=== PATIENT | female | born 1990 | race African-American/Black ===

== ENCOUNTER 2018-01-28 03:48 | Emergency (ER) | payer SELFPAY ==
--- NOTE | 2018-01-28 04:04 | ER ---
Nurse's Notes [facility] Name: Colette Ball Age: 27 yrs Sex: Female : 1990 Arrival Date: 01/28/2018 Time: 03:53 Bed 14 Private MD: Diagnosis: Gingivitis and periodontal diseases Presentation: 01/28 04:02 Presenting complaint: Patient states: she has swollen gum since yesterday feels a lot bb of pressure, has appt with dentist next week. Transition of care: patient was not received from another setting of care. Onset of symptoms was January 27, 2018. Risk Assessment: Do you want to hurt yourself or someone else? Patient reports no desire to harm self or others. Initial Sepsis Screen: Does the patient meet any 2 criteria? No. Patient's initial sepsis screen is negative. Does the patient have a suspected source of infection? No. Patient's initial sepsis screen is negative. Care prior to arrival: None. 04:02 Method Of Arrival: Ambulatory bb 04:02 Acuity: MARANDA 5 bb Triage Assessment: 04:04 General: Appears in no apparent distress. uncomfortable, Behavior is calm, cooperative. bb Pain: Complains of pain in left lower jaw. EENT: Reports pain in left jaw. Neuro: Level of Consciousness is awake, alert, obeys commands, Oriented to person, place, time, situation. Cardiovascular: No deficits noted. Respiratory: Respiratory effort is even, unlabored. GI: No signs and/or symptoms were reported involving the gastrointestinal system. Derm: Skin is pink, warm \T\ dry. Musculoskeletal: Circulation, motion, and sensation intact. 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 - Social history:: Smoking status: Patient/guardian denies using tobacco, Patient/guardian denies using alcohol, street drugs. - Ebola Screening: : No symptoms or risks identified at this time. Screenin:06 Abuse screen: Denies threats or abuse. Nutritional screening: No deficits noted. bb Tuberculosis screening: No symptoms or risk factors identified. Fall Risk None identified. Assessment: 04:06 Reassessment: No changes from previously documented assessment. see triage assessment. bb Vital Signs: 04:04 BP 111 / 87; Pulse 87; Resp 18 S; Temp 99.2(O); Pulse Ox 99% on R/A; Weight 53.52 kg bb (R); Height 5 ft. 2 in. (157.48 cm) (R); Pain 8/10; 04:04 Body Mass Index 21.58 (53.52 kg, 157.48 cm) bb ED Course: 03:53 Patient arrived in ED. es 03:58 Luis aMrr MD is Attending Physician. tw4 04:03 Triage completed. bb 04:04 Arm band placed on Patient placed in an exam room, on a stretcher, on pulse oximetry. bb Family accompanied patient. 04:06 Patient has correct armband on for positive identification. Call light in reach. Side bb rails up X 1. Adult w/ patient. 04:06 No provider procedures requiring assistance completed. Patient did not have IV access bb during this emergency room visit. 04:15 Gordo Beckford, RN is Primary Nurse. ao Administered Medications: 04:16 Drug: Tylenol #3 (300 mg-30 mg) 1 tablet Route: PO; ao 04:16 Follow up: Response: No adverse reaction ao 04:16 Follow up: Response: Medication administered at discharge. ao 04:16 Drug: Cleocin 300 mg Route: PO; ao 04:16 Follow up: Response: Medication administered at discharge. ao Outcome: 04:03 Discharge ordered by . tw4 04:17 Discharged to home ambulatory. ao 04:17 Condition: stable 04:17 Discharge instructions given to patient, Instructed on discharge instructions, follow up and referral plans. Demonstrated understanding of instructions, follow-up care, medications, Prescriptions given X 3. 04:17 Patient left the ED. ao Signatures: Diane García Brenda, RN RN bb Gordo Beckford, Luis Mcadams RN, MD MD tw4 Corrections: (The following items were deleted from the chart) 04:08 04:06 Reassessment: No changes from previously documented assessment. see triage bb assessment. Pt verbalized understanding of and agrees to plan of care discharge instructions given pt ambulated with steady gait to exit bb
[2018-01-28] MEDS ORDERED: CLINDAMYCIN HCL 150 MG CAP ONE (04:08)
[2018-01-28] MEDS ORDERED: CODEINE 30MG/APAP 300MG TAB ONE (04:11)
--- NOTE | 2018-01-28 04:18 | EDPHYS ---
Physician Documentation [facility] Name: Colette Ball Age: 27 yrs Sex: Female : 1990 Arrival Date: 01/28/2018 Time: 03:53 Bed 14 Private MD: ED Physician Luis Marr HPI: 01/28 04:05 This 27 yrs old Black Female presents to ER via Ambulatory with complaints of Toothache.tw4 04:05 The patient presents with pain, redness, swelling. The problem is located in the lower tw4 left third molar. Onset: The symptoms/episode began/occurred yesterday. Duration: The symptoms are continuous. Modifying factors: The symptoms are alleviated by nothing, the symptoms are aggravated by nothing. Associated signs and symptoms: The patient has no apparent associated signs or symptoms. Severity of symptoms: At their worst the symptoms were moderate, in the emergency department the symptoms are unchanged. The patient has not experienced similar symptoms in the past. 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 - Social history:: Smoking status: Patient/guardian denies using tobacco, Patient/guardian denies using alcohol, street drugs. - Ebola Screening: : No symptoms or risks identified at this time. ROS: 04:05 Constitutional: Negative for fever, chills, and weight loss. tw4 04:05 Cardiovascular: Negative for chest pain, palpitations, and edema, Respiratory: Negative for shortness of breath, cough, wheezing, and pleuritic chest pain, Abdomen/GI: Negative for abdominal pain, nausea, vomiting, diarrhea, and constipation, Back: Negative for injury and pain. 04:05 ENT: Positive for Gum pain Negative for ear pain, foreign body sensation, hearing loss, pulling at ears, Teeth pain tinnitus, nasal discharge, rhinorrhea, sinus congestion. Exam: 04:05 Constitutional: This is a well developed, well nourished patient who is awake, alert, tw4 and in no acute distress. Chest/axilla: Normal chest wall appearance and motion. Nontender with no deformity. No lesions are appreciated. Cardiovascular: Regular rate and rhythm with a normal S1 and S2. No gallops, murmurs, or rubs. Normal PMI, no JVD. No pulse deficits. Respiratory: Lungs have equal breath sounds bilaterally, clear to auscultation and percussion. No rales, rhonchi or wheezes noted. No increased work of breathing, no retractions or nasal flaring. Abdomen/GI: Soft, non-tender, with normal bowel sounds. No distension or tympany. No guarding or rebound. No evidence of tenderness throughout. 04:05 ENT: Mouth: Gums: reddened, swollen, on the lower left third molar. Vital Signs: 04:04 BP 111 / 87; Pulse 87; Resp 18 S; Temp 99.2(O); Pulse Ox 99% on R/A; Weight 53.52 kg bb (R); Height 5 ft. 2 in. (157.48 cm) (R); Pain 8/10; 04:04 Body Mass Index 21.58 (53.52 kg, 157.48 cm) bb MDM: 03:58 Patient medically screened. tw4 04:05 Differential diagnosis: gingivitis, dental abscess, pericoronitis. Data reviewed: vital tw4 signs, nurses notes. Counseling: I had a detailed discussion with the patient and/or guardian regarding: the historical points, exam findings, and any diagnostic results supporting the discharge/admit diagnosis. Special discussion: I discussed with the patient/guardian in detail that at this point there is no indication for admission to the hospital. It is understood, however, that if the symptoms persist or worsen the patient needs to return immediately for re-evaluation. Administered Medications: 04:16 Drug: Tylenol #3 (300 mg-30 mg) 1 tablet Route: PO; ao 04:16 Follow up: Response: No adverse reaction ao 04:16 Follow up: Response: Medication administered at discharge. ao 04:16 Drug: Cleocin 300 mg Route: PO; ao 04:16 Follow up: Response: Medication administered at discharge. ao Disposition: 01/28/18 04:03 Discharged to Home. Impression: Gingivitis and periodontal diseases. - Condition is Stable. - Discharge Instructions: Gingivitis, Ljst-di-Wtmd. - Prescriptions for Peridex 0.12 % Mucous Membrane mouthwash - place 15 milliliter by MUCOUS MEMBRANE route 2 times per day after brushing teeth, swish in mouth for 30 seconds then spit out; 100 milliliter. Cleocin 300 mg Oral Capsule - take 1 capsule by ORAL route every 6 hours for 10 days; 40 capsule. Ibuprofen 800 mg Oral Tablet - take 1 tablet by ORAL route every 8 hours As needed take with food; 30 tablet. Tylenol- Codeine #3 300-30 mg Oral Tablet - take 2 tablets by ORAL route every 6 hours As needed; 15 tablet. - Medication Reconciliation Form, Thank You Letter, Antibiotic Education, Prescription Opioid Use form. - Follow up: Private Physician; When: As needed; Reason: Recheck today's complaints, Re-evaluation by your physician. - Problem is new. - Symptoms have improved. Signatures: Shawanda Goodman RN RN Gordo Scott RN RN Luis Oleary MD MD tw4 Corrections: (The following items were deleted from the chart) 04:17 04:03 01/28/2018 04:03 Discharged to Home. Impression: Gingivitis and periodontal ao diseases. Condition is Stable. Forms are Medication Reconciliation Form, Thank You Letter, Antibiotic Education, Prescription Opioid Use. Follow up: Private Physician; When: As needed; Reason: Recheck today's complaints, Re-evaluation by your physician. Problem is new. Symptoms have improved. tw4
== END 2018-01-28 04:17 | disposition home or self-care (01) ==
LOC: ER 03:48
DX: K05.10 Chronic gingivitis, plaque induced (principal); K05.6 Periodontal disease, unspecified
CPT/HCPCS: 99283

== ENCOUNTER 2018-09-29 20:49 | Emergency (ER) | payer SELFPAY ==
--- OUTSIDE RECORDS SUMMARY | 2018-09-29 20:51 | XMS REPORT ---
:1990 [facility] Address [address] [place] [address] [address] [place] [address] Care Team Providers Name Role Phone Unavailable Unavailable Unavailable Problems This patient has no known problems. Allergies, Adverse Reactions, Alerts This patient has no known allergies or adverse reactions. Medications This patient has no known medications.
--- NOTE | 2018-09-29 22:18 | EDPHYS ---
Physician Documentation [facility] Name: Colette aBll Age: 28 yrs Sex: Female : 1990 Arrival Date: 09/29/2018 Time: 20:52 Bed 18 Private MD: ED Physician Andrew Marin HPI: 09/29 22:05 This 28 yrs old Black Female presents to ER via Ambulatory with complaints of cp Congestion, Shortness Of Breath. 22:05 The patient or guardian reports cough, that is intermittent. cp 22:05 Onset: The symptoms/episode began/occurred 4 day(s) ago. Associated signs and symptoms: cp Pertinent positives: sinus congestion, Pertinent negatives: diarrhea, ear ache, fever, sore throat, vomiting. The patient has been recently seen by a physician: in [facility] clinic, with similar presenting complaints, but the patient's symptoms have persisted. 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 - Social history:: Smoking status: Patient/guardian denies using tobacco. - Ebola Screening: : No symptoms or risks identified at this time. ROS: 22:10 Constitutional: Negative for body aches, chills, fever, poor PO intake. cp 22:10 Eyes: Negative for injury, pain, redness, and discharge. cp 22:10 ENT: Positive for sinus congestion, Negative for drainage from ear(s), ear pain, sore throat, difficulty swallowing, difficulty handling secretions. 22:10 Neck: Negative for pain with movement, pain at rest, stiffness. 22:10 Respiratory: Positive for cough, shortness of breath, on exertion. Negative for wheezing. 22:10 Abdomen/GI: Negative for abdominal pain, nausea, vomiting, and diarrhea. 22:10 Skin: Negative for cellulitis, rash. 22:10 Neuro: Negative for altered mental status, headache, weakness. 22:10 All other systems are negative. Exam: 22:12 Constitutional: The patient appears in no acute distress, alert, awake, non-toxic, well cp developed, well nourished. 22:12 Head/Face: Normocephalic, atraumatic. cp 22:12 Eyes: Periorbital structures: appear normal, Conjunctiva: normal, no exudate, no injection, Lids and lashes: appear normal, bilaterally. 22:12 ENT: External ear(s): are unremarkable, Ear canal(s): are normal, clear, TM's: bulging, is not appreciated, bilaterally, dullness, bilaterally, erythema, is not appreciated, bilaterally, Nose: is normal, Mouth: Lips: moist, Oral mucosa: pink and intact, moist, Posterior pharynx: Airway: no evidence of obstruction, patent, Tonsils: are normal in appearance, Uvula: midline, swelling, is not appreciated, erythema, is not appreciated, exudate, is not appreciated. 22:12 Neck: ROM/movement: is normal, is supple, without pain, no range of motions limitations, no meningismus, no nuchal rigidity, Lymph nodes: no appreciated lymphadenopathy. 22:12 Chest/axilla: Inspection: normal. 22:12 Cardiovascular: Rate: normal, Rhythm: regular. 22:12 Respiratory: the patient does not display signs of respiratory distress, Respirations: normal, no use of accessory muscles, no retractions, no splinting, no tachypnea, labored breathing, is not present, Breath sounds: are clear throughout, no decreased breath sounds, no stridor, no wheezing. 22:12 Abdomen/GI: Exam negative for discomfort, distension, guarding. 22:12 Skin: cellulitis, is not appreciated, no rash present. Vital Signs: 21:06 BP 119 / 82; Pulse 99; Resp 16; Temp 98.9(O); Pulse Ox 100% on R/A; Weight 53.52 kg; lp1 Height 5 ft. 2 in. (157.48 cm); Pain 0/10; 22:26 BP 113 / 76; Pulse 73; Resp 17; Pulse Ox 100% on R/A; Pain 0/10; ed1 21:06 Body Mass Index 21.58 (53.52 kg, 157.48 cm) lp1 MDM: 21:56 Patient medically screened. cp 22:10 Differential Diagnosis: Bronchitis Influenza Sinusitis Pharyngitis Otitis Media. cp 22:16 Data reviewed: vital signs, nurses notes, and as a result, I will discharge patient. cp 22:16 Counseling: I had a detailed discussion with the patient and/or guardian regarding: the cp historical points, exam findings, and any diagnostic results supporting the discharge/admit diagnosis, to return to the emergency department if symptoms worsen or persist or if there are any questions or concerns that arise at home. Administered Medications: No medications were administered Disposition: 09/29/18 22:17 Discharged to Home. Impression: Acute upper respiratory infection, unspecified. - Condition is Stable. - Discharge Instructions: Upper Respiratory Infection, Adult. - Prescriptions for Tessalon Perles 100 mg Oral Capsule - take 1 capsule by ORAL route every 8 hours As needed; 15 capsule. Albuterol Sulfate 90 mcg/actuation - inhale 1-2 puff by INHALATION route every 4-6 hours; 1 Inhaler. - Medication Reconciliation Form, Thank You Letter, Antibiotic Education, Prescription Opioid Use form. - Follow up: Private Physician; When: 2 - 3 days; Reason: Worsening of condition. - Problem is new. - Symptoms are unchanged. Addendum: 10/02/2018 07:20 Co-signature as Attending Physician, Andrew Marin MD I agree with the assessment and c phillips plan of care. Signatures: Andrew Marin MD MD cha Riggs, Erika, RN RN ed1 Aviva Braden, RN RN lp1 Andrew Madsen PA PA cp Corrections: (The following items were deleted from the chart) 09/29 22:27 22:17 09/29/2018 22:17 Discharged to Home. Impression: Acute upper respiratory ed1 infection, unspecified. Condition is Stable. Forms are Medication Reconciliation Form, Thank You Letter, Antibiotic Education, Prescription Opioid Use. Follow up: Private Physician; When: 2 - 3 days; Reason: Worsening of condition. Problem is new. Symptoms are unchanged. cp
--- NOTE | 2018-09-29 22:18 | ER ---
Nurse's Notes [facility] Name: Colette Ball Age: 28 yrs Sex: Female : 1990 Arrival Date: 09/29/2018 Time: 20:52 Bed 18 Private MD: Diagnosis: Acute upper respiratory infection, unspecified Presentation: 09/29 21:04 Presenting complaint: Patient states: "I've been sick since Friday night, I went to the [facility] clinic but I'm not feeling any better"; States continued congestion, fatigue, shortness of breath; Denies any fever. Transition of care: patient was not received from another setting of care. Onset of symptoms was September 29, 2018. Risk Assessment: Do you want to hurt yourself or someone else? Patient reports no desire to harm self or others. Initial Sepsis Screen: Does the patient meet any 2 criteria? No. Patient's initial sepsis screen is negative. Does the patient have a suspected source of infection? No. Patient's initial sepsis screen is negative. Care prior to arrival: None. 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 - Social history:: Smoking status: Patient/guardian denies using tobacco. - Ebola Screening: : No symptoms or risks identified at this time. Screenin:07 Abuse screen: Denies threats or abuse. Denies injuries from another. Nutritional lp1 screening: No deficits noted. Tuberculosis screening: No symptoms or risk factors identified. Fall Risk None identified. Assessment: 21:18 General: Appears in no apparent distress. Behavior is calm, cooperative. Pain: Denies ed1 pain. Neuro: Level of Consciousness is awake, alert, obeys commands, Oriented to person, place, time, situation, Reports weakness Denies blurred vision dizziness. Cardiovascular: Denies chest pain, Heart tones S1 S2 present Capillary refill < 3 seconds in bilateral fingers Patient's skin is warm and dry. Respiratory: Reports shortness of breath cough that is Airway is patent Respiratory effort is even, unlabored, Respiratory pattern is regular, symmetrical, Breath sounds are clear bilaterally. GI: Reports decreased appetite Patient currently denies diarrhea, nausea, vomiting. : No signs and/or symptoms were reported regarding the genitourinary system. EENT: Reports nasal congestion "sinus pressure". Derm: Skin is intact, is healthy with good turgor, Skin is dry, Skin is normal, Skin temperature is warm. Musculoskeletal: Circulation, motion, and sensation intact. Capillary refill < 3 seconds, in bilateral fingers. 22:26 Reassessment: Patient appears in no apparent distress at this time. No changes from ed1 previously documented assessment. Patient and/or family updated on plan of care and expected duration. Pain level reassessed. Patient is alert, oriented x 3, equal unlabored respirations, skin warm/dry/pink. Patient states symptoms have not improved. Vital Signs: 21:06 BP 119 / 82; Pulse 99; Resp 16; Temp 98.9(O); Pulse Ox 100% on R/A; Weight 53.52 kg; lp1 Height 5 ft. 2 in. (157.48 cm); Pain 0/10; 22:26 BP 113 / 76; Pulse 73; Resp 17; Pulse Ox 100% on R/A; Pain 0/10; ed1 21:06 Body Mass Index 21.58 (53.52 kg, 157.48 cm) lp1 ED Course: 20:52 Patient arrived in ED. es 21:05 Triage completed. lp1 21:05 Arm band placed on left wrist. lp1 21:16 Shweta Galvez, RN is Primary Nurse. ed1 21:18 Patient has correct armband on for positive identification. Bed in low position. Call ed1 light in reach. 21:56 Andrew Madsen PA is PHCP. cp 21:56 Andrew Marin MD is Attending Physician. cp 22:26 No provider procedures requiring assistance completed. Patient did not have IV access ed1 during this emergency room visit. Administered Medications: No medications were administered Outcome: 22:17 Discharge ordered by MD. cp 22:26 Discharged to home ambulatory. ed1 22:26 Condition: good 22:26 Discharge instructions given to patient, Instructed on discharge instructions, follow up and referral plans. medication usage, Demonstrated understanding of instructions, follow-up care, medications, Prescriptions given X 2. 22:27 Patient left the ED. ed1 Signatures: Diane García Erika RN RN ed1 Aviva Braden RN RN lp1 Andrew Madsen PA PA cp Corrections: (The following items were deleted from the chart) 21:10 21:04 Acuity: MARANDA 4 lp1 lp1
== END 2018-09-29 22:27 | disposition home or self-care (01) ==
LOC: ER 20:49
DX: J06.9 Acute upper respiratory infection, unspecified (principal)
CPT/HCPCS: 99282

== ENCOUNTER 2019-02-09 21:39 | Emergency (ER) | payer OTHER ==
--- OUTSIDE RECORDS SUMMARY | 2019-02-09 21:41 | XMS REPORT ---
:1990 Author Organization [employer] Care Team Providers Name Role Phone Adam Noguera Provider Role Unavailable Allergies, Adverse Reactions, Alerts Substance Reaction Event Type N.K.D.A. Info Not Available Non Drug Allergy Problems Problem Type Condition Code Onset Dates Condition Status Assessment Well adult on routine health check Z00.00 Active Assessment Need for influenza vaccination Z23 Active Medications Medication Code System Code Instructions Start End Date Status Dosage Date Multivitamin [facility] [id number] - Orally Active as directed Results No Known Results Summary Purpose [employer] Submission
--- OUTSIDE RECORDS SUMMARY | 2019-02-09 21:41 | XMS REPORT ---
:1990 [facility] Address [address] [place] [address] [address]. [address] [place] [id number] Care Team Providers Name Role Phone Unavailable Unavailable Unavailable Problems This patient has no known problems. Allergies, Adverse Reactions, Alerts This patient has no known allergies or adverse reactions. Medications This patient has no known medications.
--- OUTSIDE RECORDS SUMMARY | 2019-02-09 21:41 | XMS REPORT ---
:1990 Author Organization [employer] Care Team Providers Name Role Phone Adam Noguera Provider Role Unavailable Allergies, Adverse Reactions, Alerts Substance Reaction Event Type N.K.D.A. Info Not Available Non Drug Allergy Problems Problem Type Condition Code Onset Dates Condition Status Assessment Prediabetes R73.03 Active Assessment Elevated serum protein level R77.9 Active Assessment Dehydration E86.0 Active Assessment Fatigue, unspecified type R53.83 Active Medications Medication Code System Code Instructions Start End Date Status Dosage Date Multivitamin NDC [id number] - Orally Active as directed Results No Known Results Summary Purpose [employer] Submission
[2019-02-09 23:11] LABS: Absolute Lymphocytes (CBC) 1.5 K/uL (0.7-4.9); Basophils % 0.5 % (0-1.3); Eosinophils % 2.8 % (0-4.4); Hematocrit 40.7 % (36.0-45.0); Lymphocytes % 26.3 % (15.3-44.8); MPV 8.4 fL (7.6-11.3); RBC Red Blood Cell Count 4.61 M/uL (3.86-4.86)
[2019-02-09] MEDS ORDERED: NA CHLORIDE 0.9% 1,000 ML ONE (23:16)
[2019-02-09 23:25] LABS: ALT/SGPT 31 U/L (12-78); AST/SGOT 18 U/L (15-37); Albumin 4.5 g/dL (3.4-5.0); Alkaline Phosphatase 60 U/L (45-117); BUN Blood Urea Nitrogen 10 mg/dL (7-18); Bicarbonate 24 mmol/L (21-32); Bilirubin Direct < 0.1 mg/dL (0-0.2); Bilirubin Total 0.4 mg/dL (0.2-1.0); Glucose Level 124 mg/dL (74-106); Magnesium 2.2 mg/dL (1.8-2.4); NT PRO-BNP 10 pg/mL (<125); Protein, Total 8.6 g/dL (6.4-8.2); Sodium Level 141 mmol/L (136-145); Troponin (Emerg Dept Use Only) < 0.02 ng/mL (0.0-0.045)
[2019-02-10 00:44] LABS: Barbiturates NEGATIVE (NEGATIVE); Benzodiazepines NEGATIVE (NEGATIVE); Cocaine NEGATIVE (NEGATIVE); METHAMPHETAM NEGATIVE (NEGATIVE); Methadone NEGATIVE (NEGATIVE); Opiates NEGATIVE (NEGATIVE); Phencyclidine NEGATIVE (NEGATIVE); THC Cannibis NEGATIVE (NEGATIVE)
[2019-02-10] MEDS ORDERED: POTASSIUM 25 MEQ EFFERV TAB ONE (00:47)
[2019-02-10 02:41] LABS: Protime INR 1.14
[2019-02-10 02:54] LABS: CKMB Creatine Kinase MB < 1.0 ng/mL (0.3-3.6); Creatine Phosphokinase 70 U/L (26-192); Troponin (Emerg Dept Use Only) < 0.02 ng/mL (0.0-0.045)
[2019-02-10] MEDS ORDERED: NA CHLORIDE 0.9% 1,000 ML ONE (03:24)
--- NOTE | 2019-02-10 03:57 | ER ---
Nurse's Notes [facility] Name: Colette Ball Age: 28 yrs Sex: Female : 1990 Arrival Date: 02/09/2019 Time: 21:51 Bed 15 Private MD: Diagnosis: Dehydration;Shortness of breath Presentation: 02/09 21:56 Presenting complaint: Patient states: Shakiness, dizzy, lightheaded and nausea for the tl2 past few months, has seen Dr. Noguera is receiving tests for diabetes and anemia, no treatment at this time. Transition of care: patient was not received from another setting of care. Onset of symptoms was November 2018. Risk Assessment: Do you want to hurt yourself or someone else? Patient reports no desire to harm self or others. Initial Sepsis Screen: Does the patient meet any 2 criteria? HR > 90 bpm. Does the patient have a suspected source of infection? No. Patient's initial sepsis screen is negative. Care prior to arrival: None. 21:56 Method Of Arrival: Ambulatory tl2 21:56 Acuity: MARANDA 3 tl2 Triage Assessment: 21:57 General: Reports feeling ill for fatigue for. 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 - Social history:: Smoking status: Patient/guardian denies using tobacco. - Ebola Screening: : No symptoms or risks identified at this time. Screenin:58 Abuse screen: Denies threats or abuse. Nutritional screening: No deficits noted. tl2 Tuberculosis screening: No symptoms or risk factors identified. Fall Risk None identified. Assessment: 22:00 General: Appears in no apparent distress. uncomfortable, Behavior is calm, cooperative, jb4 appropriate for age. Pain: Denies pain. Neuro: Level of Consciousness is awake, alert, obeys commands, Oriented to person, place, time, situation. Cardiovascular: Patient's skin is warm and dry. Rhythm is sinus tachycardia. Respiratory: Airway is patent Respiratory effort is even, Breath sounds are clear bilaterally. GI: No signs and/or symptoms were reported involving the gastrointestinal system. : No signs and/or symptoms were reported regarding the genitourinary system. EENT: No signs and/or symptoms were reported regarding the EENT system. Derm: Skin is intact, Skin is pink, warm \T\ dry. Musculoskeletal: Circulation, motion, and sensation intact. 23:00 Reassessment: Patient appears in no apparent distress at this time. Patient and/or jb4 family updated on plan of care and expected duration. Pain level reassessed. Patient is alert, oriented x 3, equal unlabored respirations, skin warm/dry/pink. 02/10 00:00 Reassessment: Patient appears in no apparent distress at this time. Patient and/or jb4 family updated on plan of care and expected duration. Pain level reassessed. Patient is alert, oriented x 3, equal unlabored respirations, skin warm/dry/pink. 00:57 Reassessment: Patient appears in no apparent distress at this time. Patient and/or jb4 family updated on plan of care and expected duration. Pain level reassessed. Patient is alert, oriented x 3, equal unlabored respirations, skin warm/dry/pink. 02:00 Reassessment: Patient appears in no apparent distress at this time. Patient and/or jb4 family updated on plan of care and expected duration. Pain level reassessed. Patient is alert, oriented x 3, equal unlabored respirations, skin warm/dry/pink. 03:00 Reassessment: Patient appears in no apparent distress at this time. Patient and/or jb4 family updated on plan of care and expected duration. Pain level reassessed. Patient is alert, oriented x 3, equal unlabored respirations, skin warm/dry/pink. 04:00 Reassessment: Patient appears in no apparent distress at this time. Patient and/or jb4 family updated on plan of care and expected duration. Pain level reassessed. Patient is alert, oriented x 3, equal unlabored respirations, skin warm/dry/pink. Patient denies pain at this time. Patient states feeling better. 04:38 Reassessment: Patient appears in no apparent distress at this time. Patient is alert, jb4 oriented x 3, equal unlabored respirations, skin warm/dry/pink. Pt ambulated out of ED with family, steady gait noted, verbalized understanding of d/c and follow up instructions. denies questions or concerns. Vital Signs: 02/09 21:57 BP 120 / 103; Pulse 106; Resp 20; Temp 99(O); Pulse Ox 100% on R/A; Weight 56.7 kg; tl2 Height 5 ft. 2 in. (157.48 cm); Pain 0/10; 23:10 BP 112 / 70 Supine; Pulse 109 LA; ag4 23:10 BP 120 / 81 Sitting; Pulse 104 LA; ag4 23:10 BP 110 / 92 Standing; Pulse 128 LA; ag4 02/10 00:52 BP 128 / 86; Pulse 112; Resp 16; Pulse Ox 100% on 2 lpm NC; jb4 02:00 BP 138 / 83; Pulse 108; Resp 16; Pulse Ox 100% on R/A; jb4 03:00 BP 113 / 75; Pulse 97; Resp 17; Pulse Ox 100% on R/A; jb4 04:15 BP 110 / 78; Pulse 85; Resp 16; Pulse Ox 99% on R/A; jb4 02/09 21:57 Body Mass Index 22.86 (56.70 kg, 157.48 cm) tl2 ED Course: 02/09 21:51 Patient arrived in ED. am2 21:57 Triage completed. tl2 21:57 Arm band placed on right wrist. tl2 21:58 Patient has correct armband on for positive identification. Bed in low position. Call tl2 light in reach. Side rails up X 1. 22:00 Sen Hanson NP is PHCP. pm1 22:00 Claudy Garcia MD is Attending Physician. pm1 22:25 Kunal Mora, GLADYS is Primary Nurse. jb4 22:47 XRAY Chest (1 view) In Process Unspecified. EDMS 22:58 Inserted saline lock: 22 gauge in right antecubital area, using aseptic technique. ag4 Blood collected. 22:58 EKG done, by ED staff, reviewed by Sen Hanson NP. ag4 23:45 Radiology exam delayed due to test not completed at this time. 02/10 00:42 CT completed. Patient tolerated procedure well. Patient moved to CT via wheelchair. Patient moved back from CT. 00:49 CT Chest For PE Angio In Process Unspecified. EDMS 04:38 No provider procedures requiring assistance completed. IV discontinued, intact, jb4 bleeding controlled, No redness/swelling at site. Pressure dressing applied. Administered Medications: 02/09 23:20 Drug: NS 0.9% 1000 ml Route: IV; Rate: 1000 ml; Site: right wrist; jb4 02/10 00:42 Drug: Potassium Effervescent Tablet 50 mEq Route: PO; cc3 04:14 Follow up: Response: No adverse reaction jb4 02:15 Drug: NS 0.9% 1000 ml Route: IV; Rate: 1000 ml; Site: right wrist; jb4 03:30 Follow up: Response: No adverse reaction; IV Status: Completed infusion; IV Intake: jb4 1000ml Intake: 03:30 IV: 1000ml; Total: 1000ml. jb4 Outcome: 03:56 Discharge ordered by MD. pm1 04:38 Discharged to home ambulatory, with family. jb4 04:38 Condition: stable 04:38 Discharge instructions given to patient, Instructed on discharge instructions, follow up and referral plans. Demonstrated understanding of instructions, follow-up care. 04:44 Patient left the ED. jb4 Signatures: Dispatcher [employer] EDMS Sai Patel Patrick, NP DOMESTIC CLEANER pm1 Kaci Dennis RN RN tl2 Kunal Mora RN RN jb4 Vy Boudreaux Charlene cc3 Silverio Paul ag4 Corrections: (The following items were deleted from the chart) 03:07 00:52 BP 128 / 86; Pulse 112bpm; Resp 16bpm; Pulse Ox 100% RA; jb4 jb4
--- NOTE | 2019-02-10 03:57 | EDPHYS ---
Physician Documentation [facility] Name: Colette Ball Age: 28 yrs Sex: Female : 1990 Arrival Date: 02/09/2019 Time: 21:51 Bed 15 Private MD: ED Physician Claudy Garcia HPI: 02/09 22:50 This 28 yrs old Black Female presents to ER via Ambulatory with complaints of Shortness pm1 Of Breath, Dizziness. 22:50 The patient has shortness of breath at rest. Onset: The symptoms/episode began/occurred pm1 3 month(s) ago. Duration: The symptoms are intermittent. The patient's shortness of breath is aggravated by nothing, is alleviated by nothing. Associated signs and symptoms: Pertinent positives: dizziness, Pertinent negatives: chest pain, fever. Severity of symptoms: in the emergency department the symptoms are worse past 1 week. The patient has been recently seen by a physician: the patient's primary care provider, with similar presenting complaints, lab tests were done. 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 - Social history:: Smoking status: Patient/guardian denies using tobacco. - Ebola Screening: : No symptoms or risks identified at this time. ROS: 22:50 Constitutional: Negative for fever, chills, and weight loss, Eyes: Negative for injury, pm1 pain, redness, and discharge, ENT: Negative for injury, pain, and discharge, Neck: Negative for injury, pain, and swelling, Cardiovascular: Negative for chest pain, palpitations, and edema. 22:50 Abdomen/GI: Negative for abdominal pain, nausea, vomiting, diarrhea, and constipation, Back: Negative for injury and pain, : Negative for injury, bleeding, discharge, and swelling, MS/Extremity: Negative for injury and deformity, Skin: Negative for injury, rash, and discoloration. 22:50 Respiratory: Positive for shortness of breath, Negative for cough, wheezing. 22:50 Neuro: Positive for dizziness, Negative for headache. Exam: 22:50 Constitutional: This is a well developed, well nourished patient who is awake, alert, pm1 and in no acute distress. Head/Face: Normocephalic, atraumatic. Eyes: Pupils equal round and reactive to light, extra-ocular motions intact. Lids and lashes normal. Conjunctiva and sclera are non-icteric and not injected. Cornea within normal limits. Periorbital areas with no swelling, redness, or edema. ENT: Nares patent. No nasal discharge, no septal abnormalities noted. Tympanic membranes are normal and external auditory canals are clear. Oropharynx with no redness, swelling, or masses, exudates, or evidence of obstruction, uvula midline. Mucous membranes moist. Neck: Trachea midline, no thyromegaly or masses palpated, and no cervical lymphadenopathy. Supple, full range of motion without nuchal rigidity, or vertebral point tenderness. No Meningismus. Chest/axilla: Normal chest wall appearance and motion. Nontender with no deformity. No lesions are appreciated. 22:50 Respiratory: Lungs have equal breath sounds bilaterally, clear to auscultation and percussion. No rales, rhonchi or wheezes noted. No increased work of breathing, no retractions or nasal flaring. Abdomen/GI: Soft, non-tender, with normal bowel sounds. No distension or tympany. No guarding or rebound. No evidence of tenderness throughout. Back: No spinal tenderness. No costovertebral tenderness. Full range of motion. Skin: Warm, dry with normal turgor. Normal color with no rashes, no lesions, and no evidence of cellulitis. MS/ Extremity: Pulses equal, no cyanosis. Neurovascular intact. Full, normal range of motion. 22:50 Cardiovascular: Rate: tachycardic, Edema: is not appreciated. 22:50 Neuro: Orientation: is normal, Motor: is normal, moves all fours. Vital Signs: 21:57 BP 120 / 103; Pulse 106; Resp 20; Temp 99(O); Pulse Ox 100% on R/A; Weight 56.7 kg; tl2 Height 5 ft. 2 in. (157.48 cm); Pain 0/10; 23:10 BP 112 / 70 Supine; Pulse 109 LA; ag4 23:10 BP 120 / 81 Sitting; Pulse 104 LA; ag4 23:10 BP 110 / 92 Standing; Pulse 128 LA; ag4 02/10 00:52 BP 128 / 86; Pulse 112; Resp 16; Pulse Ox 100% on 2 lpm NC; jb4 02:00 BP 138 / 83; Pulse 108; Resp 16; Pulse Ox 100% on R/A; jb4 03:00 BP 113 / 75; Pulse 97; Resp 17; Pulse Ox 100% on R/A; jb4 04:15 BP 110 / 78; Pulse 85; Resp 16; Pulse Ox 99% on R/A; jb4 02/09 21:57 Body Mass Index 22.86 (56.70 kg, 157.48 cm) tl2 MDM: 02/09 22:00 Patient medically screened. pm1 02/10 01:58 Data reviewed: vital signs. Data interpreted: Pulse oximetry: on room air is 100 %. pm1 Interpretation: normal. 03:55 Counseling: I had a detailed discussion with the patient and/or guardian regarding: the pm1 historical points, exam findings, and any diagnostic results supporting the discharge/admit diagnosis, lab results, radiology results, the need for outpatient follow up, to return to the emergency department if symptoms worsen or persist or if there are any questions or concerns that arise at home. 02/09 22:16 Order name: Basic Metabolic Panel; Complete Time: 23:31 pm02/09 22:16 Order name: CBC with Diff; Complete Time: 23:44 pm02/09 22:16 Order name: LFT's; Complete Time: 23:31 pm02/09 22:16 Order name: Magnesium; Complete Time: 23:31 pm02/09 22:16 Order name: NT PRO-BNP; Complete Time: 23:31 pm02/09 22:16 Order name: PT-INR; Complete Time: 03:55 pm02/09 22:16 Order name: Troponin (emerg Dept Use Only); Complete Time: 23:31 pm02/09 22:16 Order name: XRAY Chest (1 view); Complete Time: 06:38 pm1 02/09 22:16 Order name: UDS; Complete Time: 00:46 pm1 02/10 00:08 Order name: Urine Dipstick--Ancillary (enter results); Complete Time: 06:38 2 02/10 00:08 Order name: Urine --Ancillary (enter results); Complete Time: 06:38 mw2 02/10 01:33 Order name: Troponin (emerg Dept Use Only); Complete Time: 03:55 pm02/10 01:33 Order name: CPK; Complete Time: 03:55 pm02/10 01:33 Order name: Ckmb; Complete Time: 03:55 pm02/09 22:16 Order name: EKG; Complete Time: 22:29 pm02/09 22:16 Order name: Cardiac monitoring; Complete Time: 22:57 pm02/09 22:16 Order name: EKG - Nurse/Tech; Complete Time: 22:57 pm02/09 22:16 Order name: IV Saline Lock; Complete Time: 22:57 pm02/09 22:16 Order name: Labs collected and sent; Complete Time: 22:57 pm02/09 22:16 Order name: O2 Per Protocol; Complete Time: 22:57 pm02/09 22:16 Order name: O2 Sat Monitoring; Complete Time: 22:26 pm02/09 22:16 Order name: Orthostatics; Complete Time: 23:13 pm02/09 22:52 Order name: Urine Dipstick-Ancillary (obtain specimen); Complete Time: 00:04 pm02/09 22:52 Order name: Urine Test (obtain specimen); Complete Time: 00:04 pm02/09 23:32 Order name: CT Chest For PE Angio pm1 02/10 01:59 Order name: EKG; Complete Time: 01:59 pm02/10 01:59 Order name: EKG - Nurse/Tech; Complete Time: 02:23 pm1 Administered Medications: 02/09 23:20 Drug: NS 0.9% 1000 ml Route: IV; Rate: 1000 ml; Site: right wrist; jb4 02/10 00:42 Drug: Potassium Effervescent Tablet 50 mEq Route: PO; cc3 04:14 Follow up: Response: No adverse reaction jb4 02:15 Drug: NS 0.9% 1000 ml Route: IV; Rate: 1000 ml; Site: right wrist; jb4 03:30 Follow up: Response: No adverse reaction; IV Status: Completed infusion; IV Intake: jb4 1000ml Disposition: 04:47 Co-signature as Attending Physician, Claudy Garcia MD. pkl Disposition: 02/10/19 03:56 Discharged to Home. Impression: Dehydration, Shortness of breath. - Condition is Stable. - Discharge Instructions: Dehydration, Adult, Shortness of Breath, Rehydration, Adult. - Medication Reconciliation Form, Thank You Letter, Antibiotic Education, Prescription Opioid Use, School release form form. - Follow up: Emergency Department; When: As needed; Reason: Worsening of condition. Follow up: Private Physician; When: 2 - 3 days; Reason: Recheck today's complaints, Continuance of care, Re-evaluation by your physician. - Problem is new. - Symptoms have improved. Signatures: Dispatcher [employer] EDMS Claudy Garcia MD MD pkl Sen Hanson, BONNIE STEEL DETAILER pm1 Kaci Dennis RN RN tl2 Kunal Mora RN RN jb4 Chloe Casillas cc3 Corrections: (The following items were deleted from the chart) 04:44 03:56 02/10/2019 03:56 Discharged to Home. Impression: Dehydration; Shortness of jb4 breath. Condition is Stable. Forms are Medication Reconciliation Form, Thank You Letter, Antibiotic Education, Prescription Opioid Use. Follow up: Emergency Department; When: As needed; Reason: Worsening of condition. Follow up: Private Physician; When: 2 - 3 days; Reason: Recheck today's complaints, Continuance of care, Re-evaluation by your physician. Problem is new. Symptoms have improved. pm1
[2019-02-10 04:55] LABS: Urine Blood TRACE (NEG); Urine Glucose NEGATIVE (NEG); Urine Protein 1+ (NEG)
--- NOTE | 2019-02-10 08:11 | RAD REPORT ---
EXAM DESCRIPTION: [place] Single View02/09/2019 10:47 pm CLINICAL HISTORY: Shortness of breath COMPARISON: 2017 FINDINGS: The lungs appear clear of acute infiltrate. The heart is normal size IMPRESSION: No acute abnormalities displayed
--- NOTE | 2019-02-10 15:06 | EKG ---
Test Date: 2019-02-10 Test Time: 02:18:17 Cell Maker: AG3 MEASUREMENT RESULTS: Intervals: Rate: 103 WV: 120 QRSD: 70 QT: 338 QTc: 442 [place]: P: 28 WV: 120 QRS: 70 T: 30 INTERPRETIVE STATEMENTS: Sinus tachycardia Otherwise normal ECG Compared to ECG 08/05/2016 01:27:57 Sinus rhythm no longer present Short WV interval no longer present Electronically Signed On 02-10-19 15:05:20 CDT by Rashad Strauss
--- NOTE | 2019-02-10 15:07 | EKG ---
Test Date: 2019-02-09 Test Time: 22:34:34 Coordinator Of Health Services: AG3 MEASUREMENT RESULTS: Intervals: Rate: 103 HI: 184 QRSD: 78 QT: 318 QTc: 416 [place]: P: HI: 184 QRS: 97 T: 217 INTERPRETIVE STATEMENTS: Sinus tachycardia Lateral infarct, age undetermined ST & T wave abnormality, consider inferior ischemia Abnormal ECG Compared to ECG 08/05/2016 01:27:57 Myocardial infarct finding now present ST (T wave) deviation now present Possible ischemia now present Sinus rhythm no longer present Short HI interval no longer present Electronically Signed On 02-10-19 15:06:39 CDT by Rashad Strauss
--- NOTE | 2019-02-11 13:18 | RAD REPORT ---
EXAM DESCRIPTION: CT - Chest For Pe Angio - 02/10/2019 6:00 am CLINICAL HISTORY: 28 years Female SOB COMPARISON: None TECHNIQUE: CT angiogram of the chest was performed. Images were obtained in axial, sagittal, and cor onal planes. Intravenous contrast was administered. This exam was performed according to our departmental dose-optimization program which includes use of Automated Exposure Control, adjustment of the mA and/or kV according to patient size and/or use of i terative reconstruction technique. FINDINGS: No filling defects pulmonary arteries bilaterally. No aortic dissection or dilatation. No pericardial or pleural effusions bilaterally. No adenopathy. No pneumothorax. No lung parenchymal infiltrates or nodules seen. No abnormality upper abdomen. No acute osseous abnormality. IMPRESSION: No evidence for pulmonary embolus. No aortic dissection or dilatation. No infiltrates seen. Electronically signed by: Supriya Carballo MD 02/10/2019 1:02 AM CDT Due to temporary technical issues with the PACS/Fluency reporting system, reports are being signed by the in house radiologist as a courtesy to ensure prompt reporting. The interpreting radiologist is f ully responsible for the content of the report.
== END 2019-02-10 04:44 | disposition home or self-care (01) ==
LOC: ER 21:39
DX: E86.0 Dehydration (principal)
CPT/HCPCS: 36415; 71045; 71275; 80048; 80076; 80307; 81003; 81025; 82550; 82553; 82962; 83735; 83880; 84484; 85025; 85610; 93005; 96360; 99285; J7030; Q9967

== ENCOUNTER 2019-09-15 16:38 | Emergency (ER) | payer OTHER ==
--- OUTSIDE RECORDS SUMMARY | 2019-09-15 16:40 | XMS REPORT | Summary of Care ---
:1990 Author Organization [facility] Address [address] [place] [id number] Care Team Providers Name Role Phone Becky Patterson [facility] Primary Care Provider Reason for Visit Reason Comments DEPO PROVERA Encounter Details Date Type Department Care Team Description 04/16/[address] [facility]- Becky Patterson, [facility] [address] [place] [address] Screen for STD [place] Visit, [facility] Nurse (sexually transmitted [address] [facility] disease) (Primary Dx) [place] [address] Allergies No Known Allergiesdocumented as of this encounter (statuses as of 04/16/2019) Medications Hospital, Clinic, or Other Ordered Dose Route Frequency Start Date End Date Status Facility Administered Medication medroxyPROGESTERone 150 mg IM [id number] 01/22/2019 12/24/2019 Active (DEPO-PROVERA) injection 150 mgIndications: Depo-Provera contraceptive status documented as of this encounter (statuses as of 04/16/2019) Active Problems Problem Noted Date Leukorrhea, not specified as infective 01/03/2017 Papanicolaou smear of cervix with low grade squamous intraepithelial 2016 lesion (LGSIL) Well woman exam 12/16/2016 Encounter for other contraceptive management 12/16/2016 Depo-Provera contraceptive status 12/16/2016 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 12/16/2016 Need for HPV vaccination 12/16/2016 Vaginitis and vulvovaginitis, unspecified 12/16/2016 documented as of this encounter (statuses as of 04/16/2019) Resolved Problems Problem Noted Date Resolved Date Screening for STD (sexually transmitted disease) 12/16/2016 01/23/2018 Pap smear for cervical cancer screening 04/11/2016 12/16/2016 Overview: Negative- 2014 see scanned records ASCUS with positive high risk HPV 04/11/2016 12/16/2016 Overview: 6-1-16- see scanned records Contraceptive management 03/26/2016 12/16/2016 Depo contraception 03/26/2016 12/16/2016 documented as of this encounter (statuses as of 04/16/2019) Immunizations Name Administration Dates Next Due HPV9 06/23/2017, 02/17/2017, 12/16/2016 documented as of this encounter Social History Tobacco Use Types Packs/Day Years Used Date Never Smoker Smokeless Tobacco: Never Used Alcohol Use Drinks/Week oz/Week Comments Yes 0 Standard drinks or equivalent 0.0 social Sex Assigned at Date Recorded Not on file Job Start Date Occupation Industry Not on file Not on file Not on file Travel History Travel Start Travel End No recent travel history available. documented as of this encounter Last Filed Vital Signs Vital Sign Reading Time Taken Comments Blood Pressure 108/68 04/16/2019 10:58 AM CDT Pulse 84 04/16/2019 10:58 AM CDT Temperature 36.8 C (98.2 F) 04/16/2019 10:58 AM CDT Respiratory Rate 16 04/16/2019 10:58 AM CDT Oxygen Saturation - - Inhaled Oxygen Concentration - - Weight 57.3 kg (126 lb 6 oz) 04/16/2019 10:58 AM CDT Height 157.5 cm (5' 2") 04/16/2019 10:58 AM CDT Body Mass Index 23.11 04/16/2019 10:58 AM CDT documented in this encounter Patient Instructions Patient InstructionsBecky Brown LVN - 04/16/2019 10:30 AM CDT Medroxyprogesterone injection [Contraceptive] Brand Names: Depo-Provera, Depo-subQ Provera 104 What is this medicine? MEDROXYPROGESTERONE (me DROX ee proe BUZZ te sanaz) contraceptive injections prevent . They provide effective control for 3 months. Depo-subQ Provera 104 is also used for treating pain related to endometriosis. How should I use this medicine? Depo-Provera Contraceptive injection is given into a muscle. Depo-subQ Provera 104 injection is given under the skin. These injections are given by a health child care lead teacher. You must not be before getting an injection. The injection is usually given during the first 5 days after the start of a menstrual period or 6 weeks after delivery of a baby. Talk to your car unloader regarding the use of this medicine in children. Special care may be needed. These injections have been used in female children who have started having menstrual periods. What side effects may I notice from receiving this medicine? Side effects that you should report to your doctor or health child care lead teacher as soon as possible: allergic reactions like skin rash, itching or hives, swelling of the face, lips, or tongue breast tenderness or discharge breathing problems changes in vision depression feeling faint or lightheaded, falls fever pain in the abdomen, chest, groin, or leg problems with balance, talking, walking unusually weak or tired yellowing of the eyes or skin Side effects that usually do not require medical attention (report to your doctor or health child care lead teacher if they continue or are bothersome): acne fluid retention and swelling headache irregular periods, spotting, or absent periods temporary pain, itching, or skin reaction at site where injected weight gain What may interact with this medicine? Do not take this medicine with any of the following medications: bosentan This medicine may also interact with the following medications: aminoglutethimide antibiotics or medicines for infections, especially rifampin, rifabutin, rifapentine, and griseofulvin aprepitant barbiturate medicines such as phenobarbital or primidone bexarotene carbamazepine medicines for seizures like ethotoin, felbamate, oxcarbazepine, phenytoin, topiramate modafinil [place]'s wort What if I miss a dose? Try not to miss a dose. You must get an injection once every 3 months to maintain control. If you cannot keep an appointment, call and reschedule it. If you wait longer than 13 weeks between Depo-Provera contraceptive injections or longer than 14 weeks between Depo-subQ Provera 104 injections, you could get . Use another method for control if you miss your appointment. You may also need a test before receiving another injection. Where should I keep my medicine? This does not apply. The injection will be given to you by a health child care lead teacher. What should I tell my health care provider before I take this medicine? They need to know if you have any of these conditions: frequently drink alcohol asthma blood vessel disease or a history of a blood clot in the lungs or legs bone disease such as osteoporosis breast cancer diabetes eating disorder (anorexia nervosa or bulimia) high blood pressure HIV infection or AIDS kidney disease liver disease mental depression migraine seizures (convulsions) stroke tobacco smoker vaginal bleeding an unusual or allergic reaction to medroxyprogesterone, other hormones, medicines, foods, dyes, or preservatives or trying to get breast-feeding What should I watch for while using this medicine? This drug does not protect you against HIV infection (AIDS) or other sexually transmitted diseases. Use of this product may cause you to lose calcium from your bones. Loss of calcium may cause weak bones (osteoporosis). Only use this product for more than 2 years if other forms of control are not right for you. The longer you use this product for control the more likely you will be at risk for weak bones. Ask your health child care lead teacher how you can keep strong bones. You may have a change in bleeding pattern or irregular periods. Many females stop having periods while taking this drug. If you have received your injections on time, your chance of being is very low. If you think you may be , see your health child care lead teacher as soon as possible. Tell your health child care lead teacher if you want to get within the next year. The effect of this medicine may last a long time after you get your last injection. NOTE:This sheet is a summary. It may not cover all possible information. If you have questions aboutthis medicine, talk to your doctor, pharmacist, or health care provider. Copyright 2018 [employer] documented in this encounter Progress Notes Becky Brown LVN - 04/16/2019 10:30 AM CDT28 year old female has been identified by and name. Verbal consent has been obtained by patientto have an injection of Depo Provera, as ordered by the provider. Date of last Depo Provera injection: 01/22/2019 Last WWE:01/22/2019 Encounter Diagnosis: v25.49 The site was cleaned with an alcohol swab and given intramuscularly (IM) in the right deltoid. A band aid dressing was then applied to the injection site. The patient tolerated the procedure well . Patient stated she wanted to have STD testing, per providers standing orders, patient to have STD testing today. Advised patient on Calcium intake 500-1200 mg daily. ED warnings given. Patient to return to clinic in 12 weeks for next Depo. Patient verbalized understanding. Becky Brown LVN 04/16/2019 11:56 AM documented in this encounter Plan of Treatment Date Type Specialty Care Team Description 07/09/2019 Nurse Visit [facility] Visit, [facility] Nurse Name Type Priority Associated Diagnoses Date/Time GC & CHLAMYDIA AMPLIFIED LAB Routine Screen for STD (sexually 04/16/2019 11 :27 AM ASSAY transmitted disease) CDT HIV 1/2 AG-AB WITH REFLEX LAB Routine Screen for STD (sexually 04/16/2019 11:26 AM transmitted disease) CDT GALV ONLY - SYPHILIS LAB Routine Screen for STD (sexually 04/16/2019 11:27 AM IGG/IGM transmitted disease) CDT TRICHOMONAS AMPLIFIED LAB Routine Screen for STD (sexually 04/16/2019 11: 27 AM ASSAY transmitted disease) CDT Health Maintenance Due Date Last Done Comments VARICELLA VACCINES (1 of 2 - 2004 13+ 2-dose series) DTaP,Tdap,and Td Vaccines (1 2010 - Tdap) INFLUENZA VACCINE (#1) 2019 PAP SMEAR 01/23/2021 01/23/2018, 12/16/2016 PNEUMOCOCCAL 0-64 YEARS Aged Out No longer eligible based COMBINED SERIES on patient's age to complete this topic documented as of this encounter Results Not on filedocumented in this encounter Visit Diagnoses Diagnosis Screen for STD (sexually transmitted disease) - Primary Screening examination for venereal disease documented in this encounter Administered Medications Medication Order MAR Action Action Date Dose Rate Site medroxyPROGESTERone Given 04/16/2019 11:58 150 mg Right (DEPO-PROVERA) injection 150 AM CDT Deltoid-IM mg 150 mg, Intramuscular, [id number], 4 doses, First dose on Fri01/22/19 at 1130, Last dose on Fri10/01/19 at 1130, Routine Given 01/22/2019 11:35 AM CDT 150 mg Left Deltoid-IM documented in this encounter Insurance Payer Benefit Plan Subscriber ID Effective Phone Address Type / Group Dates [facility] xxxxxxxxx 2016-Prese [phone] Medicaid WOMEN nt [address] [place] [address] documented as of this encounter Advance Directives Name Relationship Healthcare Agent Communication Relationship Lyric Drummond Mother Primary healthcare agent Keily Castellanos Aunt First [facility] healthcare [phone] agent (Mobile)
--- OUTSIDE RECORDS SUMMARY | 2019-09-15 16:40 | XMS REPORT ---
:1990 Author Organization [facility] Address [address] [place] [address] Dr. Solis [address] [place] [id number] Care Team Providers Name Role Phone Unavailable Unavailable Unavailable Problems This patient has no known problems. Allergies, Adverse Reactions, Alerts This patient has no known allergies or adverse reactions. Medications This patient has no known medications.
--- OUTSIDE RECORDS SUMMARY | 2019-09-15 16:40 | XMS REPORT ---
:1990 Author Organization [employer] Care Team Providers Name Role Phone Adam Noguera Provider Role Unavailable Allergies, Adverse Reactions, Alerts Substance Reaction Event Type N.K.D.A. Info Not Available Non Drug Allergy Problems Problem Type Condition Code Onset Dates Condition Status Assessment Prediabetes R73.03 Active Assessment Elevated serum protein level R77.9 Active Assessment Need for influenza vaccination Z23 Active Assessment Dehydration E86.0 Active Assessment Fatigue, unspecified type R53.83 Active Medications Medication Code System Code Instructions Start End Date Status Dosage Date Multivitamin NDC [id number] - Orally Active as directed Results No Known Results Immunizations Vaccine Administration Date Flucelvax - multidose vial May 07, 2019 Summary Purpose [employer] Submission
[2019-09-15 17:28] LABS: Absolute Lymphocytes (CBC) 1.9 K/uL (0.7-4.9); Basophils % 0.5 % (0-1.3); Lymphocytes % 27.1 % (15.3-44.8); MPV 8.1 fL (7.6-11.3); RBC Red Blood Cell Count 4.66 M/uL (3.86-4.86)
[2019-09-15 17:40] LABS: BUN Blood Urea Nitrogen 12 mg/dL (7-18); Bicarbonate 28 mmol/L (21-32); Creatine Phosphokinase 81 U/L (26-192); Glucose Level 89 mg/dL (74-106); Magnesium 2.3 mg/dL (1.8-2.4); Potassium 3.2 mmol/L (3.5-5.1); Sodium Level 139 mmol/L (136-145)
[2019-09-15] MEDS ORDERED: POTASSIUM CL SA 10 MEQ TAB PO ONE (17:51)
--- NOTE | 2019-09-15 17:51 | ER ---
Nurse's Notes [facility] Name: Colette Ball Age: 29 yrs Sex: Female : 1990 Arrival Date: 09/15/2019 Time: 16:41 Bed 30 Private MD: Adam Noguera Diagnosis: Anxiety disorder, unspecified;Chest pain, unspecified Presentation: 09/15 16:50 Presenting complaint: Patient states: Anxiety yesterday. Today, started feeling the ca1 chest discomfort with tingling on the R arm. Denies coughing. Transition of care: patient was not received from another setting of care. Onset of symptoms was September 15, 2019. Risk Assessment: Do you want to hurt yourself or someone else? Patient reports no desire to harm self or others. Initial Sepsis Screen: Does the patient meet any 2 criteria? No. Patient's initial sepsis screen is negative. Does the patient have a suspected source of infection? No. Patient's initial sepsis screen is negative. Care prior to arrival: None. 16:50 Method Of Arrival: Ambulatory ca1 16:50 Acuity: MARANDA 3 ca1 Triage Assessment: 17:08 General: Appears in no apparent distress. comfortable, Behavior is calm, cooperative, ca1 appropriate for age. Pain: Complains of pain in anterior aspect of left upper chest Pain radiates to right arm Pain began today Is intermittent. EENT: No deficits noted. No signs and/or symptoms were reported regarding the EENT system. Neuro: Level of Consciousness is awake, alert, obeys commands, Oriented to person, place, time, situation, Appropriate for age. Cardiovascular: Heart tones S1 S2 present Capillary refill < 3 seconds Patient's skin is warm and dry. Respiratory: Airway is patent Respiratory effort is even, unlabored, Respiratory pattern is regular, symmetrical, Breath sounds are clear bilaterally. GI: Abdomen is flat, non-distended, Bowel sounds present X 4 quads. Abd is soft and non tender X 4 quads. : No deficits noted. No signs and/or symptoms were reported regarding the genitourinary system. Derm: Skin is intact, is healthy with good turgor, Skin is pink, warm \T\ dry. Musculoskeletal: Circulation, motion, and sensation intact. Capillary refill < 3 seconds. 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 - Coronavirus screen:: The patient has NOT traveled to [place] in the past 14 days. The patient has NOT had contact with known/suspected case of Coronavirus?. - Social history:: Smoking status: Patient denies any tobacco usage or history of. - Ebola Screening: : Patient negative for fever greater than or equal to 101.5 degrees Fahrenheit, and additional compatible Ebola Virus Disease symptoms Patient denies exposure to infectious person Patient denies travel to an Ebola-affected area in the 21 days before illness onset No symptoms or risks identified at this time. Screenin:10 Abuse screen: Denies threats or abuse. Denies injuries from another. Nutritional ca1 screening: No deficits noted. Tuberculosis screening: No symptoms or risk factors identified. Fall Risk IV access (20 points). Assessment: 17:10 Reassessment: SEE TRIAGE ASSESSMENT. ca1 17:43 Reassessment: Patient appears in no apparent distress at this time. Patient and/or ca1 family updated on plan of care and expected duration. Pain level reassessed. Patient is alert, oriented x 3, equal unlabored respirations, skin warm/dry/pink. Vital Signs: 17:08 BP 134 / 84; Pulse 91; Resp 19; Pulse Ox 100% on R/A; Weight 58.51 kg (R); Height 5 ft. ca1 2 in. (157.48 cm) (R); 17:16 Temp 99.5(O); ca1 17:43 BP 117 / 90; Pulse 87; Resp 16 S; Pulse Ox 100% on R/A; ca1 17:08 Body Mass Index 23.59 (58.51 kg, 157.48 cm) ca1 ED Course: 16:41 Patient arrived in ED. mr 16:41 Adam Noguera DO is Private Physician. mr 16:46 Yunior Huerta PA is PHCP. jr8 16:46 Lico Florez MD is Attending Physician. jr8 16:50 Giselle Ryan RN is Primary Nurse. ca1 17:06 Triage completed. ca1 17:08 Arm band placed on right wrist. EKG completed in triage. Results shown to MD. ca1 17:10 Patient has correct armband on for positive identification. Placed in gown. Bed in low ca1 position. Call light in reach. Side rails up X 1. Pulse ox on. NIBP on. Warm blanket given. 17:14 No provider procedures requiring assistance completed. Initial lab(s) drawn, by ED ca1 staff, sent to lab. Inserted saline lock: 22 gauge in right antecubital area, using aseptic technique. ,using aseptic technique. by Dashawn building performance specialist Blood collected. 17:35 XRAY Chest (1 view) In Process Unspecified. [facility] 17:50 Adam Noguera DO is Referral Physician. ronaldo 17:58 IV discontinued, intact, bleeding controlled, No redness/swelling at site. Pressure ca1 dressing applied. Administered Medications: 17:49 Drug: Potassium Chloride 40 mEq Route: PO; ca1 17:55 Follow up: Response: Medication administered at discharge. ca1 Outcome: 17:50 Discharge ordered by MD. ronaldo 17:58 Discharged to home ambulatory. ca1 17:58 Condition: stable 17:58 Discharge instructions given to patient, Instructed on discharge instructions, follow up and referral plans. Demonstrated understanding of instructions, follow-up care. 17:59 Patient left the ED. ca1 Signatures: Dispatcher [employer] JOSIENY Jessica Wilder WandaYunior bender PA PA jrGiselle Roach, RN RN ca1
--- NOTE | 2019-09-15 17:51 | RAD REPORT ---
EXAM DESCRIPTION: [place] Single View09/15/2019 5:35 pm CLINICAL HISTORY: Chest pain COMPARISON: 2018 FINDINGS: The lungs appear clear of acute infiltrate. The heart is normal size IMPRESSION: No acute abnormalities displayed
--- NOTE | 2019-09-15 17:52 | EDPHYS ---
Physician Documentation [facility] Name: Colette Ball Age: 29 yrs Sex: Female : 1990 Arrival Date: 09/15/2019 Time: 16:41 Bed 30 Private MD: Adam Noguera ED Physician Lico Florez HPI: 09/15 17:14 This 29 yrs old Black Female presents to ER via Ambulatory with complaints of Chest jr8 Discomfort. 17:14 The patient or guardian reports chest pain that is located primarily in the anterior jr8 chest wall, left. The pain radiates to the right arm. Associated signs and symptoms: Pertinent positives: paresthesias of arms, weakness of legs. The chest pain is described as a pressure. Duration: The patient or guardian reports a single episode, that is now resolved. Severity of pain: At its worst the pain was mild in the emergency department the pain has resolved. The patient has not experienced similar symptoms in the past. The patient has not recently seen a physician. Stated that she had some anxiety yesterday that was causing her to have tingling. Today had experienced continuation of symptoms but had chest tightness with radiation as well which she normally does not experience . 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 - Coronavirus screen:: The patient has NOT traveled to [place] in the past 14 days. The patient has NOT had contact with known/suspected case of Coronavirus?. - Social history:: Smoking status: Patient denies any tobacco usage or history of. - Ebola Screening: : Patient negative for fever greater than or equal to 101.5 degrees Fahrenheit, and additional compatible Ebola Virus Disease symptoms Patient denies exposure to infectious person Patient denies travel to an Ebola-affected area in the 21 days before illness onset No symptoms or risks identified at this time. ROS: 17:14 Eyes: Negative for injury, pain, redness, and discharge, ENT: Negative for injury, jr8 pain, and discharge, Neck: Negative for injury, pain, and swelling, Respiratory: Negative for shortness of breath, cough, wheezing, and pleuritic chest pain, Abdomen/GI: Negative for abdominal pain, nausea, vomiting, diarrhea, and constipation, Back: Negative for injury and pain, MS/Extremity: Negative for injury and deformity, Skin: Negative for injury, rash, and discoloration. 17:14 Cardiovascular: Positive for chest pain, Negative for edema, orthopnea, palpitations, paroxysmal nocturnal dyspnea. 17:14 Neuro: Positive for tingling, weakness. Exam: 17:14 Eyes: Pupils equal round and reactive to light, extra-ocular motions intact. Lids and jr8 lashes normal. Conjunctiva and sclera are non-icteric and not injected. Cornea within normal limits. Periorbital areas with no swelling, redness, or edema. ENT: Nares patent. No nasal discharge, no septal abnormalities noted. Tympanic membranes are normal and external auditory canals are clear. Oropharynx with no redness, swelling, or masses, exudates, or evidence of obstruction, uvula midline. Mucous membranes moist. Neck: Trachea midline, no thyromegaly or masses palpated, and no cervical lymphadenopathy. Supple, full range of motion without nuchal rigidity, or vertebral point tenderness. No Meningismus. Chest/axilla: Normal chest wall appearance and motion. Nontender with no deformity. No lesions are appreciated. Cardiovascular: Regular rate and rhythm with a normal S1 and S2. No gallops, murmurs, or rubs. Normal PMI, no JVD. No pulse deficits. Respiratory: Lungs have equal breath sounds bilaterally, clear to auscultation and percussion. No rales, rhonchi or wheezes noted. No increased work of breathing, no retractions or nasal flaring. Abdomen/GI: Soft, non-tender, with normal bowel sounds. No distension or tympany. No guarding or rebound. No evidence of tenderness throughout. Back: No spinal tenderness. No costovertebral tenderness. Full range of motion. Skin: Warm, dry with normal turgor. Normal color with no rashes, no lesions, and no evidence of cellulitis. MS/ Extremity: Pulses equal, no cyanosis. Neurovascular intact. Full, normal range of motion. Neuro: Awake and alert, GCS 15, oriented to person, place, time, and situation. Cranial nerves II-XII grossly intact. Motor strength 5/5 in all extremities. Sensory grossly intact. Cerebellar exam normal. Normal gait. 17:37 ECG was reviewed by the Attending Physician. 8 Vital Signs: 17:08 BP 134 / 84; Pulse 91; Resp 19; Pulse Ox 100% on R/A; Weight 58.51 kg (R); Height 5 ft. ca1 2 in. (157.48 cm) (R); 17:16 Temp 99.5(O); ca1 17:43 BP 117 / 90; Pulse 87; Resp 16 S; Pulse Ox 100% on R/A; ca1 17:08 Body Mass Index 23.59 (58.51 kg, 157.48 cm) ca1 MDM: 17:00 Patient medically screened. jr8 17:45 Differential diagnosis: abnormal EKG, acute myocardial infarction, acute pericarditis, jr8 anxiety, chest wall pain, cholecystitis, Cholelithiasis costochondritis, esophagitis, gastritis, gastroesophageal reflux disease (GERD), myocarditis, pancreatitis, pleurisy, pneumonia, pneumothorax, pulmonary embolus. Data reviewed: vital signs, nurses notes, lab test result(s), EKG, radiologic studies, plain films. Data interpreted: Pulse oximetry: on room air is 100 %. Interpretation: normal. Counseling: I had a detailed discussion with the patient and/or guardian regarding: the historical points, exam findings, and any diagnostic results supporting the discharge/admit diagnosis, lab results, radiology results, the need for outpatient follow up, a family practitioner, to return to the emergency department if symptoms worsen or persist or if there are any questions or concerns that arise at home. ED course: No acute findings on labs, imaging, or ECG. Young healthy female who does not smoke, drink, or do drugs. On depo but has been on it for some time. Negative for DVT, PE signs. Most likely anxiety based on presentation and studies completed. Will d/c home with close f/u to PCP. Knows to come back if worse or other signs present. 17:49 The patient's deep vein thrombosis risk score was calculated as follows: the patient is ronaldo receiving ongoing or pallative cancer treatment (1.0 Pts). The patient's pulmonary embolism risk score was calculated as follows: No Risks (0 Pts). 09/15 17:01 Order name: CBC with Diff; Complete Time: 17:37 jr8 02/19 17:01 Order name: Basic Metabolic Panel; Complete Time: 17:42 09/15 17:01 Order name: CK; Complete Time: 17:42 09/15 17: Order name: Magnesium; Complete Time: 17:42 09/15 17: Order name: XRAY Chest (1 view) 09/15 17: Order name: IV; Complete Time: 17:14 09/15 17: Order name: EKG - Nurse/Tech; Complete Time: 17:03 EC:37 Rate is 84 beats/min. Rhythm is regular, Normal Sinus Rhythm. QRS [place] is Normal. [place] jr8 interval is normal at 118 msec. QRS interval is normal at 74 msec. QT interval is normal at 434 msec. No Q waves. T waves are Normal. No ST changes noted. Clinical impression: Normal ECG and No evidence of ischemia. Interpreted by me. Reviewed by me. Administered Medications: 17:49 Drug: Potassium Chloride 40 mEq Route: PO; ca1 17:55 Follow up: Response: Medication administered at discharge. ca1 Disposition: 18:03 Co-signature as Attending Physician, Lico Florez MD. rn Disposition: 09/15/19 17:50 Discharged to Home. Impression: Anxiety disorder, unspecified, Chest pain, unspecified. - Condition is Stable. - Discharge Instructions: Panic Attacks, Nonspecific Chest Pain. - Work release form, Medication Reconciliation Form, Thank You Letter, Antibiotic Education, Prescription Opioid Use form. - Follow up: Adam Noguera DO; When: 48 Hours; Reason: Recheck today's complaints, Continuance of care, Re-evaluation by your physician. - Problem is new. - Symptoms have improved. Signatures: Dispatcher [employer] EDMS Lico Florez MD MD rn Roszak, Josh, PA PA jr8 Giselle Ryan RN RN ca1 Corrections: (The following items were deleted from the chart) 17:59 17:50 09/15/2019 17:50 Discharged to Home. Impression: Anxiety disorder, unspecified; ca1 Chest pain, unspecified. Condition is Stable. Forms are Medication Reconciliation Form, Thank You Letter, Antibiotic Education, Prescription Opioid Use. Follow up: Adam Noguera; When: 48 Hours; Reason: Recheck today's complaints, Continuance of care, Re-evaluation by your physician. Problem is new. Symptoms have improved. jr8
[2019-09-15 19:54] VITALS: BP 134/84; O2SAT 100
--- NOTE | 2019-09-16 11:11 | EKG ---
Test Date: 2019-09-15 Test Time: 17:02:54 Six Sigma Black Trainer: LUIS FELIPE MEASUREMENT RESULTS: Intervals: Rate: 84 [place]: 118 QRSD: 74 QT: 368 QTc: 434 [place]: P: 7 [place]: 118 QRS: 75 T: 44 INTERPRETIVE STATEMENTS: Normal sinus rhythm with sinus arrhythmia Normal ECG Compared to ECG 02/10/2019 02:18:17 Sinus tachycardia no longer present Electronically Signed On 09-16-19 11:11:09 DEV MANAGER by Benjamin Sanders
== END 2019-09-15 17:59 | disposition home or self-care (01) ==
LOC: ER 16:38
DX: F41.9 Anxiety disorder, unspecified (principal)
CPT/HCPCS: 36415; 71045; 80048; 82550; 83735; 85025; 93005; 99284

== ENCOUNTER 2019-12-23 19:25 | Emergency (ER) | payer OTHER ==
[2019-12-23 20:26] LABS: Absolute Lymphocytes (CBC) 1.7 K/uL (0.7-4.9); Basophils % 0.7 % (0-1.3); Hematocrit 38.9 % (36.0-45.0); Lymphocytes % 30.9 % (15.3-44.8); MPV 7.9 fL (7.6-11.3); RBC Red Blood Cell Count 4.39 M/uL (3.86-4.86)
[2019-12-23] MEDS ORDERED: MECLIZINE HCL 12.5 MG TAB ONE (20:36)
[2019-12-23] MEDS ORDERED: ONDANSETRON 4 MG/2 ML VIAL ONE (20:36)
[2019-12-23] MEDS ORDERED: NA CHLORIDE 0.9% 1,000 ML ONE (20:36)
--- NOTE | 2019-12-23 20:45 | RAD REPORT ---
EXAM DESCRIPTION: CT - Head Brain Wo Cont - 12/23/2019 8:32 pm CLINICAL HISTORY: DIZZINESS, headache COMPARISON: No comparisons TECHNIQUE: Axial 5 mm thick images of the head were obtained without IV contrast. All CT scans are performed using dose optimization technique as appropriate and may include automated exposure control or mA/KV adjustment according to patient size. FINDINGS: No intracranial hemorrhage, mass, edema or shift of mid-line structures. No acute infarcti on changes seen. No abnormal extra-axial fluid collections. Ventricles are normal. Mastoid air cells and visualized portions of the paranasal sinuses are clear. No acute bony findings. IMPRESSION: Negative non-contrast CT head examination.
[2019-12-23 20:48] LABS: ALT/SGPT 70 U/L (12-78); AST/SGOT 29 U/L (15-37); Albumin 4.1 g/dL (3.4-5.0); Alkaline Phosphatase 63 U/L (45-117); BUN Blood Urea Nitrogen 14 mg/dL (7-18); Bicarbonate 29 mmol/L (21-32); Bilirubin Total 0.2 mg/dL (0.2-1.0); Glucose Level 96 mg/dL (74-106); Potassium 3.9 mmol/L (3.5-5.1); Protein, Total 7.8 g/dL (6.4-8.2); Sodium Level 139 mmol/L (136-145)
[2019-12-23 21:06] LABS: Urine Blood NEGATIVE (NEG); Urine Glucose NEGATIVE (NEG); Urine Protein NEGATIVE (NEG); Urine pH 7.5 (5.0-7.0)
--- OUTSIDE RECORDS SUMMARY | 2019-12-23 21:21 | XMS REPORT | Summary of Care ---
:1990 Author Organization [facility] Address [address] [place] [address] Care Team Providers Name Role Phone Becky Patterson [facility] Primary Care Provider [phone] Reason for Visit Reason Comments CONTROL Encounter Details Date Type Department Care Team Description [facility]/03[facility] Enc ounter for other [facility] ELIANE contraceptive [address] management (Primary Dx) [place], [place] [address] [place], [place] [id number] Allergies No Known Allergiesdocumented as of this encounter (statuses as of 12/03/2019) Medications No known medicationsdocumented as of this encounter (statuses as of 12/03/2019) Active Problems Problem Noted Date Leukorrhea, not specified as infective 01/03/2017 Papanicolaou smear of cervix with low grade squamous i ntraepithelial 12/19/2016 lesion (LGSIL) Well woman exam 12/16/2016 Encounter for other contraceptive management 7 Depo-Provera contraceptive status 12/16/2016 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 12/16/2016 Need for HPV vaccination 12/16/2016 Vaginitis and vulvovaginitis, unspecified 12/16/2016 documented as of this encounter (statuses as of 12/03/2019) Resolved Problems Problem Noted Date Resolved Date Screening for STD (sexually transmitted disease) 12/16/2016 01/23/2018 Pap smear for cervical cancer screening 04/11/2016 12/16/2016 Overview: Negative- 2014 see scanned records ASCUS with positive high risk HPV 04/11/20162016 Overview: 6-1-16- see scanned records Contraceptive management 03/26/2016 12/16/2016 Depo contraception 03/26/2016 12/16/2016 documented as of this encounter (statuses as of 12/03/2019) Immunizations Name Administration Dates Next Due HPV9 06/23/2017, 02/17/2017, 12/16/2016 Influenza Virus Vaccine 06/09/2019 documented as of this encounter Social History [...] Travel End No recent travel history available. COVID-19 Exposure Response Date Recorded In the last month, have you been in contact with No / Unsure 12/03/2019 10:50 AM CDT someone who was confirmed or suspected to have Coronavirus / COVID-19? documented as of this encounter Last Filed Vital Signs Vital Sign Reading Time Taken Comments Blood Pressure 109/71 12/03/2019 10:51 AM CDT Pulse 70 12/03/2019 10:51 AM CDT Temperature 36.8 C (98.2 F) 12/03/2019 10:51 AM CDT Respiratory Rate 16 12/03/2019 10:51 AM CDT Oxygen Saturation - - Inhaled Oxygen Concentration - - Weight 58.1 kg (128 lb 3 oz) 12/03/2019 10:51 AM CDT Height 157.5 cm (5' 2") 12/03/2019 10:51 AM CDT Body Mass Index 23.45 12/03/2019 10:51 AM CDT documented in this encounter Progress Notes Becky Patterson [facility]NP - 12/03/2019 10:30 AM CDT Chief complaint: Chief Complaint Patient presents with CONTROL HPI: the patient is here today for control consult. She reports today that she is currently ondepo of control and due for her next dose until 12/2019. She reports she is pleased with her depo and denies having any issues or concerns with her depo. She report that she has been on the depo for the past 5 years and heard that she shouldn't be on it for so long. She also reports she was toldthat depo can cause bone loss so she desires to switch to something different. She reports she unsure as to what she wants but she know that she does not want to do ocps. 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 12/16/2016 Chlamydia 2014 Vaginitis and vulvovaginitis, unspecified 12/16/2016 Family History Problem Relation Age of Onset Hypertension Mother Other - see comments Mother Thyroid Hypertension Maternal Grandmother Diabetes Maternal Grandmother Arthritis NoFHx Asthma NoFHx defects NoFHx Breast Cancer NoFHx Colon Cancer NoFHx Ovarian Cancer NoFHx Cancer NoFHx Uterine Cancer NoFHx Depression NoFHx Genetic NoFHx Heart NoFHx High cholesterol NoFHx Mental retardation NoFHx Osteoporosis NoFHx Neurological NoFHx Psychiatry NoFHx Family Status Relation Name Status Mo (Not Specified) MGMo (Not Specified) NoFHx (Not Specified) Past Surgical History: Procedure Laterality Date COLPOSCOPY 2016 Social History Socioeconomic History Marital status: Single Spouse name: Not on file Number of children: Not on file Years of education: Not on file Highest education level: Not on file Occupational History Not on file Social Needs Financial resource strain: Not on file Food insecurity: Worry: Not on file Inability: Not on file Transportation needs: Medical: Not on file Non-medical: Not on file Tobacco Use Smoking status: Never Smoker Smokeless tobacco: Never Used Substance and Sexual Activity Alcohol use: Yes Alcohol/week: 0.0 standard drinks Comment: social Drug use: No Sexual activity: Yes Partners: Male control/protection: Injection Comment: last sexual intercourse 01/19/2019 Lifestyle Physical activity: Days per week: Not on file Minutes per session: Not on file Stress: Not on file Relationships Social connections: Talks on phone: Not on file Gets together: Not on file Attends christianity service: Not on file Active member of club or organization: Not on file Attends meetings of clubs or organizations: Not on file Relationship status: Not on file Intimate partner violence: Fear of current or ex partner: Not on file Emotionally abused: Not on file Physically abused: Not on file Forced sexual activity: Not on file Other Topics Concern Not on file Social History Narrative Pt denies current or past physical, sexual or emotional abuse. Pt states she feels safe at home. Patient lives alone with children. Social History Substance and Sexual Activity Sexual Activity Yes Partners: Male control/protection: Injection Comment: last sexual intercourse 01/19/2019 Labs No new labs and No visits with results within 3 Month(s) from this visit. Latest known visit with results is: Nurse Visit on 04/16/2019 Component Date Value C. trachomatis Nucleic A* 04/16/2019 Negative N. gonorrhoeae Nucleic A* 04/16/2019 Negative HIV 1/2 Ag-Ab with Reflex 04/16/2019 Negative HIV Semi-quantitative 04/16/2019 0.06 Syphilis IgG/IgM 04/16/2019 Non-reactive Trichomonas Nucleic Acid 04/16/2019 Negative Radiology No new radiology. Allergies Colette has No Known Allergies. Medications Colette currently has no medications in their medication list. Review of Systems Constitutional: Negative. HENT: Negative. Eyes: Negative. Respiratory: Negative. Breasts: Negative. Cardiovascular: Negative. Gastrointestinal: Negative. Genitourinary: Negative. Musculoskeletal: Negative. Skin: Negative. Neurological: Negative. Psychiatric/Behavioral: Negative. Endocrine: Endocrine negative BP 109/71 (BP Location: Right arm, Patient Position: Sitting, BP CUFF SIZE: Adult Medium) | Pulse 70 | Temp 36.8 C (98.2 F) (Oral) | Resp 16 | Ht 5' 2" (1.575 m) | Wt 128 lb 3 oz (58.1 kg) | BMI 23.45 kg/m Pregravid BMI: Could not be calculated Physical Exam Vitals reviewed. Constitutional: She is oriented to person, place, and time. She appears well- developed and well-nourished. Her body habitus is normal. Cardiovascular: Regular rate and rhythm. No peripheral edema present. Pulmonary/Chest: Normal inspiratory effort. Neuro/Psychiatric: She has a normal mood and affect. She is oriented to person, place, and time. Skin: Skin normal. No lesion, no rash and no ulceration present. Assessment/Plan Return to clinic in 6 weeks. for WWE and control follow up Encounter for other contraceptive management (primary encounter diagnosis) Comment: reports currently on depo, unsure as to what she wants to do next Plan: reports she will do her research and reports she will decide by her next visit. Patient advised on different LARC methods, she verbalized understanding This visit did not involve counseling and coordination that comprised more than 50% of the visit time. DEBBIE Last 12/03/2019 1:40 PM documented in this encounter Plan of Treatment Date Type Specialty Care Team Description 01/25/2020 Office Visit [facility] Neno Patterson [facility] [address] [place], [place] [address] [phone] Health Maintenance Due Date Last Done Comments DTaP,Tdap,and Td Vaccines (1 07/09/2020 Pos tponed from 2002 - Tdap) (Alternative Aman delines) VARICELLA VACCINES (1 of 2 - 07/09/2020 Pos tponed from 1992 2-dose childhood series) (Insura nce / Financial) PAP SMEAR 01/23/2021 01/23/2018, 12/16/2016 INFLUENZA VACCINE Completed 06/09/2019 PNEUMOCOCCAL 0-64 YEARS Aged Out No longe r eligible based COMBINED SERIES on patient's age to complete this to pic documented as of this encounter Procedures Procedure Name Priority Date/Time Associated Comments Diagnosis POCT URINALYSIS W/O Routine 12/03/2019 11:00 AM R esults for this SPECIFIC GRAVITY CDT procedure a re in the results section. documented in this encounter Results POCT URINALYSIS W/O SPECIFIC GRAVITY (12/03/2019 11:00 AM CDT) Pathologist Sig nature POCT PH U 7 5 - 8 mg/dl POCT U LEUK EST 1+ Negative - Negative POCT U NIT negative Negative - Negative POCT U PROT trace Negative - Negative POCT U GLU negative Negative - Negative POCT U KETONE negative Negative - Negative POCT U BLD negative Negative - Negative Specimen Urine - URINE, CLEAN CATCH documented in this encounter Visit Diagnoses Diagnosis Encounter for other contraceptive manage ment - Primary documented in this encounter Insurance Payer Benefit Plan Subscriber ID Effective Phone Address Typ e / Group Dates [facility] xxxxxxxxx 2016-Prese [phone] Medicaid WOMEN [address] [place] [address] documented as of this encounter Advance Directives Name Relationship Healthcare Agent Communication Relationship Lyric Drummond Mother Primary healthcare agent Keily Castellanos Aunt First [phone] agent (Mobile)
--- OUTSIDE RECORDS SUMMARY | 2019-12-23 21:21 | XMS REPORT ---
:1990 Author Organization [employer] Care Team Providers Name Role Phone Adam Noguera Provider Role Unavailable Allergies No Known Allergies Problems Problem Type Condition Code Onset Dates Condition Statu s Problem Panic attacks F41.0 Active Problem Noncompliance with dietary Z91.11 A ctive restriction Problem Generalized anxiety disorder F41.1 Active Medications No Known Medications Results No Known Results Summary Purpose [employer] Submission
--- OUTSIDE RECORDS SUMMARY | 2019-12-23 21:21 | XMS REPORT | Summary of Care ---
:1990 Author Organization [facility] Address [address] [place] [address] Care Team Providers Name Role Phone Becky Patterson [facility] Primary Care Provider Encounter Details Date Type Department Care Team Description 10/01/2019 Orders Only [facility] Doctor Unassigned, No [address] [facility] [place] [address] [address] [place] [address] Allergies No Known Allergiesdocumented as of this encounter (statuses as of 10/01/2019) Medications Hospital, Clinic, or Other Ordered Dose Route Frequency Start Date End Date Status Facility Administered Medication medroxyPROGESTERone 150 mg IM [id number] 01/22/2019 0 Active (DEPO-PROVERA) injection 150 mgIndications: Depo-Provera contraceptive status documented as of this encounter (statuses as of 10/01/2019) Active Problems Problem Noted Date Leukorrhea, not [...] as of this encounter (statuses as of 10/01/2019) Resolved Problems Problem Noted Date Resolved Date Screening for STD (sexually transmitted disease) 12/16/2016 01/23/2018 Pap smear for cervical cancer screening 04/11/2016 12/16/2016 Overview: Negative- 2014 see scanned records ASCUS with positive high risk HPV 04/11/20162016 Overview: 6-1-16- see scanned records Contraceptive management 03/26/2016 12/16/2016 Depo contraception 03/26/2016 12/16/2016 documented as of this encounter (statuses as of 10/01/2019) Immunizations Name Administration Dates Next Due HPV9 [...] of this encounter Last Filed Vital Signs Not on filedocumented in this encounter Plan of Treatment Health Maintenance Due Date Last Done Comments [...] on patient's age to complete this to [facility] documented as of this encounter Procedures Procedure Name Priority Date/Time Associated Diagnosis Comme nts ASSIGNMENT OF BENEFITS Routine 10/01/2019 10:01 AM 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
--- OUTSIDE RECORDS SUMMARY | 2019-12-23 21:21 | XMS REPORT | Summary of Care ---
:1990 Author Organization [facility] Address [address] [place] [address] Care Team Providers Name Role Phone Becky Patterson [facility] Primary Care Provider [phone] Reason for Visit Reason Comments CONTROL Encounter Details Date Type Department Care Team Description [facility]/03[facility] Enc ounter for other Joseph Welch ELIANE contraceptive [address] management (Primary Dx) [place], [place] A [address] [place], [place] [id number] Allergies No Known Allergiesdocumented as of this [...] lb (2.722 kg) M VAGINAL SEUN Comments: [place] 1 AB Past Medical History: Diagnosis [...] file Gets together: Not on file Attends nondenominational service: Not on file Active member of [...] [facility] Neno Patterson WHCNP [address] [place], [place] [address] [phone] Health Maintenance Due Date Last Done Comments [...] Address Typ e / Group Dates [facility] xxxxxxxxx 2016-Prese [phone] [address] Medicaid WOMEN nt 2003 [place] [address] documented as of this encounter Advance Directives Name Relationship Healthcare Agent Communication Relationship Lyric Drummond Mother Primary healthcare agent Keily Castellanos Aunt First [address]2 [phone] agent (Mobile)
--- OUTSIDE RECORDS SUMMARY | 2019-12-23 21:21 | XMS REPORT ---
:1990 Author Organization eClinicalWorks Care Team Providers Name Role Phone Adam Noguera Provider Role Unavailable Allergies, Adverse Reactions, Alerts Substance Reaction Event Type N.K.D.A. Info Not Available Non Drug Allergy Problems Problem Type Condition Code Onset Dates Condition Statu s Assessment Prediabetes R73.03 Active Problem Noncompliance with dietary Z91.11 A ctive restriction Assessment Fatigue, unspecified type R53.83 Ac tive Assessment Noncompliance with dietary Z91.11 A ctive restriction Assessment Elevated serum protein level R77.9 Active Assessment Dehydration E86.0 Active Medications Medication Code System Code Instructions Start End Date Status Dos age Date Multivitamin [facility] [id number] - Orally Active as dir ected Results No Known Results Summary Purpose eClinicalWorks Submission
--- OUTSIDE RECORDS SUMMARY | 2019-12-23 21:21 | XMS REPORT ---
:1990 Author Organization eClinicalWorks Care Team Providers Name Role Phone Chuckie Adam Provider Role Unavailable Allergies No Known Allergies Problems Problem Type Condition Code Onset Dates Condition Statu s Problem Panic attacks F41.0 Active Problem Noncompliance with dietary Z91.11 A ctive restriction Problem Generalized anxiety disorder F41.1 Active Assessment Generalized anxiety disorder F41.1 Active Medications Medication Code Code Instructions Start End Date Status Dosage System Date Zoloft [facility] [id number] 50 MG Orally December 12, Inactive Take 1 /2 Once a day 2019 tab QD x 1 week then take 1 tab QD Pristiq ND [id number] 25 MG Orally December 20, Active 1 table t Once a day 2019 Results No Known Results Summary Purpose eClinicalWorks Submission
--- OUTSIDE RECORDS SUMMARY | 2019-12-23 21:21 | XMS REPORT ---
:1990 Author Organization eClinicalWorks Care Team Providers Name Role Phone Adam Noguera Provider Role Unavailable Allergies, Adverse Reactions, Alerts Substance Reaction Event Type N.K.D.A. Info Not Available Non Drug Allergy Problems Problem Type Condition Code Onset Dates Condition Statu s Assessment Elevated serum protein level R77.9 Active Assessment Fatigue, unspecified type R53.83 Ac tive Assessment Noncompliance with dietary Z91.11 A ctive restriction Assessment Dehydration E86.0 Active Problem Panic attacks F41.0 Active Problem Noncompliance with dietary Z91.11 A ctive restriction Problem Generalized anxiety disorder F41.1 Active Assessment Panic attacks F41.0 Active Assessment Prediabetes R73.03 Active Assessment Generalized anxiety disorder F41.1 Active Medications Medication Code Code Instructions Start End Status Dosage System Date Date Zoloft [facility] [id number] 50 MG Orally December 12, Active Take 1/ 2 Once a day 2019 tab QD x 1 week then take 1 tab QD Multivitamin [facility] [id number] - Orally Active as dir ected Results No Known Results Summary Purpose eClinicalWorks Submission
--- OUTSIDE RECORDS SUMMARY | 2019-12-23 21:21 | XMS REPORT ---
:1990 Author Organization [facility] t Address [address] [place] [address] Care Team Providers Name Role Phone Yuri Vidal Attending Clinician Problems Condition Condition Condition Status Onset Resolution Last Treating Co mments Source Name Details Category Date Date Treatment Clinician Date Noncomplia Noncomplia Problem Active [facility] with [facility]ce with [facility] - dietary dietary Memoria restrictio restrictio l n n [facility] Panic Panic Problem Active [facility] - Mem[facility] l [facility]ics Generalize Generalize Diagnosis Active [facility] anxiety d anxiety [facility] - disorder disorder Memori a l [facility] Allergies, Adverse Reactions, Alerts This patient has no known allergies or adverse reactions. Medications Ordered Filled Start Stop Current Ordering Indication Dosage Frequency Signature Comments Components Source Medication Medication Date Date Medication? Clinician (SIG) Name Name Pristiq Pristiq 2019-0 Yes Adam [address] 5-26 Noguera [facility] - 00:00: Memoria 00 l [facility] Zoloft Zoloft 2019-0 Yes Adam Take 1/[address] 5-18 Noguera tab QD x 1 [facility] - 00:00: week then Memoria 00 take 1 tab l QD [facility] Immunizations Ordered Filled Immunization Date Status Comments Sourc e Immunization Name Name Flucelvax - Flucelvax - 2019-05-[address] [facility] - multidose vial multidose vial 00:00:00 [facility] Outpatient Clinics Procedures This patient has no known procedures. Encounters Start End Encounter Admission Attending Care Care Encounter Source Date/Time Date/Time Type Type Clinicians Facility Department ID 2019-12-21 2019-12-21 [facility] [place] [id number] 09:02:00 09:02:00 t [employer] [facility] Medicine Outpati ent Clinics 2019-12-13 2019-12-13 [facility] [place] [id number] 15:45:00 15:45:00 t [employer] [facility] Medicine Outpati ent Clinics 2019-12-13 2019-12-13 [facility] [place] [id number] 08:51:00 08:51:00 t [employer] [facility] Medicine Outpati ent Clinics 2019-12-03 2019-12-03 [facility] [phone] [id number] 10:49:45 11:57:16 Visit Becky Welch SURGICAL ASSIST [id number] [facility] [id number] MATERNAL [id number] & CHILD [address] [place] [address] 2019-11-04 2019-11-04 [facility] [place] [id number] 08:00:00 08:00:00 [employer] [facility] Medicine Outpati ent Clinics 2019-05-07 2019-05-07 [facility] [place] [id number] 08:00:00 08:00:00 [employer] [facility] Medicine Outpati ent Clinics 2019-02-09 2019-02-09 [facility] [place] [id number] 09:04:00 09:04:00 t [employer] [facility] Medicine Outpati ent Clinics 2019-02-04 2019-02-04 [facility] [place] [id number] 08:00:00 08:00:00 [employer] [facility] Medicine Outpati ent Clinics 2018-10-05 2018-10-05 Outpatient [facility]ma [facility] [id number] 13:30:00 13:30:00 t Asc[facility] [place] [facility] [employer] [facility] Medicine Outpati ent Clinics Results This patient has no known results.
--- OUTSIDE RECORDS SUMMARY | 2019-12-23 21:21 | XMS REPORT | Summary of Care ---
:1990 Author Organization [facility] Address [address] [place] [address] Care Team Providers Name Role Phone Becky Patterson [facility] Primary Care Provider Reason for Visit Reason Comments CONTROL NURSE VISIT Encounter Details Date Type Department Care Team Description 10/01/[address] [facility]- Kit Patterson, [facility] [address] [place] [address] Encounter for Mikana Visit, [facility] Nurse Depo-Provera [address] [facility] contraception (Primary [place], [place] Dx) [address] Allergies No Known Allergiesdocumented as of this encounter (statuses as of 10/01/2019) Medications Hospital, Clinic, or Other Ordered Dose Route Frequency Start Date End Date Status Facility Administered Medication medroxyPROGESTERone 150 mg IM [id number] 01/22/2019 0 Ended (DEPO-PROVERA) injection 150 mgIndications: Depo-Provera contraceptive status [...] Sign Reading Time Taken Comments Blood Pressure 114/71 10/01/2019 10:23 AM GRILL ATTENDANT Pulse 90 10/01/2019 10:23 AM GRILL ATTENDANT Temperature 37.1 C (98.7 F) 10/01/2019 10:23 AM GRILL ATTENDANT Respiratory Rate 16 10/01/2019 10:23 AM GRILL ATTENDANT Oxygen Saturation - - Inhaled Oxygen Concentration - - Weight 59.2 kg (130 lb 8 oz) 10/01/2019 10:23 AM GRILL ATTENDANT Height 157.5 cm (5' 2") 10/01/2019 10:23 AM GRILL ATTENDANT Body Mass Index 23.87 10/01/2019 10:23 AM GRILL ATTENDANT documented in this encounter Patient Instructions Patient InstructionsBecky Brown LVN - 10/01/2019 10:00 AM GRILL ATTENDANT Medroxyprogesterone injection [Contraceptive] Brand Names: Depo-Provera, Depo-subQ [...] These injections are given by a health ocular care aide. You must not be before getting an injection. The injection is usually given during the first 5 days after the start of a menstrual period or 6 weeks after delivery of a baby. Talk to your utility engineer regarding the use of this medicine in children. Special care may be needed. These injections have been used in female children who have started having menstrual periods. What side effects may I notice from receiving this medicine? Side effects that you should report to your doctor or health ocular care aide as soon as possible: allergic reactions like [...] attention (report to your doctor or health ocular care aide if they continue or are bothersome): acne [...] like ethotoin, felbamate, oxcarbazepine, phenytoin, topiramate modafinil Bowbells's wort What if I miss a dose? [...] be given to you by a health ocular care aide. What should I tell my health care [...] risk for weak bones. Ask your health ocular care aide how you can keep strong bones. You may have a change in bleeding pattern or irregular periods. Many females stop having periods while taking this drug. If you have received your injections on time, your chance of being is very low. If you think you may be , see your health ocular care aide as soon as possible. Tell your health ocular care aide if you want to get within the next year. The effect of this medicine may last a long time after you get your last injection. NOTE:This sheet is a summary. It may not cover all possible information. If you have questions aboutthis medicine, talk to your doctor, pharmacist, or health care provider. Copyright 2018 Elsevier L ATTENDANT documented in this encounter Progress Notes Milla Cabrera RN - 10/01/2019 10:00 AM CST28 year old female has been identified by and name. Verbal consent has been obtained by patientto have an injection of Depo Provera, as ordered by the provider. Date of last Depo Provera injection: 07/09/2019 Last WWE:01/22/2019 Encounter Diagnosis: v25.49 The site was cleaned with an alcohol swab and given intramuscularly (IM) in the right deltoid. A band aid dressing was then applied to the injection site. The patient tolerated the procedure well . Advised patient on Calcium intake 500-1200 mg daily. ED warnings given. Patient to return to clinic in 12 weeks for next Depo and on or after 01/23/2020 for wwe. Patient requesting bc consult to discussswitching bc methods. Advised to schedule provider visit for contraception management. Patient verbalized understanding. MILLA CABRERA RN 10/01/2019 10:46 AM L ATTENDANT documented in this encounter Plan of Treatment Date Type Specialty Care Team Description 12/03/2019 Office Visit [facility] Neno Patterson, [facility]CNP [address] [place], [place] [address] [phone] 01/25/[address] [facility] Neno Patterson, WHCNP [address] [place], [place] [address] [phone] Health Maintenance Due Date Last Done Comments [...] on patient's age to complete this to [facility] documented as of this encounter Results Not on filedocumented in this encounter Visit Diagnoses Diagnosis Encounter for Depo-Provera contraception - Primary Surveillance of other previously prescri bed contraceptive method documented in this encounter Administered Medications Medication Order MAR Action Action Date Dose Rate Site medroxyPROGESTERone Given 10/01/2019 10:47 150 mg Right (DEPO-PROVERA) injection 150 AM GRILL ATTENDANT Deltoid-IM mg 150 mg, Intramuscular, [id number], 4 doses, First dose on Fri01/22/19 at 1130, Last dose on Fri10/01/19 at 1130, Routine Given 07/09/2019 10:49 AM GRILL ATTENDANT 150 mg Left Deltoid-IM Given 04/16/2019 11:58 AM CDT 150 mg Righ t Deltoid-IM documented in this encounter Insurance Payer Benefit Plan Subscriber ID Effective Phone Address Typ e / Group Dates [facility] xxxxxxxxx 2016-Prese [phone] [address] Medicaid WOMEN nt [id number] [place] [address] documented as of this encounter Advance Directives Name Relationship Healthcare Agent Communication Relationship Lyric Drummond Mother Primary healthcare agent Keily Castellanos Aunt First [place] [phone] agent (Mobile)
--- OUTSIDE RECORDS SUMMARY | 2019-12-23 21:21 | XMS REPORT | Summary of Care ---
:1990 Author Organization [facility] Address [address] [place] [address] Care Team Providers Name Role Phone Becky Patterson [facility] Primary Care Provider [phone] Reason for Visit Reason Comments CONTROL Encounter Details Date Type Department Care Team Description [facility]/03[facility] Enc ounter for other Joseph Welch ELIANE contraceptive [address] management (Primary Dx) [place], [place] A [address] [place], [place] [id number] Allergies No Known Allergiesdocumented as of this [...] lb (2.722 kg) M VAGINAL SEUN Comments: [place] 1 AB Past Medical History: Diagnosis [...] file Gets together: Not on file Attends yazidism service: Not on file Active member of [...] [facility] Neno Patterson WHCNP [address] [place], [place] [address] [phone] Health Maintenance Due Date Last Done Comments [...] Address Typ e / Group Dates [facility] xxxxxxxxx 2016-Prese [phone] [address] Medicaid WOMEN nt [address] [place] [address] documented as of this encounter Advance Directives Name Relationship Healthcare Agent Communication Relationship Lyric Drummond Mother Primary healthcare agent Keily Castellanos Aunt First [phone] agent (Mobile)
[2019-12-23 23:24] VITALS: TEMP 98.5; O2SAT 100
[2019-12-23 23:39] VITALS: BP 105/58
--- NOTE | 2019-12-25 13:01 | EKG ---
Test Date: 2019-12-23 Test Time: 21:44:57 Animal Groomer: ZAC MEASUREMENT RESULTS: Intervals: Rate: 63 WY: 132 QRSD: 74 QT: 414 QTc: 423 [place]: P: -3 WY: 132 QRS: 55 T: 26 INTERPRETIVE STATEMENTS: Normal sinus rhythm Normal ECG Compared to ECG 09/15/2019 17:02:54 Sinus arrhythmia no longer present Electronically Signed On 12-25-19 13:00:25 CDT by Benjamin Sanders
--- NOTE | 2019-12-27 16:33 | ER ---
Nurse's Notes [facility] Name: Colette Ball Age: 29 yrs Sex: Female : 1990 Arrival Date: 12/23/2019 Time: 19:27 Bed 18 Private MD: Diagnosis: Dizziness and giddiness;Other peripheral vertigo, unspecified ear Presentation: 12/22 19:34 Chief complaint: Patient states: Dizziness for 1 week. Slight YOU intermittently today. ll1 States Dr. Noguera started her on generic zoloft for anxiety/dizziness. She took 1/2 a dose and never took anymore, because it made her feel sleepy and more dizzy. Gait steady. Denies N/V/D, but then states "I might be dehydrated". States she is eating and drinking normally for her. Coronavirus screen: Proceed with normal triage. Patient denies a cough. Patient denies shortness of breath or difficulty breathing. Patient denies measured and/or subjective temperature greater than 100.4F prior to today's visit. Patient denies travel on a cruise ship or to a country the [facility] currently lists as an affected area. Patient denies contact with known and/or suspected case of COVID-19. Ebola Screen: Patient denies travel to an Ebola-affected area in the 21 days before illness onset. Initial Sepsis Screen: Does the patient meet any 2 criteria? No. Patient's initial sepsis screen is negative. Does the patient have a suspected source of infection? No. Patient's initial sepsis screen is negative. Risk Assessment: Do you want to hurt yourself or someone else? Patient reports no desire to harm self or others. Onset of symptoms was December 16, 2019. 19:34 Method Of Arrival: Ambulatory ll1 19:34 Acuity: MARANDA 3 ll1 CARAMEL CUTTER HAND: 20:47 LMP N/A - Depo-provera ca1 Historical: - Allergies: 19:38 No Known Allergies; ll1 - PMHx: 19:38 borderline diabetes; ll1 - PSHx: 19:38 None; ll1 - Immunization history:: Adult Immunizations up to date. - Social history:: Smoking status: Patient denies any tobacco usage or history of. Patient/guardian denies using alcohol, street drugs, tobacco products. Screenin:48 Abuse screen: Denies threats or abuse. Denies injuries from another. Nutritional ca1 screening: No deficits noted. Tuberculosis screening: No symptoms or risk factors identified. Fall Risk None identified. Assessment: 19:48 General: Appears in no apparent distress. comfortable, Behavior is calm, cooperative, ca1 appropriate for age. Pain: Complains of pain in face Pain does not radiate. Pain currently is 2 out of 10 on a pain scale. Pain began 2-3 days ago. Neuro: Level of Consciousness is awake, alert, obeys commands, Oriented to person, place, time, situation, Reports dizziness, since 2 weeks. Cardiovascular: Heart tones S1 S2 present Capillary refill < 3 seconds Patient's skin is warm and dry. Respiratory: Airway is patent Respiratory effort is even, unlabored, Respiratory pattern is regular, symmetrical, Breath sounds are clear bilaterally. GI: Abdomen is flat, non-distended, Bowel sounds present X 4 quads. Abd is soft and non tender X 4 quads. Patient currently denies nausea. : No signs and/or symptoms were reported regarding the genitourinary system. EENT: No signs and/or symptoms were reported regarding the EENT system. Derm: Skin is intact, is healthy with good turgor, Skin is pink, warm \\T\\ dry. Musculoskeletal: Circulation, motion, and sensation intact. Capillary refill < 3 seconds. 20:47 Reassessment: Patient appears in no apparent distress at this time. Patient and/or ca1 family updated on plan of care and expected duration. Pain level reassessed. Patient is alert, oriented x 3, equal unlabored respirations, skin warm/dry/pink. 21:36 Reassessment: Patient appears in no apparent distress at this time. Patient and/or ca1 family updated on plan of care and expected duration. Pain level reassessed. Patient is alert, oriented x 3, equal unlabored respirations, skin warm/dry/pink. 22:00 Reassessment: Patient appears in no apparent distress at this time. Patient and/or vc family updated on plan of care and expected duration. Pain level reassessed. Patient is alert, oriented x 3, equal unlabored respirations, skin warm/dry/pink. Patient states feeling better. Patient states symptoms have improved. 23:00 Reassessment: Patient appears in no apparent distress at this time. Patient and/or vc family updated on plan of care and expected duration. Pain level reassessed. Patient is alert, oriented x 3, equal unlabored respirations, skin warm/dry/pink. Vital Signs: 19:34 BP 120 / 86; Pulse 84; Resp 16; Temp 98.5; Pulse Ox 100% ; Pain 0/10; ll1 20:47 BP 110 / 71; Pulse 70; Resp 16 S; Pulse Ox 100% on R/A; ca1 21:36 BP 93 / 58; Pulse 82; Resp 16 S; Pulse Ox 100% on R/A; ca1 22:00 BP 106 / 63; Pulse 78; Resp 16; Pulse Ox 100% on R/A; vc 23:00 BP 105 / 58; Pulse 82; Resp 16; Pulse Ox 100% on R/A; vc ED Course: 19:27 Patient arrived in ED. cl3 19:34 Albino Tee PA is PHCP. m 19:34 Austin Danielson MD is Attending Physician. m 19:37 Giselle Ryan RN is Primary Nurse. ca1 19:37 Triage completed. ll1 19:39 Arm band placed on Patient placed in an exam room, on a stretcher. ll1 19:48 Patient has correct armband on for positive identification. Bed in low position. Call ca1 light in reach. Side rails up X 1. Pulse ox on. NIBP on. Door closed. Noise minimized. Lights dimmed. Warm blanket given. 19:48 No provider procedures requiring assistance completed. ca1 20:20 Initial lab(s) drawn, by me, sent to lab. Urine collected: clean catch specimen, clear. ca1 Inserted saline lock: 20 gauge in right antecubital area, using aseptic technique. Blood collected. 20:33 CT Head Brain wo Cont In Process Unspecified. EDMS 21:36 Report given to GLADYS Sanches. ca1 22:46 Stacie Calhoun MD is Referral Physician. jmm 23:06 IV discontinued, intact, bleeding controlled, No redness/swelling at site. Pressure vc dressing applied. Administered Medications: 20:22 Drug: NS 0.9% 1000 ml Route: IV; Rate: 1 bolus; Site: right antecubital; ca1 23:00 Follow up: IV Status: Completed infusion; IV Intake: 1000ml vc 20:23 Drug: Zofran (Ondansetron) 4 mg Route: IVP; Site: right antecubital; ca1 22:33 Follow up: Response: No adverse reaction vc 20:25 Drug: Meclizine 50 mg Route: PO; ca1 22:33 Follow up: Response: No adverse reaction vc Intake: 23:00 IV: 1000ml; Total: 1000ml. vc Outcome: 22:47 Discharge ordered by MD. knowles 23:06 Discharged to home ambulatory. vc 23:06 Condition: improved 23:06 Discharge instructions given to patient, Instructed on discharge instructions, follow up and referral plans. medication usage, Demonstrated understanding of instructions, follow-up care, medications, Prescriptions given X 1. 23:07 Patient left the ED. vc Signatures: Dispatcher [employer] EDMS Albino Tee PA PA jmm Acob, Cheryl, RN RN ca1 Nilo Lorenzo cl3 Verónica Mcmillan RN RN vc Zoe Lorenzo RN RN ll1 Corrections: (The following items were deleted from the chart) 20:20 19:48 Assist provider with bone marrow aspiration ca1 ca1 20:46 20:01 NS 0.9% 1000 ml IV at 1 bolus in right antecubital ca1 ca1
--- NOTE | 2019-12-27 16:33 | EDPHYS ---
Physician Documentation [facility] Name: Colette Ball Age: 29 yrs Sex: Female : 1990 Arrival Date: 12/23/2019 Time: 19:27 Bed 18 Private MD: ED Physician Austin Danielson HPI: 12/22 19:52 This 29 yrs old Black Female presents to ER via Ambulatory with complaints of jmm Dizziness, Headache. 19:52 The patient presents with dizziness, feeling off balance. Onset: The symptoms/episode jmm began/occurred acutely, 1 week(s) ago. Associated signs and symptoms: Pertinent positives: headache, nausea, vomiting, Pertinent negatives: chest pain, near-syncope, numbness, , shortness of breath, syncope, tingling. The patient has not experienced similar symptoms in the past. This is a 29 year old female with no chronic medical conditions that presents to the ED with complaints of dizziness beginning 1 week ago worsening with movement. Denies fever. Denies shortness of breath. Patient began taking zoloft this past Friday. . 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 - Social history:: Smoking status: Patient denies any tobacco usage or history of. Patient/guardian denies using alcohol, street drugs, tobacco products. ROS: 19:52 Constitutional: Negative for fever, chills, and weight loss, Cardiovascular: Negative jmm for chest pain, palpitations, and edema, Respiratory: Negative for shortness of breath, cough, wheezing, and pleuritic chest pain. 19:52 Abdomen/GI: Positive for nausea. 19:52 Neuro: Positive for dizziness. 19:52 All other systems are negative. Exam: 19:52 Constitutional: This is a well developed, well nourished patient who is awake, alert, jmm and in no acute distress. Head/Face: atraumatic. 19:52 ENT: Moist Mucus Membranes Neck: Trachea midline, Supple Chest/axilla: Normal chest wall appearance and motion. Cardiovascular: Regular rate and rhythm. No edema appreciated Respiratory: Normal respirations, no respiratory distress appreciated Abdomen/GI: Non distended, soft Back: Normal ROM Skin: General appearance color normal MS/ Extremity: Moves all extremities, no obvious deformities appreciated, no edema noted to the lower extremities 19:52 Eyes: Nystagmus: fatigable horizontal nystagmus. 19:52 Neuro: Orientation: is normal, Mentation: is normal, Memory: is normal, Cerebellar function: normal finger to nose testing, heel to noland testing is normal, Motor: is normal. 19:52 Psych: Behavior/mood is pleasant, cooperative. Vital Signs: 19:34 BP 120 / 86; Pulse 84; Resp 16; Temp 98.5; Pulse Ox 100% ; Pain 0/10; ll1 20:47 BP 110 / 71; Pulse 70; Resp 16 S; Pulse Ox 100% on R/A; ca1 21:36 BP 93 / 58; Pulse 82; Resp 16 S; Pulse Ox 100% on R/A; ca1 22:00 BP 106 / 63; Pulse 78; Resp 16; Pulse Ox 100% on R/A; vc 23:00 BP 105 / 58; Pulse 82; Resp 16; Pulse Ox 100% on R/A; vc MDM: 19:52 Patient medically screened. [facility] 22:44 Data reviewed: vital signs, nurses notes. Counseling: I had a detailed discussion with eleni the patient and/or guardian regarding: the historical points, exam findings, and any diagnostic results supporting the discharge/admit diagnosis, lab results, radiology results, the need for outpatient follow up, to return to the emergency department if symptoms worsen or persist or if there are any questions or concerns that arise at home. ED course: Dizziness has improved. Normal cerebellar exam. CT negative. Patient advised to follow up with ENT for reevaluation. patient understood and agrees with the plan of care. . 12/22 19:59 Order name: CBC with Diff; Complete Time: 20:35 [facility] 12/22 19:59 Order name: CMP; Complete Time: 20:53 [facility] 12/22 19:59 Order name: CT Head Brain wo Cont; Complete Time: 20:53 [facility] 12/22 20:30 Order name: Urine Dipstick--Ancillary (enter results); Complete Time: 21:08 mt 12/22 20:30 Order name: Urine --Ancillary (enter results); Complete Time: 21:08 mt 12/22 19:59 Order name: Urine Dipstick-Ancillary (obtain specimen); Complete Time: 20:20 [facility] 12/22 19:59 Order name: Urine Test (obtain specimen); Complete Time: 20:20 [facility] 12/22 21:34 Order name: EKG - Nurse/Tech; Complete Time: 22:32 jm Administered Medications: 20:22 Drug: NS 0.9% 1000 ml Route: IV; Rate: 1 bolus; Site: right antecubital; ca1 23:00 Follow up: IV Status: Completed infusion; IV Intake: 1000ml vc 20:23 Drug: Zofran (Ondansetron) 4 mg Route: IVP; Site: right antecubital; ca1 22:33 Follow up: Response: No adverse reaction vc 20:25 Drug: Meclizine 50 mg Route: PO; ca1 22:33 Follow up: Response: No adverse reaction vc Disposition: 12/23 00:33 Co-signature as Attending Physician, Austin Danielson MD. [email or web address] Disposition: 12/23/19 22:47 Discharged to Home. Impression: Dizziness and giddiness, Other peripheral vertigo, unspecified ear. - Condition is Stable. - Discharge Instructions: Benign Positional Vertigo, Dizziness, Bre Maneuver Self-Care. - Prescriptions for Meclizine 25 mg Oral Tablet - take 1 tablet by ORAL route every 8 hours As needed; 30 tablet. - Medication Reconciliation Form, Thank You Letter, Antibiotic Education, Prescription Opioid Use form. - Follow up: Stacie Calhoun MD; When: 2 - 3 days; Reason: Recheck today's complaints, Continuance of care, Re-evaluation by your physician. Signatures: Dispatcher [employer] EDMS Albino Tee PA PA Giselle Shah RN RN ca1 Verónica Mcmillan RN RN vc Zoe Lorenzo RN RN ll1 Austin Danielson MD MD [email or web address] Corrections: (The following items were deleted from the chart) 12/22 23:07 22:47 12/23/2019 22:47 Discharged to Home. Impression: Dizziness and giddiness; Other vc peripheral vertigo, unspecified ear. Condition is Stable. Forms are Medication Reconciliation Form, Thank You Letter, Antibiotic Education, Prescription Opioid Use. Follow up: Stacie Calhoun; When: 2 - 3 days; Reason: Recheck today's complaints, Continuance of care, Re-evaluation by your physician. eleni
== END 2019-12-23 23:07 | disposition home or self-care (01) ==
LOC: ER 19:25
DX: H81.399 Other peripheral vertigo, unspecified ear (principal); R73.03 Prediabetes
CPT/HCPCS: 96361; 93005; 85025; 36415; 81025; 81003; 80053; 70450; 96374; 99284; J8597; J7030; J2405

== ENCOUNTER 2020-05-21 19:37 | Emergency (ER) | payer OTHER ==
--- OUTSIDE RECORDS SUMMARY | 2020-05-21 19:39 | XMS REPORT | Summary of Care ---
:1990 Author Organization [facility] - Health Address [address] [place] [address] Care Team Providers Name Role Phone Becky Patterson [facility] Primary Care Provider [phone] Encounter Details Date Type Department Care Team Description 04/13/2020 Orders Only [facility] Doctor Unassigned, No [address] [facility] [place] [address] [address] [place] [address] Allergies No Known Allergiesdocumented as of this encounter (statuses as of 04/13/2020) Medications Medication Sig Dispensed Refills Start Date End Date Status MULTIVITAMIN ORAL Take by mouth. 0 Active Hospital, Clinic, or Other Ordered Dose Route Frequency Start Date End Date Status Facility Administered Medication medroxyPROGESTERone 150 mg IM [id number] 02/17/2020 1 Active (DEPO-PROVERA) injection 150 mgIndications: Depo-Provera contraceptive status documented as of this encounter (statuses as of 04/13/2020) Active Problems Problem Noted Date Leukorrhea, not [...] as of this encounter (statuses as of 04/13/2020) Resolved Problems Problem Noted Date Resolved Date Screening for STD (sexually transmitted disease) 12/16/2016 01/23/2018 Pap smear for cervical cancer screening 04/11/2016 12/16/2016 Overview: Negative- 2014 see scanned records ASCUS with positive high risk HPV 04/11/20162016 Overview: 6-1-16- see scanned records Contraceptive management 03/26/2016 12/16/2016 Depo contraception 03/26/2016 12/16/2016 documented as of this encounter (statuses as of 04/13/2020) Immunizations Name Administration Dates Next Due HPV9 06/23/2017, 02/17/2017, 12/16/2016 Influenza Virus Vaccine 06/09/2019 documented as of this encounter Social History Tobacco Use Types Packs/Day Years Used Date Never Smoker Smokeless Tobacco: Never Used Alcohol Use Drinks/Week oz/Week Comments Yes 0 Standard drinks or equivalent 0.0 social Sex Assigned at Date Recorded Not on file documented as of this encounter Last Filed Vital Signs Not on filedocumented in this encounter Plan of Treatment Date Type Specialty Care Team Description 05/11/2020 Nurse Visit OB Satellites Visit, [facility] Nurse Health Maintenance Due Date Last Done Comments INFLUENZA VACCINE (#1) 2020 06/09/2019 DTaP,Tdap,and Td Vaccines (1 07/09/2020 Pos tponed from 2010 - Tdap) (Alternative Aman delines) VARICELLA VACCINES (1 of 2 - 07/09/2020 Pos tponed from 1992 2-dose childhood series) (Insura nce / Financial) Depression Screening 12/02/2020 12/03/2019 PAP SMEAR 01/23/2021 01/23/2018, 12/16/2016 PNEUMOCOCCAL 0-64 YEARS Aged Out No longe r eligible based COMBINED SERIES on patient's age to complete this to pic documented as of this encounter Procedures Procedure Name Priority Date/Time Associated Diagnosis Comme nts CONSENT/REFUSAL FOR Routine 04/13/2020 6:13 PM CDT DIAGNOSIS AND TREATMENT NOTICE OF PRIVACY Routine 04/13/2020 6:13 PM CDT PRACTICES documented in this encounter Results Not on filedocumented in this encounter Insurance Payer Benefit Plan Subscriber ID Effective Phone Address Typ e / Group Dates [employer] [place] [id number] 2016-Prese [phone] Medicaid WOMEN nt [address] [place] [address] documented as of this encounter Advance Directives Name Relationship Healthcare Agent Communication Relationship Lyric Drummond Mother Health Care Agent Keily Castellanos Aunt [facility] [phone] Agent (Mobile)
--- OUTSIDE RECORDS SUMMARY | 2020-05-21 19:39 | XMS REPORT ---
:1990 Author Organization [employer] Care Team Providers Name Role Phone Vanessa Cervantes Provider Role Unavailable Allergies, Adverse Reactions, Alerts Substance Reaction Event Type N.K.D.A. Info Not Available Non Drug Allergy Problems Problem Type Condition Code Onset Dates Condition Statu s Problem Panic attacks F41.0 Active Problem Noncompliance with dietary Z91.11 A ctive restriction Problem Generalized anxiety disorder F41.1 Active Assessment Exposure to 2018 novel coronavirus Z20.828 Active Medications Medication Code Code Instructions Start End Status Dosage System Date Date Multivitamin [facility] 27703373080 - Orally Active as dir ected Pristiq [facility] [id number] 25 MG Orally December 20, Active 1 table t Once a day 2019 Sertraline HCl [facility] [id number] 50 MG Active TAKE 1/2 TAB DAILY X 1 WEEK THEN TAKE 1 TABLET ONCE A DAY ORALLY 30 DAY(S) Results Name Result Date Reference Range Unit Abnormali ty Flag Novel Coronavirus (COVID-19), [place] ----SARS-CoV-2, [place] Not Detected [id number] Not Detected Inpatient Summary Purpose [employer]Clinical[employer] Submission
--- OUTSIDE RECORDS SUMMARY | 2020-05-21 19:39 | XMS REPORT | Continuity of Care Document ---
:1990 Author Organization [facility] t Address [address] [place] [address] Care Team Providers Name Role Phone Visit, Nurse Attending Clinician Unavailable Yuri Vidal Attending Clinician Linh Smith Attending Clinician Doctor Unassigned, Name Attending Clinician Unavailable Problems This patient has no known problems. Allergies, Adverse Reactions, Alerts This patient has no known allergies or adverse reactions. Medications Ordered Filled Start Stop Current Ordering Indication Dosage Frequency Signature Comments Components Source Medication Medication Date Date Medication? Clinician (SIG) Name Name Pristiq Pristiq 0 Yes Vanessa [address] [facility] Multivitami Multivitami Yes Vanessa [facility] Sertraline Sertraline Yes Vanessa TAKE 1/[address] HCl HCl [facility] TAB DAILY [facility] - X 1 WEEK [facility] THEN TAKE l 1 TABLET Outpati ONCE A DAY ent ORALLY 30 Clinics DAY(S) Immunizations Ordered Filled Immunization Date Status Comments Sour e Immunization Name Name Flucelvax - Flucelvax - 2019-05-[address] [facility] - multidose vial multidose vial 00:00:00 Silv[facility] Outpatient Clinics Procedures This patient has no known procedures. Encounters Start End Encounter Admission Attending Care Care Encounter Source Date/Time Date/Time Type Type Clinicians Facility Department ID 2020-05-11 2020-05-11 Nurse Visit, [facility] [id number] 10:06:37 10:21:37 Visit [facility] CLINICAL REHAB [facility] [id number] [facility] [id number] MATERNAL [id number] & CHILD 107 [facility] 2020-05-11 2020-05-11 [facility], [facility] [id number] 00:00:00 00:00:00 (Out) Becky Welch [facility] [id number] [facility] [id number] MATERNAL [id number] & CHILD 107 [facility] 2020-05-04 2020-05-[address] [facility] [id number] [facility] 00:00:00 00:00:00 Yoni - [facility] 2020-04-13 2020-04-13 Emergency Lorenzo, K [facility] [id number] 18:25:00 20:30:00 Lin[place] [id number] [place] [id number] [place] [id number] 2020-04-13 2020-04-13 Orders Doctor VIELKA [id number] 00:00:00 00:00:00 Only Unassigned, EDD [id number] [place] [facility] [id number] [id number] 2020-02-17 2020-02-17 Office [facility], [facility] [id number] 11:15:55 12:10:04 Visit Becky Welch CL[facility]ICAL REHAB [facility]IA[facility] [id number] [facility] [id number] MATERNAL [id number] & CHILD 107 [facility] 2020-02-09 2020-02-09 [id number] [facility]20[facility] 2020-02-08 2020-02-08 [facility] [id number] 09[facility]10:00 09:10:00 [facility] [place] [facility] l Medicine Outpati ent Clinics 2020-01-03 2020-01-03 [facility] [id number] 13:30:00 13:30:00 [facility] [place] [facility] l Medicine Outpati ent Clinics 2019-12-21 2019-12-21 [facility] [id number] 09:02:00 09:02:00 [facility] [place] [facility] Medicine Outpati ent Clinics 2019-12-13 2019-12-13 [facility] [id number] 15:45:00 15:45:00 [facility] [place] [facility] Medicine Outpati ent Clinics 2019-12-13 2019-12-13 [facility] [id number] 08:51:00 08:51:00 [facility] [place] [facility] l Medicine Outpati ent Clinics 2019-11-04 2019-11-04 [facility] [id number] 08:00:00 08:00:00 [facility] [place] [facility] l Medicine Outpati ent Clinics 2019-05-07 2019-05-07 [facility] [id number] 08:00:00 08:00:00 [facility] [place] [facility] Medicine l Medicine Outpati ent Clinics 2019-02-09 2019-02-09 [facility] [id number] 09:04:00 09:04:00 [facility] [place] [facility] l Medicine Outpati ent Clinics 2019-02-04 2019-02-04 [facility] [id number] 08[facility]00:00 08:00:00 [facility] [place] [facility] l Medicine Outpati ent Clinics 2018-10-05 2018-10-05 [facility] [id number] 13:30:00 13:30:00 t [employer] [facility] Medicine Outpati ent Clinics Results This patient has no known results.
--- OUTSIDE RECORDS SUMMARY | 2020-05-21 19:40 | XMS REPORT | Summary of Care ---
:1990 Author Organization [facility] Address [address] [place] [address] Care Team Providers Name Role Phone Becky Patterson [facility] Primary Care Provider [phone] Reason for Visit Reason Comments Neck Pain Auth/Cert Status Reason Specialty Diagnoses / Referred By Referred To Procedures Contact Contact Emergency Medicine Adc Em ergency Dept [address] [place] [address] Fax: Encounter Details Date Type Department Care Team Description 04/13/2020 Emergency ADC-Emergency Joellen Ventura, Strain of neck muscle, Department PAC initial encounter [address] [facility] [place] [address] [facility] (Primary Dx) [place] [id number] [facility] [address] [place] [id number] Allergies No Known Allergiesdocumented as of this encounter (statuses as of 04/13/2020) Medications Medication Sig Dispensed Refills Start Date End Date Status MULTIVITAMIN ORAL Take by mouth. 0 Active ibuprofen 600 mg Take 1 tablet 30 tablet 0 04/13/2020 Active tabletIndications: Strain by mouth every of neck muscle, initial 6 (six) hours encounter as needed for Pain (scale 4-6). cyclobenzaprine 10 mg Take 1 tablet 20 tablet 0 04/13/2020 Active tabletIndications: Strain by mouth 3 of neck muscle, initial (three) times encounter daily. Hospital, Clinic, or Other Ordered Dose Route Frequency Start Date End Date Status Facility Administered Medication medroxyPROGESTERone 150 mg IM [id number] 02/17/2020 1 Active (DEPO-PROVERA) injection 150 mgIndications: [...] Assigned at Date Recorded Not on file COVID-19 Exposure Response Date Recorded In the last month, have you been in contact with No / Unsure 04/13/2020 6:21 PM CDT someone who was confirmed or suspected to have Coronavirus / COVID-19? documented as of this encounter Last Filed Vital Signs Vital Sign Reading Time Taken Comments Blood Pressure 139/82 04/13/2020 8:27 PM CDT Pulse 93 04/13/2020 8:27 PM CDT Temperature 37.9 C (100.2 F) 04/13/2020 6:23 PM CDT Respiratory Rate 18 04/13/2020 8:27 PM CDT Oxygen Saturation 100% 04/13/2020 8:27 PM CDT Inhaled Oxygen Concentration - - Weight 57.2 kg (126 lb) 04/13/2020 6:23 PM CDT Height - - Body Mass Index 23.05 02/17/2020 11:28 AM CDT documented in this encounter Discharge Instructions AttachmentsThe following attachments cannot be sent through Care Everywhere. Cervical Strain, Understanding (Khmer)Head Tilt / Upper Trapezius Stretch (Flexibility) (Khmer)documented in this encounter ED Notes Skye Mathew RN - 04/13/2020 6:21 PM CDTPatient c/o right neck pain that started last week and is now tingling into her shoulder. Denies any injury. Patient reports that she had an appointment with her PCP today but cancelled it. PMHx: none Meds: none documented in this encounter Miscellaneous Notes ED Nurse Note - Wilmer Keenan RN - 04/13/2020 8:30 PM CDTPt given printed and verbal discharge instructions regarding neck strain, encouraged rest, heating pad prescriptions provided and discussed with patient/family Discussed ibuprofen and to take with food to avoid GI distress. Discussed cyclobenzaprine side effects and to avoid driving/operating machinery/or engaging in activities requiring alertness while taking. Pt encouraged to follow up with pcp Advised to seek medical attention for new/prolonged/worsening of symptoms. No adverse reaction to meds given in ER noted upon discharge. Pt verbalized understanding of instructions, awake alert oriented, resp reg unlabored, skin w/d, color appropriate for race, moves all ext well, pt leaving amb with steady gait, in no apparent distress, documented in this encounter Plan of Treatment Date Type Specialty Care Team Description 05/11/2020 [facility] Due Date Last Done [...] to pic documented as of this encounter Results Not on filedocumented in this encounter Visit Diagnoses Diagnosis Strain of neck muscle, initial encounter - Primary documented in this encounter documented as of this encounter Advance Directives Name Relationship Healthcare Agent Communication Relationship Lyric Drummond Mother Health Care Agent Keily Castellanos Aunt [facility] Health Care Agent (Mobile)
--- OUTSIDE RECORDS SUMMARY | 2020-05-21 19:40 | XMS REPORT | Summary of Care ---
:1990 Author Organization [facility] Address [address] [place] [address] Care Team Providers Name Role Phone Becky Patterson [facility] Primary Care Provider [phone] Encounter Details Date Type Department Care Team Description 05/11/2020 Letter (Out) [facility]- Becky Patterson [place] [facility] [address] [facility] [address] [place] [address] [facility] A [phone] [place], [place] [address] Allergies No Known Allergiesdocumented as of this encounter (statuses as of 05/11/2020) Medications Medication Sig Dispensed Refills Start Date [...] Facility Administered Medication medroxyPROGESTERone 150 mg IM [id number] 02/17/2020 1 Active (DEPO-PROVERA) injection 150 mgIndications: Depo-Provera contraceptive status documented as of this encounter (statuses as of 05/11/2020) Active Problems Problem Noted Date Leukorrhea, not [...] as of this encounter (statuses as of 05/11/2020) Resolved Problems Problem Noted Date Resolved Date Screening for STD (sexually transmitted disease) 12/16/2016 01/23/2018 Pap smear for cervical cancer screening 04/11/2016 12/16/2016 Overview: Negative- 2014 see scanned records ASCUS with positive high risk HPV 04/11/20162016 Overview: 6-1-16- see scanned records Contraceptive management 03/26/2016 12/16/2016 Depo contraception 03/26/2016 12/16/2016 documented as of this encounter (statuses as of 05/11/2020) Immunizations Name Administration Dates Next Due HPV9 06/23/2017, 02/17/2017, 12/16/2016 Influenza Virus Vaccine 05/04/2020, 06/09/2019 documented as of this encounter Social History Tobacco Use Types Packs/Day Years Used Date Never Smoker Smokeless Tobacco: Never Used Alcohol Use Drinks/Week oz/Week Comments Yes 0 Standard drinks or equivalent 0.0 social Sex Assigned at Date Recorded Not on file COVID-19 Exposure Response Date Recorded In the last month, have you been in contact with No / Unsure 05/11/2020 10:16 AM CDT someone who was confirmed or suspected to have Coronavirus / COVID-19? documented as of this encounter Last Filed Vital Signs Not on filedocumented in this encounter Plan of Treatment Date Type Specialty Care Team Description 08/03/2020 [facility] Health [facility] Due Date Last Done Comments DTaP,Tdap,and Td Vaccines (1 07/09/2020 Pos tponed from 2010 - Tdap) (Alternative Aman delines) VARICELLA VACCINES (1 of 2 - 07/09/2020 Pos tponed from 1992 2-dose childhood series) (Insura nce / Financial) Depression Screening 12/02/2020 12/03/2019 PAP SMEAR 01/23/2021 01/23/2018, 12/16/2016 INFLUENZA VACCINE Completed 05/04/2020, 06/09/2019 PNEUMOCOCCAL 0-64 YEARS Aged Out No longe r eligible based COMBINED SERIES on patient's age to complete this to pic documented as of this encounter Results Not on filedocumented in this encounter Insurance Payer Benefit Plan Subscriber ID Effective Phone Address Typ e / Group Dates [facility] [id number] 2016-Tony [phone] Medicaid WOMEN nt [address] [place] [address] [employer] [id number] 2019-Tony PPO nt documented as of this encounter Advance Directives Name Relationship Healthcare Agent Communication Relationship Lyric Drummond Mother Health Care Agent Keily Castellanos Aunt [facility] Health Care Agent (Mobile)
--- OUTSIDE RECORDS SUMMARY | 2020-05-21 19:40 | XMS REPORT ---
:1990 Author Organization [facility] Address [address] [place], [address] [place] [address] Care Team Providers Name Role Phone Adam Noguera Unavailable [phone] PROBLEMS Type Condition ICD9-CM [id number]-TL Onset Condition SNOMED Code Notes Code Code Dates Status Problem Panic attacks F41.0 Active 833379888 Problem Generalized F41.1 Active 22115949 anxiety disorder Problem Noncompliance Z91.11 Active 211624591 with dietary restriction ALLERGIES No Known Allergies ENCOUNTERS from 1990 to 2020-05-04 Encounter Location Date Provider Diagnosis [facility] [address] [facility] [address] [place] Apr, Adam Noguera Gen eralized anxiety [facility] ; [place] [id number] attacks F41.0 ; Benign paroxysmal posi tional vertigo of righ t ear H81.11 ; Predia betes R73.03 ; Fatigu e, unspecified typ e R53.83 ; Noncom pliance with dietary restriction Z91 .11 ; Elevated serum protein level R77.9 ; Dehydration E86 .0 and Need for influe nza vaccination Z23 IMMUNIZATIONS Vaccine Route Administration Date Status Afluria single dose IM Intramuscular May 04, 2020 Administere d Flucelvax - multidose vial IM Intramuscular May 07, 2019 Admi nistered SOCIAL HISTORY Tobacco Use: Social History Observation Description Date Details (start date - stop date) Never Smoker Sex Assigned At : Social History Observation Description Sex Assigned At Unknown PHQ9 Question Answer Notes Little interest or pleasure in doing things Not at all Feeling down, depressed, or hopeless Not at all Trouble falling or staying asleep or sleeping too much Not a t all Feeling tired or having little energy Not at all Poor appetite or overeating Not at all Feeling bad about yourself, or that you are a failure, or phillips ve let Not at all yourself or your family down Trouble concentrating on things, such as reading the newspap er or Not at all watching television Moving or speaking so slowly that other people could have no ticed; Not at all or the opposite, being so fidgety or restless that you have been moving around a lot more than usual Total Score 0 Thoughts that you would be better off or of hurting you rself in Not at all some way Alcohol Screen Question Answer Notes Did you have a drink containing alcohol in the past Yes year? Points 1 Interpretation Negative How many drinks did you have on a typical day when 1 or 2 (0 points) you were drinking in the past year? How often did you have a drink containing alcohol in Monthly or less (1 point) the past year? Tobacco Use/Smoking Question Answer Notes Are you a never smoker REASON FOR REFERRAL No Information VITAL SIGNS Height 62 in Apr, Weight 121.3 lbs Apr, Temperature 98.1 degrees Fahrenheit Apr, BMI 22.18 kg/m2 Apr, Oximetry 99 % Apr, Respiratory Rate 17 /min Apr, Blood pressure systolic 121 mm Hg Apr, Blood pressure diastolic 75 mm Hg Apr, MEDICATIONS Medication SIG (Take, Route, Frequency, Start Date End Date Status Duration) Multivitamin - as directed Orally Unknown Pristiq 25 MG 1 tablet Orally Once a day for 30 Active days Sertraline HCl 50 MG TAKE 1/2 TAB DAILY X 1 WEEK THEN Unknown TAKE 1 TABLET ONCE A DAY ORALLY 30 DAY(S) for 30 PROCEDURES No Information RESULTS No Results REASON FOR VISIT 6 mth lab f/u *IN [facility] Type Description Date Surgical History No Surgical history information Goals Section No Information Health Concerns No Information MEDICAL EQUIPMENT No Information MENTAL STATUS No Information FUNCTIONAL STATUS No Information ASSESSMENTS Encounter Date Diagnosis Notes Apr, Noncompliance with dietary restriction ( ICD-10 - Z91.11) Apr, Fatigue, unspecified type (ICD-10 - R53. 83) Apr, Elevated serum protein level (ICD-10 - R 77.9) Apr, Panic attacks (ICD-10 - F41.0) Apr, Generalized anxiety disorder (ICD-10 - F 41.1) Apr, Prediabetes (ICD-10 - R73.03) Apr, Need for influenza vaccination (ICD-10 - Z23) Apr, Benign paroxysmal positional vertigo of right ear (ICD-10 - H81.11) Apr, Dehydration (ICD-10 - E86.0) PLAN OF TREATMENT Medication Medication Name Sig Start Date Stop Date Pristiq 25 MG 1 tablet Orally Once a day for 30 days Treatment Notes Assessment Notes Clinical Notes Generalized anxiety disorder Actively listented. Support giv en. Discussed treatment options. Medication + Counseling/Therapy. Infomation provided for psychologist for therapy options, encouraged to call to make an appt. START Pristiq and titrate as tolerated. Instructions and side effects discussed. Close f/u in 2-3 weeks. , If no change will consider another SSRI.-- Anxiety Education: Anxiety is a feeling of anxiousness or nervousness. Being extremely anxious or worried on most days for 6 months or longer is not normal. This is a type of anxiety disorder. This disorder can make it hard to do everyday tasks. Other types of anxiety include: post traumatic stress disorder, panic disorder, and phobias. Symptoms of anxiety may include: feeling worried or on the edge, trouble sleeping, or forgetting things. Feelings of stomach aches or chest tightness is another common symptom. Medicine, exercise, and other treatments like counseling, talk therapy, yoga, and massages maybe necessary to treat this disorder. Panic attacks . Actively listened. Education given. Discussed supportive measures for symptomatic relief. Consider BuSpar adding at follow-up. Benign paroxysmal positional vertigo Discussed differential diagnosis. of right ear Continue Bre's maneuver. If unchanged or worsen will refer to ENT physical therapy. Prediabetes Diet-Controlled. Education given. Fatigue, unspecified type Increased sunlight + Exercise + Hydration. Labs ordered. Education given. Noncompliance with dietary Strongly encourage patient to elijah e restriction dietary changes. Patient agreeable plan. Elevated serum protein level Discussed DDX. Education given. Recheck. Dehydration Increase hydration. Education given. Next Appt Details 4 Weeks Reason: Provider Name:Adam Noguera, 2020-06-01 0 1:20:00 PM, [address], [place], [address], Insurance Providers Payer Name Payer Address Payer Insured Patient Coverage Cover age Phone Name Relationship to Start Date End Date Insured Insurance [phone] Nena Ball self 2020 Benefit [place] [address] [employer] [id number] c/o [employer] ([place])
--- OUTSIDE RECORDS SUMMARY | 2020-05-21 19:40 | XMS REPORT | Summary of Care ---
:1990 Author Organization [facility] Address [address] [place] [address] Care Team Providers Name Role Phone Becky Patterson [facility] Primary Care Provider [phone] Reason for Visit Reason Comments DEPO PROVERA Encounter Details Date Type Department Care Team Description 05/11/2020 [facility], [facility] [address] [place] [address] Depo-Provera [place] Visit, [facility] Nurse contraceptive status [address] [facility] (Primary Dx) [place] [address] Allergies No Known Allergiesdocumented as [...] Facility Administered Medication medroxyPROGESTERone 150 mg IM [id number] 02/17/2020 1 Active (DEPO-PROVERA) injection 150 mgIndications: [...] Reading Time Taken Comments Blood Pressure 109/71 05/11/2020 10:17 AM CDT Pulse 84 05/11/2020 10:17 AM CDT Temperature 37.2 C (98.9 F) 05/11/2020 10:17 AM CDT Respiratory Rate 16 05/11/2020 10:17 AM CDT Oxygen Saturation - - Inhaled Oxygen Concentration - - Weight 55.1 kg (121 lb 7 oz) 05/11/2020 10:17 AM CDT Height 157.5 cm (5' 2") 05/11/2020 10:17 AM CDT Body Mass Index 22.21 05/11/2020 10:17 AM CDT documented in this encounter Patient Instructions Patient InstructionsMai Duran - 05/11/2020 10:00 AM CDT Patient Education Medroxyprogesterone injection [Contraceptive] Brand Names: Depo-Provera, Depo-subQ [...] These injections are given by a health home health care case manager. You must not be before getting an injection. The injection is usually given during the first 5 days after the start of a menstrual period or 6 weeks after delivery of a baby. Talk to your rehabilitation tech regarding the use of this medicine in children. Special care may be needed. These injections have been used in female children who have started having menstrual periods. What side effects may I notice from receiving this medicine? Side effects that you should report to your doctor or health home health care case manager as soon as possible: allergic reactions like [...] attention (report to your doctor or health home health care case manager if they continue or are bothersome): acne [...] like ethotoin, felbamate, oxcarbazepine, phenytoin, topiramate modafinil Alex's wort What if I miss a dose? [...] be given to you by a health home health care case manager. What should I tell my health care [...] risk for weak bones. Ask your health home health care case manager how you can keep strong bones. You may have a change in bleeding pattern or irregular periods. Many females stop having periods while taking this drug. If you have received your injections on time, your chance of being is very low. If you think you may be , see your health home health care case manager as soon as possible. Tell your health home health care case manager if you want to get within the [...] encounter Progress Notes Becky Brown LVN - 05/11/2020 10:00 AM CDT29 year old female has been identified by and name. Verbal consent has been obtained by patientto have an injection of Depo Provera, as ordered by the provider. Date of last Depo Provera injection: 02/17/2020 Last WWE: 02/17/2020 Encounter Diagnosis: v25.49 The site was cleaned with an alcohol swab and given intramuscularly (IM) in the left deltoid. A band aid dressing was then applied to the injection site. The patient tolerated the procedure well . Advised patient on Calcium intake 500-1200 mg daily. ED warnings given. Patient to return to clinic in 12 weeks for next Depo. Patient verbalized understanding. Becky Patel LVN 05/11/2020 10:25 AM documented in this encounter Plan of Treatment Health [...] on patient's age to complete this to [facility] documented as of this encounter Results Not on filedocumented in this encounter Visit Diagnoses Diagnosis Depo-Provera contraceptive status - Prim wanda Surveillance of other previously prescri bed contraceptive method documented in this encounter Administered Medications Medication Order MAR Action Action Date Dose Rate Site medroxyPROGESTERone Given 05/11/2020 10:26 150 mg Left Deltoid-IM (DEPO-PROVERA) injection 150 AM CDT mg 150 mg, Intramuscular, [id number], 4 doses, First dose on Giovanna 02/17/20 at 1200, Last dose on Giovanna 10/26/20 at 1200, Routine Given 02/17/2020 2:26 PM CDT 150 mg Righ t Deltoid-IM documented in this encounter Insurance Payer Benefit Plan Subscriber ID Effective Phone Address Typ e / Group Dates [facility] [id number] 2016-Tony [phone] [address] Medicaid WOMEN [place] [address] [place] [address] documented as of this encounter Advance Directives Name Relationship Healthcare Agent Communication Relationship Lyric Drummond Mother Health Care Agent Keily Castellanos Aunt First [facility] Care Agent (Mobile)
--- NOTE | 2020-05-21 20:39 | RAD REPORT ---
EXAM DESCRIPTION: CT - Head Brain Wo Cont - 05/21/2020 8:33 pm CLINICAL HISTORY: HEADACHE COMPARISON: Head Brain Wo Cont dated 12/23/2019 TECHNIQUE: Axial 5 mm thick images of the head were obtained without IV contrast. All CT scans are performed using dose optimization technique as appropriate and may include automated exposure control or mA/KV adjustment according to patient size. FINDINGS: No intracranial hemorrhage, mass, edema or shift of mid-line structures. No acute infarcti on changes seen. No abnormal extra-axial fluid collections. Ventricles are normal. Mastoid air cells and visualized portions of the paranasal sinuses are clear. No acute bony findings. No change from comparison study. IMPRESSION: Negative non-contrast CT head examination.
[2020-05-21] MEDS ORDERED: NA CHLORIDE 0.9% 1,000 ML ONE (20:51)
[2020-05-21 21:20] LABS: Absolute Lymphocytes (CBC) 1.6 K/uL (0.7-4.9); Basophils % 0.3 % (0-1.3); Hematocrit 38.9 % (36.0-45.0); Lymphocytes % 19.9 % (15.3-44.8); MPV 8.3 fL (7.6-11.3)
[2020-05-21 21:22] LABS: Protime INR 1.08
[2020-05-21 21:32] LABS: ALT/SGPT 33 U/L (12-78); AST/SGOT 17 U/L (15-37); Albumin 4.4 g/dL (3.4-5.0); Alkaline Phosphatase 54 U/L (45-117); BUN Blood Urea Nitrogen 7 mg/dL (7-18); Bicarbonate 24 mmol/L (21-32); Bilirubin Direct < 0.1 mg/dL (0-0.2); Bilirubin Total 0.4 mg/dL (0.2-1.0); Glucose Level 87 mg/dL (74-106); Magnesium 2.1 mg/dL (1.8-2.4); NT PRO-BNP 21 pg/mL (<125); Potassium 3.3 mmol/L (3.5-5.1); Protein, Total 8.3 g/dL (6.4-8.2); Sodium Level 140 mmol/L (136-145); Troponin (Emerg Dept Use Only) < 0.02 ng/mL (0.0-0.045)
[2020-05-21 21:43] LABS: Urine Blood TRACE (NEG); Urine Glucose NEGATIVE (NEG); Urine Protein NEGATIVE (NEG); Urine Specific Gravity 1.015 (1.005-1.030)
[2020-05-21 21:58] LABS: Barbiturates NEGATIVE (NEGATIVE); Benzodiazepines NEGATIVE (NEGATIVE); Cocaine NEGATIVE (NEGATIVE); METHAMPHETAM NEGATIVE (NEGATIVE); Methadone NEGATIVE (NEGATIVE); Opiates NEGATIVE (NEGATIVE); Phencyclidine NEGATIVE (NEGATIVE); THC Cannibis NEGATIVE (NEGATIVE)
[2020-05-21] MEDS ORDERED: POTASSIUM CL SA 10 MEQ TAB PO ONE (22:30)
--- NOTE | 2020-05-21 22:52 | RAD REPORT ---
EXAM DESCRIPTION: RAD - Chest Single View - 05/21/2020 8:43 pm CLINICAL HISTORY: CHEST PAIN COMPARISON: September 15, 2019 TECHNIQUE: AP portable chest image was obtained 05/21/2020 8:43 pm . FINDINGS: Lungs are clear. Heart and vasculature are normal. No measurable pleural effusion and no p neumothorax. No acute bony abnormality seen. No acute aortic findings suspected. IMPRESSION: No acute cardiopulmonary process. No significant change from comparison.
[2020-05-21] MEDS ORDERED: KETOROLAC 30 MG/ML INJ ONE (23:23)
--- NOTE | 2020-05-21 23:36 | EDPHYS ---
Physician Documentation [facility] Name: Colette Ball Age: 29 yrs Sex: Female : 1990 Arrival Date: 05/21/2020 Time: 19:42 Bed 16 Private MD: ED Physician Austin Danielson HPI: 05/21 20:33 This 29 yrs old Black Female presents to ER via Ambulatory with complaints of Chest mh7 Tightness. 20:33 The patient or guardian reports chest pain that is located primarily in the substernal mh7 area. The pain does not radiate. 20:33 Associated signs and symptoms: Pertinent positives: headache, Fast speech, Pertinent mh7 negatives: abdominal pain, cough, diaphoresis, dizziness, lower extremity pain, lower extremity swelling, lightheadedness, nausea, near syncope, palpitations, recent travel, shortness of breath, syncope, vomiting. The chest pain is described as tightness. Duration: The patient or guardian reports multiple episodes, that are intermittent, that wax and wane, with no pattern. Modifying factors: The symptoms are alleviated by BC powder. the symptoms are aggravated by emotionally stressful situations. Severity of pain: At its worst the pain was moderate this morning, in the emergency department the pain has improved moderately. The patient has experienced similar episodes in the past, multiple times. Historical: - Allergies: 19:57 Zoloft; made me feel yucky; sg - Home Meds: 19:57 desvenlafaxine oral oral for Generalized Anxiety Disorder [Active]; sg - PMHx: 19:57 Borderline Diabetes; Anxiety; sg - PSHx: 19:57 None; sg - Immunization history:: Adult Immunizations up to date. - Social history:: Smoking status: Patient denies any tobacco usage or history of. ROS: 20:33 Constitutional: Negative for fever, chills, and weight loss, Eyes: Negative for injury, mh7 pain, redness, and discharge, ENT: Negative for injury, pain, and discharge, Neck: Negative for injury, pain, and swelling, Respiratory: Negative for shortness of breath, cough, wheezing, and pleuritic chest pain, Abdomen/GI: Negative for abdominal pain, nausea, vomiting, diarrhea, and constipation, Back: Negative for injury and pain, : Negative for injury, bleeding, discharge, and swelling, MS/Extremity: Negative for injury and deformity, Skin: Negative for injury, rash, and discoloration, Allergy/Immunology: Negative for hives, rash, and allergies, Endocrine: Negative for neck swelling, polydipsia, polyuria, polyphagia, and marked weight changes, Hematologic/Lymphatic: Negative for swollen nodes, abnormal bleeding, and unusual bruising. Exam: 20:33 Head/Face: Normocephalic, atraumatic. Eyes: Pupils equal round and reactive to light, mh7 extra-ocular motions intact. Lids and lashes normal. Conjunctiva and sclera are non-icteric and not injected. Cornea within normal limits. Periorbital areas with no swelling, redness, or edema. ENT: Nares patent. No nasal discharge, no septal abnormalities noted. Tympanic membranes are normal and external auditory canals are clear. Oropharynx with no redness, swelling, or masses, exudates, or evidence of obstruction, uvula midline. Mucous membranes moist. Neck: Trachea midline, no thyromegaly or masses palpated, and no cervical lymphadenopathy. Supple, full range of motion without nuchal rigidity, or vertebral point tenderness. No Meningismus. Chest/axilla: Normal chest wall appearance and motion. Nontender with no deformity. No lesions are appreciated. Cardiovascular: Regular rate and rhythm with a normal S1 and S2. No gallops, murmurs, or rubs. Normal PMI, no JVD. No pulse deficits. Respiratory: Lungs have equal breath sounds bilaterally, clear to auscultation and percussion. No rales, rhonchi or wheezes noted. No increased work of breathing, no retractions or nasal flaring. Abdomen/GI: Soft, non-tender, with normal bowel sounds. No distension or tympany. No guarding or rebound. No evidence of tenderness throughout. Back: No spinal tenderness. No costovertebral tenderness. Full range of motion. Skin: Warm, dry with normal turgor. Normal color with no rashes, no lesions, and no evidence of cellulitis. MS/ Extremity: Pulses equal, no cyanosis. Neurovascular intact. Full, normal range of motion. Neuro: Awake and alert, GCS 15, oriented to person, place, time, and situation. Cranial nerves II-XII grossly intact. Motor strength 5/5 in all extremities. Sensory grossly intact. Cerebellar exam normal. Normal gait. 20:33 Constitutional: The patient appears in no acute distress, alert, awake, anxious. 20:33 Psych: Behavior/mood is pleasant, cooperative, anxious, Affect is calm, Oriented to person, place, time, Patient has no thoughts/intents to harm self or others. Judgement / Insight is normal. Memory is normal. Delusions/hallucinations are not present. 05/22 06:23 ECG was reviewed by the Attending Physician. [facility] Vital Signs: 05/21 19:53 BP 121 / 81; Pulse 102; Resp 18 S; Pulse Ox 100% on R/A; Weight 54.88 kg; Height 5 ft. sg 2 in. (157.48 cm); Pain 4/10; 21:30 BP 104 / 83; Pulse 80; Resp 16; Pulse Ox 100% on R/A; jb4 22:15 BP 108 / 74; Pulse 76; Resp 16; Pulse Ox 100% on R/A; jb4 23:15 BP 108 / 79; Pulse 94; Resp 16; Pulse Ox 100% on R/A; jb4 19:53 Body Mass Index 22.13 (54.88 kg, 157.48 cm) sg MDM: 20:14 Patient medically screened. [facility] 23:33 Differential diagnosis: acute myocardial infarction, acute pericarditis, anxiety, chest 7 wall pain, costochondritis, myocarditis, pericarditis, pneumonia, pulmonary embolus. HEART Score: History: Slightly Suspicious (0), ECG: Normal (0), Age: < or = 45 years (0), Risk Factors: No Risk Factors Known (0), Troponin: < or = 1 x Normal Limit (0), Total Score = 0. Data reviewed: vital signs, nurses notes, old medical records, lab test result(s), cardiac enzymes, CBC, electrolytes, urinalysis, UPT: EKG, radiologic studies, CT scan, plain films. Data interpreted: Pulse oximetry: on room air is 100 %. Interpretation: normal. Counseling: I had a detailed discussion with the patient and/or guardian regarding: the historical points, exam findings, and any diagnostic results supporting the discharge/admit diagnosis, lab results, radiology results, the need for outpatient follow up, to return to the emergency department if symptoms worsen or persist or if there are any questions or concerns that arise at home. Response to treatment: the patient's symptoms have resolved after treatment, the patient's blood pressure is in an acceptable range, mental status has returned to baseline, the patient no longer shows bradycardia, the patient is not short of breath, the patient is not tachycardic, the patient's pain is gone, the patient's temperature has normalized. 05/21 20:15 Order name: Basic Metabolic Panel; Complete Time: 21:50 mh7 05/21 20:15 Order name: CBC with Diff; Complete Time: :50 mh7 05/21 20:15 Order name: LFT's; Complete Time: 21:50 mh7 05/21 20:15 Order name: Magnesium; Complete Time: 21:50 mh7 05/21 20:15 Order name: NT PRO-BNP; Complete Time: 21:50 mh7 05/21 20:15 Order name: PT-INR; Complete Time: 22:53 mh7 05/21 20:15 Order name: Troponin (emerg Dept Use Only); Complete Time: 21:50 mh7 05/21 20:15 Order name: XRAY Chest (1 view); Complete Time: 04:21 mh7 05/21 20:15 Order name: CT Head Brain wo Cont; Complete Time: 20:58 mh7 05/21 20:16 Order name: UDS; Complete Time: 22:53 mh7 05/21 21:26 Order name: Urine Dipstick--Ancillary (enter results); Complete Time: 21:50 mw2 05/21 21:26 Order name: Urine --Ancillary (enter results); Complete Time: 21:50 mw2 05/21 21:58 Order name: D-Dimer; Complete Time: 22:53 EDMS 05/21 20:15 Order name: Cardiac monitoring; Complete Time: 20:26 mh7 05/21 20:15 Order name: EKG - Nurse/Tech; Complete Time: 21:22 mh7 05/21 20:15 Order name: IV Saline Lock; Complete Time: 20: mh7 05/21 20:15 Order name: Labs collected and sent; Complete Time: 20:26 mh7 05/21 20:15 Order name: O2 Per Protocol; Complete Time: 20:26 mh7 05/21 20:15 Order name: O2 Sat Monitoring; Complete Time: 20: mh7 05/21 20:16 Order name: Urine Dipstick-Ancillary (obtain specimen); Complete Time: 21: mh7 05/21 20:16 Order name: Urine Test (obtain specimen); Complete Time: : mh7 EC/26 06:23 Rate is 81 beats/min. Rhythm is regular, Normal Sinus Rhythm. QRS Trenary is Normal. [place] mh7 interval is normal. QRS interval is normal. QT interval is normal. No Q waves. T waves are Normal. No ST changes noted. Clinical impression: Normal ECG. Administered Medications: 05/21 20:52 Drug: NS 0.9% 1000 ml Route: IV; Rate: 1000 ml; Site: left antecubital; 22:25 Drug: Potassium Chloride 40 mEq Route: PO; [facility] 23:00 Follow up: Response: No adverse reaction [facility] 23:16 Drug: TORadol 30 mg Route: IVP; Site: left antecubital; 4 23:30 Follow up: Response: No adverse reaction; Pain is decreased [facility] Disposition: 05/21/20 23:35 Discharged to Home. Impression: Chest pain, unspecified, Headache. - Condition is Stable. - Discharge Instructions: General Headache Without Cause, Nonspecific Chest Pain, Mtin-[id number]. - Medication Reconciliation Form, Thank You Letter, Antibiotic Education, Prescription Opioid Use form. - Follow up: Private Physician; When: 1 - 2 days; Reason: If symptoms return, Worsening of condition, Recheck today's complaints, Continuance of care, Re-evaluation by your physician. - Problem is an acute exacerbation. - Symptoms have improved. Signatures: Dispatcher [employer] [facility] Nikko Hoffmann RN RN Kunal Mora RN RN jb4 Parker Garcia jp3 Austin Danielson MD MD 7 Corrections: (The following items were deleted from the chart) 21:58 21:52 D-DIMER+[id number].LAB.BRZ ordered. [facility] 23:59 23:35 05/21/2020 23:35 Discharged to Home. Impression: Chest pain, unspecified; jp3 Headache. Condition is Stable. Forms are Medication Reconciliation Form, Thank You Letter, Antibiotic Education, Prescription Opioid Use. Follow up: Private Physician; When: 1 - 2 days; Reason: If symptoms return, Worsening of condition, Recheck today's complaints, Continuance of care, Re-evaluation by your physician. Problem is an acute exacerbation. Symptoms have improved. mh7
--- NOTE | 2020-05-21 23:36 | ER ---
Nurse's Notes [facility] Name: Colette Ball Age: 29 yrs Sex: Female : 1990 Arrival Date: 05/21/2020 Time: 19:42 Bed 16 Private MD: Diagnosis: Chest pain, unspecified;Headache Presentation: 05/21 19:53 Chief complaint: Patient states: I have a history of having anxiety and the shakes and sg that's similar to what is going on, my chest has felt tight like this before but what made me concerned was I feel like my words are not flowing out of my mouth like normal. My rate of speech is different, that began about an hour ago. pt denies N/V/D/Fever at this time. Coronavirus screen: Client denies travel out of the [place] in the last 14 days. At this time, the client does not indicate any symptoms associated with coronavirus-19. Ebola Screen: Patient negative for fever greater than or equal to 101.5 degrees Fahrenheit, and additional compatible Ebola Virus Disease symptoms Patient denies exposure to infectious person. Patient denies travel to an Ebola-affected area in the 21 days before illness onset. No symptoms or risks identified at this time. Initial Sepsis Screen: Does the patient meet any 2 criteria? HR > 90 bpm. No. Patient's initial sepsis screen is negative. Does the patient have a suspected source of infection? No. Patient's initial sepsis screen is negative. Risk Assessment: Do you want to hurt yourself or someone else? Patient reports no desire to harm self or others. Onset of symptoms was May 21, 2020 at 19:00. Care prior to arrival: None. Transition of care: patient was not received from another setting of care. 19:53 Acuity: MARANDA 3 sg 19:53 Method Of Arrival: Ambulatory sg Triage Assessment: 19:53 General: Appears in no apparent distress. slender, well groomed, well developed, well sg nourished, Behavior is cooperative, appropriate for age, anxious. Pain: Denies pain. EENT: No signs and/or symptoms were reported regarding the EENT system. Neuro: Level of Consciousness is awake, alert, obeys commands, Oriented to person, place, time, situation, Moves all extremities. Full function Gait is steady, Speech is normal, Facial symmetry appears normal. Neuro: Reports "difficulty with getting words to come out of her mouth smoothly". Cardiovascular: Patient's skin is warm and dry. Chest pain is denied reports chest tightness. Respiratory: Airway is patent Respiratory effort is even, unlabored, Respiratory pattern is regular, symmetrical. GI: No signs and/or symptoms were reported involving the gastrointestinal system. : No signs and/or symptoms were reported regarding the genitourinary system. Derm: Skin is pink, warm \\T\\ dry. Musculoskeletal: Circulation, motion, and sensation intact. Range of motion: intact in all extremities. Historical: - Allergies: 19:57 Zoloft; made me feel yucky; sg - Home Meds: 19:57 desvenlafaxine oral oral for Generalized Anxiety Disorder [Active]; sg - PMHx: 19:57 Borderline Diabetes; Anxiety; sg - PSHx: 19:57 None; sg - Immunization history:: Adult Immunizations up to date. - Social history:: Smoking status: Patient denies any tobacco usage or history of. Screenin:57 Abuse screen: Denies threats or abuse. Denies injuries from another. Nutritional sg screening: No deficits noted. Tuberculosis screening: No symptoms or risk factors identified. Never had TB. Fall Risk None identified. Assessment: 19:57 Reassessment: see triage assessment. sg 20:15 Reassessment: Patient appears in no apparent distress at this time. Patient and/or jb4 family updated on plan of care and expected duration. Pain level reassessed. Patient is alert, oriented x 3, equal unlabored respirations, skin warm/dry/pink. 20:38 Reassessment: pt returned from CT at this time. sg 20:42 Reassessment: xray at bedside at this time. sg 21:48 Reassessment: Patient appears in no apparent distress at this time. Patient and/or jb4 family updated on plan of care and expected duration. Pain level reassessed. Patient is alert, oriented x 3, equal unlabored respirations, skin warm/dry/pink. 22:45 Reassessment: Patient appears in no apparent distress at this time. Patient and/or jb4 family updated on plan of care and expected duration. Pain level reassessed. Patient is alert, oriented x 3, equal unlabored respirations, skin warm/dry/pink. 23:29 Reassessment: Patient appears in no apparent distress at this time. Patient and/or jb4 family updated on plan of care and expected duration. Pain level reassessed. Patient is alert, oriented x 3, equal unlabored respirations, skin warm/dry/pink. Vital Signs: 19:53 BP 121 / 81; Pulse 102; Resp 18 S; Pulse Ox 100% on R/A; Weight 54.88 kg; Height 5 ft. sg 2 in. (157.48 cm); Pain 4/10; 21:30 BP 104 / 83; Pulse 80; Resp 16; Pulse Ox 100% on R/A; jb4 22:15 BP 108 / 74; Pulse 76; Resp 16; Pulse Ox 100% on R/A; jb4 23:15 BP 108 / 79; Pulse 94; Resp 16; Pulse Ox 100% on R/A; jb4 19:53 Body Mass Index 22.13 (54.88 kg, 157.48 cm) sg ED Course: 19:42 Patient arrived in ED. cl3 19:53 Nikko Hoffmann, RN is Primary Nurse. sg 19:53 Arm band placed on. sg 19:54 Austin Danielson MD is Attending Physician. 7 19:56 Triage completed. sg 20:00 Patient has correct armband on for positive identification. Bed in low position. Call jb4 light in reach. Side rails up X 1. Pulse ox on. NIBP on. 20:34 CT Head Brain wo Cont In Process Unspecified. EDMS 20:43 XRAY Chest (1 view) In Process Unspecified. EDMS 20:52 Kunal Mora, RN is Primary Nurse. jb4 20:52 Initial lab(s) drawn, by ny, sent to lab. Inserted saline lock: 22 gauge in left sg antecubital area, using aseptic technique. Blood collected. Patient maintains SpO2 saturation greater than 95% on room air. 21:22 UDS Sent. jb4 23:55 No provider procedures requiring assistance completed. IV discontinued, intact, jb4 bleeding controlled, No redness/swelling at site. Pressure dressing applied. Administered Medications: 20:52 Drug: NS 0.9% 1000 ml Route: IV; Rate: 1000 ml; Site: left antecubital; sg 22:25 Drug: Potassium Chloride 40 mEq Route: PO; jb4 23:00 Follow up: Response: No adverse reaction jb4 23:16 Drug: TORadol 30 mg Route: IVP; Site: left antecubital; jb4 23:30 Follow up: Response: No adverse reaction; Pain is decreased jb4 Outcome: 23:35 Discharge ordered by . samm 23:55 Discharged to home ambulatory, with family. jb4 23:55 Condition: stable 23:55 Discharge instructions given to patient, family, Instructed on discharge instructions, follow up and referral plans. Demonstrated understanding of instructions, follow-up care. 23:59 Patient left the ED. jp3 Signatures: Dispatcher [employer] EDMS Nikko Hoffmann, RN RN Kunal Andrews RN RN jb4 Parker Garcia jp3 Nilo Lorenzo3 Austin Danielson MD MD mh7
[2020-05-22 00:37] VITALS: O2SAT 100
[2020-05-22 00:42] VITALS: BP 108/79
--- NOTE | 2020-05-23 10:10 | EKG ---
Test Date: 2020-05-21 Test Time: 21:20:27 Police Specialist: JESSE MEASUREMENT RESULTS: Intervals: Rate: 81 WY: 122 QRSD: 68 QT: 360 QTc: 418 [place]: P: 16 WY: 122 QRS: 66 T: 41 INTERPRETIVE STATEMENTS: Normal sinus rhythm with sinus arrhythmia Normal ECG Compared to ECG 12/23/2019 21:44:57 No significant changes Electronically Signed On 05-23-20 10:06:56 CDT by Benjamin Sanders
== END 2020-05-21 23:59 | disposition home or self-care (01) ==
LOC: ER 19:37
DX: R51.9 Headache, unspecified (principal); F41.1 Generalized anxiety disorder; R73.03 Prediabetes; Z88.8 Allergy status to other drugs, medicaments and biological substances
CPT/HCPCS: 93005; 85025; 80048; 36415; 83735; 81025; 85610; 85379; 80076; 80307 ×8; 81003; 84484; 83880; 70450; 71045; 96374; 99284; J7030

== ENCOUNTER 2020-11-08 09:37 | Emergency (ER) | payer OTHER ==
--- OUTSIDE RECORDS SUMMARY | 2020-11-08 09:40 | XMS REPORT | Continuity of Care Document ---
:1990 Author Organization [facility] t Address [address] [place] [address] Care Team Providers Name Role Phone Visit, Nurse Attending Clinician Unavailable Problems This patient has no known problems. Allergies, Adverse Reactions, Alerts This patient has no known allergies or adverse reactions. Medications Ordered Filled Start Stop Current Ordering Indication Dosage Frequency Signature Comments Components Source Medication Medication Date Date Medication? Clinician (SIG) Name Name Pristiq Pristiq 2020-0 Yes Vanessa [address] [facility] [address] [facility] [place] [facility] Multivitami Multivitami Yes Vanessa [facility] [place] [facility] Sertraline Sertraline Yes Vanessa TAKE 1/[address] [facility] HCl HCl [place] TAB DAILY [facility] - X 1 WEEK [facility] THEN TAKE l 1 TABLET Outpati ONCE A DAY ent ORALLY 30 Clinics DAY(S) Immunizations Ordered Filled Immunization Date Status Comments Sourc e Immunization Name Name Flucelvax - Flucelvax - 2019-05-[address] [facility] - multidose vial multidose vial [facility] Procedures This patient has no known procedures. 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 [id number] Nurse REGIONAL [id number] MATERNAL [id number] & CHILD [address] [place] [address] 2020-10-04 2020-10-04 [id number] 2020-09-08 2020-09-08 [facility] [id number] [facility] 2020-08-29 2020-08-29 [facility] [id number] [facility] 2020-08-03 2020-08-03 Out[facility] [id number] [facility] 2020-08-01 2020-08-01 Out[facility] [id number] [facility] 2020-06-16 2020-06-16 Out[facility] [id number] [facility] 2020-06-05 2020-06-05 Out[facility] [id number] [facility] 2020-05-04 2020-05-04 Outpatient [facility] [id number] [facility] 2020-02-09 2020-02-09 [facility] [id number] 08[facility]20[facility]00 08:20:00 [facility] Outpat[facility] Clinics 2020-02-08 2020-02-08 [facility] [id number] 09:10[facility]00 09:10:00 [place] [email or web address] [facility] [facility] - [facility] Medicine l Medicine Outpati ent Clinics 2020-01-03 2020-01-03 [facility] [id number] 13:30:00 13:30:00 [place] [employer] [place] - [facility] Medicine l Medicine Outpati ent Clinics 2019-12-21 2019-12-21 [facility] [id number] 09:02:00 09:02:00 [place] [email or web address] - Drive [facility] Medicine l Medicine Outpati ent Clinics 2019-12-13 2019-12-13 [facility] [id number] 15:45:00 15:45:00 [place] [employer] [facility] Medicine l Medicine Outpati ent Clinics 2019-12-13 2019-12-13 [facility] [id number] 08[facility]51:00 08:51:00 [place] [employer] - [email or web address] [facility] Medicine l Medicine Outpati ent Clinics 2019-11-04 2019-11-04 [facility] [id number] 08:00:00 08:00:00 [place] [employer] - [email or web address] [facility] Medicine l Medicine Outpati ent Clinics 2019-05-07 2019-05-07 [facility] [id number] 08:00:00 08:00:00 [place] [employer] - [facility] Medicine l Medicine Outpati ent Clinics 2019-02-09 2019-02-09 [facility] [id number] 09:04:00 09:04:00 [place] [employer] - [address] [facility] Medicine l Medicine Outpati ent Clinics 2019-02-04 2019-02-04 [facility] [id number] 08:00:00 08:00:00 [place] [employer] - [address] [facility] Medicine l Medicine Outpati ent Clinics 2018-10-05 2018-10-05 [facility] [id number] 13:30:00 13:30:00 [place] [employer] [facility] Medicine Outpati ent Clinics Results This patient has no known results.
[2020-11-08 10:17] LABS: Urine Blood Trace-intact (Negative); Urine Glucose Negative (Negative); Urine Protein Negative (Negative); Urine Specific Gravity >=1.030 (1.005-1.030)
[2020-11-08 10:19] LABS: Absolute Lymphocytes (CBC) 1.1 K/uL (0.7-4.9); Basophils % 0.5 % (0-1.3); Hematocrit 40.6 % (36.0-45.0); Lymphocytes % 30.9 % (15.3-44.8); MPV 8.3 fL (7.6-11.3); RBC Red Blood Cell Count 4.58 M/uL (3.86-4.86)
[2020-11-08 10:22] LABS: Urine Specific Gravity/Preg >1.030 (1.005-1.030)
[2020-11-08 10:38] LABS: ALT/SGPT 49 U/L (12-78); AST/SGOT 19 U/L (15-37); Albumin 4.3 g/dL (3.4-5.0); Alkaline Phosphatase 57 U/L (45-117); BUN Blood Urea Nitrogen 8 mg/dL (7-18); Bicarbonate 26 mmol/L (21-32); Bilirubin Direct 0.1 mg/dL (0-0.2); Bilirubin Total 0.3 mg/dL (0.2-1.0); Glucose Level 89 mg/dL (74-106); Magnesium 2.3 mg/dL (1.8-2.4); Potassium 3.5 mmol/L (3.5-5.1); Protein, Total 8.2 g/dL (6.4-8.2); Sodium Level 141 mmol/L (136-145); Troponin (Emerg Dept Use Only) < 0.02 ng/mL (0.0-0.045)
--- NOTE | 2020-11-08 11:09 | ER ---
Nurse's Notes [facility] Name: Colette Ball Age: 30 yrs Sex: Female : 1990 Arrival Date: 11/08/2020 Time: 09:39 Bed 19 Private MD: Diagnosis: Chest pain, unspecified Presentation: 11/08 09:51 Chief complaint: Patient states: "I've been having chest pains for a month and my doctor wants me to come get checked out. I've kind of got used to it, but it got bad at work.". Coronavirus screen: Client denies travel out of the [place] in the last 14 days. Ebola Screen: Patient denies exposure to infectious person. Patient denies travel to an Ebola-affected area in the 21 days before illness onset. Initial Sepsis Screen: Does the patient meet any 2 criteria? No. Patient's initial sepsis screen is negative. Does the patient have a suspected source of infection? No. Patient's initial sepsis screen is negative. Risk Assessment: Do you want to hurt yourself or someone else? Patient reports no desire to harm self or others. Onset of symptoms is unknown. 09:51 Method Of Arrival: Ambulatory ss 09:51 Acuity: MARANDA 3 ss Historical: - Allergies: 09:53 NKA; ss - PMHx: 09:53 Anxiety; Borderline Diabetes; ss - PSHx: 09:53 None; ss - Immunization history:: Adult Immunizations up to date. - Social history:: Smoking status: Patient denies any tobacco usage or history of. Screenin:16 Abuse screen: Denies threats or abuse. Denies injuries from another. Nutritional ss screening: No deficits noted. Tuberculosis screening: Never had TB. Fall Risk None identified. Assessment: 10:20 General: Appears in no apparent distress. comfortable, Behavior is calm, cooperative. ss General: Denies fever, feeling ill, fatigue, chills. Pain: Complains of pain in chest Pain does not radiate. Pain currently is 0 out of 10 on a pain scale. Pain began months ago Is intermittent. Neuro: Level of Consciousness is awake, alert, obeys commands, Oriented to person, place, time, situation, Filler Picker are weak bilaterally Facial symmetry appears normal. Cardiovascular: Capillary refill < 3 seconds is brisk in bilateral fingers Patient's skin is warm and dry. Cardiovascular: Reports palpitations. Respiratory: Airway is patent Respiratory effort is even, unlabored, Respiratory pattern is regular, symmetrical. Respiratory: Reports shortness of breath during chest pain episodes. GI: Patient currently denies diarrhea, nausea, vomiting. EENT: Nares are clear Oral mucosa is moist. Derm: Skin is intact, is healthy with good turgor, Skin is dry, Skin is pink, warm \\T\\ dry. normal. 11:16 Reassessment: Patient appears in no apparent distress at this time. Patient and/or ss family updated on plan of care and expected duration. Pain level reassessed. Patient is alert, oriented x 3, equal unlabored respirations, skin warm/dry/pink. Patient denies pain at this time. Patient states symptoms have improved. Vital Signs: 09:51 Resp 16; Temp 98.1; Weight 59.42 kg; Height 5 ft. 2 in. (157.48 cm); Pain 0/10; ss 09:53 BP 116 / 62; Pulse 92; Pulse Ox 100% on R/A; ss 09:51 Body Mass Index 23.96 (59.42 kg, 157.48 cm) ED Course: 09:39 Patient arrived in ED. ds1 09:47 Kar[facility] Conner [facility]C [facility] kb 09:47 Greg Rice MD is Attending Physician. kb 09:52 Triage completed. ss 09:53 Arm band placed on right wrist. ss 10:00 Inserted saline lock: 22 gauge in left antecubital area, using aseptic technique. Blood ll1 collected. 10:16 Troponin (Emerg Dept Use Only) Sent. 5 10:16 Magnesium Sent. 5 10:16 CBC with Automated Diff Sent. 5 10:16 Liver (Hepatic) Function Sent. 5 10:17 Basic Metabolic Panel Sent. mh5 10:17 Basic Metabolic Panel Sent. 5 10:17 CBC with Diff Sent. 5 10:17 LFT's Sent. 5 10:17 Magnesium Sent. 5 10:17 Troponin (emerg Dept Use Only) Sent. 5 10:17 Initial lab(s) drawn, by ED staff, sent to lab. Urine collected: clean catch specimen, [facility] clear, EKG done, by ED staff, reviewed by Greg Rice MD. 10:18 Patient has correct armband on for positive identification. Placed in gown. Bed in low mh5 position. Call light in reach. Side rails up X 1. Warm blanket given. monitor tech on. Pulse ox on. NIBP on. 10:20 Helen Payton, RN is Primary Nurse. ss 11:11 XRAY Chest (1 view) In Process Unspecified. EDMS 11:16 No provider procedures requiring assistance completed. IV discontinued, intact, ss bleeding controlled, No redness/swelling at site. Pressure dressing applied. Patient maintains SpO2 saturation greater than 95% on room air. Administered Medications: No medications were administered Outcome: 11:08 Discharge ordered by . kb 11:16 Discharged to home ambulatory. ss 11:16 Condition: good 11:16 Discharge instructions given to patient, Instructed on discharge instructions, follow up and referral plans. Demonstrated understanding of instructions, follow-up care. 11:17 Patient left the ED. ss Signatures: Dispatcher [employer] EDIA Karoline Conner, LOW VOLTAGE ELECTRICIAN-C LOW VOLTAGE ELECTRICIAN-CkDiane Dorantes ds1 Helen Payton, RN RN Eli Alcantar 5 Zoe Lorenzo RN RN ll1
--- NOTE | 2020-11-08 11:09 | EDPHYS ---
Physician Documentation [facility] Name: Colette Ball Age: 30 yrs Sex: Female : 1990 Arrival Date: 11/08/2020 Time: 09:39 Bed 19 Private MD: ED Physician Greg Rice HPI: 11/08 09:59 This 30 yrs old Black Female presents to ER via Ambulatory with complaints of Chest kb Pain, Shortness Of Breath. 09:59 The patient or guardian reports chest pain that is located primarily in the chest kb diffusely. The pain does not radiate. Associated signs and symptoms: Pertinent positives: palpitations. The chest pain is described as a heaviness. Duration: The patient or guardian reports multiple episodes, that are intermittent, with no pattern. Modifying factors: The symptoms are alleviated by nothing. the symptoms are aggravated by nothing. Severity of pain: At its worst the pain was moderate in the emergency department the pain has resolved. The patient has not experienced similar symptoms in the past. The patient has not recently seen a physician. Pt reports chest pain and palpitations intermittently for a month. States "it got bad at work today" so her dr wanted her to come get checked out. Symptoms now resolved.. Historical: - Allergies: 09:53 NKA; ss - PMHx: 09:53 Anxiety; Borderline Diabetes; ss - PSHx: 09:53 None; ss - Immunization history:: Adult Immunizations up to date. - Social history:: Smoking status: Patient denies any tobacco usage or history of. ROS: 10:00 Constitutional: Negative for fever, chills, and weight loss, Respiratory: Negative for kb shortness of breath, cough, wheezing, and pleuritic chest pain, Abdomen/GI: Negative for abdominal pain, nausea, vomiting, diarrhea, and constipation, MS/Extremity: Negative for injury and deformity, Skin: Negative for injury, rash, and discoloration, Neuro: Negative for headache, weakness, numbness, tingling, and seizure. 10:00 Cardiovascular: Positive for chest pain, palpitations. Exam: 10:00 Constitutional: This is a well developed, well nourished patient who is awake, alert, kb and in no acute distress. Head/Face: Normocephalic, atraumatic. Cardiovascular: Regular rate and rhythm with a normal S1 and S2. No gallops, murmurs, or rubs. No pulse deficits. Respiratory: Respirations even and unlabored. No increased work of breathing, no retractions or nasal flaring. Skin: Warm, dry with normal turgor. Normal color. MS/ Extremity: Pulses equal, no cyanosis. Neurovascular intact. Full, normal range of motion. Neuro: Awake and alert, GCS 15, oriented to person, place, time, and situation. Moves all extremities. Normal gait. 10:37 ECG was reviewed by the Attending Physician. Vital Signs: 09:51 Resp 16; Temp 98.1; Weight 59.42 kg; Height 5 ft. 2 in. (157.48 cm); Pain 0/10; ss 09:53 BP 116 / 62; Pulse 92; Pulse Ox 100% on R/A; ss 09:51 Body Mass Index 23.96 (59.42 kg, 157.48 cm) ss MDM: 09:49 Patient medically screened. kb 09:58 Data reviewed: vital signs, nurses notes. Data interpreted: Pulse oximetry: on room air kb is 100 %. Interpretation: normal. 11:08 Counseling: I had a detailed discussion with the patient and/or guardian regarding: the kb historical points, exam findings, and any diagnostic results supporting the discharge/admit diagnosis, lab results, radiology results, the need for outpatient follow up, a port crane operator, a family practitioner, to return to the emergency department if symptoms worsen or persist or if there are any questions or concerns that arise at home. 11/08 09:55 Order name: Basic Metabolic Panel 11/08 09:55 Order name: CBC with Diff 11/08 09:55 Order name: LFT's 11/08 09:55 Order name: Magnesium 11/08 09:55 Order name: Troponin (emerg Dept Use Only) 11/08 09:55 Order name: Basic Metabolic Panel; Complete Time: 10:47 EDMS 11/08 09:55 Order name: XRAY Chest (1 view) 11/08 09:55 Order name: EKG; Complete Time: 09:55 11/08 09:55 Order name: CBC with Automated Diff; Complete Time: 10:27 EDMS 11/08 09:55 Order name: Liver (Hepatic) Function; Complete Time: 10:47 EDMS 11/08 09:55 Order name: Magnesium; Complete Time: 10:47 EDMS 11/08 09:55 Order name: Troponin (Emerg Dept Use Only); Complete Time: 10:47 EDMS 11/08 10:17 Order name: Urine Dipstick-Ancillary; Complete Time: 10:27 EDMS 11/08 10:20 Order name: Urine --Ancillary (enter results); Complete Time: 10:27 bd 11/08 09:55 Order name: Cardiac monitoring; Complete Time: 09:55 kb 11/08 09:55 Order name: EKG - Nurse/Tech; Complete Time: 09:55 kb 11/08 09:55 Order name: IV Saline Lock; Complete Time: 10:01 kb 11/08 09:55 Order name: Labs collected and sent; Complete Time: 10:01 kb 11/08 09:55 Order name: O2 Per Protocol; Complete Time: 10:59 kb 11/08 09:55 Order name: O2 Sat Monitoring; Complete Time: 10:17 kb EC:37 Rate is 72 beats/min. Rhythm is regular. QRS [place] is Normal. MT interval is normal at kb 126 msec. QRS interval is normal at 72 msec. QT interval is normal at 372 msec. Administered Medications: No medications were administered Disposition: 11/09 07:29 Co-signature as Attending Physician, Greg Rice MD I agree with the assessment and kdr plan of care. Disposition: 11/08/20 11:08 Discharged to Home. Impression: Chest pain, unspecified. - Condition is Stable. - Discharge Instructions: Nonspecific Chest Pain, [id number]. - Medication Reconciliation Form, Thank You Letter, Antibiotic Education, Prescription Opioid Use form. - Follow up: Emergency Department; When: As needed; Reason: Worsening of condition. Follow up: Private Physician; When: 2 - 3 days; Reason: Recheck today's complaints, Continuance of care, Re-evaluation by your physician. Signatures: Dispatcher [employer] EDKaroline Pearson, Greg Andrade MD MD [facility] Helen Payton RN RN ss Corrections: (The following items were deleted from the chart) 11/08 11:17 11:08 11/08/2020 11:08 Discharged to Home. Impression: Chest pain, unspecified. ss Condition is Stable. Forms are Medication Reconciliation Form, Thank You Letter, Antibiotic Education, Prescription Opioid Use. Follow up: Emergency Department; When: As needed; Reason: Worsening of condition. Follow up: Private Physician; When: 2 - 3 days; Reason: Recheck today's complaints, Continuance of care, Re-evaluation by your physician. kb
--- NOTE | 2020-11-08 11:26 | RAD REPORT ---
EXAM DESCRIPTION: RAD - Chest Single View - 11/08/2020 11:10 am CLINICAL HISTORY: CHEST PAIN COMPARISON: Single-view chest April 2020 TECHNIQUE: AP portable chest image was obtained 11/08/2020 11:10 am . FINDINGS: Lungs are clear. Heart and vasculature are normal. No measurable pleural effusion and no p neumothorax. No acute bony abnormality seen. No acute aortic findings suspected. IMPRESSION: No acute cardiopulmonary process. No significant change from comparison study.
[2020-11-08 11:30] VITALS: TEMP 98.1
[2020-11-08 11:31] VITALS: BP 116/62; O2SAT 100
--- NOTE | 2020-11-09 07:38 | EKG ---
Test Date: 2020-11-08 Test Time: 10:04:55 [employer] Operator: ZAFAR MEASUREMENT RESULTS: Intervals: Rate: 72 CO: 126 QRSD: 72 QT: 372 QTc: 407 [place]: P: -1 CO: 126 QRS: 69 T: 37 INTERPRETIVE STATEMENTS: Normal sinus rhythm with sinus arrhythmia Normal ECG Compared to ECG 05/21/2020 21:20:27 No significant changes Electronically Signed On 11-09-20 07:34:50 CDT by Benjamin Sanders
== END 2020-11-08 11:17 | disposition home or self-care (01) ==
LOC: ER 09:37
DX: R07.9 Chest pain, unspecified (principal); R00.2 Palpitations
CPT/HCPCS: 36415; 71045; 80048; 80076; 81003; 81025; 83735; 84484; 85025; 93005; 99285

== ENCOUNTER → 2023-08-28 | Emergency (ER) | payer SELFPAY ==
[~2023-08-28] MED LIST: DIPHENHYDRAMINE 50 MG/ML VIAL ONE; KETOROLAC 30 MG/ML INJ ONE; METOCLOPRAMIDE 10 MG/2mL INJ ONE; NA CHLORIDE 0.9% 1,000 ML ONE; dexAMETHasone 10 MG/ML VIAL ONE
--- OUTSIDE RECORDS SUMMARY | 2023-08-28 16:30 | XMS REPORT | Continuity of Care Document ---
Author Name Unknown Address [address] [place] [address] [facility] thconnect Address [address] [place] [address] Care Team Providers Care Tubular Riveter Name Role Phone Adam Noguera Primary Care Physician [phone] Adam Noguera Attending Clinician Unavailable RITA JIMENEZ Attending Clinician Unavailable GABRIEL SEAMAN Attending Clinician Unavaila GABRIEL Kerr Attending Clinician Unavaila JESUS Aguirre Attending Clinician Unavaila Jesus Campos Attending Clinician Nurse, [facility] Attending Clinician Un available Rita Jimenez MD Attending Clinician [phone] Doctor Unassigned, [place] Attending Clinician U oscar LUZ BOGGS Attending Clinician Unavailab Luz Alberto DO Attending Clinician [phone] Pob, [facility] Main Attending Clinician Unavailabl e Lab, [facility] - Db Attending Clinician Unavailable Unknown, Attending Attending Clinician Unavailab GUY Driscoll Attending Clinician Unavailable Rene TICKET MANAGERGuy Garrett Attending Clinician [phone] KIYA JONES Attending Clinician Unavailable JONN HOBSON Attending Clinician Unavailab Joellen Morfin Attending Clinician Unavailable Lorenzo PACJoellen Attending Clinician [phone] Trimester, [facility] Res-1st Attending Clinician Unavailable Lab, [facility] Attending Clinician Unavailable Robert Vidal Attending Clinician + ROBERT PATTERSON Attending Clinician Unavail able SAMSON MCCONNELL Attending Clinician Unavailable Samson Mcconnell DO Attending Clinician [phone] SAMUEL NIEVES Attending Clinician Unavail able Samuel Nieves MD Attending Clinician [phone] STEVE BOATENG Attending Clinician Unavailable Kilo HIDALGO, Steve Attending Clinician [phone] Juanjo GRAHAM, Tammy Attending Clinician Unavailab sujata Mckeon RN, Kelsie Evans Attending Clinician Unavaila ANTWAN Vyas Attending Clinician Unavailable Antwan Blanca MD Attending Clinician [phone] [facility] Attending Clinician Unavailable Jewel Vitale MD Attending Clinician + [phone] JEWEL VITALE Attending Clinician Unavaillinda ble 3, [facility] Room Attending Clinician Unavaila mely Siddiqui RN, Katie Evans Attending Clinician Unavailab le Only, Ang Db Test Attending Clinician Unavailabl e Lianne Varela Attending Clinician [phone] LIANNE PARRA Attending Clinician Unavailable VY KERN Attending Clinician Unavailable Glenn HIDALGO, Vy Attending Clinician [phone] [place] GRAHAM, Maylin Luo Attending Clinician BRANDEN Allison Attending Clinician Unavailable Visit, [facility] Nurse Attending Clinician RITA Quinn Admitting Clinician Unavailable Rita Jimenez MD Admitting Clinician SAMSON MCCONNELL Admitting Clinician Unavailable Payers Payer Name Policy Type Policy Number Effective Date Expirati on Date Source [place] [employer] [id number] 2022 00:00:00 [facility] [id number] 2021 00:00:00 2022 00:00:00 MEDICAID PENDING PENDING 2021 00:00:00 [facility] GENERIC [id number] 2019 00:00:00 [facility]W-RMCHP [id number] 2016 00:00:00 Problems Condition Name Condition Details Condition Category Status Onset Date Resolution Date Last Treatment Date Treating Clinician Comments Source Nonintract able episodic headache, unspecifie d headache type Nonintract able episodic headache, unspecifie d headache type Disease Active 03-21 00:00: 00 [facility] Dizziness and giddiness Dizziness and giddiness Disease Active 03-21 00:00: 00 [facility] Status post dilation and curettage Status post dilation and curettage Disease Active 02-23 00:00: 00 [facility] Missed Missed Disease Active 01-19 00:00: 00 [facility] Retained products of conception after miscarriag e Retained products of conception after miscarriag e Disease Active 01-19 00:00: 00 [facility] COVID-19 virus infection COVID-19 virus infection Disease Active 01-19 00:00: 00 [facility] Supervisio n of high-risk Supervisio n of high-risk Disease Active 11-07 00:00: 00 [facility] Multiparit y Multiparit y Disease Active 11-07 00:00: 00 [facility] with inconclusi ve viability, single or unspecifie d fetus with inconclusi ve viability, single or unspecifie d fetus Disease Active 11-07 00:00: 00 [facility] Missed Missed Disease Active 11-07 00:00: 00 [facility] Papanicola ou smear of cervix with low grade squamous intraepith elial lesion (LGSIL) Papanicola ou smear of cervix with low grade squamous intraepith elial lesion (LGSIL) Disease Active 12-19 00:00: 00 [facility] 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 Disease Active 12-16 00:00: 00 [facility] [id number] Panic attacks Problem [facility] [id number] Generalize d anxiety disorder Problem [facility] [id number] Noncomplia nce with dietary restrictio n Problem [facility] Allergies, Adverse Reactions, Alerts Allergy Name Allergy Type Status Severity Reaction(s) Onset Date Inactive Date Treating Clinician Comments Source NO KNOWN ALLERGIE S Drug Class Active [facility] Social History Social Habit Start Date Stop Date Quantity Comments Source Gender identity [facility] Sexual orientation U [facility] ASSERTION [facility] History SDOH Alcohol Frequency [facility] History SDOH Alcohol Std Drinks [facility] History SDOH Alcohol Binge [facility] History of Tobacco Use [facility] Sex Assigned At [facility] Alcohol intake 2023-08-24 00:00:00 2023-08-24 00:00:00 0 /d [facility] History of Social function 2023-04-01 00:00:00 2023-04-01 00:00:[address] [facility] Exposure to SARS-CoV-2 (event) 2022-09-21 00:00:00 2022-10-01 09:25:[address] [facility] Tobacco use and exposure 2022-03-26 00:00:00 2022-03-26 00:00:00 Smokeless tobacco non-user [facility] Alcohol Comment 2018-01-23 00:00:00 2018-01-23 00:00:00 [facility] Smoking Status Start Date Stop Date Source Never smoked tobacco [facility] Medications Ordered Medication Name Filled Medication Name Start Date Stop Date Current Medication? Ordering Clinician Indication Dosage Frequency Signature (SIG) Comments Components Source NaCl 0.9% (NS) bolus infusion 1,000 mL 08-25 00:30: 00 08-25 00:55 :00 No 1000mL at 999 mL/hr, 1,000 mL, IV Infusion, ONCE, 1 dose, On 08/24/23 at 1830, VARGHESE [facility] ketorolac (TORADOL) injection 30 mg 08-25 00:30: 00 08-24 23:54 :00 No 30mg 30 mg, Slow IV Push, ONCE, 1 dose, On 08/24/23 at 1830, Routine [facility] metoclopram alize HCl (REGLAN) injection 10 mg 08-24 23:45: 00 08-24 23:55 :00 No 10mg 10 mg, Slow IV Push, ONCE, 1 dose, On Fri08/24/23 at 1745, [facility] medroxyPROG ESTERone (DEPO-PROVE RA) syringe 150 mg 08-15 16:15: 00 08-15 15:20 :00 No [id number] 150mg [facility] medroxyPROG ESTERone (DEPO-PROVE RA) syringe 150 mg 08-15 16:15: 00 08-15 15:20 :00 No [id number] 150mg 150 mg, Intramuscu lar, ONCE, 1 dose, On Fri08/15/23 at 1015, Routine [facility] Xanax 0.25 MG Xanax 0.25 MG 08-15 00:00: 00 No 1{table t} Xanax 0.25 MG medroxyPROG ESTERone (DEPO-PROVE RA) syringe 150 mg 2022-07 21:30: 00 05-14 20:39 :00 No [id number] 150mg [facility] medroxyPROG ESTERone (DEPO-PROVE RA) syringe 150 mg 2022-07 018 21:30: 00 05-14 20:39 :00 No [id number] 150mg 150 mg, Intramuscu lar, ONCE, 1 dose, On Fri05/14/23 at 1630, Routine [facility] medroxyPROG ESTERone (DEPO-PROVE RA) syringe 150 mg 2022-07 21:30: 00 05-14 20:39 :00 No [id number] 150mg [facility] medroxyPROG ESTERone (DEPO-PROVE RA) syringe 150 mg 2022-07 21:30: 00 05-14 20:39 :00 No [id number] 150mg 150 mg, Intramuscu lar, ONCE, 1 dose, On Fri05/14/23 at 1630, Routine [facility] acetaminoph en 500 mg tablet 04-15 13:53: 41 04-15 00:00 :00 No 500mg Take 1 tablet by mouth every 6 (six) hours as needed for Pain. [facility] acetaminoph en 500 mg tablet 04-15 13:53: 41 04-15 00:00 :00 No 500mg Take 1 tablet by mouth every 6 (six) hours as needed for Pain. [facility] FENTanyl PF (SUBLIMAZE (PF)) injection 25 mcg 04-01 15:01: 14 Yes 25ug 25 mcg, Slow IV Push, Q5MIN PRN, 4 doses, Starting on Fri04/01/23 at 1001, Until Discontinu ed, Routine, Pain (scale 4-6), PACU [facility] FENTanyl PF (SUBLIMAZE (PF)) injection 25 mcg 04-01 15:01: 14 04-01 18:41 :41 No 25ug 25 mcg, Slow IV Push, Q5MIN PRN, 4 doses, Starting on Fri04/01/23 at 1001, Until Fri04/01/23 at 1341, Routine, Pain (scale 4-6), PACU [facility] ondansetron (ZOFRAN (PF)) injection 4 mg 04-01 15:01: 13 Yes 4mg 4 mg, Slow IV Push, PRN, 1 dose, Starting on Fri04/01/23 at 1001, Until Discontinu ed, Routine, Nausea and Vomiting (N/V), PACU [facility] ondansetron (ZOFRAN (PF)) injection 4 mg 04-01 15:01: 13 04-01 18:41 :41 No 4mg 4 mg, Slow IV Push, PRN, 1 dose, Starting on Fri04/01/23 at 1001, Until Fri04/01/23 at 1341, Routine, Nausea and Vomiting (N/V), PACU [facility] water for irrigation irrigation solution 04-01 14:35: 00 Yes PRN, Starting on Fri04/01/23 at 0935, Until Discontinu ed, Routine, Intra-op [facility] ferric subsulfate (MONSEL'S SOLUTION) solution 04-01 14:35: 00 Yes PRN, Starting on Fri04/01/23 at 0935, Until Discontinu ed, Routine, Intra-op [facility] water for irrigation irrigation solution 04-01 14:35: 00 04-01 18:41 :41 No PRN, Starting on Fri04/01/23 at 0935, Until Fri04/01/23 at 1341, Routine, Intra-op [facility] ferric subsulfate (MONSEL'S SOLUTION) solution 04-01 14:35: 00 04-01 18:41 :41 No PRN, Starting on Fri04/01/23 at 0935, Until Fri04/01/23 at 1341, Routine, Intra-op [facility] lactated ringers IV infusion 1,000 mL 04-01 12:15: 00 04-01 12:21 :00 No 1000mL at 42 mL/hr, 1,000 mL, IV Infusion, ONCE, 1 dose, On Fri04/01/23 at 0715, Routine, DSU Pre-op [facility] lactated ringers IV infusion 1,000 mL 04-01 12:15: 00 04-01 12:21 :00 No 1000mL at 42 mL/hr, 1,000 mL, IV Infusion, ONCE, 1 dose, On Fri04/01/23 at 0715, Routine, DSU Pre-op [facility] acetaminoph en 500 mg tablet 04-01 11:41: 39 Yes 500mg Take 1 tablet by mouth every 6 (six) hours as needed for Pain. [facility] mg tablet 04-01 11:41: 39 Yes 500mg Take 1 tablet by mouth every 6 (six) hours as needed for Pain. [facility] acetaminoph en 500 mg tablet 04-01 11:41: 39 Yes 500mg Take 1 tablet by mouth every 6 (six) hours as needed for Pain. [facility] acetaminoph en 500 mg tablet 04-01 11:41: 39 Yes 500mg Take 1 tablet by mouth every 6 (six) hours as needed for Pain. [facility] doxycycline hyclate (Vibramycin ) capsule 100 mg 04-01 05:00: 00 Yes 100mg [facility] doxycycline hyclate (Vibramycin ) capsule 100 mg 04-01 05:00: 00 Yes 100mg [facility] doxycycline hyclate (Vibramycin ) capsule 100 mg 04-01 05:00: 00 Yes 100mg [facility] doxycycline hyclate (Vibramycin ) capsule 100 mg 04-01 05:00: 00 Yes 100mg [facility] doxycycline hyclate (Vibramycin ) capsule 100 mg 04-01 05:00: 00 Yes 100mg [facility] ibuprofen 600 mg tablet 04-01 00:00: 00 Yes [id number] 600mg Take 1 tablet by mouth every 6 (six) hours as needed for Pain (scale 1-3) or Pain (scale 4-6). [facility] ibuprofen 600 mg tablet 04-01 00:00: 00 Yes [id number] 600mg Take 1 tablet by mouth every 6 (six) hours as needed for Pain (scale 1-3) or Pain (scale 4-6). [facility] ibuprofen 600 mg tablet 04-01 00:00: 00 Yes [id number] 600mg Take 1 tablet by mouth every 6 (six) hours as needed for Pain (scale 1-3) or Pain (scale 4-6). [facility] ibuprofen 600 mg tablet 04-01 00:00: 00 Yes [id number] 600mg Take 1 tablet by mouth every 6 (six) hours as needed for Pain (scale 1-3) or Pain (scale 4-6). [facility] ibuprofen 600 mg tablet 04-01 00:00: 00 04-15 00:00 :00 No [id number] 600mg Take 1 tablet by mouth every 6 (six) hours as needed for Pain (scale 1-3) or Pain (scale 4-6). [facility] ibuprofen 600 mg tablet 04-01 00:00: 00 04-15 00:00 :00 No [id number] 600mg Take 1 tablet by mouth every 6 (six) hours as needed for Pain (scale 1-3) or Pain (scale 4-6). [facility] doxycycline hyclate 100 mg capsule 04-01 00:00: 00 04-02 04:59 :00 No [id number] 200mg Take 2 capsules by mouth once now for 1 dose. [facility] doxycycline hyclate 100 mg capsule 04-01 00:00: 00 04-02 04:59 :00 No [id number] 200mg Take 2 capsules by mouth once now for 1 dose. [facility] doxycycline hyclate 100 mg capsule 04-01 00:00: 00 04-02 04:59 :00 No [id number] 200mg Take 2 capsules by mouth once now for 1 dose. [facility] ketorolac (TORADOL) injection 30 mg 03-30 18:45: 00 03-30 18:08 :00 No 30mg 30 mg, Slow IV Push, ONCE, 1 dose, On Fri03/30/23 at 1345, Routine [facility] ondansetron (ZOFRAN (PF)) injection 4 mg 03-30 18:30: 00 03-30 18:29 :00 No 4mg 4 mg, Slow IV Push, ONCE, 1 dose, On Fri03/30/23 at 1330, VARGHESE [facility] morpHINE (4 mg/mL) injection 4 mg 03-30 18:30: 00 03-30 18:29 :00 No 4mg 4 mg, Slow IV Push, ONCE, 1 dose, On Fri03/30/23 at 1330, STAT [facility] HYDROcodone -acetaminop hen 5-325 mg tablet 03-30 00:00: 00 04-07 04:59 :00 No [id number] 1{tbl} Take 1 tablet by mouth every 4 (four) hours as needed for Pain (scale 1-3) for up to 7 days. Indication s: acute pain [facility] acetaminoph en 500 mg tablet 03-28 11:35: 54 Yes 500mg Take 1 tablet by mouth every 6 (six) hours as needed for Pain. [facility] acetaminoph en 500 mg tablet 03-28 11:35: 54 Yes 500mg Take 1 tablet by mouth every 6 (six) hours as needed for Pain. [facility] acetaminoph en 500 mg tablet 03-28 11:35: 54 Yes 500mg Take 1 tablet by mouth every 6 (six) hours as needed for Pain. [facility] acetaminoph en 500 mg tablet 03-28 11:35: 54 Yes 500mg Take 1 tablet by mouth every 6 (six) hours as needed for Pain. [facility] acetaminoph en (TYLENOL) tablet 1,000 mg 03-18 16:15: 00 03-18 16:14 :00 No 1000mg 1,000 mg, Oral, ONCE, 1 dose, On Fri03/18/23 at 1115, Routine [facility] desvenlafax ine succinate 50 mg 24 hr tablet 2022-0 08-19 00:00: 00 Yes 50mg Take 1 tablet by mouth in the morning. [facility] desvenlafax ine succinate 50 mg 24 hr tablet 2022-0 08-19 00:00: 00 Yes 50mg Take 1 tablet by mouth in the morning. [facility] desvenlafax ine succinate 50 mg 24 hr tablet 2022-0 08-19 00:00: 00 Yes 50mg Take 1 tablet by mouth in the morning. [facility] desvenlafax ine succinate 50 mg 24 hr tablet 0 08-19 00:00: 00 Yes 50mg Take 1 tablet by mouth in the morning. [facility] desvenlafax ine succinate 50 mg 24 hr tablet 2022-0 08-19 00:00: 00 Yes 50mg Take 1 tablet by mouth in the morning. [facility] desvenlafax ine succinate 50 mg 24 hr tablet 0 08-19 00:00: 00 Yes 50mg Take 1 tablet by mouth in the morning. [facility] desvenlafax ine succinate 50 mg 24 hr tablet 0 08-19 00:00: 00 Yes 50mg Take 1 tablet by mouth in the morning. [facility] desvenlafax ine succinate 50 mg 24 hr tablet 0 08-19 00:00: 00 Yes 50mg Take 1 tablet by mouth in the morning. [facility] desvenlafax ine succinate 50 mg 24 hr tablet 0 08-19 00:00: 00 Yes 50mg Take 1 tablet by mouth in the morning. [facility] desvenlafax ine succinate 50 mg 24 hr tablet 0 08-19 00:00: 00 Yes 50mg Take 1 tablet by mouth in the morning. [facility] desvenlafax ine succinate 50 mg 24 hr tablet 2022-0 08-19 00:00: 00 Yes 50mg Take 1 tablet by mouth in the morning. [facility] desvenlafax ine succinate 50 mg 24 hr tablet 0 08-19 00:00: 00 Yes 50mg Take 1 tablet by mouth in the morning. [facility] desvenlafax ine succinate 50 mg 24 hr tablet 0 08-19 00:00: 00 Yes 50mg Take 1 tablet by mouth in the morning. [facility] desvenlafax ine succinate 50 mg 24 hr tablet 0 08-19 00:00: 00 Yes 50mg Take 1 tablet by mouth in the morning. [facility] desvenlafax ine succinate 50 mg 24 hr tablet 0 08-19 00:00: 00 Yes 50mg Take 1 tablet by mouth in the morning. [facility] desvenlafax ine succinate 50 mg 24 hr tablet 0 08-19 00:00: 00 Yes 50mg Take 1 tablet by mouth in the morning. [facility] desvenlafax ine succinate 50 mg 24 hr tablet 0 08-19 00:00: 00 Yes 50mg Take 1 tablet by mouth in the morning. [facility] desvenlafax ine succinate 50 mg 24 hr tablet 0 08-19 00:00: 00 Yes 50mg Take 1 tablet by mouth in the morning. [facility] desvenlafax ine succinate 50 mg 24 hr tablet 0 08-19 00:00: 00 Yes 50mg Take 1 tablet by mouth in the morning. [facility] desvenlafax ine succinate 50 mg 24 hr tablet 0 08-19 00:00: 00 Yes 50mg Take 1 tablet by mouth in the morning. [facility] desvenlafax ine succinate 50 mg 24 hr tablet 0 08-19 00:00: 00 Yes 50mg Take 1 tablet by mouth in the morning. [facility] desvenlafax ine succinate 50 mg 24 hr tablet 0 08-19 00:00: 00 Yes 50mg Take 1 tablet by mouth in the morning. [facility] desvenlafax ine succinate 50 mg 24 hr tablet 0 08-19 00:00: 00 Yes 50mg Take 1 tablet by mouth in the morning. [facility] desvenlafax ine succinate 50 mg 24 hr tablet 0 08-19 00:00: 00 Yes 50mg Take 1 tablet by mouth in the morning. [facility] desvenlafax ine succinate 50 mg 24 hr tablet 0 08-19 00:00: 00 Yes 50mg Take 1 tablet by mouth in the morning. [facility] desvenlafax ine succinate 50 mg 24 hr tablet 0 08-19 00:00: 00 Yes 50mg Take 1 tablet by mouth in the morning. [facility] desvenlafax ine succinate 50 mg 24 hr tablet 0 08-19 00:00: 00 Yes 50mg Take 1 tablet by mouth in the morning. [facility] desvenlafax ine succinate 50 mg 24 hr tablet 0 08-19 00:00: 00 Yes 50mg Take 1 tablet by mouth in the morning. [facility] desvenlafax ine succinate 50 mg 24 hr tablet 0 08-19 00:00: 00 Yes 50mg Take 1 tablet by mouth in the morning. [facility] desvenlafax ine succinate 50 mg 24 hr tablet 0 08-19 00:00: 00 Yes 50mg Take 1 tablet by mouth in the morning. [facility] desvenlafax ine succinate 50 mg 24 hr tablet 0 08-19 00:00: 00 Yes 50mg Take 1 tablet by mouth in the morning. [facility] desvenlafax ine succinate 50 mg 24 hr tablet 2022-0 08-19 00:00: 00 Yes 50mg Take 1 tablet by mouth in the morning. [facility] desvenlafax ine succinate 50 mg 24 hr tablet 0 08-19 00:00: 00 Yes 50mg Take 1 tablet by mouth in the morning. [facility] desvenlafax ine succinate 50 mg 24 hr tablet 0 08-19 00:00: 00 Yes 50mg Take 1 tablet by mouth in the morning. [facility] desvenlafax ine succinate 50 mg 24 hr tablet 0 08-19 00:00: 00 Yes 50mg Take 1 tablet by mouth in the morning. [facility] desvenlafax ine succinate 50 mg 24 hr tablet 08-19 00:00: 00 Yes 50mg Take 1 tablet by mouth in the morning. [facility] desvenlafax ine succinate 50 mg 24 hr tablet 08-19 00:00: 00 Yes 50mg Take 1 tablet by mouth in the morning. [facility] desvenlafax ine succinate 50 mg 24 hr tablet 08-19 00:00: 00 Yes 50mg Take 1 tablet by mouth in the morning. [facility] desvenlafax ine succinate 50 mg 24 hr tablet 08-19 00:00: 00 Yes 50mg Take 1 tablet by mouth in the morning. [facility] desvenlafax ine succinate 50 mg 24 hr tablet 08-19 00:00: 00 Yes 50mg Take 1 tablet by mouth in the morning. [facility] medroxyPROG ESTERone (DEPO-PROVE RA) syringe 150 mg 03-26 22:30: 00 03-26 21:43 :00 No [id number] [facility] (DEPO-PROVE RA) syringe 150 mg 03-26 22:30: 00 03-26 21:43 :00 No [id number] 150mg 150 mg, Intramuscu lar, ONCE, 1 dose, On Fri03/26/22 at 1730, Routine [facility] ondansetron (ZOFRAN (PF)) injection 4 mg 02-24 01:50: 58 Yes 4mg 4 mg, Slow IV Push, PRN, 1 dose, Starting on Fri02/23/22 at 2050, Until Discontinu ed, Routine, Nausea and Vomiting (N/V), PACU [facility] ondansetron (ZOFRAN (PF)) injection 4 mg 02-24 01:50: 58 02-24 05:14 :22 No 4mg 4 mg, Slow IV Push, PRN, 1 dose, Starting on 02/23/22 at 2050, Until 02/24/22 at 0014, Routine, Nausea and Vomiting (N/V), PACU [facility] ferric subsulfate (MONSEL'S SOLUTION) solution 02-24 00:50: 00 02-24 01:27 :43 No PRN, Starting on 02/23/22 at 1950, Until 02/23/22 at 2027, Routine, Intra-op [facility] NaCl 0.9% (NS) bolus infusion 1,000 mL 02-23 20:45: 00 02-23 21:58 :00 No 1000mL at 999 mL/hr, 1,000 mL, IV Infusion, ONCE, 1 dose, On 02/23/22 at 1545, STAT [facility] NaCl 0.9% (NS) bolus infusion 1,000 mL 02-23 20:45: 00 02-23 21:58 :00 No 1000mL at 999 mL/hr, 1,000 mL, IV Infusion, ONCE, 1 dose, On 02/23/22 at 1545, STAT [facility] acetaminoph en (TYLENOL) 325 mg tablet 02-23 00:00: 00 Yes [id number] 650mg Take 2 tablets by mouth every 6 (six) hours as needed for Pain (scale 1-3) or Pain (scale 4-6). [facility] ibuprofen 600 mg tablet 02-23 00:00: 00 Yes [id number] 600mg Take 1 tablet by mouth every 6 (six) hours as needed for Pain (scale 1-3) or Pain (scale 4-6). [facility] acetaminoph en (TYLENOL) 325 mg tablet 02-23 00:00: 00 Yes [id number] 650mg Take 2 tablets by mouth every 6 (six) hours as needed for Pain (scale 1-3) or Pain (scale 4-6). [facility] ibuprofen 600 mg tablet 02-23 00:00: 00 Yes [id number] 600mg Take 1 tablet by mouth every 6 (six) hours as needed for Pain (scale 1-3) or Pain (scale 4-6). [facility] acetaminoph en (TYLENOL) 325 mg tablet 02-23 00:00: 00 Yes [id number] 650mg Take 2 tablets by mouth every 6 (six) hours as needed for Pain (scale 1-3) or Pain (scale 4-6). [facility] ibuprofen 600 mg tablet 02-23 00:00: 00 Yes [id number] 600mg Take 1 tablet by mouth every 6 (six) hours as needed for Pain (scale 1-3) or Pain (scale 4-6). [facility] acetaminoph en (TYLENOL) 325 mg tablet 02-23 00:00: 00 03-26 00:00 :00 No [id number] 650mg Take 2 tablets by mouth every 6 (six) hours as needed for Pain (scale 1-3) or Pain (scale 4-6). [facility] ibuprofen 600 mg tablet 02-23 00:00: 00 03-26 00:00 :00 No [id number] 600mg Take 1 tablet by mouth every 6 (six) hours as needed for Pain (scale 1-3) or Pain (scale 4-6). [facility] doxycycline hyclate 100 mg tablet 02-23 00:00: 00 02-24 04:59 :00 No [id number] 200mg Take 2 tablets by mouth once now for 1 dose. [facility] doxycycline hyclate 100 mg tablet 02-23 00:00: 00 02-24 04:59 :00 No [id number] 200mg Take 2 tablets by mouth once now for 1 dose. [facility] Xanax 0.25 MG Xanax 0.25 MG 02-06 00:00: 00 No 1{table t} Xanax 0.25 MG Xanax 0.25 MG Xanax 0.25 MG 02-06 00:00: 00 No 1{table t} Xanax 0.25 MG Xanax 0.25 MG Xanax 0.25 MG 02-06 00:00: 00 No 1{table t} Xanax 0.25 MG Xanax 0.25 MG Xanax 0.25 MG 02-06 00:00: 00 No 1{table t} Xanax 0.25 MG nirmatrelvi r-ritonavir (PAXLOVID, EUA,) 150 mg x 2- 100 mg tablet 01-19 00:00: 00 Yes [id number] 3{tbl} Take 3 tablets by mouth 2 (two) times daily. [facility] ondansetron 4 mg disintegrat ing tablet 01-19 00:00: 00 Yes [id number] 4mg Take 1 tablet by mouth every 8 (eight) hours as needed for Nausea and Vomiting (N/V). [facility] nirmatrelvi r-ritonavir (PAXLOVID, EUA,) 150 mg x 2- 100 mg tablet 01-19 00:00: 00 Yes [id number] 3{tbl} Take 3 tablets by mouth 2 (two) times daily. [facility] ondansetron 4 mg disintegrat ing tablet 01-19 00:00: 00 Yes [id number] 4mg Take 1 tablet by mouth every 8 (eight) hours as needed for Nausea and Vomiting (N/V). [facility] nirmatrelvi r-ritonavir (PAXLOVID, EUA,) 150 mg x 2- 100 mg tablet 01-19 00:00: 00 Yes [id number] 3{tbl} Take 3 tablets by mouth 2 (two) times daily. [facility] ondansetron 4 mg disintegrat ing tablet 01-19 00:00: 00 Yes [id number] 4mg Take 1 tablet by mouth every 8 (eight) hours as needed for Nausea and Vomiting (N/V). [facility] nirmatrelvi r-ritonavir (PAXLOVID, EUA,) 150 mg x 2- 100 mg tablet 01-19 00:00: 00 Yes [id number] 3{tbl} Take 3 tablets by mouth 2 (two) times daily. [facility] ondansetron 4 mg disintegrat ing tablet 01-19 00:00: 00 Yes [id number] 4mg Take 1 tablet by mouth every 8 (eight) hours as needed for Nausea and Vomiting (N/V). [facility] nirmatrelvi r-ritonavir (PAXLOVID, EUA,) 150 mg x 2- 100 mg tablet 01-19 00:00: 00 Yes [id number] 3{tbl} Take 3 tablets by mouth 2 (two) times daily. [facility] ondansetron 4 mg disintegrat ing tablet 01-19 00:00: 00 Yes [id number] 4mg Take 1 tablet by mouth every 8 (eight) hours as needed for Nausea and Vomiting (N/V). [facility] nirmatrelvi r-ritonavir (PAXLOVID, EUA,) 150 mg x 2- 100 mg tablet 01-19 00:00: 00 Yes [id number] 3{tbl} Take 3 tablets by mouth 2 (two) times daily. [facility] ondansetron 4 mg disintegrat ing tablet 01-19 00:00: 00 Yes [id number] 4mg Take 1 tablet by mouth every 8 (eight) hours as needed for Nausea and Vomiting (N/V). [facility] nirmatrelvi r-ritonavir (PAXLOVID, EUA,) 150 mg x 2- 100 mg tablet 01-19 00:00: 00 Yes [id number] 3{tbl} Take 3 tablets by mouth 2 (two) times daily. [facility] ondansetron 4 mg disintegrat ing tablet 01-19 00:00: 00 Yes [id number] 4mg Take 1 tablet by mouth every 8 (eight) hours as needed for Nausea and Vomiting (N/V). [facility] nirmatrelvi r-ritonavir (PAXLOVID, EUA,) 150 mg x 2- 100 mg tablet 01-19 00:00: 00 Yes [id number] 3{tbl} Take 3 tablets by mouth 2 (two) times daily. [facility] ondansetron 4 mg disintegrat ing tablet 01-19 00:00: 00 Yes [id number] 4mg Take 1 tablet by mouth every 8 (eight) hours as needed for Nausea and Vomiting (N/V). [facility] nirmatrelvi r-ritonavir (PAXLOVID, EUA,) 150 mg x 2- 100 mg tablet 01-19 00:00: 00 Yes [id number] 3{tbl} Take 3 tablets by mouth 2 (two) times daily. [facility] ondansetron 4 mg disintegrat ing tablet 01-19 00:00: 00 Yes [id number] 4mg Take 1 tablet by mouth every 8 (eight) hours as needed for Nausea and Vomiting (N/V). [facility] nirmatrelvi r-ritonavir (PAXLOVID, EUA,) 150 mg x 2- 100 mg tablet 01-19 00:00: 00 Yes [id number] 3{tbl} Take 3 tablets by mouth 2 (two) times daily. [facility] ondansetron 4 mg disintegrat ing tablet 01-19 00:00: 00 Yes [id number] 4mg Take 1 tablet by mouth every 8 (eight) hours as needed for Nausea and Vomiting (N/V). [facility] nirmatrelvi r-ritonavir (PAXLOVID, EUA,) 150 mg x 2- 100 mg tablet 01-19 00:00: 00 Yes [id number] 3{tbl} Take 3 tablets by mouth 2 (two) times daily. [facility] ondansetron 4 mg disintegrat ing tablet 01-19 00:00: 00 Yes [id number] 4mg Take 1 tablet by mouth every 8 (eight) hours as needed for Nausea and Vomiting (N/V). [facility] nirmatrelvi r-ritonavir (PAXLOVID, EUA,) 150 mg x 2- 100 mg tablet 01-19 00:00: 00 Yes [id number] 3{tbl} Take 3 tablets by mouth 2 (two) times daily. [facility] ondansetron 4 mg disintegrat ing tablet 01-19 00:00: 00 Yes [id number] 4mg Take 1 tablet by mouth every 8 (eight) hours as needed for Nausea and Vomiting (N/V). [facility] nirmatrelvi r-ritonavir (PAXLOVID, EUA,) 150 mg x 2- 100 mg tablet 01-19 00:00: 00 Yes [id number] 3{tbl} Take 3 tablets by mouth 2 (two) times daily. [facility] ondansetron 4 mg disintegrat ing tablet 01-19 00:00: 00 Yes [id number] 4mg Take 1 tablet by mouth every 8 (eight) hours as needed for Nausea and Vomiting (N/V). [facility] nirmatrelvi r-ritonavir (PAXLOVID, EUA,) 150 mg x 2- 100 mg tablet 01-19 00:00: 00 Yes [id number] 3{tbl} Take 3 tablets by mouth 2 (two) times daily. [facility] ondansetron 4 mg disintegrat ing tablet 01-19 00:00: 00 Yes [id number] 4mg Take 1 tablet by mouth every 8 (eight) hours as needed for Nausea and Vomiting (N/V). [facility] nirmatrelvi r-ritonavir (PAXLOVID, EUA,) 150 mg x 2- 100 mg tablet 01-19 00:00: 00 Yes [id number] 3{tbl} Take 3 tablets by mouth 2 (two) times daily. [facility] ondansetron 4 mg disintegrat ing tablet 01-19 00:00: 00 Yes [id number] 4mg Take 1 tablet by mouth every 8 (eight) hours as needed for Nausea and Vomiting (N/V). [facility] nirmatrelvi r-ritonavir (PAXLOVID, EUA,) 150 mg x 2- 100 mg tablet 01-19 00:00: 00 Yes [id number] 3{tbl} Take 3 tablets by mouth 2 (two) times daily. [facility] ondansetron 4 mg disintegrat ing tablet 01-19 00:00: 00 Yes [id number] 4mg Take 1 tablet by mouth every 8 (eight) hours as needed for Nausea and Vomiting (N/V). [facility] nirmatrelvi r-ritonavir (PAXLOVID, EUA,) 150 mg x 2- 100 mg tablet 01-19 00:00: 00 Yes [id number] 3{tbl} Take 3 tablets by mouth 2 (two) times daily. [facility] ondansetron 4 mg disintegrat ing tablet 01-19 00:00: 00 Yes [id number] 4mg Take 1 tablet by mouth every 8 (eight) hours as needed for Nausea and Vomiting (N/V). [facility] nirmatrelvi r-ritonavir (PAXLOVID, EUA,) 150 mg x 2- 100 mg tablet 01-19 00:00: 00 Yes [id number] 3{tbl} Take 3 tablets by mouth 2 (two) times daily. [facility] ondansetron 4 mg disintegrat ing tablet 01-19 00:00: 00 Yes [id number] 4mg Take 1 tablet by mouth every 8 (eight) hours as needed for Nausea and Vomiting (N/V). [facility] nirmatrelvi r-ritonavir (PAXLOVID, EUA,) 150 mg x 2- 100 mg tablet 01-19 00:00: 00 Yes [id number] 3{tbl} Take 3 tablets by mouth 2 (two) times daily. [facility] ondansetron 4 mg disintegrat ing tablet 01-19 00:00: 00 Yes [id number] 4mg Take 1 tablet by mouth every 8 (eight) hours as needed for Nausea and Vomiting (N/V). [facility] nirmatrelvi r-ritonavir (PAXLOVID, EUA,) 150 mg x 2- 100 mg tablet 01-19 00:00: 00 Yes [id number] 3{tbl} Take 3 tablets by mouth 2 (two) times daily. [facility] ondansetron 4 mg disintegrat ing tablet 01-19 00:00: 00 Yes [id number] 4mg Take 1 tablet by mouth every 8 (eight) hours as needed for Nausea and Vomiting (N/V). [facility] nirmatrelvi r-ritonavir (PAXLOVID, EUA,) 150 mg x 2- 100 mg tablet 01-19 00:00: 00 Yes [id number] 3{tbl} Take 3 tablets by mouth 2 (two) times daily. [facility] ondansetron 4 mg disintegrat ing tablet 01-19 00:00: 00 Yes [id number] 4mg Take 1 tablet by mouth every 8 (eight) hours as needed for Nausea and Vomiting (N/V). [facility] nirmatrelvi r-ritonavir (PAXLOVID, EUA,) 150 mg x 2- 100 mg tablet 01-19 00:00: 00 Yes [id number] 3{tbl} Take 3 tablets by mouth 2 (two) times daily. [facility] ondansetron 4 mg disintegrat ing tablet 01-19 00:00: 00 Yes [id number] 4mg Take 1 tablet by mouth every 8 (eight) hours as needed for Nausea and Vomiting (N/V). [facility] nirmatrelvi r-ritonavir (PAXLOVID, EUA,) 150 mg x 2- 100 mg tablet 01-19 00:00: 00 Yes [id number] 3{tbl} Take 3 tablets by mouth 2 (two) times daily. [facility] ondansetron 4 mg disintegrat ing tablet 01-19 00:00: 00 Yes [id number] 4mg Take 1 tablet by mouth every 8 (eight) hours as needed for Nausea and Vomiting (N/V). [facility] nirmatrelvi r-ritonavir (PAXLOVID, EUA,) 150 mg x 2- 100 mg tablet 01-19 00:00: 00 Yes [id number] 3{tbl} Take 3 tablets by mouth 2 (two) times daily. [facility] ondansetron 4 mg disintegrat ing tablet 01-19 00:00: 00 Yes [id number] 4mg Take 1 tablet by mouth every 8 (eight) hours as needed for Nausea and Vomiting (N/V). [facility] nirmatrelvi r-ritonavir (PAXLOVID, EUA,) 150 mg x 2- 100 mg tablet 01-19 00:00: 00 Yes [id number] 3{tbl} Take 3 tablets by mouth 2 (two) times daily. [facility] ondansetron 4 mg disintegrat ing tablet 01-19 00:00: 00 Yes [id number] 4mg Take 1 tablet by mouth every 8 (eight) hours as needed for Nausea and Vomiting (N/V). [facility] nirmatrelvi r-ritonavir (PAXLOVID, EUA,) 150 mg x 2- 100 mg tablet 01-19 00:00: 00 Yes [id number] 3{tbl} Take 3 tablets by mouth 2 (two) times daily. [facility] ondansetron 4 mg disintegrat ing tablet 01-19 00:00: 00 Yes [id number] 4mg Take 1 tablet by mouth every 8 (eight) hours as needed for Nausea and Vomiting (N/V). [facility] nirmatrelvi r-ritonavir (PAXLOVID, EUA,) 150 mg x 2- 100 mg tablet 01-19 00:00: 00 Yes [id number] 3{tbl} Take 3 tablets by mouth 2 (two) times daily. [facility] ondansetron 4 mg disintegrat ing tablet 01-19 00:00: 00 Yes [id number] 4mg Take 1 tablet by mouth every 8 (eight) hours as needed for Nausea and Vomiting (N/V). [facility] nirmatrelvi r-ritonavir (PAXLOVID, EUA,) 150 mg x 2- 100 mg tablet 01-19 00:00: 00 Yes [id number] 3{tbl} Take 3 tablets by mouth 2 (two) times daily. [facility] ondansetron 4 mg disintegrat ing tablet 01-19 00:00: 00 Yes [id number] 4mg Take 1 tablet by mouth every 8 (eight) hours as needed for Nausea and Vomiting (N/V). [facility] nirmatrelvi r-ritonavir (PAXLOVID, EUA,) 150 mg x 2- 100 mg tablet 01-19 00:00: 00 Yes [id number] 3{tbl} Take 3 tablets by mouth 2 (two) times daily. [facility] ondansetron 4 mg disintegrat ing tablet 01-19 00:00: 00 Yes [id number] 4mg Take 1 tablet by mouth every 8 (eight) hours as needed for Nausea and Vomiting (N/V). [facility] nirmatrelvi r-ritonavir (PAXLOVID, EUA,) 150 mg x 2- 100 mg tablet 01-19 00:00: 00 Yes [id number] 3{tbl} Take 3 tablets by mouth 2 (two) times daily. [facility] ondansetron 4 mg disintegrat ing tablet 01-19 00:00: 00 Yes [id number] 4mg Take 1 tablet by mouth every 8 (eight) hours as needed for Nausea and Vomiting (N/V). [facility] nirmatrelvi r-ritonavir (PAXLOVID, EUA,) 150 mg x 2- 100 mg tablet 01-19 00:00: 00 Yes [id number] 3{tbl} Take 3 tablets by mouth 2 (two) times daily. [facility] ondansetron 4 mg disintegrat ing tablet 01-19 00:00: 00 Yes [id number] 4mg Take 1 tablet by mouth every 8 (eight) hours as needed for Nausea and Vomiting (N/V). [facility] nirmatrelvi r-ritonavir (PAXLOVID, EUA,) 150 mg x 2- 100 mg tablet - 00:00: 00 Yes [id number] 3{tbl} Take 3 tablets by mouth 2 (two) times daily. [facility] ondansetron 4 mg disintegrat ing tablet 01-19 00:00: 00 Yes [id number] 4mg Take 1 tablet by mouth every 8 (eight) hours as needed for Nausea and Vomiting (N/V). [facility] nirmatrelvi r-ritonavir (PAXLOVID, EUA,) 150 mg x 2- 100 mg tablet 01-19 00:00: 00 Yes [id number] 3{tbl} Take 3 tablets by mouth 2 (two) times daily. [facility] ondansetron 4 mg disintegrat ing tablet 01-19 00:00: 00 Yes [id number] 4mg Take 1 tablet by mouth every 8 (eight) hours as needed for Nausea and Vomiting (N/V). [facility] nirmatrelvi r-ritonavir (PAXLOVID, EUA,) 150 mg x 2- 100 mg tablet 01-19 00:00: 00 Yes [id number] 3{tbl} Take 3 tablets by mouth 2 (two) times daily. [facility] ondansetron 4 mg disintegrat ing tablet 01-19 00:00: 00 Yes [id number] 4mg Take 1 tablet by mouth every 8 (eight) hours as needed for Nausea and Vomiting (N/V). [facility] nirmatrelvi r-ritonavir (PAXLOVID, EUA,) 150 mg x 2- 100 mg tablet - 00:00: 00 Yes [id number] 3{tbl} Take 3 tablets by mouth 2 (two) times daily. [facility] ondansetron 4 mg disintegrat ing tablet 01-19 00:00: 00 Yes [id number] 4mg Take 1 tablet by mouth every 8 (eight) hours as needed for Nausea and Vomiting (N/V). [facility] nirmatrelvi r-ritonavir (PAXLOVID, EUA,) 150 mg x 2- 100 mg tablet 01-19 00:00: 00 Yes [id number] 3{tbl} Take 3 tablets by mouth 2 (two) times daily. [facility] ondansetron 4 mg disintegrat ing tablet 01-19 00:00: 00 Yes [id number] 4mg Take 1 tablet by mouth every 8 (eight) hours as needed for Nausea and Vomiting (N/V). [facility] nirmatrelvi r-ritonavir (PAXLOVID, EUA,) 150 mg x 2- 100 mg tablet 01-19 00:00: 00 Yes [id number] 3{tbl} Take 3 tablets by mouth 2 (two) times daily. [facility] ondansetron 4 mg disintegrat ing tablet 01-19 00:00: 00 Yes [id number] 4mg Take 1 tablet by mouth every 8 (eight) hours as needed for Nausea and Vomiting (N/V). [facility] nirmatrelvi r-ritonavir (PAXLOVID, EUA,) 150 mg x 2- 100 mg tablet 01-19 00:00: 00 Yes [id number] 3{tbl} Take 3 tablets by mouth 2 (two) times daily. [facility] ondansetron 4 mg disintegrat ing tablet 01-19 00:00: 00 Yes [id number] 4mg Take 1 tablet by mouth every 8 (eight) hours as needed for Nausea and Vomiting (N/V). [facility] nirmatrelvi r-ritonavir (PAXLOVID, EUA,) 150 mg x 2- 100 mg tablet 01-19 00:00: 00 Yes [id number] 3{tbl} Take 3 tablets by mouth 2 (two) times daily. [facility] ondansetron 4 mg disintegrat ing tablet 01-19 00:00: 00 Yes [id number] 4mg Take 1 tablet by mouth every 8 (eight) hours as needed for Nausea and Vomiting (N/V). [facility] nirmatrelvi r-ritonavir (PAXLOVID, EUA,) 150 mg x 2- 100 mg tablet 01-19 00:00: 00 Yes [id number] 3{tbl} Take 3 tablets by mouth 2 (two) times daily. [facility] ondansetron 4 mg disintegrat ing tablet 01-19 00:00: 00 Yes [id number] 4mg Take 1 tablet by mouth every 8 (eight) hours as needed for Nausea and Vomiting (N/V). [facility] nirmatrelvi r-ritonavir (PAXLOVID, EUA,) 150 mg x 2- 100 mg tablet 01-19 00:00: 00 Yes [id number] 3{tbl} Take 3 tablets by mouth 2 (two) times daily. [facility] ondansetron 4 mg disintegrat ing tablet 01-19 00:00: 00 Yes [id number] 4mg Take 1 tablet by mouth every 8 (eight) hours as needed for Nausea and Vomiting (N/V). [facility] nirmatrelvi r-ritonavir (PAXLOVID, EUA,) 150 mg x 2- 100 mg tablet 01-19 00:00: 00 Yes [id number] 3{tbl} Take 3 tablets by mouth 2 (two) times daily. [facility] ondansetron 4 mg disintegrat ing tablet 01-19 00:00: 00 Yes [id number] 4mg Take 1 tablet by mouth every 8 (eight) hours as needed for Nausea and Vomiting (N/V). [facility] nirmatrelvi r-ritonavir (PAXLOVID, EUA,) 150 mg x 2- 100 mg tablet 01-19 00:00: 00 Yes [id number] 3{tbl} Take 3 tablets by mouth 2 (two) times daily. [facility] ondansetron 4 mg disintegrat ing tablet 01-19 00:00: 00 Yes [id number] 4mg Take 1 tablet by mouth every 8 (eight) hours as needed for Nausea and Vomiting (N/V). [facility] nirmatrelvi r-ritonavir (PAXLOVID, EUA,) 150 mg x 2- 100 mg tablet 01-19 00:00: 00 Yes [id number] 3{tbl} Take 3 tablets by mouth 2 (two) times daily. [facility] ondansetron 4 mg disintegrat ing tablet 01-19 00:00: 00 Yes [id number] 4mg Take 1 tablet by mouth every 8 (eight) hours as needed for Nausea and Vomiting (N/V). [facility] nirmatrelvi r-ritonavir (PAXLOVID, EUA,) 150 mg x 2- 100 mg tablet 01-19 00:00: 00 Yes [id number] 3{tbl} Take 3 tablets by mouth 2 (two) times daily. [facility] ondansetron 4 mg disintegrat ing tablet 01-19 00:00: 00 Yes [id number] 4mg Take 1 tablet by mouth every 8 (eight) hours as needed for Nausea and Vomiting (N/V). [facility] nirmatrelvi r-ritonavir (PAXLOVID, EUA,) 150 mg x 2- 100 mg tablet 01-19 00:00: 00 Yes [id number] 3{tbl} Take 3 tablets by mouth 2 (two) times daily. [facility] ondansetron 4 mg disintegrat ing tablet 01-19 00:00: 00 Yes [id number] 4mg Take 1 tablet by mouth every 8 (eight) hours as needed for Nausea and Vomiting (N/V). [facility] nirmatrelvi r-ritonavir (PAXLOVID, EUA,) 150 mg x 2- 100 mg tablet 01-19 00:00: 00 Yes [id number] 3{tbl} Take 3 tablets by mouth 2 (two) times daily. [facility] ondansetron 4 mg disintegrat ing tablet 01-19 00:00: 00 Yes [id number] 4mg Take 1 tablet by mouth every 8 (eight) hours as needed for Nausea and Vomiting (N/V). [facility] nirmatrelvi r-ritonavir (PAXLOVID, EUA,) 150 mg x 2- 100 mg tablet 01-19 00:00: 00 Yes [id number] 3{tbl} Take 3 tablets by mouth 2 (two) times daily. [facility] ondansetron 4 mg disintegrat ing tablet 01-19 00:00: 00 Yes [id number] 4mg Take 1 tablet by mouth every 8 (eight) hours as needed for Nausea and Vomiting (N/V). [facility] nirmatrelvi r-ritonavir (PAXLOVID, EUA,) 150 mg x 2- 100 mg tablet 01-19 00:00: 00 Yes [id number] 3{tbl} Take 3 tablets by mouth 2 (two) times daily. [facility] ondansetron 4 mg disintegrat ing tablet 01-19 00:00: 00 Yes [id number] 4mg Take 1 tablet by mouth every 8 (eight) hours as needed for Nausea and Vomiting (N/V). [facility] nirmatrelvi r-ritonavir (PAXLOVID, EUA,) 150 mg x 2- 100 mg tablet 01-19 00:00: 00 Yes [id number] 3{tbl} Take 3 tablets by mouth 2 (two) times daily. [facility] ondansetron 4 mg disintegrat ing tablet 01-19 00:00: 00 Yes [id number] 4mg Take 1 tablet by mouth every 8 (eight) hours as needed for Nausea and Vomiting (N/V). [facility] proMETHazin e 25 mg tablet 11-23 00:00: 00 Yes [id number] 25mg Take 1 tablet by mouth every 6 (six) hours as needed for Nausea and Vomiting (N/V). [facility] proMETHazin e 25 mg tablet 2-0 11-23 00:00: 00 Yes [id number] 25mg Take 1 tablet by mouth every 6 (six) hours as needed for Nausea and Vomiting (N/V). [facility]METH[facility] 25 mg tablet 2-0 11-23 00:00: 00 Yes [id number] 25mg Take 1 tablet by mouth every 6 (six) hours as needed for Nausea and Vomiting (N/V). [facility] proMETHazin e 25 mg tablet 2021-0 11-23 00:00: 00 Yes [id number] 25mg Take 1 tablet by mouth every 6 (six) hours as needed for Nausea and Vomiting (N/V). [facility]METHaz[facility] e 25 mg tablet 2021-0 11-23 00:00: 00 Yes [id number] 25mg Take 1 tablet by mouth every 6 (six) hours as needed for Nausea and Vomiting (N/V). [facility]METH[facility] 25 mg tablet 2021-0 11-23 00:00: 00 Yes [id number] 25mg Take 1 tablet by mouth every 6 (six) hours as needed for Nausea and Vomiting (N/V). [facility] 25 mg tablet 2-0 11-23 00:00: 00 Yes [id number] 25mg Take 1 tablet by mouth every 6 (six) hours as needed for Nausea and Vomiting (N/V). [facility] 25 mg tablet 2-0 29 00:00: 00 Yes [id number] 25mg Take 1 tablet by mouth every 6 (six) hours as needed for Nausea and Vomiting (N/V). [facility] 25 mg tablet 2-0 29 00:00: 00 Yes [id number] 25mg Take 1 tablet by mouth every 6 (six) hours as needed for Nausea and Vomiting (N/V). [facility] 25 mg tablet 2-0 29 00:00: 00 Yes [id number] 25mg Take 1 tablet by mouth every 6 (six) hours as needed for Nausea and Vomiting (N/V). [facility] 25 mg tablet 2-0 11-23 00:00: 00 Yes [id number] 25mg Take 1 tablet by mouth every 6 (six) hours as needed for Nausea and Vomiting (N/V). [facility] 25 mg tablet 2-0 29 00:00: 00 Yes [id number] 25mg Take 1 tablet by mouth every 6 (six) hours as needed for Nausea and Vomiting (N/V). [facility] 25 mg tablet 2-0 11-23 00:00: 00 Yes [id number] 25mg Take 1 tablet by mouth every 6 (six) hours as needed for Nausea and Vomiting (N/V). [facility] 25 mg tablet 2021-0 11-23 00:00: 00 Yes [id number] 25mg Take 1 tablet by mouth every 6 (six) hours as needed for Nausea and Vomiting (N/V). [facility] 25 mg tablet 2021-0 11-23 00:00: 00 Yes [id number] 25mg Take 1 tablet by mouth every 6 (six) hours as needed for Nausea and Vomiting (N/V). [facility] 25 mg tablet 2021-0 11-23 00:00: 00 Yes [id number] 25mg Take 1 tablet by mouth every 6 (six) hours as needed for Nausea and Vomiting (N/V). [facility] 25 mg tablet 2-0 29 00:00: 00 Yes [id number] 25mg Take 1 tablet by mouth every 6 (six) hours as needed for Nausea and Vomiting (N/V). [facility] 25 mg tablet 2-0 29 00:00: 00 Yes [id number] 25mg Take 1 tablet by mouth every 6 (six) hours as needed for Nausea and Vomiting (N/V). [facility] 25 mg tablet 2-0 29 00:00: 00 Yes [id number] 25mg Take 1 tablet by mouth every 6 (six) hours as needed for Nausea and Vomiting (N/V). [facility] 25 mg tablet 2021-0 11-23 00:00: 00 Yes [id number] 25mg Take 1 tablet by mouth every 6 (six) hours as needed for Nausea and Vomiting (N/V). [facility] 25 mg tablet 2021-0 11-23 00:00: 00 Yes [id number] 25mg Take 1 tablet by mouth every 6 (six) hours as needed for Nausea and Vomiting (N/V). [facility] 25 mg tablet 2021-0 11-23 00:00: 00 Yes [id number] 25mg Take 1 tablet by mouth every 6 (six) hours as needed for Nausea and Vomiting (N/V). [facility] 25 mg tablet 2021-0 11-23 00:00: 00 Yes [id number] 25mg Take 1 tablet by mouth every 6 (six) hours as needed for Nausea and Vomiting (N/V). [facility] 25 mg tablet 2021-0 11-23 00:00: 00 Yes [id number] 25mg Take 1 tablet by mouth every 6 (six) hours as needed for Nausea and Vomiting (N/V). [facility] 25 mg tablet 2021-0 11-23 00:00: 00 Yes [id number] 25mg Take 1 tablet by mouth every 6 (six) hours as needed for Nausea and Vomiting (N/V). [facility] 25 mg tablet 2021-0 11-23 00:00: 00 Yes [id number] 25mg Take 1 tablet by mouth every 6 (six) hours as needed for Nausea and Vomiting (N/V). [facility] 25 mg tablet 2-0 29 00:00: 00 Yes [id number] 25mg Take 1 tablet by mouth every 6 (six) hours as needed for Nausea and Vomiting (N/V). [facility] 25 mg tablet 2-0 29 00:00: 00 Yes [id number] 25mg Take 1 tablet by mouth every 6 (six) hours as needed for Nausea and Vomiting (N/V). [facility] 25 mg tablet 2021-0 29 00:00: 00 Yes [id number] 25mg Take 1 tablet by mouth every 6 (six) hours as needed for Nausea and Vomiting (N/V). [facility] 25 mg tablet 2-0 29 00:00: 00 Yes [id number] 25mg Take 1 tablet by mouth every 6 (six) hours as needed for Nausea and Vomiting (N/V). [facility] 25 mg tablet 2021-0 29 00:00: 00 Yes [id number] 25mg Take 1 tablet by mouth every 6 (six) hours as needed for Nausea and Vomiting (N/V). [facility] e 25 mg tablet 2021-0 11-23 00:00: 00 Yes [id number] 25mg Take 1 tablet by mouth every 6 (six) hours as needed for Nausea and Vomiting (N/V). [facility] 25 mg tablet 2021-0 29 00:00: 00 Yes [id number] 25mg Take 1 tablet by mouth every 6 (six) hours as needed for Nausea and Vomiting (N/V). [facility] 25 mg tablet 2021-0 29 00:00: 00 Yes [id number] 25mg Take 1 tablet by mouth every 6 (six) hours as needed for Nausea and Vomiting (N/V). [facility] 25 mg tablet 2-0 29 00:00: 00 Yes [id number] 25mg Take 1 tablet by mouth every 6 (six) hours as needed for Nausea and Vomiting (N/V). [facility] 25 mg tablet 2-0 -29 00:00: 00 Yes [id number] 25mg Take 1 tablet by mouth every 6 (six) hours as needed for Nausea and Vomiting (N/V). [facility] 25 mg tablet 2-0 -29 00:00: 00 Yes [id number] 25mg Take 1 tablet by mouth every 6 (six) hours as needed for Nausea and Vomiting (N/V). [facility] 25 mg tablet 2-0 29 00:00: 00 Yes [id number] 25mg Take 1 tablet by mouth every 6 (six) hours as needed for Nausea and Vomiting (N/V). [facility] 25 mg tablet 2-0 29 00:00: 00 Yes [id number] 25mg Take 1 tablet by mouth every 6 (six) hours as needed for Nausea and Vomiting (N/V). [facility] 25 mg tablet 2-0 29 00:00: 00 Yes [id number] 25mg Take 1 tablet by mouth every 6 (six) hours as needed for Nausea and Vomiting (N/V). [facility] 25 mg tablet 2-0 11-23 00:00: 00 Yes [id number] 25mg Take 1 tablet by mouth every 6 (six) hours as needed for Nausea and Vomiting (N/V). [facility] 25 mg tablet 2-0 29 00:00: 00 Yes [id number] 25mg Take 1 tablet by mouth every 6 (six) hours as needed for Nausea and Vomiting (N/V). [facility] 25 mg tablet 2-0 29 00:00: 00 Yes [id number] 25mg Take 1 tablet by mouth every 6 (six) hours as needed for Nausea and Vomiting (N/V). [facility] 25 mg tablet 2-0 29 00:00: 00 Yes [id number] 25mg Take 1 tablet by mouth every 6 (six) hours as needed for Nausea and Vomiting (N/V). [facility] 25 mg tablet 2-0 -29 00:00: 00 Yes [id number] 25mg Take 1 tablet by mouth every 6 (six) hours as needed for Nausea and Vomiting (N/V). [facility] 25 mg tablet 2-0 29 00:00: 00 Yes [id number] 25mg Take 1 tablet by mouth every 6 (six) hours as needed for Nausea and Vomiting (N/V). [facility] 25 mg tablet 2021-0 11-23 00:00: 00 Yes [id number] 25mg Take 1 tablet by mouth every 6 (six) hours as needed for Nausea and Vomiting (N/V). [facility] 25 mg tablet 2021-0 11-23 00:00: 00 Yes [id number] 25mg Take 1 tablet by mouth every 6 (six) hours as needed for Nausea and Vomiting (N/V). [facility] 25 mg tablet 2021-0 11-23 00:00: 00 Yes [id number] 25mg Take 1 tablet by mouth every 6 (six) hours as needed for Nausea and Vomiting (N/V). [facility] 25 mg tablet 2021-0 11-23 00:00: 00 Yes [id number] 25mg Take 1 tablet by mouth every 6 (six) hours as needed for Nausea and Vomiting (N/V). [facility] 25 mg tablet 2021-0 11-23 00:00: 00 Yes [id number] 25mg Take 1 tablet by mouth every 6 (six) hours as needed for Nausea and Vomiting (N/V). [facility] 25 mg tablet 2021-0 11-23 00:00: 00 Yes [id number] 25mg Take 1 tablet by mouth every 6 (six) hours as needed for Nausea and Vomiting (N/V). [facility] 25 mg tablet 2-0 11-23 00:00: 00 Yes [id number] 25mg Take 1 tablet by mouth every 6 (six) hours as needed for Nausea and Vomiting (N/V). [facility] 25 mg tablet 2-0 29 00:00: 00 Yes [id number] 25mg Take 1 tablet by mouth every 6 (six) hours as needed for Nausea and Vomiting (N/V). [facility] 25 mg tablet 2-0 29 00:00: 00 Yes [id number] 25mg Take 1 tablet by mouth every 6 (six) hours as needed for Nausea and Vomiting (N/V). [facility] 25 mg tablet 2021-0 29 00:00: 00 Yes [id number] 25mg Take 1 tablet by mouth every 6 (six) hours as needed for Nausea and Vomiting (N/V). [facility] 25 mg tablet 2021-0 29 00:00: 00 Yes [id number] 25mg Take 1 tablet by mouth every 6 (six) hours as needed for Nausea and Vomiting (N/V). [facility] 25 mg tablet 2021-0 29 00:00: 00 Yes [id number] 25mg Take 1 tablet by mouth every 6 (six) hours as needed for Nausea and Vomiting (N/V). [facility] 500 mg tablet 2021-0 25 00:00: 00 Yes [id number] 500mg Take 1 tablet by mouth 2 (two) times daily. [facility] 500 mg tablet 2021-0 25 00:00: 00 Yes [id number] 500mg Take 1 tablet by mouth 2 (two) times daily. [facility] 500 mg tablet 2021-0 25 00:00: 00 Yes [id number] 500mg Take 1 tablet by mouth 2 (two) times daily. [facility] 500 mg tablet 2021-0 25 00:00: 00 Yes [id number] 500mg Take 1 tablet by mouth 2 (two) times daily. [facility] 500 mg tablet 2021-0 25 00:00: 00 Yes [id number] 500mg Take 1 tablet by mouth 2 (two) times daily. [facility] 500 mg tablet 2-0 425 00:00: 00 Yes [id number] 500mg Take 1 tablet by mouth 2 (two) times daily. [facility] 500 mg tablet 2-0 425 00:00: 00 Yes [id number] 500mg Take 1 tablet by mouth 2 (two) times daily. [facility] 500 mg tablet 2022-0 4-25 00:00: 00 Yes [id number] 500mg Take 1 tablet by mouth 2 (two) times daily. [facility] 500 mg tablet 2021-0 25 00:00: 00 Yes [id number] 500mg Take 1 tablet by mouth 2 (two) times daily. [facility] 500 mg tablet 2021-0 25 00:00: 00 Yes [id number] 500mg Take 1 tablet by mouth 2 (two) times daily. [facility] 500 mg tablet 2021-0 25 00:00: 00 Yes [id number] 500mg Take 1 tablet by mouth 2 (two) times daily. [facility] 500 mg tablet 2021-0 25 00:00: 00 Yes [id number] 500mg Take 1 tablet by mouth 2 (two) times daily. [facility] 500 mg tablet 2021-0 25 00:00: 00 Yes [id number] 500mg Take 1 tablet by mouth 2 (two) times daily. [facility] 500 mg tablet 2021-0 25 00:00: 00 Yes [id number] 500mg Take 1 tablet by mouth 2 (two) times daily. [facility] 500 mg tablet 2021-0 25 00:00: 00 Yes [id number] 500mg Take 1 tablet by mouth 2 (two) times daily. [facility] 500 mg tablet 2021-0 25 00:00: 00 Yes [id number] 500mg Take 1 tablet by mouth 2 (two) times daily. [facility] 500 mg tablet 2021-0 25 00:00: 00 Yes [id number] 500mg Take 1 tablet by mouth 2 (two) times daily. [facility] 500 mg tablet 2021-0 25 00:00: 00 Yes [id number] 500mg Take 1 tablet by mouth 2 (two) times daily. [facility] 500 mg tablet 2021-0 25 00:00: 00 Yes [id number] 500mg Take 1 tablet by mouth 2 (two) times daily. [facility] 500 mg tablet 2021-0 25 00:00: 00 Yes [id number] 500mg Take 1 tablet by mouth 2 (two) times daily. [facility] 500 mg tablet 2021-0 25 00:00: 00 Yes [id number] 500mg Take 1 tablet by mouth 2 (two) times daily. [facility] 500 mg tablet 2021-0 25 00:00: 00 Yes [id number] 500mg Take 1 tablet by mouth 2 (two) times daily. [facility] 500 mg tablet 2021-0 25 00:00: 00 Yes [id number] 500mg Take 1 tablet by mouth 2 (two) times daily. [facility] 500 mg tablet 2021-0 25 00:00: 00 Yes [id number] 500mg Take 1 tablet by mouth 2 (two) times daily. [facility] 500 mg tablet 2021-0 25 00:00: 00 Yes [id number] 500mg Take 1 tablet by mouth 2 (two) times daily. [facility] 500 mg tablet 2021-0 25 00:00: 00 Yes [id number] 500mg Take 1 tablet by mouth 2 (two) times daily. [facility] 500 mg tablet 2021-0 25 00:00: 00 Yes [id number] 500mg Take 1 tablet by mouth 2 (two) times daily. [facility] 500 mg tablet 2021-0 25 00:00: 00 Yes [id number] 500mg Take 1 tablet by mouth 2 (two) times daily. [facility] 500 mg tablet 2021-0 25 00:00: 00 Yes [id number] 500mg Take 1 tablet by mouth 2 (two) times daily. [facility] 500 mg tablet 2021-0 25 00:00: 00 Yes [id number] 500mg Take 1 tablet by mouth 2 (two) times daily. [facility] 500 mg tablet 2021-0 4-25 00:00: 00 Yes [id number] 500mg Take 1 tablet by mouth 2 (two) times daily. [facility] 500 mg tablet 2021-0 4-25 00:00: 00 Yes [id number] 500mg Take 1 tablet by mouth 2 (two) times daily. [facility] 500 mg tablet 2021-0 -25 00:00: 00 Yes [id number] 500mg Take 1 tablet by mouth 2 (two) times daily. [facility] 500 mg tablet 2021-0 25 00:00: 00 Yes [id number] 500mg Take 1 tablet by mouth 2 (two) times daily. [facility] 500 mg tablet 2021-0 25 00:00: 00 Yes [id number] 500mg Take 1 tablet by mouth 2 (two) times daily. [facility] 500 mg tablet 2021-0 25 00:00: 00 Yes [id number] 500mg Take 1 tablet by mouth 2 (two) times daily. [facility] 500 mg tablet 2021-0 25 00:00: 00 Yes [id number] 500mg Take 1 tablet by mouth 2 (two) times daily. [facility] 500 mg tablet 2021-0 -25 00:00: 00 Yes [id number] 500mg Take 1 tablet by mouth 2 (two) times daily. [facility] 500 mg tablet 2021-0 4-25 00:00: 00 Yes [id number] 500mg Take 1 tablet by mouth 2 (two) times daily. [facility] 500 mg tablet 2021-0 4-25 00:00: 00 Yes [id number] 500mg Take 1 tablet by mouth 2 (two) times daily. [facility] 500 mg tablet 2-0 4-25 00:00: 00 Yes [id number] 500mg Take 1 tablet by mouth 2 (two) times daily. [facility] 500 mg tablet 2-0 4-25 00:00: 00 Yes [id number] 500mg Take 1 tablet by mouth 2 (two) times daily. [facility] 500 mg tablet 2-0 4-25 00:00: 00 Yes [id number] 500mg Take 1 tablet by mouth 2 (two) times daily. [facility] 500 mg tablet 2-0 4-25 00:00: 00 Yes [id number] 500mg Take 1 tablet by mouth 2 (two) times daily. [facility] 500 mg tablet 2-0 4-25 00:00: 00 Yes [id number] 500mg Take 1 tablet by mouth 2 (two) times daily. [facility] 500 mg tablet 2-0 4-25 00:00: 00 Yes [id number] 500mg Take 1 tablet by mouth 2 (two) times daily. [facility] 500 mg tablet 2-0 4-25 00:00: 00 Yes [id number] 500mg Take 1 tablet by mouth 2 (two) times daily. [facility] 500 mg tablet 2-0 4-25 00:00: 00 Yes [id number] 500mg Take 1 tablet by mouth 2 (two) times daily. [facility] 500 mg tablet 2-0 4-25 00:00: 00 Yes [id number] 500mg Take 1 tablet by mouth 2 (two) times daily. [facility] 500 mg tablet 2-0 4-25 00:00: 00 Yes [id number] 500mg Take 1 tablet by mouth 2 (two) times daily. [facility] 500 mg tablet 2-0 4-25 00:00: 00 Yes [id number] 500mg Take 1 tablet by mouth 2 (two) times daily. [facility] 500 mg tablet 2022-0 4-25 00:00: 00 Yes [id number] 500mg Take 1 tablet by mouth 2 (two) times daily. [facility] 500 mg tablet 2021-0 4-25 00:00: 00 Yes [id number] 500mg Take 1 tablet by mouth 2 (two) times daily. [facility] 500 mg tablet 2021-0 4-25 00:00: 00 Yes [id number] 500mg Take 1 tablet by mouth 2 (two) times daily. [facility] 500 mg tablet 2021-0 4-25 00:00: 00 Yes [id number] 500mg Take 1 tablet by mouth 2 (two) times daily. [facility] 500 mg tablet 2021-0 4-25 00:00: 00 Yes [id number] 500mg Take 1 tablet by mouth 2 (two) times daily. [facility] 500 mg tablet 2021-0 4-25 00:00: 00 Yes [id number] 500mg Take 1 tablet by mouth 2 (two) times daily. [facility] 500 mg tablet 2021-0 4-25 00:00: 00 Yes [id number] 500mg Take 1 tablet by mouth 2 (two) times daily. [facility] 500 mg tablet 2021-0 4-25 00:00: 00 Yes [id number] 500mg Take 1 tablet by mouth 2 (two) times daily. [facility] 500 mg tablet 2021-0 4-25 00:00: 00 Yes [id number] 500mg Take 1 tablet by mouth 2 (two) times daily. [facility] Xanax 0.25 MG Xanax 0.25 MG 2-0 3-24 00:00: 00 No 1{table t} Xanax 0.25 MG Xanax 0.25 MG Xanax 0.25 MG 2021-0 1-18 00:00: 00 No 1{table t} Xanax 0.25 MG Xanax 0.25 MG Xanax 0.25 MG 2020- 0-18 00:00: 00 No 1{table t} Xanax 0.25 MG cyclobenzap rine 10 mg tablet 2020-0 9-17 00:00: 00 Yes [id number] 10mg Take 1 tablet by mouth 3 (three) times daily. [facility] cyclobenzap rine 10 mg tablet 2020-0 9-17 00:00: 00 Yes [id number] 10mg Take 1 tablet by mouth 3 (three) times daily. [facility] cyclobenzap rine 10 mg tablet 2020-0 9-17 00:00: 00 Yes [id number] 10mg Take 1 tablet by mouth 3 (three) times daily. [facility] cyclobenzap rine 10 mg tablet 2020-0 9-17 00:00: 00 Yes [id number] 10mg Take 1 tablet by mouth 3 (three) times daily. [facility] cyclobenzap rine 10 mg tablet 2020-0 9-17 00:00: 00 Yes [id number] 10mg Take 1 tablet by mouth 3 (three) times daily. [facility] cyclobenzap rine 10 mg tablet 2020-0 9-17 00:00: 00 Yes [id number] 10mg Take 1 tablet by mouth 3 (three) times daily. [facility] cyclobenzap rine 10 mg tablet 2020-0 9-17 00:00: 00 Yes [id number] 10mg Take 1 tablet by mouth 3 (three) times daily. [facility] cyclobenzap rine 10 mg tablet 2019-0 9-17 00:00: 00 Yes [id number] 10mg Take 1 tablet by mouth 3 (three) times daily. [facility] cyclobenzap rine 10 mg tablet 2020-0 9-17 00:00: 00 Yes [id number] 10mg Take 1 tablet by mouth 3 (three) times daily. [facility] cyclobenzap rine 10 mg tablet 2020-0 9-17 00:00: 00 Yes [id number] 10mg Take 1 tablet by mouth 3 (three) times daily. [facility] cyclobenzap rine 10 mg tablet 2020-0 9-17 00:00: 00 Yes [id number] 10mg Take 1 tablet by mouth 3 (three) times daily. [facility] cyclobenzap rine 10 mg tablet 2020-0 9-17 00:00: 00 Yes [id number] 10mg Take 1 tablet by mouth 3 (three) times daily. [facility] cyclobenzap rine 10 mg tablet 2020-0 9-17 00:00: 00 Yes [id number] 10mg Take 1 tablet by mouth 3 (three) times daily. [facility] cyclobenzap rine 10 mg tablet 2020-0 9-17 00:00: 00 Yes [id number] 10mg Take 1 tablet by mouth 3 (three) times daily. [facility] cyclobenzap rine 10 mg tablet 2020-0 9-17 00:00: 00 Yes [id number] 10mg Take 1 tablet by mouth 3 (three) times daily. [facility] cyclobenzap rine 10 mg tablet 2020-0 9-17 00:00: 00 Yes [id number] 10mg Take 1 tablet by mouth 3 (three) times daily. [facility] cyclobenzap rine 10 mg tablet 2020-0 9-17 00:00: 00 Yes [id number] 10mg Take 1 tablet by mouth 3 (three) times daily. [facility] cyclobenzap rine 10 mg tablet 2020-0 9-17 00:00: 00 Yes [id number] 10mg Take 1 tablet by mouth 3 (three) times daily. [facility] cyclobenzap rine 10 mg tablet 2020-0 9-17 00:00: 00 Yes [id number] 10mg Take 1 tablet by mouth 3 (three) times daily. [facility] cyclobenzap rine 10 mg tablet 2020-0 9-17 00:00: 00 Yes [id number] 10mg Take 1 tablet by mouth 3 (three) times daily. [facility] cyclobenzap rine 10 mg tablet 2020-0 9-17 00:00: 00 Yes [id number] 10mg Take 1 tablet by mouth 3 (three) times daily. [facility] cyclobenzap rine 10 mg tablet 2020-0 9-17 00:00: 00 Yes [id number] 10mg Take 1 tablet by mouth 3 (three) times daily. [facility] cyclobenzap rine 10 mg tablet 2020-0 9-17 00:00: 00 Yes [id number] 10mg Take 1 tablet by mouth 3 (three) times daily. [facility] cyclobenzap rine 10 mg tablet 2020-0 9-17 00:00: 00 Yes [id number] 10mg Take 1 tablet by mouth 3 (three) times daily. [facility] cyclobenzap rine 10 mg tablet 2020-0 9-17 00:00: 00 Yes [id number] 10mg Take 1 tablet by mouth 3 (three) times daily. [facility] cyclobenzap rine 10 mg tablet 2020-0 9-17 00:00: 00 Yes [id number] 10mg Take 1 tablet by mouth 3 (three) times daily. [facility] cyclobenzap rine 10 mg tablet 2020-0 9-17 00:00: 00 Yes [id number] 10mg Take 1 tablet by mouth 3 (three) times daily. [facility] cyclobenzap rine 10 mg tablet 2020-0 9-17 00:00: 00 Yes [id number] 10mg Take 1 tablet by mouth 3 (three) times daily. [facility] cyclobenzap rine 10 mg tablet 2020-0 9-17 00:00: 00 Yes [id number] 10mg Take 1 tablet by mouth 3 (three) times daily. [facility] cyclobenzap rine 10 mg tablet 2020-0 9-17 00:00: 00 Yes [id number] 10mg Take 1 tablet by mouth 3 (three) times daily. [facility] cyclobenzap rine 10 mg tablet 2020-0 9-17 00:00: 00 Yes [id number] 10mg Take 1 tablet by mouth 3 (three) times daily. [facility] cyclobenzap rine 10 mg tablet 2020-0 9-17 00:00: 00 Yes [id number] 10mg Take 1 tablet by mouth 3 (three) times daily. [facility] cyclobenzap rine 10 mg tablet 2020-0 9-17 00:00: 00 Yes [id number] 10mg Take 1 tablet by mouth 3 (three) times daily. [facility] cyclobenzap rine 10 mg tablet 2020-0 9-17 00:00: 00 Yes [id number] 10mg Take 1 tablet by mouth 3 (three) times daily. [facility] cyclobenzap rine 10 mg tablet 2020-0 9-17 00:00: 00 Yes [id number] 10mg Take 1 tablet by mouth 3 (three) times daily. [facility] cyclobenzap rine 10 mg tablet 2020-0 9-17 00:00: 00 Yes [id number] 10mg Take 1 tablet by mouth 3 (three) times daily. [facility] cyclobenzap rine 10 mg tablet 2020-0 9-17 00:00: 00 Yes [id number] 10mg Take 1 tablet by mouth 3 (three) times daily. [facility] cyclobenzap rine 10 mg tablet 2020-0 9-17 00:00: 00 Yes [id number] 10mg Take 1 tablet by mouth 3 (three) times daily. [facility] cyclobenzap rine 10 mg tablet 2020-0 9-17 00:00: 00 Yes [id number] 10mg Take 1 tablet by mouth 3 (three) times daily. [facility] cyclobenzap rine 10 mg tablet 2020-0 9-17 00:00: 00 Yes [id number] 10mg Take 1 tablet by mouth 3 (three) times daily. [facility] cyclobenzap rine 10 mg tablet 2020-0 9-17 00:00: 00 Yes [id number] 10mg Take 1 tablet by mouth 3 (three) times daily. [facility] cyclobenzap rine 10 mg tablet 2020-0 9-17 00:00: 00 Yes [id number] 10mg Take 1 tablet by mouth 3 (three) times daily. [facility] cyclobenzap rine 10 mg tablet 2020-0 9-17 00:00: 00 Yes [id number] 10mg Take 1 tablet by mouth 3 (three) times daily. [facility] cyclobenzap rine 10 mg tablet 2020-0 9-17 00:00: 00 Yes [id number] 10mg Take 1 tablet by mouth 3 (three) times daily. [facility] cyclobenzap rine 10 mg tablet 2020-0 9-17 00:00: 00 Yes [id number] 10mg Take 1 tablet by mouth 3 (three) times daily. [facility] cyclobenzap rine 10 mg tablet 2020-0 9-17 00:00: 00 Yes [id number] 10mg Take 1 tablet by mouth 3 (three) times daily. [facility] cyclobenzap rine 10 mg tablet 2020-0 9-17 00:00: 00 Yes [id number] 10mg Take 1 tablet by mouth 3 (three) times daily. [facility] cyclobenzap rine 10 mg tablet 2020-0 9-17 00:00: 00 Yes [id number] 10mg Take 1 tablet by mouth 3 (three) times daily. [facility] cyclobenzap rine 10 mg tablet 2020-0 9-17 00:00: 00 Yes [id number] 10mg Take 1 tablet by mouth 3 (three) times daily. [facility] cyclobenzap rine 10 mg tablet 2020-0 9-17 00:00: 00 Yes [id number] 10mg Take 1 tablet by mouth 3 (three) times daily. [facility] cyclobenzap rine 10 mg tablet 2020-0 9-17 00:00: 00 Yes [id number] 10mg Take 1 tablet by mouth 3 (three) times daily. [facility] cyclobenzap rine 10 mg tablet 2020-0 9-17 00:00: 00 Yes [id number] 10mg Take 1 tablet by mouth 3 (three) times daily. [facility] cyclobenzap rine 10 mg tablet 2020-0 9-17 00:00: 00 Yes [id number] 10mg Take 1 tablet by mouth 3 (three) times daily. [facility] cyclobenzap rine 10 mg tablet 2020-0 9-17 00:00: 00 Yes [id number] 10mg Take 1 tablet by mouth 3 (three) times daily. [facility] cyclobenzap rine 10 mg tablet 2020-0 9-17 00:00: 00 Yes [id number] 10mg Take 1 tablet by mouth 3 (three) times daily. [facility] cyclobenzap rine 10 mg tablet 2020-0 9-17 00:00: 00 Yes [id number] 10mg Take 1 tablet by mouth 3 (three) times daily. [facility] cyclobenzap rine 10 mg tablet 2020-0 9-17 00:00: 00 Yes [id number] 10mg Take 1 tablet by mouth 3 (three) times daily. [facility] cyclobenzap rine 10 mg tablet 04-13 00:00: 00 Yes [id number] 10mg Take 1 tablet by mouth 3 (three) times daily. [facility] cyclobenzap rine 10 mg tablet 04-13 00:00: 00 Yes [id number] 10mg Take 1 tablet by mouth 3 (three) times daily. [facility] cyclobenzap rine 10 mg tablet 04-13 00:00: 00 Yes [id number] 10mg Take 1 tablet by mouth 3 (three) times daily. [facility] cyclobenzap rine 10 mg tablet 04-13 00:00: 00 Yes [id number] 10mg Take 1 tablet by mouth 3 (three) times daily. [facility] cyclobenzap rine 10 mg tablet 04-13 00:00: 00 Yes [id number] 10mg Take 1 tablet by mouth 3 (three) times daily. [facility] Pristiq Pristiq - 00:00: 00 Yes Vanessa Cervantes 1 tablet [facility] Multivitami n Multivitami n Yes Vanessa Cervantes as directed [facility] Sertraline HCl Sertraline HCl Yes Vanessa Cervantes TAKE 1/2 TAB DAILY X 1 WEEK THEN TAKE 1 TABLET ONCE A DAY ORALLY 30 DAY(S) [facility] Multivitami n - Multivitami n - No 1{table t} QD Multivitam in - Desvenlafax ine Succinate ER 50 MG Desvenlafax ine Succinate ER 50 MG No Desvenlafa xine Succinate ER 50 MG Pristiq 50 MG Pristiq 50 MG No QD Pristiq 50 MG Pristiq 50 MG Pristiq 50 MG No 1{table t} QD Pristiq 50 MG Multivitami n - Multivitami n - No 1{table t} QD Multivitam in - Desvenlafax ine Succinate ER 50 MG Desvenlafax ine Succinate ER 50 MG No Desvenlafa xine Succinate ER 50 MG Pristiq 50 MG Pristiq 50 MG No 1{table t} QD Pristiq 50 MG Pristiq 50 MG Pristiq 50 MG No QD Pristiq 50 MG Xanax 0.25 MG Xanax 0.25 MG No 1{table t} Xanax 0.25 MG Pristiq 50 MG Pristiq 50 MG No QD Pristiq 50 MG Pristiq 50 MG Pristiq 50 MG No 1{table t} QD Pristiq 50 MG Desvenlafax ine Succinate ER 50 MG Desvenlafax ine Succinate ER 50 MG No Desvenlafa xine Succinate ER 50 MG Multivitami n - Multivitami n - No 1{table t} QD Multivitam in - Desvenlafax ine Succinate ER 50 MG Desvenlafax ine Succinate ER 50 MG No Desvenlafa xine Succinate ER 50 MG Multivitami n - Multivitami n - No 1{table t} QD Multivitam in - Pristiq 50 MG Pristiq 50 MG No 1{table t} QD Pristiq 50 MG Pristiq 50 MG Pristiq 50 MG No QD Pristiq 50 MG Desvenlafax ine Succinate ER 50 MG Desvenlafax ine Succinate ER 50 MG No Desvenlafa xine Succinate ER 50 MG Multivitami n - Multivitami n - No 1{table t} QD Multivitam in - Pristiq 50 MG Pristiq 50 MG No 1{table t} QD Pristiq 50 MG Pristiq 50 MG Pristiq 50 MG No QD Pristiq 50 MG Xanax 0.25 MG Xanax 0.25 MG No 1{table t} Xanax 0.25 MG Multivitami n - Multivitami n - No 1{table t} QD Multivitam in - Pristiq 25 MG Pristiq 25 MG No 1{table t} QD Pristiq 25 MG Desvenlafax ine Succinate ER 50 MG Desvenlafax ine Succinate ER 50 MG No Desvenlafa xine Succinate ER 50 MG Xanax 0.25 MG Xanax 0.25 MG No 1{table t} Xanax 0.25 MG Multivitami n - Multivitami n - No 1{table t} QD Multivitam in - Pristiq 25 MG Pristiq 25 MG No 1{table t} QD Pristiq 25 MG Desvenlafax ine Succinate ER 50 MG Desvenlafax ine Succinate ER 50 MG No Desvenlafa xine Succinate ER 50 MG Xanax 0.25 MG Xanax 0.25 MG No 1{table t} Xanax 0.25 MG Multivitami n - Multivitami n - No 1{table t} QD Multivitam in - Pristiq 25 MG Pristiq 25 MG No 1{table t} QD Pristiq 25 MG Desvenlafax ine Succinate ER 50 MG Desvenlafax ine Succinate ER 50 MG No Desvenlafa xine Succinate ER 50 MG Desvenlafax ine Succinate ER 50 MG Desvenlafax ine Succinate ER 50 MG No Desvenlafa xine Succinate ER 50 MG Pristiq 50 MG Pristiq 50 MG No 1{table t} QD Pristiq 50 MG Multivitami n - Multivitami n - No 1{table t} QD Multivitam in - Desvenlafax ine Succinate ER 50 MG Desvenlafax ine Succinate ER 50 MG No Desvenlafa xine Succinate ER 50 MG Multivitami n - Multivitami n - No 1{table t} QD Multivitam in - Pristiq 50 MG Pristiq 50 MG No 1{table t} QD Pristiq 50 MG Pristiq 50 MG Pristiq 50 MG No QD Pristiq 50 MG Pristiq 25 MG Pristiq 25 MG No 1{table t} QD Pristiq 25 MG Pristiq 50 MG Pristiq 50 MG No QD Pristiq 50 MG Multivitami n - Multivitami n - No 1{table t} QD Multivitam in - Pristiq 25 MG Pristiq 25 MG No 1{table t} QD Pristiq 25 MG Desvenlafax ine Succinate ER 50 MG Desvenlafax ine Succinate ER 50 MG No Desvenlafa xine Succinate ER 50 MG Multivitami n - Multivitami n - No 1{table t} QD Multivitam in - Pristiq 50 MG Pristiq 50 MG No QD Pristiq 50 MG Immunizations Ordered Immunization Name Filled Immunization Name Date Status Comments Source Flucelvax - single dose syringe Flucelvax - single dose syringe 2022-04-19 11:33:00 Completed [facility] Flucelvax - single dose syringe Flucelvax - single dose syringe 2022-04-19 11:33:00 Completed [facility] Flucelvax - single dose syringe Flucelvax - single dose syringe 2022-04-19 11:33:00 Completed [facility] SARS-COV-2 COVID-19 PFIZER VACCINE 2020-11-06 00:00:[address] [facility] SARS-COV-2 COVID-19 PFIZER VACCINE 2020-11-06 00:00:[address] [facility] SARS-COV-2 COVID-19 PFIZER VACCINE 2020-11-06 00:00:[address] [facility] SARS-COV-2 COVID-19 PFIZER VACCINE 2020-11-06 00:00:[address] [facility] SARS-COV-2 COVID-19 PFIZER VACCINE 2020-11-06 00:00:[address] [facility] SARS-COV-2 COVID-19 PFIZER VACCINE 2020-11-06 00:00:[address] [facility] SARS-COV-2 COVID-19 PFIZER VACCINE 2020-11-06 00:00:[address] [facility] SARS-COV-2 COVID-19 PFIZER VACCINE 2020-11-06 00:00:[address] [facility] SARS-COV-2 COVID-19 PFIZER VACCINE 2020-11-06 00:00:[address] [facility] SARS-COV-2 COVID-19 PFIZER VACCINE 2020-11-06 00:00:[address] [facility] SARS-COV-2 COVID-19 PFIZER VACCINE 2020-11-06 00:00:[address] [facility] SARS-COV-2 COVID-19 PFIZER VACCINE 2020-11-06 00:00:[address] [facility] SARS-COV-2 COVID-19 PFIZER VACCINE 2020-11-06 00:00:[address] [facility] SARS-COV-2 COVID-19 PFIZER VACCINE 2020-11-06 00:00:[address] [facility] SARS-COV-2 COVID-19 PFIZER VACCINE 2020-11-06 00:00:[address] [facility] SARS-COV-2 COVID-19 PFIZER VACCINE 2020-11-06 00:00:[address] [facility] SARS-COV-2 COVID-19 PFIZER VACCINE 2020-11-06 00:00:[address] [facility] SARS-COV-2 COVID-19 PFIZER VACCINE 2020-11-06 00:00:[address] [facility] SARS-COV-2 COVID-19 PFIZER VACCINE 2020-11-06 00:00:[address] [facility] SARS-COV-2 COVID-19 PFIZER VACCINE 2020-11-06 00:00:[address] [facility] SARS-COV-2 COVID-19 PFIZER VACCINE 2020-11-06 00:00:[address] [facility] SARS-COV-2 COVID-19 PFIZER VACCINE 2020-11-06 00:00:[address] [facility] SARS-COV-2 COVID-19 PFIZER VACCINE 2020-11-06 00:00:[address] [facility] SARS-COV-2 COVID-19 PFIZER VACCINE 2020-11-06 00:00:[address] [facility] SARS-COV-2 COVID-19 PFIZER VACCINE 2020-11-06 00:00:[address] [facility] SARS-COV-2 COVID-19 PFIZER VACCINE 2020-11-06 00:00:[address] [facility] SARS-COV-2 COVID-19 PFIZER VACCINE 2020-11-06 00:00:[address] [facility] SARS-COV-2 COVID-19 PFIZER VACCINE 2020-11-06 00:00:[address] [facility] SARS-COV-2 COVID-19 PFIZER VACCINE 2020-11-06 00:00:[address] [facility] SARS-COV-2 COVID-19 PFIZER VACCINE 2020-11-06 00:00:[address] [facility] SARS-COV-2 COVID-19 PFIZER VACCINE 2020-11-06 00:00:[address] [facility] SARS-COV-2 COVID-19 PFIZER VACCINE 2020-11-06 00:00:[address] [facility] SARS-COV-2 COVID-19 PFIZER VACCINE 2020-11-06 00:00:[address] [facility] SARS-COV-2 COVID-19 PFIZER VACCINE 2020-11-06 00:00:[address] [facility] SARS-COV-2 COVID-19 PFIZER VACCINE 2020-11-06 00:00:[address] [facility] SARS-COV-2 COVID-19 PFIZER VACCINE 2020-11-06 00:00:[address] [facility] SARS-COV-2 COVID-19 PFIZER VACCINE 2020-11-06 00:00:[address] [facility] SARS-COV-2 COVID-19 PFIZER VACCINE 2020-11-06 00:00:[address] [facility] SARS-COV-2 COVID-19 PFIZER VACCINE 2020-11-06 00:00:[address] [facility] SARS-COV-2 COVID-19 PFIZER VACCINE 2020-11-06 00:00:[address] [facility] SARS-COV-2 COVID-19 PFIZER VACCINE 2020-10-16 00:00:[address] [facility] SARS-COV-2 COVID-19 PFIZER VACCINE 2020-10-16 00:00:[address] [facility] SARS-COV-2 COVID-19 PFIZER VACCINE 2020-10-16 00:00:[address] [facility] SARS-COV-2 COVID-19 PFIZER VACCINE 2020-10-16 00:00:[address] [facility] SARS-COV-2 COVID-19 PFIZER VACCINE 2020-10-16 00:00:[address] [facility] SARS-COV-2 COVID-19 PFIZER VACCINE 2020-10-16 00:00:[address] [facility] SARS-COV-2 COVID-19 PFIZER VACCINE 2020-10-16 00:00:[address] [facility] SARS-COV-2 COVID-19 PFIZER VACCINE 2020-10-16 00:00:[address] [facility] SARS-COV-2 COVID-19 PFIZER VACCINE 2020-10-16 00:00:[address] [facility] SARS-COV-2 COVID-19 PFIZER VACCINE 2020-10-16 00:00:[address] [facility] SARS-COV-2 COVID-19 PFIZER VACCINE 2020-10-16 00:00:[address] [facility] SARS-COV-2 COVID-19 PFIZER VACCINE 2020-10-16 00:00:[address] [facility] SARS-COV-2 COVID-19 PFIZER VACCINE 2020-10-16 00:00:[address] [facility] SARS-COV-2 COVID-19 PFIZER VACCINE 2020-10-16 00:00:[address] [facility] SARS-COV-2 COVID-19 PFIZER VACCINE 2020-10-16 00:00:[address] [facility] SARS-COV-2 COVID-19 PFIZER VACCINE 2020-10-16 00:00:[address] [facility] SARS-COV-2 COVID-19 PFIZER VACCINE 2020-10-16 00:00:[address] [facility] SARS-COV-2 COVID-19 PFIZER VACCINE 2020-10-16 00:00:[address] [facility] SARS-COV-2 COVID-19 PFIZER VACCINE 2020-10-16 00:00:[address] [facility] SARS-COV-2 COVID-19 PFIZER VACCINE 2020-10-16 00:00:[address] [facility] SARS-COV-2 COVID-19 PFIZER VACCINE 2020-10-16 00:00:[address] [facility] SARS-COV-2 COVID-19 PFIZER VACCINE 2020-10-16 00:00:[address] [facility] SARS-COV-2 COVID-19 PFIZER VACCINE 2020-10-16 00:00:[address] [facility] SARS-COV-2 COVID-19 PFIZER VACCINE 2020-10-16 00:00:[address] [facility] SARS-COV-2 COVID-19 PFIZER VACCINE 2020-10-16 00:00:[address] [facility] SARS-COV-2 COVID-19 PFIZER VACCINE 2020-10-16 00:00:[address] [facility] SARS-COV-2 COVID-19 PFIZER VACCINE 2020-10-16 00:00:[address] [facility] SARS-COV-2 COVID-19 PFIZER VACCINE 2020-10-16 00:00:[address] [facility] SARS-COV-2 COVID-19 PFIZER VACCINE 2020-10-16 00:00:[address] [facility] SARS-COV-2 COVID-19 PFIZER VACCINE 2020-10-16 00:00:[address] [facility] SARS-COV-2 COVID-19 PFIZER VACCINE 2020-10-16 00:00:[address] [facility] SARS-COV-2 COVID-19 PFIZER VACCINE 2020-10-16 00:00:[address] [facility] SARS-COV-2 COVID-19 PFIZER VACCINE 2020-10-16 00:00:[address] [facility] SARS-COV-2 COVID-19 PFIZER VACCINE 2020-10-16 00:00:[address] [facility] SARS-COV-2 COVID-19 PFIZER VACCINE 2020-10-16 00:00:[address] [facility] SARS-COV-2 COVID-19 PFIZER VACCINE 2020-10-16 00:00:[address] [facility] SARS-COV-2 COVID-19 PFIZER VACCINE 2020-10-16 00:00:[address] [facility] SARS-COV-2 COVID-19 PFIZER VACCINE 2020-10-16 00:00:[address] [facility] SARS-COV-2 COVID-19 PFIZER VACCINE 2020-10-16 00:00:[address] [facility] SARS-COV-2 COVID-19 PFIZER VACCINE 2020-10-16 00:00:[address] [facility] Afluria single dose Afluria single dose 2020-05-04 10:08:00 Completed [facility] Afluria single dose Afluria single dose 2020-05-04 10:08:00 Completed [facility] Afluria single dose Afluria single dose 2020-05-04 10:08:00 Completed [facility] Afluria single dose Afluria single dose 2020-05-04 10:08:00 Completed [facility] Afluria single dose Afluria single dose 2020-05-04 10:08:00 Completed [facility] Afluria single dose Afluria single dose 2020-05-04 10:08:00 Completed [facility] Afluria single dose Afluria single dose 2020-05-04 10:08:00 Completed [facility] Afluria single dose Afluria single dose 2020-05-04 10:08:00 Completed [facility] Influenza Virus Vaccine 2020-05-04 00:00:00 Completed [facility] Influenza Virus Vaccine 2020-05-04 00:00:00 Completed [facility] Influenza Virus Vaccine 2020-05-04 00:00:00 Completed [facility] Influenza Virus Vaccine 2020-05-04 00:00:00 Completed [facility] Influenza Virus Vaccine 2020-05-04 00:00:00 Completed [facility] Influenza Virus Vaccine 2020-05-04 00:00:00 Completed [facility] Influenza Virus Vaccine 2020-05-04 00:00:[address] [facility] Influenza Virus Vaccine 2020-05-04 00:00:[address] [facility] Influenza Virus Vaccine 2020-05-04 00:00:[address] [facility] Influenza Virus Vaccine 2020-05-04 00:00:[address] [facility] Influenza Virus Vaccine 2020-05-04 00:00:[address] [facility] Influenza Virus Vaccine 2020-05-04 00:00:00 Completed [facility] Influenza Virus Vaccine 2020-05-04 00:00:00 Completed [facility] Influenza Virus Vaccine 2020-05-04 00:00:00 Completed [facility] Influenza Virus Vaccine 2020-05-04 00:00:00 Completed [facility] Influenza Virus Vaccine 2020-05-04 00:00:00 Completed [facility] Influenza Virus Vaccine 2020-05-04 00:00:00 Completed [facility] Influenza Virus Vaccine 2020-05-04 00:00:00 Completed [facility] Influenza Virus Vaccine 2020-05-04 00:00:00 Completed [facility] Influenza Virus Vaccine 2020-05-04 00:00:00 Completed [facility] Influenza Virus Vaccine 2020-05-04 00:00:00 Completed [facility] Influenza Virus Vaccine 2020-05-04 00:00:00 Completed [facility] Influenza Virus Vaccine 2020-05-04 00:00:00 Completed [facility] Influenza Virus Vaccine 2020-05-04 00:00:[address] [facility] Influenza Virus Vaccine 2020-05-04 00:00:00 Completed [facility] Influenza Virus Vaccine 2020-05-04 00:00:[address] [facility] Influenza Virus Vaccine 2020-05-04 00:00:[address] [facility] Influenza Virus Vaccine 2020-05-04 00:00:[address] [facility] Influenza Virus Vaccine 2020-05-04 00:00:[address] [facility] Influenza Virus Vaccine 2020-05-04 00:00:[address] [facility] Influenza Virus Vaccine 2020-05-04 00:00:[address] [facility] Influenza Virus Vaccine 2020-05-04 00:00:[address] [facility] Influenza Virus Vaccine 2020-05-04 00:00:[address] [facility] Influenza Virus Vaccine 2020-05-04 00:00:[address] [facility] Influenza Virus Vaccine 2020-05-04 00:00:[address] [facility] Influenza Virus Vaccine 2020-05-04 00:00:[address] [facility] Influenza Virus Vaccine 2020-05-04 00:00:[address] [facility] Influenza Virus Vaccine 2020-05-04 00:00:[address] [facility] Influenza Virus Vaccine 2020-05-04 00:00:[address] [facility] Influenza Virus Vaccine 2020-05-04 00:00:[address] [facility] Influenza Virus Vaccine 2019-06-09 00:00:[address] [facility] Influenza Virus Vaccine 2019-06-09 00:00:[address] [facility] Influenza Virus Vaccine 2019-06-09 00:00:[address] [facility] Influenza Virus Vaccine 2019-06-09 00:00:[address] [facility] Influenza Virus Vaccine 2019-06-09 00:00:00 Completed [facility] Influenza Virus Vaccine 2019-06-09 00:00:[address] [facility] Influenza Virus Vaccine 2019-06-09 00:00:[address] [facility] Influenza Virus Vaccine 2019-06-09 00:00:[address] [facility] Influenza Virus Vaccine 2019-06-09 00:00:[address] [facility] Influenza Virus Vaccine 2019-06-09 00:00:[address] [facility] Influenza Virus Vaccine 2019-06-09 00:00:[address] [facility] Influenza Virus Vaccine 2019-06-09 00:00:00 Completed [facility] Influenza Virus Vaccine 2019-06-09 00:00:00 Completed [facility] Influenza Virus Vaccine 2019-06-09 00:00:00 Completed [facility] [place] Influenza Virus Vaccine 2019-06-09 00:00:00 Completed [facility] [place] Influenza Virus Vaccine 2019-06-09 00:00:00 Completed [facility] [place] Influenza Virus Vaccine 2019-06-09 00:00:00 Completed [facility] Influenza Virus Vaccine 2019-06-09 00:00:00 Completed [facility] Influenza Virus Vaccine 2019-06-09 00:00:00 Completed [facility] Influenza Virus Vaccine 2019-06-09 00:00:00 Completed [facility] Influenza Virus Vaccine 2019-06-09 00:00:00 Completed [facility] Influenza Virus Vaccine 2019-06-09 00:00:00 Completed [facility] Influenza Virus Vaccine 2019-06-09 00:00:00 Completed [facility] Influenza Virus Vaccine 2019-06-09 00:00:00 Completed [facility] Influenza Virus Vaccine 2019-06-09 00:00:00 Completed [facility] Influenza Virus Vaccine 2019-06-09 00:00:00 Completed [facility] Influenza Virus Vaccine 2019-06-09 00:00:00 Completed [facility] Influenza Virus Vaccine 2019-06-09 00:00:00 Completed [facility] Influenza Virus Vaccine 2019-06-09 00:00:00 Completed [facility] Influenza Virus Vaccine 2019-06-09 00:00:00 Completed [facility] Influenza Virus Vaccine 2019-06-09 00:00:00 Completed [facility] Influenza Virus Vaccine 2019-06-09 00:00:00 Completed [facility] Influenza Virus Vaccine 2019-06-09 00:00:00 Completed [facility] Influenza Virus Vaccine 2019-06-09 00:00:00 Completed [facility] [place] Influenza Virus Vaccine 2019-06-09 00:00:00 Completed [facility] Influenza Virus Vaccine 2019-06-09 00:00:00 Completed [facility] Influenza Virus Vaccine 2019-06-09 00:00:00 Completed [facility] Influenza Virus Vaccine 2019-06-09 00:00:[address] [facility] Influenza Virus Vaccine 2019-06-09 00:00:[address] [facility] Influenza Virus Vaccine 2019-06-09 00:00:[address] [facility] Flucelvax - multidose vial Flucelvax - multidose vial 2019-05-07 08:25:00 Completed [facility] Flucelvax - multidose vial Flucelvax - multidose vial 2019-05-07 08:25:00 Completed [facility] Flucelvax - multidose vial Flucelvax - multidose vial 2019-05-07 08:25:00 Completed [facility] Flucelvax - multidose vial Flucelvax - multidose vial 2019-05-07 08:25:00 Completed [facility] Flucelvax - multidose vial Flucelvax - multidose vial 2019-05-07 08:25:00 Completed [facility] Flucelvax - multidose vial Flucelvax - multidose vial 2019-05-07 08:25:00 Completed [facility] Flucelvax - multidose vial Flucelvax - multidose vial 2019-05-07 08:25:00 Completed [facility] Flucelvax - multidose vial Flucelvax - multidose vial 2019-05-07 08:25:00 Completed [facility] Flucelvax - multidose vial Flucelvax - multidose vial 2019-05-07 00:00:00 Completed [facility] HPV9 2017-06-23 00:00:[address] [facility] HPV9 2017-06-23 00:00:[address] [facility] HPV9 2017-06-23 00:00:[address] [facility] HPV9 2017-06-23 00:00:[address] [facility] HPV9 2017-06-23 00:00:[address] [facility] HPV9 2017-06-23 00:00:[address] [facility] HPV9 2017-06-23 00:00:[address] [facility] HPV9 2017-06-23 00:00:00 Completed [facility] HPV9 2017-06-23 00:00:00 Completed [facility] HPV9 2017-06-23 00:00:00 Completed [facility] HPV9 2017-06-23 00:00:00 Completed [facility] HPV9 2017-06-23 00:00:00 Completed [facility] HPV9 2017-06-23 00:00:[address] [facility] HPV9 2017-06-23 00:00:[address] [facility] HPV9 2017-06-23 00:00:00 Completed [facility] HPV9 2017-06-23 00:00:00 Completed [facility] HPV9 2017-06-23 00:00:00 Completed [facility] HPV9 2017-06-23 00:00:00 Completed [facility] HPV9 2017-06-23 00:00:00 Completed [facility] HPV9 2017-06-23 00:00:[address] [facility] HPV9 2017-06-23 00:00:00 Completed [facility] HPV9 2017-06-23 00:00:00 Completed [facility] HPV9 2017-06-23 00:00:00 Completed [facility] HPV9 2017-06-23 00:00:00 Completed [facility] HPV9 2017-06-23 00:00:00 Completed [facility] HPV9 2017-06-23 00:00:00 Completed [facility] HPV9 2017-06-23 00:00:00 Completed [facility] HPV9 2017-06-23 00:00:00 Completed [facility] HPV9 2017-06-23 00:00:00 Completed [facility] HPV9 2017-06-23 00:00:00 Completed [facility] HPV9 2017-06-23 00:00:00 Completed [facility] HPV9 2017-06-23 00:00:00 Completed [facility] HPV9 2017-06-23 00:00:00 Completed [facility] HPV9 2017-06-23 00:00:00 Completed [facility] HPV9 2017-06-23 00:00:00 Completed [facility] HPV9 2017-06-23 00:00:00 Completed [facility] HPV9 2017-06-23 00:00:00 Completed [facility] HPV9 2017-06-23 00:00:00 Completed [facility] HPV9 2017-06-23 00:00:00 Completed [facility] HPV9 2017-06-23 00:00:00 Completed [facility] HPV9 2017-02-17 00:00:00 Completed [facility] HPV9 2017-02-17 00:00:00 [facility] [facility] HPV9 2017-02-17 00:00:00 Completed [facility] HPV9 2017-02-17 00:00:[address] [facility] HPV9 2017-02-17 00:00:[address] [facility] HPV9 2017-02-17 00:00:[address] [facility] HPV9 2017-02-17 00:00:[address] [facility] HPV9 2017-02-17 00:00:00 Completed [facility] HPV9 2017-02-17 00:00:00 Completed [facility] HPV9 2017-02-17 00:00:00 Completed [facility] HPV9 2017-02-17 00:00:00 Completed [facility] HPV9 2017-02-17 00:00:00 Completed [facility] HPV9 2017-02-17 00:00:00 Completed [facility] HPV9 2017-02-17 00:00:00 Completed [facility] HPV9 2017-02-17 00:00:00 Completed [facility] HPV9 2017-02-17 00:00:00 Completed [facility] HPV9 2017-02-17 00:00:00 Completed [facility] HPV9 2017-02-17 00:00:00 Completed [facility] HPV9 2017-02-17 00:00:00 Completed [facility] HPV9 2017-02-17 00:00:00 Completed [facility] HPV9 2017-02-17 00:00:00 Completed [facility] HPV9 2017-02-17 00:00:00 Completed [facility] HPV9 2017-02-17 00:00:00 Completed [facility] HPV9 2017-02-17 00:00:00 Completed [facility] HPV9 2017-02-17 00:00:00 Completed [facility] HPV9 2017-02-17 00:00:00 Completed [facility] HPV9 2017-02-17 00:00:00 Completed [facility] HPV9 2017-02-17 00:00:00 Completed [facility] HPV9 2017-02-17 00:00:[address] [facility] HPV9 2017-02-17 00:00:[address] [facility] HPV9 2017-02-17 00:00:00 Completed [facility] HPV9 2017-02-17 00:00:[address] [facility] HPV9 2017-02-17 00:00:[address] [facility] HPV9 2017-02-17 00:00:[address] [facility] HPV9 2017-02-17 00:00:[address] [facility] HPV9 2017-02-17 00:00:[address] [facility] HPV9 2017-02-17 00:00:00 Completed [facility] HPV9 2017-02-17 00:00:00 Completed [facility] HPV9 2017-02-17 00:00:00 Completed [facility] HPV9 2017-02-17 00:00:00 Completed [facility] HPV9 2016-12-16 00:00:00 Completed [facility] HPV9 2016-12-16 00:00:00 Completed [facility] HPV9 2016-12-16 00:00:00 Completed [facility] HPV9 2016-12-16 00:00:00 Completed [facility] HPV9 2016-12-16 00:00:00 Completed [facility] HPV9 2016-12-16 00:00:00 Completed [facility] HPV9 2016-12-16 00:00:00 Completed [facility] HPV9 2016-12-16 00:00:00 Completed [facility] HPV9 2016-12-16 00:00:00 Completed [facility] HPV9 2016-12-16 00:00:00 Completed [facility] HPV9 2016-12-16 00:00:[address] [facility] HPV9 2016-12-16 00:00:[address] [facility] HPV9 2016-12-16 00:00:[address] [facility] HPV9 2016-12-16 00:00:00 Completed [facility] HPV9 2016-12-16 00:00:[address] [facility] HPV9 2016-12-16 00:00:[address] [facility] HPV9 2016-12-16 00:00:00 Completed [facility] HPV9 2016-12-16 00:00:00 Completed [facility] HPV9 2016-12-16 00:00:[address] [facility] HPV9 2016-12-16 00:00:[address] [facility] HPV9 2016-12-16 00:00:[address] [facility] HPV9 2016-12-16 00:00:[address] [facility] HPV9 2016-12-16 00:00:[address] [facility] HPV9 2016-12-16 00:00:[address] [facility] HPV9 2016-12-16 00:00:00 Completed [facility] HPV9 2016-12-16 00:00:[address] [facility] HPV9 2016-12-16 00:00:00 Completed [facility] HPV9 2016-12-16 00:00:00 Completed [facility] HPV9 2016-12-16 00:00:00 Completed [facility] HPV9 2016-12-16 00:00:00 Completed [facility] HPV9 2016-12-16 00:00:00 Completed [facility] HPV9 2016-12-16 00:00:00 Completed [facility] HPV9 2016-12-16 00:00:00 Completed [facility] HPV9 2016-12-16 00:00:00 Completed [facility] HPV9 2016-12-16 00:00:00 Completed [facility] HPV9 2016-12-16 00:00:00 Completed [facility] HPV9 2016-12-16 00:00:00 Completed [facility] HPV9 2016-12-16 00:00:00 Completed [facility] HPV9 2016-12-16 00:00:[address] [facility] HPV9 2016-12-16 00:00:[address] [facility] HPV9 Unknown Completed [facility] HPV9 Unknown Completed [facility] HPV9 Unknown Completed [facility] Influenza Virus Vaccine Unknown Completed [facility] Influenza Virus Vaccine Unknown Completed [facility] SARS-COV-2 COVID-19 PFIZER VACCINE Unknown Completed [facility] SARS-COV-2 COVID-19 PFIZER VACCINE Unknown Completed [facility] HPV9 Unknown Completed [facility] HPV9 Unknown Completed [facility] HPV9 Unknown Completed [facility] Influenza Virus Vaccine Unknown Completed [facility] Influenza Virus Vaccine Unknown Completed [facility] SARS-COV-2 COVID-19 PFIZER VACCINE Unknown Completed [facility] SARS-COV-2 COVID-19 PFIZER VACCINE Unknown Completed [facility] HPV9 Unknown Completed [facility] HPV9 Unknown Completed [facility] HPV9 Unknown Completed [facility] Influenza Virus Vaccine Unknown Completed [facility] Influenza Virus Vaccine Unknown Completed [facility] SARS-COV-2 COVID-19 PFIZER VACCINE Unknown Completed [facility] SARS-COV-2 COVID-19 PFIZER VACCINE Unknown Completed [facility] HPV9 Unknown Completed [facility] HPV9 Unknown Completed [facility] HPV9 Unknown Completed [facility] Influenza Virus Vaccine Unknown Completed [facility] Influenza Virus Vaccine Unknown Completed [facility] SARS-COV-2 COVID-19 PFIZER VACCINE Unknown Completed [facility] SARS-COV-2 COVID-19 PFIZER VACCINE Unknown Completed [facility] HPV9 Unknown Completed [facility] HPV9 Unknown Completed [facility] HPV9 Unknown Completed [facility] Influenza Virus Vaccine Unknown Completed [facility] Influenza Virus Vaccine Unknown Completed [facility] SARS-COV-2 COVID-19 PFIZER VACCINE Unknown Completed [facility] SARS-COV-2 COVID-19 PFIZER VACCINE Unknown Completed [facility] HPV9 Unknown Completed [facility] HPV9 Unknown Completed [facility] HPV9 Unknown Completed [facility] Influenza Virus Vaccine Unknown Completed [facility] Influenza Virus Vaccine Unknown Completed [facility] SARS-COV-2 COVID-19 PFIZER VACCINE Unknown Completed [facility] SARS-COV-2 COVID-19 PFIZER VACCINE Unknown Completed [facility] HPV9 Unknown Completed [facility] HPV9 Unknown Completed [facility] HPV9 Unknown Completed [facility] Influenza Virus Vaccine Unknown Completed [facility] Influenza Virus Vaccine Unknown Completed [facility] SARS-COV-2 COVID-19 PFIZER VACCINE Unknown Completed [facility] SARS-COV-2 COVID-19 PFIZER VACCINE Unknown Completed [facility] HPV9 Unknown Completed [facility] HPV9 Unknown Completed [facility] HPV9 Unknown Completed [facility] Influenza Virus Vaccine Unknown Completed [facility] Influenza Virus Vaccine Unknown Completed [facility] SARS-COV-2 COVID-19 PFIZER VACCINE Unknown Completed [facility] SARS-COV-2 COVID-19 PFIZER VACCINE Unknown Completed [facility] HPV9 Unknown Completed [facility] HPV9 Unknown Completed [facility] HPV9 Unknown Completed [facility] Influenza Virus Vaccine Unknown Completed [facility] Influenza Virus Vaccine Unknown Completed [facility] SARS-COV-2 COVID-19 PFIZER VACCINE Unknown Completed [facility] SARS-COV-2 COVID-19 PFIZER VACCINE Unknown Completed [facility] HPV9 Unknown Completed [facility] HPV9 Unknown Completed [facility] HPV9 Unknown Completed [facility] Influenza Virus Vaccine Unknown Completed [facility] Influenza Virus Vaccine Unknown Completed [facility] SARS-COV-2 COVID-19 PFIZER VACCINE Unknown Completed [facility] SARS-COV-2 COVID-19 PFIZER VACCINE Unknown Completed [facility] HPV9 Unknown Completed [facility] HPV9 Unknown Completed [facility] HPV9 Unknown Completed [facility] Influenza Virus Vaccine Unknown Completed [facility] Influenza Virus Vaccine Unknown Completed [facility] SARS-COV-2 COVID-19 PFIZER VACCINE Unknown Completed [facility] SARS-COV-2 COVID-19 PFIZER VACCINE Unknown Completed [facility] HPV9 Unknown Completed [facility] HPV9 Unknown Completed [facility] HPV9 Unknown Completed [facility] Influenza Virus Vaccine Unknown Completed [facility] Influenza Virus Vaccine Unknown Completed [facility] SARS-COV-2 COVID-19 PFIZER VACCINE Unknown Completed [facility] SARS-COV-2 COVID-19 PFIZER VACCINE Unknown Completed [facility] HPV9 Unknown Completed [facility] HPV9 Unknown Completed [facility] HPV9 Unknown Completed [facility] Influenza Virus Vaccine Unknown Completed [facility] Influenza Virus Vaccine Unknown Completed [facility] SARS-COV-2 COVID-19 PFIZER VACCINE Unknown Completed [facility] SARS-COV-2 COVID-19 PFIZER VACCINE Unknown Completed [facility] HPV9 Unknown Completed [facility] HPV9 Unknown Completed [facility] HPV9 Unknown Completed [facility] Influenza Virus Vaccine Unknown Completed [facility] Influenza Virus Vaccine Unknown Completed [facility] SARS-COV-2 COVID-19 PFIZER VACCINE Unknown Completed [facility] SARS-COV-2 COVID-19 PFIZER VACCINE Unknown Completed [facility] HPV9 Unknown Completed [facility] HPV9 Unknown Completed [facility] HPV9 Unknown Completed [facility] Influenza Virus Vaccine Unknown Completed [facility] Influenza Virus Vaccine Unknown Completed [facility] SARS-COV-2 COVID-19 PFIZER VACCINE Unknown Completed [facility] SARS-COV-2 COVID-19 PFIZER VACCINE Unknown Completed [facility] HPV9 Unknown Completed [facility] HPV9 Unknown Completed [facility] HPV9 Unknown Completed [facility] Influenza Virus Vaccine Unknown Completed [facility] Influenza Virus Vaccine Unknown Completed [facility] SARS-COV-2 COVID-19 PFIZER VACCINE Unknown Completed [facility] SARS-COV-2 COVID-19 PFIZER VACCINE Unknown Completed [facility] HPV9 Unknown Completed [facility] HPV9 Unknown Completed [facility] HPV9 Unknown Completed [facility] Influenza Virus Vaccine Unknown Completed [facility] Influenza Virus Vaccine Unknown Completed [facility] SARS-COV-2 COVID-19 PFIZER VACCINE Unknown Completed [facility] SARS-COV-2 COVID-19 PFIZER VACCINE Unknown Completed [facility] HPV9 Unknown Completed [facility] HPV9 Unknown Completed [facility] HPV9 Unknown Completed [facility] Influenza Virus Vaccine Unknown Completed [facility] Influenza Virus Vaccine Unknown Completed [facility] SARS-COV-2 COVID-19 PFIZER VACCINE Unknown Completed [facility] SARS-COV-2 COVID-19 PFIZER VACCINE Unknown Completed [facility] HPV9 Unknown Completed [facility] HPV9 Unknown Completed [facility] HPV9 Unknown Completed [facility] Influenza Virus Vaccine Unknown Completed [facility] Influenza Virus Vaccine Unknown Completed [facility] SARS-COV-2 COVID-19 PFIZER VACCINE Unknown Completed [facility] SARS-COV-2 COVID-19 PFIZER VACCINE Unknown Completed [facility] HPV9 Unknown Completed [facility] HPV9 Unknown Completed [facility] HPV9 Unknown Completed [facility] Influenza Virus Vaccine Unknown Completed [facility] Influenza Virus Vaccine Unknown Completed [facility] SARS-COV-2 COVID-19 PFIZER VACCINE Unknown Completed [facility] SARS-COV-2 COVID-19 PFIZER VACCINE Unknown Completed [facility] HPV9 Unknown Completed [facility] HPV9 Unknown Completed [facility] HPV9 Unknown Completed [facility] Influenza Virus Vaccine Unknown Completed [facility] Influenza Virus Vaccine Unknown Completed [facility] SARS-COV-2 COVID-19 PFIZER VACCINE Unknown Completed [facility] SARS-COV-2 COVID-19 PFIZER VACCINE Unknown Completed [facility] HPV9 Unknown Completed [facility] HPV9 Unknown Completed [facility] HPV9 Unknown Completed [facility] Influenza Virus Vacc[facility] Unknown Completed [facility] Influenza Virus Vaccine Unknown Completed [facility] SARS-COV-2 COVID-19 PFIZER VACCINE Unknown Completed [facility] SARS-COV-2 COVID-19 PFIZER VACCINE Unknown Completed [facility] Afluria (IIV4) - 3 years and older - SDS - 0.5mL Afluria (IIV4) - 3 years and older - SDS - 0.5mL Unknown Completed [facility] Flucelvax (ccIIV4) - MDV - 0.5mL Flucelvax (ccIIV4) - MDV - 0.5mL Unknown Completed [facility] Flucelvax (ccIIV4) - SDS - 0.5mL Flucelvax (ccIIV4) - SDS - 0.5mL Unknown Completed [facility] Afluria (IIV4) - 3 years and older - SDS - 0.5mL Afluria (IIV4) - 3 years and older - SDS - 0.5mL Unknown Completed [facility] Flucelvax (ccIIV4) - MDV - 0.5mL Flucelvax (ccIIV4) - MDV - 0.5mL Unknown Completed [facility] Flucelvax (ccIIV4) - SDS - 0.5mL Flucelvax (ccIIV4) - SDS - 0.5mL Unknown Completed [facility] Afluria (IIV4) - 3 years and older - SDS - 0.5mL Afluria (IIV4) - 3 years and older - SDS - 0.5mL Unknown Completed [facility] Flucelvax (ccIIV4) - MDV - 0.5mL Flucelvax (ccIIV4) - MDV - 0.5mL Unknown Completed [facility] Flucelvax (ccIIV4) - SDS - 0.5mL Flucelvax (ccIIV4) - SDS - 0.5mL Unknown Completed [facility] Afluria (IIV4) - 3 years and older - SDS - 0.5mL Afluria (IIV4) - 3 years and older - SDS - 0.5mL Unknown Completed [facility] Flucelvax (ccIIV4) - MDV - 0.5mL Flucelvax (ccIIV4) - MDV - 0.5mL Unknown Completed [facility] Flucelvax (ccIIV4) - SDS - 0.5mL Flucelvax (ccIIV4) - SDS - 0.5mL Unknown Completed [facility] Vital Signs Vital Name Observation Time Observation Value Comments S ource Systolic blood pressure 2023-08-25 01:00:00 110 mm[Hg] [facility] Diastolic blood pressure 2023-08-25 01:00:00 68 mm[Hg] [facility] Heart rate 2023-08-25 01:00:00 69 /min [facility] Body temperature 2023-08-25 01:00:[address] [facility] Respiratory rate 2023-08-25 01:00:00 16 /min [facility] Oxygen saturation in Arterial blood by Pulse oximetry 2023-08-25 01:00:00 99 /min [facility] Body height 2023-08-24 23:23:00 157.5 cm [facility] Body weight 2023-08-24 23:23:00 63.504 kg [facility] BMI 2023-08-24 23:23:00 25.61 kg/m2 [facility] Systolic blood pressure 2023-08-15 15:19:00 111 mm[Hg] [facility] Diastolic blood pressure 2023-08-15 15:19:00 70 mm[Hg] [facility] Heart rate 2023-08-15 15:19:00 76 /min [facility] Respiratory rate 2023-08-15 15:19:00 18 /min [facility] Body height 2023-08-15 15:19:00 157.5 cm [facility] Body weight 2023-08-15 15:19:00 63.504 kg [facility] BMI 2023-08-15 15:19:00 25.61 kg/m2 [facility] Systolic blood pressure 2023-05-14 20:15:00 105 mm[Hg] [facility] Diastolic blood pressure 2023-05-14 20:15:00 67 mm[Hg] [facility] Heart rate 2023-05-14 20:15:00 67 /min [facility] Body temperature 2023-05-14 20:15:[address] [facility] Body weight 2023-05-14 20:15:00 61.598 kg [facility] BMI 2023-05-14 20:15:00 24.84 kg/m2 [facility] Systolic blood pressure 2023-04-15 18:45:00 104 mm[Hg] [facility] Diastolic blood pressure 2023-04-15 18:45:00 71 mm[Hg] [facility] Heart rate 2023-04-15 18:45:00 83 /min [facility] Body temperature 2023-04-15 18:45:[address] [facility] Body weight 2023-04-15 18:45:00 64.501 kg [facility] BMI 2023-04-15 18:45:00 26.01 kg/m2 [facility] height 2023-04-11 14:40:00 62 [in_i] Commo n [facility] weight 2023-04-11 14:40:00 130 [lb_av] Comm on [facility] bmi 2023-04-11 14:40:00 23.77 kg/m2 [facility] on [facility] Systolic blood pressure 2023-04-01 16:00:00 108 mm[Hg] [facility] Diastolic blood pressure 2023-04-01 16:00:00 75 mm[Hg] [facility] Heart rate 2023-04-01 16:00:00 78 /min [facility] Respiratory rate 2023-04-01 16:00:00 16 /min [facility] Oxygen saturation in Arterial blood by Pulse oximetry 2023-04-01 16:00:00 99 /min [facility] Body temperature 2023-04-01 14:57:[address] [facility] Systolic blood pressure 2023-04-01 16:00:00 108 mm[Hg] [facility] Diastolic blood pressure 2023-04-01 16:00:00 75 mm[Hg] [facility] Heart rate 2023-04-01 16:00:00 78 /min [facility] Respiratory rate 2023-04-01 16:00:00 16 /min [facility] Oxygen saturation in Arterial blood by Pulse oximetry 2023-04-01 16:00:00 99 /min [facility] Body temperature 2023-04-01 14:57:[address] [facility] Systolic blood pressure 2023-03-30 19:00:00 99 mm[Hg] [facility] Diastolic blood pressure 2023-03-30 19:00:00 70 mm[Hg] [facility] Heart rate 2023-03-30 19:00:00 65 /min [facility] Respiratory rate 2023-03-30 19:00:00 18 /min [facility] Oxygen saturation in Arterial blood by Pulse oximetry 2023-03-30 19:00:00 98 /min [facility] Body temperature 2023-03-30 17:50:[address] [facility] Body height 2023-03-30 17:50:00 157.5 cm [facility] Body weight 2023-03-30 17:50:00 64.411 kg [facility] BMI 2023-03-30 17:50:00 25.97 kg/m2 [facility] Systolic blood pressure 2023-03-27 20:08:00 105 mm[Hg] [facility] Diastolic blood pressure 2023-03-27 20:08:00 70 mm[Hg] [facility] Heart rate 2023-03-27 20:08:00 89 /min [facility] Body temperature 2023-03-27 20:08:[address] [facility] Body height 2023-03-27 20:08:00 157.5 cm [facility] Body weight 2023-03-27 20:08:00 64.411 kg [facility] BMI 2023-03-27 20:08:00 25.97 kg/m2 [facility] Systolic blood pressure 2023-03-21 19:05:00 118 mm[Hg] [facility] Diastolic blood pressure 2023-03-21 19:05:00 81 mm[Hg] [facility] Heart rate 2023-03-21 19:05:00 68 /min [facility] Body temperature 2023-03-21 19:05:[address] [facility] Respiratory rate 2023-03-21 19:05:00 16 /min [facility] Body height 2023-03-21 19:05:00 157.5 cm [facility] Body weight 2023-03-21 19:05:00 63.504 kg [facility] BMI 2023-03-21 19:05:00 25.61 kg/m2 [facility] Systolic blood pressure 2023-03-18 15:44:00 121 mm[Hg] [facility] Diastolic blood pressure 2023-03-18 15:44:00 78 mm[Hg] [facility] Heart rate 2023-03-18 15:44:00 82 /min [facility] Body temperature 2023-03-18 15:44:[address] [facility] Respiratory rate 2023-03-18 15:44:00 16 /min [facility] Body height 2023-03-18 15:44:00 157.5 cm [facility] Body weight 2023-03-18 15:44:00 63.05 kg [facility] BMI 2023-03-18 15:44:00 25.42 kg/m2 [facility] Oxygen saturation in Arterial blood by Pulse oximetry 2023-03-18 15:44:00 100 /min [facility] Systolic blood pressure 2022-10-01 16:00:00 115 mm[Hg] [facility] Diastolic blood pressure 2022-10-01 16:00:00 73 mm[Hg] [facility] Heart rate 2022-10-01 16:00:00 72 /min [facility] Body temperature 2022-10-01 16:00:[address] [facility] Respiratory rate 2022-10-01 16:00:00 18 /min [facility] Body height 2022-10-01 16:00:00 157.5 cm [facility] Body weight 2022-10-01 16:00:00 71.215 kg [facility] BMI 2022-10-01 16:00:00 28.72 kg/m2 [facility] Systolic blood pressure 2022-03-26 21:25:00 100 mm[Hg] [facility] Diastolic blood pressure 2022-03-26 21:25:00 64 mm[Hg] [facility] Heart rate 2022-03-26 21:25:00 85 /min [facility] Body temperature 2022-03-26 21:25:[address] [facility] Body height 2022-03-26 21:25:00 157.5 cm [facility] Body weight 2022-03-26 21:25:00 62.052 kg [facility] BMI 2022-03-26 21:25:00 25.02 kg/m2 [facility] Systolic blood pressure 2022-02-24 02:00:00 102 mm[Hg] [facility] Diastolic blood pressure 2022-02-24 02:00:00 58 mm[Hg] [facility] Heart rate 2022-02-24 02:00:00 78 /min [facility] Respiratory rate 2022-02-24 02:00:00 20 /min [facility] Oxygen saturation in Arterial blood by Pulse oximetry 2022-02-24 02:00:00 100 /min [facility] Body temperature 2022-02-24 01:22:[address] [facility] Body height 2022-02-23 17:06:00 157.5 cm [facility] Body weight 2022-02-23 17:06:00 60.328 kg [facility] BMI 2022-02-23 17:06:00 24.33 kg/m2 [facility] Systolic blood pressure 2022-02-24 00:04:00 121 mm[Hg] [facility] Diastolic blood pressure 2022-02-24 00:04:00 69 mm[Hg] [facility] Heart rate 2022-02-24 00:04:00 99 /min [facility] Body temperature 2022-02-24 00:04:[address] [facility] Respiratory rate 2022-02-24 00:04:00 18 /min [facility] Oxygen saturation in Arterial blood by Pulse oximetry 2022-02-24 00:04:00 100 /min [facility] Body height 2022-02-23 17:06:00 157.5 cm [facility] Body weight 2022-02-23 17:06:00 60.328 kg [facility] BMI 2022-02-23 17:06:00 24.33 kg/m2 [facility] height 2022-02-06 11:40:00 62 [in_i] [facility]mo n [facility] weight 2022-02-06 11:40:00 130 [lb_av] [facility] temperature 2022-02-06 11:40:00 98 [degF] [facility] bmi 2022-02-06 11:40:00 23.77 kg/m2 [facility] Systolic blood pressure 2022-01-31 11:29:00 119 mm[Hg] [facility] Diastolic blood pressure 2022-01-31 11:29:00 72 mm[Hg] [facility] Heart rate 2022-01-31 11:29:00 88 /min [facility] Body temperature 2022-01-31 11:29:[address] [facility] Respiratory rate 2022-01-31 11:29:00 18 /min [facility] Body height 2022-01-31 11:29:00 157.5 cm [facility] Body weight 2022-01-31 11:29:00 60.328 kg [facility] BMI 2022-01-31 11:29:00 24.33 kg/m2 [facility] Oxygen saturation in Arterial blood by Pulse oximetry 2022-01-31 11:29:00 99 /min [facility] Systolic blood pressure 2022-01-24 15:02:00 110 mm[Hg] [facility] Diastolic blood pressure 2022-01-24 15:02:00 75 mm[Hg] [facility] Heart rate 2022-01-24 15:02:00 71 /min [facility] Body temperature 2022-01-24 15:02:[address] [facility] Respiratory rate 2022-01-24 15:02:00 16 /min [facility] Body height 2022-01-24 15:02:00 160 cm [facility] Body weight 2022-01-24 15:02:00 60.737 kg [facility] BMI 2022-01-24 15:02:00 23.72 kg/m2 [facility] height 2021-10-18 08:10:00 62 [in_i] Commo n [facility] weight 2021-10-18 08:10:00 134 [lb_av] [facility] on [facility] temperature 2021-10-18 08:10:00 97.4 [degF] Com mon [facility] bmi 2021-10-18 08:10:00 24.51 kg/m2 [facility] height 2021-08-14 11:40:00 62 [in_i] Commo n [facility] weight 2021-08-14 11:40:00 135 [lb_av] [facility] on [facility] temperature 2021-08-14 11:40:00 98 [degF] [facility] on [facility] bmi 2021-08-14 11:40:00 24.69 kg/m2 [facility] height 2021-05-14 08:10:00 62 [in_i] Commo n [facility] weight 2021-05-14 08:10:00 139 [lb_av] [facility] on [facility] temperature 2021-05-14 08:10:00 97.4 [degF] Com mon [facility] bmi 2021-05-14 08:10:00 25.42 kg/m2 [facility] Procedures Procedure Date / Time Performed Performing Clinician Source POCT TEST 2023-08-25 00:04:00 Luz Maria Montanez [facility] COMP. METABOLIC PANEL (44533) 2023-08-24 23:52:[address] [facility] CBC WITH DIFF 2023-08-24 23:52:[address] [facility] URINALYSIS 2023-08-24 23:52:00 Jesus Montanez [facility] CONSENT/REFUSAL FOR DIAGNOSIS AND TREATMENT 2023-08-24 23:21:56 Doctor Unassigned, [place] [facility] CONSENT FOR CONTRACEPTION 2023-05-14 05:01:00 Do ctor Unassigned, [place] [facility] POCT TEST 2023-05-14 00:00:[address] [facility] POCT TEST 2023-04-15 00:00:[address] [facility] DILATION AND CURETTAGE 2023-04-01 14:02:00 Rita Jimenez am [facility] DAY SURGERY - ADC 2023-04-01 05:01:00 Doctor Fallon ssigned, [place] [facility] BASIC METABOLIC PANEL (NA, K, CL, CO2, GLUCOSE, BUN, CREATININE, CA) 2023-03-30 18:07:[address] [facility] TOTAL BETA HCG ASSAY 2023-03-30 18:07:[address] [facility] CBC WITH DIFF 2023-03-30 18:07:00 Luz Boggs [facility] NOTICE OF PRIVACY PRACTICES 2023-03-30 17:47:27 Doctor Unassigned, [place] [facility] ASSIGNMENT OF BENEFITS 2023-03-30 17:46:58 Docto r Unassigned, [place] [facility] BASIC METABOLIC PANEL (NA, K, CL, CO2, GLUCOSE, BUN, CREATININE, CA) 2023-03-28 17:47:[address] [facility] TOTAL BETA HCG ASSAY 2023-03-28 17:47:[address] [facility] CBC WITH DIFF 2023-03-28 17:47:00 Rita Jimenez [facility] GLYCOSYLATED HEMOGLOBIN (A1C) 2023-03-28 17:47:[address] [facility] CONSENT/REFUSAL FOR DIAGNOSIS AND TREATMENT 2023-03-28 17:33:53 Doctor Unassigned, [place] [facility] CONSENT/REFUSAL FOR DIAGNOSIS AND TREATMENT 2023-03-28 17:33:53 Doctor Unassigned, [place] [facility] ASSIGNMENT OF BENEFITS 2023-03-28 17:33:29 Docto r Unassigned, [place] [facility] ASSIGNMENT OF BENEFITS 2023-03-28 17:33:29 Docto r Unassigned, [place] [facility] OB TRANSVAGINAL 2023-03-28 01:33:16 Rita Jimenez [facility] DSU PRE-OP 2023-03-27 05:01:00 Doctor Unass igned, [place] [facility] DSU PRE-OP 2023-03-27 05:01:00 Doctor Unass igned, [place] [facility] RELATIONS MANAGER CLINIC ULTRASOUND 2023-03-27 05:01:00 Doc tor Unassigned, [place] [facility] CBC WITH DIFF 2023-03-21 20:30:00 Rita Jimenez [facility] OB TRANSVAGINAL 2023-03-21 19:35:47 Rita Jimenez [facility] POCT TEST 2023-03-21 00:00:[address] [facility] POCT URINALYSIS W/O SPECIFIC GRAVITY 2023-03-21 00:00:[address] [facility] POCT TEST 2023-03-18 16:16:00 Radha López [facility] URINALYSIS 2023-03-18 16:15:00 Guy López [facility] CONSENT/REFUSAL FOR DIAGNOSIS AND TREATMENT 2023-03-18 15:29:54 Doctor Unassigned, [place] [facility] PATIENT FINANCIAL POLICY 2022-10-01 15:27:01 Doctor Unassigned, [place] [facility] POCT URINALYSIS W/O SPECIFIC GRAVITY 2022-10-01 00:00:[address] [facility] CONSENT FOR CONTRACEPTION 2022-03-26 05:01:00 Do ctor Unassigned, [place] [facility] POCT TEST 2022-03-26 00:00:[address] [facility] DILATION AND CURETTAGE 2022-02-24 00:12:00 Rita Jimenez am [facility] EKG-12 LEAD 2022-02-24 00:06:28 Joellen Ventura [facility] HB ECG ROUTINE & RHYTHM STRIP 2022-02-23 23:20:[address] [facility] COVID-19 (ID NOW RAPID TESTING) 2022-02-23 21:56:[address] [facility] COVID-19 (ID NOW RAPID TESTING) 2022-02-23 21:56:[address] [facility] LAB ONLY COVID INTERPRETATION 2022-02-23 21:56:[address] [facility] US PELVIS COMPLETE WITH TRANSVAGINAL 2022-02-23 20:54:[address] [facility] US PELVIS COMPLETE WITH TRANSVAGINAL 2022-02-23 20:54:[address] [facility] D-DIMER 2022-02-23 20:54:00 Joellen Ventura [facility] D-DIMER 2022-02-23 20:54:00 Joellen Ventura [facility] COMP. METABOLIC PANEL ([id number]) 2022-02-23 18:59:[address] [facility] TOTAL BETA HCG ASSAY 2022-02-23 18:59:[address] [facility] CBC WITH DIFF 2022-02-23 18:59:00 Joellen Ventura [facility] HB ABO GROUPING 2022-02-23 18:59:00 Joellen Ventura [facility] COMP. METABOLIC PANEL ([id number]) 2022-02-23 18:59:[address] [facility] TOTAL BETA HCG ASSAY 2022-02-23 18:59:[address] [facility] CBC WITH DIFF 2022-02-23 18:59:00 Joellen Ventura [facility] HB ABO GROUPING 2022-02-23 18:59:00 [facility] 2022-02-23 17:33:[address] [facility] POCT TEST 2022-02-23 17:33:[address] [facility] URINALYSIS 2022-02-23 17:31:00 Joellen Venturae [facility] URINALYSIS 2022-02-23 17:31:00 Joellen Venturae [facility] URINE CULTURE 2022-02-23 17:31:00 Joellen Ventura [facility] CONSENT/REFUSAL FOR DIAGNOSIS AND TREATMENT 2022-02-23 17:02:49 Doctor Unassigned, [place] [facility] CONSENT/REFUSAL FOR DIAGNOSIS AND TREATMENT 2022-02-23 17:02:49 Doctor Unassigned, [place] [facility] CBC WITH DIFF 2022-01-31 12:19:00 Samson Mcconnell [facility] COMP. METABOLIC PANEL ([id number]) 2022-01-31 12:18:[address] [facility] URINALYSIS 2022-01-31 12:18:00 Samson Mcconnell [facility] CONSENT/REFUSAL FOR DIAGNOSIS AND TREATMENT 2022-01-31 11:33:42 Doctor Unassigned, [place] [facility] POCT TEST 2022-01-24 15:05:[address] [facility] Encounters Start Date/Time End Date/Time Encounter Type Admission Type Attending Clinicians Care Facility Care Department Encounter ID Source 2023-06-06 15:30:00 [facility] [id number] [facility] 2023-04-11 14:09:00 [facility] [id number] [facility] 2022-08-21 09:39:00 Outpatient Noguera, Adam [facility]LMLC [facility] [id number] [facility] 2022-05-22 11:20:01 Outpatient Noguera, Adam STLMLC ST[facility] [id number] [facility] 2022-01-21 14:21:00 Outpatient Noguera, Adam STLMLC ST[facility] [id number] [facility] 2021-12-11 13:29:01 Outpatient Noguera, Adam STLMLC STL[facility] [id number] [facility] 2021-08-22 14:01:03 Outpatient Noguera, Adam STLMLC ST[facility] [id number] [facility] 2021-08-22 13:09:26 Outpatient Noguera, Adam STLMLC STL[facility]C [id number] [facility] 2021-08-22 12:54:44 Outpatient Noguera, Adam STLMLC ST[facility] [id number] [facility] 2021-08-22 12:42:35 Outpatient Noguera, Adam STLMLC STL[facility] [id number] [facility] 2021-08-22 12:29:59 Outpatient Noguera, Adam STLMLC STL[facility] [id number] [facility] 2021-08-22 12:16:11 Outpatient Noguera, Adam STLMLC STL[facility]C [id number] [facility] 2021-08-22 12:02:11 Outpatient Noguera, Adam STLMLC STLMLC [id number] [facility] 2021-08-22 11:53:14 Outpatient Noguera, Adam STLMLC STLMLC [id number] [facility] 2021-08-22 11:35:51 Outpatient Noguera, Adam STLMLC STL[facility]C [id number] [facility] 2021-08-22 11:17:08 Outpatient Noguera, Adam STLMLC STLC [id number] [facility] 2021-08-22 11:16:51 Outpatient Adam Noguera [facility] [id number] [facility] 2021-05-25 18:11:22 Emergency [facility] [id number] [facility] 2023-10-06 09:30:00 2023-10-06 09:30:00 Outpatient R SNOWPAULETTEREVAJERSONVICTOR HUGOTAMRA GABRIEL SEAMAN [facility] [id number] [facility] 2023-08-24 17:25:00 2023-08-24 19:23:00 Emergency X JESUS MONTANEZ [facility] [[email or web address]] ERT [id number] [facility] 2023-08-24 17:25:00 2023-08-24 19:23:00 Emergency Jesus Montanez F [facility] 1.2.840.114 350.1.13.10 4.2.7.2.686 [id number] [facility] 2023-08-15 09:00:00 2023-08-15 09:22:56 Outpatient R RITA JIMENEZ [facility] [id number] [facility] 2023-08-15 09:00:00 2023-08-15 09:22:56 Nurse Visit Nurse, [facility] Rita Jimenez [facility] 1.2.840.114 350.1.13.10 4.2.7.2.686 [id number] [facility] 2023-07-17 00:00:00 2023-07-17 00:00:00 [facility] [id number] 2023-06-17 00:00:00 2023-06-17 00:00:00 Patient Secure Msg Rita Jimenez [facility] 1.2.840.114 350.1.13.10 4.2.7.2.686 [id number] [facility] 2023-06-09 00:00:00 2023-06-09 00:00:00 (TEL) STLMLC STLMLC [id number] [facility] 2023-05-14 14:30:00 2023-05-14 15:40:27 Outpatient R RITA JIMENEZ [facility] [id number] [facility] 2023-05-14 14:30:00 2023-05-14 15:40:27 Office Visit Rita Jimenez [facility] 1.2.840.114 350.1.13.10 4.2.7.2.686 [id number] [facility] 2023-05-14 00:00:00 2023-05-14 00:00:00 Orders Only Doctor Unassigned, [place] [facility] 1.2.840.114 350.1.13.10 4.2.7.2.686 [id number] [facility] 2023-04-15 13:45:00 2023-04-15 13:55:51 Outpatient R RITA JIMENEZ [facility] [id number] [facility] 2023-04-15 13:45:00 2023-04-15 13:55:51 Office Visit Rita Jimenez [facility] 1.2.840.114 350.1.13.10 4.2.7.2.686 [id number] [facility] 2023-04-11 00:00:00 2023-04-11 00:00:00 OFFICE VISIT ESTAB PT LEVEL 3 STLMLC STLMLC [id number] [facility] 2023-04-11 00:00:00 2023-04-11 00:00:00 (TEL) STLMLC STLMLC [id number] [facility] 2023-04-04 12:45:00 2023-04-04 12:45:00 Outpatient R BARBARA RITA [facility] [id number] [facility] 2023-04-02 00:00:00 2023-04-02 00:00:00 Patient Secure Msg Rita Jimenez [facility] 1.2.840.114 350.1.13.10 4.2.7.2.686 [id number] [facility] 2023-04-01 07:00:00 2023-04-01 11:15:00 Outpatient R RITA JIMENEZ [facility] [[email or web address]] CVT RN [id number] [facility] 2023-04-01 07:00:00 2023-04-01 11:15:00 Hospital Encounter Rita Jimenez [facility] [place] 1.2.840.114 350.1.13.10 4.2.7.2.686 [id number] [facility] 2023-04-01 08:50:00 2023-04-01 11:13:00 Surgery Rita Jimenez [facility] [place] 1.2.840.114 350.1.13.10 4.2.7.2.686 [id number] [facility] 2023-04-01 00:00:00 2023-04-01 00:00:00 Orders Only Doctor Unassigned, [place] [facility] 1.2.840.114 350.1.13.10 4.2.7.2.686 [id number] [facility] 2023-03-30 12:51:00 2023-03-30 15:13:00 Emergency X LUZ BOGGS [facility] [[email or web address]] ERT [id number] [facility] 2023-03-30 12:51:00 2023-03-30 15:13:00 Emergency Luz Boggs [facility] 1.2.840.114 350.1.13.10 4.2.7.2.686 [id number] [facility] 2023-03-30 00:00:00 2023-03-30 00:00:00 Patient Secure Msg Rita Jimenez [facility] 1..114 350.1.13.10 4.2.7.2.686 [id number] [facility] 2023-03-28 12:30:00 2023-03-28 12:45:00 Residential Sales Consultant Visit Pob, [facility] 1..114 350.1.13.10 4.2.7.2.686 [id number] [facility] 2023-03-28 12:30:00 2023-03-28 12:30:00 Outpatient R BARBARA RITA [facility] [id number] [facility] 2023-03-28 00:00:00 2023-03-28 00:00:00 Prep For [facility]..114 350.1.13.10 4.2.7.2.686 [id number] [facility] 2023-03-27 15:15:00 2023-03-27 15:51:03 Outpatient R RITA JIMENEZ [facility] [id number] [facility] 2023-03-27 15:15:00 2023-03-27 15:51:03 [facility]..114 350.1.13.10 4.2.7.2.686 [id number] [facility] 2023-03-27 00:00:00 2023-03-27 00:00:00 Patient Secure Msg Rita Jimenez [facility] 1..114 350.1.13.10 4.2.7.2.686 [id number] [facility] 2023-03-27 00:00:00 2023-03-27 00:00:00 Orders Only Doctor Unassigned, [place] [facility] 1.2.840.114 350.1.13.10 4.2.7.2.686 [id number] [facility] 2023-03-26 13:30:00 2023-03-26 13:55:57 Outpatient R GABRIEL SEAMAN [facility] [id number] [facility] 2023-03-26 13:30:00 2023-03-26 13:45:00 Residential Sales Consultant Visit Lab, Ruben Allen Unknown, Attending [facility] 1.2.840.114 350.1.13.10 4.2.7.2.686 [id number] [facility] 2023-03-26 11:30:00 2023-03-26 11:30:00 Outpatient R [facility] [id number] [facility] 2023-03-24 11:45:00 2023-03-24 12:00:00 Residential Sales Consultant Visit Lab, Ruben Seaman [facility] 1.2.840.114 350.1.13.10 4.2.7.2.686 [id number] [facility] 2023-03-24 11:45:00 2023-03-24 11:45:00 Outpatient R GABRIEL SEAMAN [facility] [id number] [facility] 2023-03-21 15:30:00 2023-03-21 16:01:35 Outpatient R RITA JIMENEZ [facility] [id number] [facility] 2023-03-21 15:30:00 2023-03-21 16:01:35 Residential Sales Consultant Visit Lab, Ang - Db Jimenez, Rita [facility] 1.2840.114 350.1.13.10 4.2.7.2.686 [id number] [facility] 2023-03-21 14:00:00 2023-03-21 14:32:19 Initial Visit Rita Jimenez [facility] 1.2840.114 350.1.13.10 4.2.7.2.686 [id number] [facility] 2023-03-18 10:47:00 2023-03-18 12:41:00 Emergency X LÓPEZ GUY [facility] [[email or web address] ERT [id number] [facility] 2023-03-18 10:47:00 2023-03-18 12:41:00 Emergency Leeann Lópezanne [facility] 1.840.114 350.1.13.10 4.2.7.2.686 [id number] [facility] 2023-03-18 00:00:00 2023-03-18 00:00:00 Patient Secure Msg Rita Jimenez [facility] 1.2840.114 350.1.13.10 4.2.7.2.686 [id number] 134 [id number] [facility] 2022-10-03 00:00:00 2022-10-03 00:00:00 Telephone Trirussell [facility] 1.2840.114 350.1.13.10 4.2.7.2.686 [id number] 134 [id number] [facility] 2022-10-03 00:00:00 2022-10-03 00:00:00 Patient Secure Msg On license of [facility] 1.2840.114 350.1.13.10 4.2.7.2.686 [id number] [facility] 2022-10-02 11:15:00 2022-10-02 11:30:00 Residential Sales Consultant Visit Lab, Victor Hugo Stokestamra [facility] 1.2.840.114 350.1.13.10 4.2.7.2.686 [id number] [facility] 2022-10-02 11:15:00 2022-10-02 11:15:00 Outpatient R GABRIEL SEAMANREVAJERSON [facility] [id number] [facility] 2022-10-01 09:30:00 2022-10-01 10:18:06 Outpatient R SNOWGABRIEL GUTIERREZ SNOWPAULETTEREVAJERSON [facility] [id number] [facility] 2022-10-01 09:30:00 2022-10-01 10:18:06 Office Visit Victor Hugo Seamantamra [facility] 1..840.114 350.1.13.10 4.2.7.2.686 [id number] [facility] 2022-10-01 00:00:00 2022-10-01 00:00:00 Orders Only Doctor Unassigned, [place] [facility] 1..840.114 350.1.13.10 4.2.7.2.686 [id number] [facility] 2022-09-20 11:00:00 2022-09-20 11:00:00 Outpatient R GABRIEL SEAMAN SNOWPAULETTEREVAVICTOR [facility] [id number] [facility] 2022-08-23 15:30:00 2022-08-23 15:30:00 Outpatient R [facility] [id number] [facility] 2022-06-26 15:30:00 2022-06-26 15:30:00 Outpatient R [facility] [id number] [facility] 2022-05-01 00:00:00 2022-05-01 00:00:00 (TEL) STLMLC STLMLC [id number] [facility] 2022-04-19 00:00:00 2022-04-19 00:00:00 (INJ) Injection STLMLC STLMLC [id number] [facility] 2022-03-26 16:15:00 2022-03-26 16:44:04 Outpatient R RITA JIMENEZ [facility] [id number] [facility] 2022-03-26 16:15:00 2022-03-26 16:44:04 Routine Visit Rita Jimenez [facility] 1.2.840.114 350.1.13.10 4.2.7.2.686 [id number] [facility] 2022-03-26 00:00:00 2022-03-26 00:00:00 Orders Only Doctor Unassigned, [place] [facility] 1.2.840.114 350.1.13.10 4.2.7.2.686 [id number] [facility] 2022-03-22 00:00:00 2022-03-22 00:00:00 Telephone Rita Jimenez [facility] 1.2.840.114 350.1.13.10 4.2.7.2.686 [id number] 134 [id number] [facility] 2022-03-19 16:00:00 2022-03-19 16:00:00 Outpatient R RITA JIMENEZ [facility] [id number] [facility] 2022-02-25 15:15:00 2022-02-25 15:15:00 Outpatient JONN ALBRIGHT [facility] [id number] [facility] 2022-02-23 12:07:00 2022-02-23 21:35:00 Out[facility] [id number] [facility] 2022-02-23 12:07:00 2022-02-23 21:35:00 Emergency Joellen Ventura Rita Jimenez [facility] 1.2.840.114 350.1.13.10 4.2.7.2.686 [id number] [facility] 2022-02-23 19:15:00 2022-02-23 20:14:00 Surgery Rita Jimenez [facility] 1.2.840.114 350.1.13.10 4.2.7.2.686 [id number] [facility] 2022-02-21 00:00:00 2022-02-21 00:00:00 Telephone Trimester, [facility] [place] [address] 1.2840.114 350.1.13.10 4.2.7.2.686 [id number] 113 [id number] [facility] 2022-02-07 15:00:00 2022-02-07 15:15:00 Residential Sales Consultant Visit [facility], [facility] [[email or web address] RELATIONS MANAGER [facility] & [facility] 1.2840.114 350.1.13.10 4.2.7.2.686 [id number] [facility] 2022-02-07 15:00:00 2022-02-07 15:00:00 Outpatient R ROBERT PATTERSON [facility] [id number] [facility] 2022-02-06 00:00:00 2022-02-06 00:00:00 OFFICE VISIT EST PT LEVEL 3 [facility]C [facility] [id number] [facility] 2022-01-31 06:45:00 2022-01-31 08:02:00 Emergency X SAMSON MCCONNELL [facility] [[email or web address] ERT [id number] [facility] 2022-01-31 06:45:00 2022-01-31 08:02:00 Emergency Samson Mcconnell [facility] 1..114 350.1.13.10 4.2.7.2.686 [id number] [facility] 2022-01-29 00:00:00 2022-01-29 00:00:00 Patient Secure Msg Doctor Unassigned, [place] [facility] 1..114 350.1.13.10 4.2.7.2.686 [id number] [facility] 2022-01-24 09:30:00 2022-01-24 11:12:35 Outpatient R EZEQUIEL [facility] [id number] [facility] 2022-01-24 09:30:00 2022-01-24 11:12:35 Routine Visit Trimester, [address] 1..114 350.1.13.10 4.2.7.2.686 [id number] [facility] 2022-01-24 09:30:00 2022-01-24 11:12:35 Outpatient R EZEQUIEL [facility] [id number] [facility] 2022-01-21 08:15:00 2022-01-21 08:15:00 Outpatient R [facility] [id number] [facility] 2022-01-21 00:00:00 2022-01-21 00:00:00 (TEL) STLMLC STLMLC [id number] [facility] 2022-01-21 00:00:00 2022-01-21 00:00:00 Telephone Trimester, [address] 1..114 350.1.13.10 4.2.7.2.686 [id number] 113 [id number] [facility] 2022-01-18 18:50:00 2022-01-19 00:48:00 Emergency X SAMSON MCCONNELL [facility] [[email or web address] ERT [id number] [facility] 2022-01-18 18:50:00 2022-01-19 00:48:00 Emergency Samson Mcconnell [facility] 1.840.114 350.1.13.10 4.2.7.2.686 [id number] [facility] 2022-01-18 18:50:00 2022-01-19 00:48:00 Emergency X SAMSON MCCONNELL [facility] [[email or web address] ERT [id number] [facility] 2022-01-18 18:50:00 2022-01-19 00:48:00 Emergency X SAMSON MCCONNELL [facility] [[email or web address]] ERT [id number] [facility] 2022-01-18 10:30:00 2022-01-18 11:33:17 Outpatient STEVE ORELLANA [facility] [id number] [facility] 2022-01-18 10:30:00 2022-01-18 11:33:17 Routine Visit Trimester, [facility] Res-1st Steve Boateng [facility] 1.840.114 350.1.13.10 4.2.7.2.686 [id number] [facility] 2022-01-18 10:30:00 2022-01-18 11:33:17 Outpatient STEVE ORELLANA [facility] [id number] [facility] 2022-01-18 00:00:00 2022-01-18 00:00:00 Nurse Triage Tammy Geiger [facility] 1.840.114 350.1.13.10 4.2.7.2.686 [id number] [facility] 2022-01-17 10:30:00 2022-01-17 10:30:00 Outpatient ROBERT IRWIN [facility] [id number] [facility] 2022-01-13 00:00:00 2022-01-13 00:00:00 Nurse Triage Mike Emiisaiah Evans [facility] 1..840.114 350.1.13.10 4.2.7.2.686 [id number] [facility] 2022-01-10 08:00:00 2022-01-10 08:00:00 Outpatient P [facility] [id number] [facility] 2022-01-10 08:00:00 2022-01-10 08:00:00 Outpatient P [facility] [id number] [facility] 2022-01-10 08:00:00 2022-01-10 08:00:00 Outpatient P [facility] [id number] [facility] 2022-01-08 10:00:00 2022-01-08 10:56:42 Outpatient ANTWAN DENG [facility] [id number] [facility] 2022-01-08 10:00:00 2022-01-08 10:56:42 Routine Visit Trimester, [facility] Res-1st Antwan Blanca [facility] 1.840.114 350.1.13.10 4.2.7.2.686 [id number] [facility] 2022-01-07 00:00:00 2022-01-07 00:00:00 Patient Secure Msg Doctor Unassigned, [place] [facility] 1..840.114 350.1.13.10 4.2.7.2.686 [id number] 113 [id number] [facility] 2022-01-03 10:15:00 2022-01-03 11:35:37 Outpatient STEVE ORELLANA [facility] [id number] [facility] 2022-01-03 10:15:00 2022-01-03 11:35:37 Routine Visit Trimester, [facility] Res-1st Steve Boateng [facility] 1.114 350.1.13.10 4.2.7.2.686 [id number] [facility] 2022-01-02 09:30:00 2022-01-02 10:24:30 Outpatient R ROBERT PATTERSON [facility] [id number] [facility] 2022-01-02 09:30:00 2022-01-02 10:24:30 Routine Visit Robert Patterson Yuri [facility] [[email or web address] RELATIONS MANAGER [facility] & CHILD [facility] ..114 350.1.13.10 4.2.7.2.686 [id number] [facility] 2022-01-02 09:30:00 2022-01-02 10:24:30 Outpatient R ROBERT PATTERSON [facility] [id number] [facility] 2022-01-02 09:30:00 2022-01-02 09:30:00 Outpatient R ROBERT PATTERSON [facility] [id number] [facility] 2022-01-01 00:00:00 2022-01-01 00:00:00 Patient Secure Msg Robert Patterson Yuri [facility] [[email or web address] RELATIONS MANAGER [facility] & CHILD [facility] ..114 350.1.13.10 4.2.7.2.686 [id number] [facility] 2021-12-31 00:00:00 2021-12-31 00:00:00 Patient Secure Msg Doctor Unassigned, [place] [facility] [[email or web address] ..114 350.1.13.10 4.2.7.2.686 [id number] 107 [id number] [facility] 2021-12-28 00:00:00 2021-12-28 00:00:00 Patient Secure Msg Robert Patterson [facility] [[email or web address]] RELATIONS MANAGER [facility] & CHILD [facility] .2.840.114 350.1.13.10 4.2.7.2.686 [id number] 107 [id number] [facility] 2021-12-28 00:00:00 2021-12-28 00:00:00 Telephone Robert Patterson Yuri [facility] [[email or web address]] RELATIONS MANAGER [facility] & CHILD [facility] 1.0.114 350.1.13.10 4.2.7.2.686 [id number] 107 [id number] [facility] 2021-12-27 13:30:00 2021-12-27 13:47:01 Residential Sales Consultant Visit Lab, Ang-Rmchp Kit Pattersonjudy Welch [facility] [[email or web address] RELATIONS MANAGER [facility] & CHILD [facility] 1..114 350.1.13.10 4.2.7.2.686 [id number] 107 [id number] [facility] 2021-12-27 13:30:00 2021-12-27 13:47:01 Outpatient R BRANDIROBERT LEE [facility] [id number] [facility] 2021-12-27 13:30:00 2021-12-27 13:30:00 Outpatient R ROBERT PATTERSON [facility] [id number] [facility] 2021-12-25 15:15:00 2021-12-25 15:30:00 Residential Sales Consultant Visit [facility] [place] [facility] 1..114 350.1.13.10 4.2.7.2.686 [id number] [facility] 2021-12-25 15:15:00 2021-12-25 15:15:00 Outpatient R JEWEL VITALE [facility] [id number] [facility] 2021-12-25 13:45:00 2021-12-25 14:30:00 Residential Sales Consultant Visit 3, [facility] 1..114 350.1.13.10 4.2.7.2.686 [id number] [facility] 2021-12-25 13:45:00 2021-12-25 13:45:00 Outpatient P VITALE, JEWEL [facility] [id number] [facility] 2021-12-21 14:00:00 2021-12-21 14:00:00 Outpatient P [facility] [id number] [facility] 2021-12-21 00:00:00 2021-12-21 00:00:00 Letter (Out) Katie Siddiqui [facility] 1.840.114 350.1.13.10 4.2.7.2.686 [id number] [facility] 2021-12-20 12:00:00 2021-12-20 12:15:00 Laboratory Only Only, Ang Db Test [facility] 1..840.114 350.1.13.10 4.2.7.2.686 [id number] [facility] 2021-12-20 12:00:00 2021-12-20 12:00:00 Outpatient R WEST LIANNE [facility] [id number] [facility] 2021-12-17 00:00:00 2021-12-17 00:00:00 Patient Secure Msg Robert Patterson [facility] [[email or web address] RELATIONS MANAGER [facility] & [facility] 1..840.114 350.1.13.10 4.2.7.2.686 [id number] 107 [id number] [facility] 2021-12-16 12:30:00 2021-12-16 12:30:00 Outpatient VY BLANC [facility] [id number] [facility] 2021-12-16 12:30:00 2021-12-16 12:30:00 Laboratory Only Only, Ang Db Test [facility] 1.2.840.114 350.1.13.10 4.2.7.2.686 [id number] [facility] 2021-12-16 00:00:00 2021-12-16 00:00:00 Nurse Triage Kelsie Mckeon [facility] 1.2.840.114 350.1.13.10 4.2.7.2.686 [id number] [facility] 2021-12-16 00:00:00 2021-12-16 00:00:00 Telephone JerichoMaylin toney Puja [facility] 1.2.840.114 350.1.13.10 4.2.7.2.686 [id number] [facility] 2021-12-14 00:00:00 2021-12-14 00:00:00 Patient Secure Msg Robert Patterson [facility] [[email or web address] RELATIONS MANAGER [facility] & CHILD [facility] 1.2.840.114 350.1.13.10 4.2.7.2.686 [id number] 107 [id number] [facility] 2021-12-14 00:00:00 2021-12-14 00:00:00 Refill Robert Patterson [facility] [[email or web address]] RELATIONS MANAGER [facility] & CHILD [facility] 1.2.840.114 350.1.13.10 4.2.7.2.686 [id number] [facility] 2021-12-12 00:00:00 2021-12-12 00:00:00 Patient Secure Msg Robert Patterson [facility] RELATIONS MANAGER [facility] & [facility] 1.2.840.114 350.1.13.10 4.2.7.2.686 [id number] 107 [id number] [facility] 2021-12-05 10:45:00 2021-12-05 11:09:19 Outpatient R ROBERT PATTERSON [facility] [id number] [facility] 2021-12-05 10:45:00 2021-12-05 11:09:19 Routine Visit Robert Patterson [facility] [[email or web address] RELATIONS MANAGER [facility] & CHILD [facility] 1.2.840.114 350.1.13.10 4.2.7.2.686 [id number] 107 [id number] [facility] 2021-12-05 10:45:00 2021-12-05 11:09:19 Outpatient R RUBENDICKSONJESUS ROBERT [facility] [id number] [facility] 2021-12-05 10:45:00 2021-12-05 10:45:00 Outpatient R ROBERT PATTERSON [facility] [id number] [facility] 2021-11-23 00:00:00 2021-11-23 00:00:00 Telephone Robert Patterson [facility] [[email or web address] RELATIONS MANAGER [facility] CH[facility] 1.2.840.114 350.1.13.10 4.2.7.2.686 [id number] 107 [id number] [facility] 2021-11-23 00:00:00 2021-11-23 00:00:00 Patient Secure Msg Robert Patterson [facility] [[email or web address] RELATIONS MANA[facility] 1.2.840.114 350.1.13.10 4.2.7.2.686 [id number] 107 [id number] [facility] 2021-11-21 00:00:00 2021-11-21 00:00:00 Patient Secure Msg Robert Patterson [facility] [[email or web address] RELATIONS MANAGER [facility] & CHILD [facility] 1.2.840.114 350.1.13.10 4.2.7.2.686 [id number] 107 [id number] [facility] 2021-11-19 00:00:00 2021-11-19 00:00:00 Telephone Robert Patterson [facility] [[email or web address] RELATIONS MANAGER [facility] & CHILD [facility] 1.2.840.114 350.1.13.10 4.2.7.2.686 [id number] 107 [id number] [facility] 2021-11-19 00:00:00 2021-11-19 00:00:00 Patient Secure Robert Rose [facility] [[email or web address] RELATIONS MANAGER [facility] & CHILD [facility] 1.2.840.114 350.1.13.10 4.2.7.2.686 [id number] 107 [id number] [facility] 2021-11-08 00:00:00 2021-11-08 00:00:00 Patient Secure Robert Rose [facility] [[email or web address] RELATIONS MANAGER [facility] & CHILD [facility] 1.2.840.114 350.1.13.10 4.2.7.2.686 [id number] 107 [id number] [facility] 2021-11-08 00:00:00 2021-11-08 00:00:00 Patient Secure Robert Rose [facility] [[email or web address] RELATIONS MANAGER [facility] & CHILD [facility] 1.2.840.114 350.1.13.10 4.2.7.2.686 [id number] 107 [id number] [facility] 2021-11-07 14:30:00 2021-11-07 15:46:15 Initial Visit Robert Patterson [facility] [[email or web address] RELATIONS MANAGER [facility] & CHILD [facility] 1.2.840.114 350.1.13.10 4.2.7.2.686 [id number] 107 [id number] [facility] 2021-11-07 14:30:00 2021-11-07 15:46:15 Outpatient R ROBERT PATTERSON [facility] [id number] [facility] 2021-11-07 14:30:00 2021-11-07 15:46:15 Outpatient R MENAROBERT [facility] [id number] [facility] 2021-11-07 00:00:00 2021-11-07 00:00:00 Orders Only Doctor Unassigned, [place] [facility] 1.2.840.114 350.1.13.10 4.2.7.2.686 [id number] [facility] 2021-10-18 00:00:00 2021-10-18 00:00:00 OFFICE VISIT EST PT LEVEL 3 STLMLC STLMLC [id number] [facility] 2021-08-14 00:00:00 2021-08-14 00:00:00 OFFICE VISIT EST PT LEVEL 3 STLMLC STLMLC [id number] [facility] 2021-07-23 09:00:00 2021-07-23 09:00:00 Outpatient R [facility] [id number] [facility] 2021-07-18 19:00:00 2021-07-18 19:00:00 [id number] 2021-05-14 00:00:00 2021-05-14 00:00:00 OFFICE VISIT EST PT LEVEL 3 STLMLC STLMLC [id number] [facility] 2021-01-30 13:00:00 2021-01-30 13:00:00 Outpatient R [facility] [id number] [facility] 2021-01-18 10:30:00 2021-01-18 10:30:00 [facility] [id number] [facility] 2020-12-27 00:00:00 2020-12-27 00:00:00 Outpatient STLMLC STLMLC [id number] [facility] 2020-11-15 00:00:00 2020-11-15 00:00:00 Outpatient STLMLC STLMLC [id number] [facility] 2020-11-09 00:00:00 2020-11-09 00:00:00 Outpatient STLMLC STLMLC [id number] [facility] 2020-11-08 00:00:00 2020-11-08 00:00:00 Outpatient STLMLC STLMLC [id number] [facility] 2020-11-06 15:10:00 2020-11-06 15:10:00 Outpatient BRANDEN SANCHEZ [facility] [id number] [facility] 2020-10-26 10:52:59 2020-10-26 11:16:21 Nurse Visit Visit, Ruben-Rmchp Nurse [email or web address] RELATIONS MANAGER [facility] [id number] 2020-10-26 10:30:00 2020-10-26 10:30:00 Outpatient R [facility] [id number] [facility] 2020-10-16 15:00:00 2020-10-16 15:00:00 Outpatient [facility] [id number] [facility] 2020-10-04 00:00:00 2020-10-04 00:00:00 Outpatient STLMLC STLMLC [id number] [facility] 2020-09-08 00:00:00 2020-09-08 00:00:00 Outpatient STLMLC STLMLC [id number] [facility] 2020-08-29 00:00:00 2020-08-29 00:00:00 Outpatient STLMLC STLMLC [id number] [facility] 2020-08-03 10:00:00 2020-08-03 10:00:00 Outpatient R [facility] [id number] [facility] 2020-08-03 00:00:00 2020-08-03 00:00:00 Outpatient STLMLC ST[facility]C [id number] [facility] 2020-08-01 00:00:00 2020-08-01 00:00:00 Outpatient STLMLC ST[facility]MLC [id number] [facility] 2020-06-16 00:00:00 2020-06-16 00:00:00 Outpatient STLMLC ST[facility]C [id number] [facility] 2020-06-05 00:00:00 2020-06-05 00:00:00 Outpatient STLMLC STLMLC [id number] [facility] 2020-05-11 10:00:00 2020-05-11 10:00:00 Outpatient R [facility] [id number] [facility] 2020-05-04 00:00:00 2020-05-04 00:00:00 Outpatient STLMLC STLMLC [id number] [facility] 2020-02-17 11:00:00 2020-02-17 11:00:00 Outpatient R AKINSIPE, ROBERT [facility] [id number] [facility] 2020-02-09 08:20:00 2020-02-09 08:20:[address] [facility] [id number] [facility] 2020-02-09 08:15:00 2020-02-09 08:15:00 Outpatient R AKINSIPE, ROBERT [facility] [id number] [facility] 2020-02-08 09:10:00 2020-02-08 09:10:00 [facility] [address] [facility] [id number] [facility] 2020-01-25 10:30:00 2020-01-25 10:30:00 Outpatient R AKINSIPE, [facility] [id number] [facility] 2020-01-03 13:30:00 2020-01-03 13:30:00 [facility] [address] [facility] [place] [facility] [id number] [facility] 2019-12-21 09:02:00 2019-12-21 09:02:00 [facility] [place] [facility] [id number] [facility] 2019-12-13 15:45:00 2019-12-13 15:45:[address] [facility] [id number] [facility] 2019-12-13 08:51:00 2019-12-13 08:51:00 [facility] [place] [facility] [id number] [facility] 2019-12-03 10:30:00 2019-12-03 10:30:00 Outpatient [facility] [id number] [facility] 2019-11-04 08:00:00 2019-11-04 08:00:00 [facility] [place] [facility] [id number] [facility] 2019-10-01 10:00:00 2019-10-01 10:00:00 Outpatient R [facility] [id number] [facility] 2019-05-07 08:00:00 2019-05-07 08:00:00 [facility] [place] [facility] [id number] [facility] 2019-02-09 09:04:00 2019-02-09 09:04:00 [facility] [place] [facility] [id number] [facility] 2019-02-04 08:00:00 2019-02-04 08:00:00 [place] [place] [facility] [id number] [facility] 2018-10-05 13:30:00 2018-10-05 13:30:00 [facility] [place] [facility] [id number] [facility] Results Test Description Test Time Test Comments Results Result Co mments Source [facility] with [id number] 00:15:04* Test Item Value Reference Range Interpretation Comme nts WBC (test code = 6690-2) 5.96 See_Comment [Automated messa ge] The system which generated this result transmitted reference range: 4.30 - 11.10 10*3/?L. The reference range was not used to interpret this result as normal/abnormal. RBC (test code = 789-8) 4.09 See_Comment [Automated messa ge] The system which generated this result transmitted reference range: 3.93 - 5.25 10*6/?L. The reference range was not used to interpret this result as normal/abnormal. HGB (test code = 718-7) 12.3 g/dL 11.6-15.0 HCT (test code = 4544-3) 35.6 % 35.7-45.2 L MCV (test code = 787-2) 87.0 fL 80.6-95.5 MCH (test code = 785-6) 30.1 pg 25.9-32.8 MCHC (test code = 786-4) 34.6 g/dL 31.6-35.1 RDW-SD (test code = 28410-0) 39.6 fL 39.0-49.9 RDW-CV (test code = 788-0) 12.5 % 12.0-15.5 PLT (test code = 777-3) 291 See_Comment [Automated ReadWavea ge] The system which generated this result transmitted reference range: 166 - 358 10*3/?L. The reference range was not used to interpret this result as normal/abnormal. MPV (test code = 81545-7) 9.4 fL 9.5-12.9 L NRBC/100 WBC (test code = 5994139033) 0.0 See_Comment [Automated Virtual 3-D Display for Smartphones ssage] The system which generated this result transmitted reference range: 0.0 - 10.0 /100 WBCs. The reference range was not used to interpret this result as normal/abnormal. NRBC x10^3 (test code = 3803872955) See_Comment [Automated ReadWavea ge] The system which generated this result transmitted reference range: 10*3/?L. The reference range was not used to interpret this result as normal/abnormal. GRAN MAT (NEUT) % (test code = 770-8) 64.8 % IMM GRAN % (test code = 2615969171) 0.30 % LYMPH % (test code = 736-9) 25.7 % MONO % (test code = 5905-5) 7.0 % EOS % (test code = 713-8) 1.5 % BASO % (test code = 706-2) 0.7 % GRAN MAT x10^3(ANC) (test code = 9158508490) 3.86 10*3/uL 1.88-7.09 IMM GRAN x10^3 (test code = 7634128636) 0.00-0.06 LYMPH x10^3 (test code = 731-0) 1.53 10*3/uL 1.32-3.29 MONO x10^3 (test code = 742-7) 0.42 10*3/uL 0.33-0.92 EOS x10^3 (test code = 711-2) 0.09 10*3/uL 0.03-0.39 BASO x10^3 (test code = 704-7) 0.04 10*3/uL 0.01-0.07 Lab Interpretation (test code = 73854-5) Abnormal [facility] [id number] 00:04:00* Test Item Value Reference Range Interpretation Comme nts POCT PREG (test code = 1605) Negative On board controls acceptable with C Line (test code = 3574) Yes POCT PREG LOT # (test code = 3575) [id number] POCT PREG TEST DATE ( test code = 3576) 10/30/2024 Lab Interpretation (test cod e = 10748-2) Normal [facility] [id number] 20:14:00* Test Item Value Reference Range Interpretation Comme nts POCT PREG (test code = 1605) Negative On board controls acceptable with C Line (test code = 3574) Yes POCT PREG LOT # (test code = 3575) POCT PREG TEST DATE ( test code = 3576) [facility] [id number] 20:14:00* Test Item Value Reference Range Interpretation Comme nts POCT PREG (test code = 1605) Negative On board controls acceptable with C Line (test code = 3574) Yes POCT PREG LOT # (test code = 3575) POCT PREG TEST DATE ( test code = 3576) [facility] [id number] 18:45:00* Test Item Value Reference Range Interpretation Comme nts POCT PREG (test code = 1605) Negative On board controls acceptable with C Line (test code = 3574) Yes POCT PREG LOT # (test code = 3575) POCT PREG TEST DATE ( test code = 3576) [facility] [id number] 18:45:00* Test Item Value Reference Range Interpretation Comme nts POCT PREG (test code = 1605) Negative On board controls acceptable with C Line (test code = 3574) Yes POCT PREG LOT # (test code = 3575) POCT PREG TEST DATE ( test code = 3576) [facility]CG [id number] 18:57:47* Test Item Value Reference Range Interpretation Comme nts BETA HCG (test code = 2874155000) 4857.80 See_Comment [Automated ReadWavea ge] The system which generated this result transmitted reference range: Non- female and male patients: <5 mIU/mL. The reference range was not used to interpret this result as normal/abnormal. ABBIE (test code = ABBIE) Gestational Age ?Range (mIU/mL) 1-10 ?Weeks ?[id number] Weeks ?69590-78588922-07 Weeks ?6376-12480130-24 Weeks ?9663-592468 Biotin has been reported to cause a negative bias, interpret results relative to patient's use of biotin. [facility] METABOLIC PANEL (NA, K, CL, CO2, GLUCOSE, BUN, CREATININE, CA)2023-03-30 18:35:45* Test Item Value Reference Range Interpretation Comme nts NA (test code = 8230023218) 138 mmol/L 135-145 K (test code = 4582372568) 3.6 mmol/L 3.5-5.0 CL (test code = 8853899325) 105 mmol/L 98-108 CO2 TOTAL (test code = 0807085361) 25 mmol/L 23-31 AGAP (test code = 6955170919) 8 2-16 BUN (test code = 9472287419) 5 mg/dL 7-23 L GLUCOSE (test code = 0942838965) 86 mg/dL 70-110 CREATININE (test code = 4805128311) 0.44 mg/dL 0.50-1.04 L CALCIUM (test code = 8905049384) 9.6 mg/dL 8.6-10.6 eGFR (test code = 6259521981) 166.8 mL/min/1.73m2 ABBIE (test code = ABBIE) Association of Glomerular Filtration Rate (GFR) and Staging of Kidney Disease* + --+ --+ ------+| GFR (mL/min/1.73 m2) ?| With Kidney Damage ?| ?Without Kidney Damage+ --------+ --------+ +| ?>90 ?| ?Stage one ?| ? Normal ?+ ---+ ---+ -------+| ?60-89 ?| ?Stage two ?| ? Decreased GFR ? + --+ --+ ------+| ?30-59 ?| ?Stage three ?| ? Stage three ? + --+ --+ ------+| ?15-29 ?| ?Stage four ? | ? Stage four ?+ ---+ ---+ -------+| ?<15 (or dialysis) ? ?| ?Stage five ? | ? Stage five ?+ ---+ ---+ -------+ *Each stage assumes the associated GFR level has been in effect for at least three months. ?Stages 1 to 5, with or without kidney disease, indicate chronic kidney disease. Notes: Determination of stages one and two (with eGFR >59mL/min/1.73 m2) requires estimation of kidney damage for at least three months as defined by structural or functional abnormalities of the kidney, manifested by either:Pathological abnormalities or Markers of kidney damage (including abnormalities in the composition of the blood or urine or abnormalities in imaging tests). Lab Interpretation (test code = 06170-8) Abnormal [facility] WITH [id number] 18:22:26* Test Item Value Reference Range Interpretation Comme nts WBC (test code = 6690-2) 10.18 See_Comment [Automated AQH] The system which generated this result transmitted reference range: 4.30 - 11.10 10*3/?L. The reference range was not used to interpret this result as normal/abnormal. RBC (test code = 789-8) 4.40 See_Comment [Automated AQH] The system which generated this result transmitted reference range: 3.93 - 5.25 10*6/?L. The reference range was not used to interpret this result as normal/abnormal. HGB (test code = 718-7) 13.3 g/dL 11.6-15.0 HCT (test code = 4544-3) 37.8 % 35.7-45.2 MCV (test code = 787-2) 85.9 fL 80.6-95.5 MCH (test code = 785-6) 30.2 pg 25.9-32.8 MCHC (test code = 786-4) 35.2 g/dL 31.6-35.1 H RDW-SD (test code = 12425-0) 38.6 fL 39.0-49.9 L RDW-CV (test code = 788-0) 12.3 % 12.0-15.5 PLT (test code = 777-3) 301 See_Comment [Automated ReadWavea ge] The system which generated this result transmitted reference range: 166 - 358 10*3/?L. The reference range was not used to interpret this result as normal/abnormal. MPV (test code = 07333-4) 9.5 fL 9.5-12.9 NRBC/100 WBC (test code = 6753237089) 0.0 See_Comment [Automated Virtual 3-D Display for Smartphones ssage] The system which generated this result transmitted reference range: 0.0 - 10.0 /100 WBCs. The reference range was not used to interpret this result as normal/abnormal. NRBC x10^3 (test code = 4005507575) See_Comment [Automated ReadWavea ge] The system which generated this result transmitted reference range: 10*3/?L. The reference range was not used to interpret this result as normal/abnormal. GRAN MAT (NEUT) % (test code = 770-8) 76.0 % IMM GRAN % (test code = 2936402091) 0.30 % LYMPH % (test code = 736-9) 16.7 % MONO % (test code = 5905-5) 5.7 % EOS % (test code = 713-8) 0.8 % BASO % (test code = 706-2) 0.5 % GRAN MAT x10^3(ANC) (test code = 4877127127) 7.74 10*3/uL 1.88-7.09 H IMM GRAN x10^3 (test code = 8298883690) 0.03 10*3/uL 0.00-0.06 LYMPH x10^3 (test code = 731-0) 1.70 10*3/uL 1.32-3.29 MONO x10^3 (test code = 742-7) 0.58 10*3/uL 0.33-0.92 EOS x10^3 (test code = 711-2) 0.08 10*3/uL 0.03-0.39 BASO x10^3 (test code = 704-7) 0.05 10*3/uL 0.01-0.07 Lab Interpretation (test code = 30504-9) Abnormal [facility] WITH [id number] 21:46:32* Test Item Value Reference Range Interpretation Comme nts WBC (test code = 6690-2) 7.96 See_Comment [Automated ReadWavea Capriza] The system which generated this result transmitted reference range: 4.30 - 11.10 10*3/?L. The reference range was not used to interpret this result as normal/abnormal. RBC (test code = 789-8) 4.25 See_Comment [Automated ReadWavea Capriza] The system which generated this result transmitted reference range: 3.93 - 5.25 10*6/?L. The reference range was not used to interpret this result as normal/abnormal. HGB (test code = 718-7) 12.9 g/dL 11.6-15.0 HCT (test code = 4544-3) 37.9 % 35.7-45.2 MCV (test code = 787-2) 89.2 fL 80.6-95.5 MCH (test code = 785-6) 30.4 pg 25.9-32.8 MCHC (test code = 786-4) 34.0 g/dL 31.6-35.1 RDW-SD (test code = 60426-7) 40.2 fL 39.0-49.9 RDW-CV (test code = 788-0) 12.4 % 12.0-15.5 PLT (test code = 777-3) 303 See_Comment [Automated ReadWavea Capriza] The system which generated this result transmitted reference range: 166 - 358 10*3/?L. The reference range was not used to interpret this result as normal/abnormal. MPV (test code = 84601-0) 10.2 fL 9.5-12.9 NRBC/100 WBC (test code = 4020535620) 0.0 See_Comment [Automated me ssage] The system which generated this result transmitted reference range: 0.0 - 10.0 /100 WBCs. The reference range was not used to interpret this result as normal/abnormal. NRBC x10^3 (test code = 7215734515) See_Comment [Automated me ssage] The system which generated this result transmitted reference range: 10*3/?L. The reference range was not used to interpret this result as normal/abnormal. GRAN MAT (NEUT) % (test code = 770-8) 74.7 % IMM GRAN % (test code = 1115544458) 0.50 % LYMPH % (test code = 736-9) 18.6 % MONO % (test code = 5905-5) 5.2 % EOS % (test code = 713-8) 0.6 % BASO % (test code = 706-2) 0.4 % GRAN MAT x10^3(ANC) (test code = 2441272482) 5.95 10*3/uL 1.88-7.09 IMM GRAN x10^3 (test code = 2831119395) 0.04 10*3/uL 0.00-0.06 LYMPH x10^3 (test code = 731-0) 1.48 10*3/uL 1.32-3.29 MONO x10^3 (test code = 742-7) 0.41 10*3/uL 0.33-0.92 EOS x10^3 (test code = 711-2) 0.05 10*3/uL 0.03-0.39 BASO x10^3 (test code = 704-7) 0.03 10*3/uL 0.01-0.07 [facility] WITH [id number] 21:46:32* Test Item Value Reference Range Interpretation Comme nts WBC (test code = 6690-2) 7.96 See_Comment [Automated messa ge] The system which generated this result transmitted reference range: 4.30 - 11.10 10*3/?L. The reference range was not used to interpret this result as normal/abnormal. RBC (test code = 789-8) 4.25 See_Comment [Automated messa ge] The system which generated this result transmitted reference range: 3.93 - 5.25 10*6/?L. The reference range was not used to interpret this result as normal/abnormal. HGB (test code = 718-7) 12.9 g/dL 11.6-15.0 HCT (test code = 4544-3) 37.9 % 35.7-45.2 MCV (test code = 787-2) 89.2 fL 80.6-95.5 MCH (test code = 785-6) 30.4 pg 25.9-32.8 MCHC (test code = 786-4) 34.0 g/dL 31.6-35.1 RDW-SD (test code = 81008-1) 40.2 fL 39.0-49.9 RDW-CV (test code = 788-0) 12.4 % 12.0-15.5 PLT (test code = 777-3) 303 See_Comment [Automated ReadWavea ge] The system which generated this result transmitted reference range: 166 - 358 10*3/?L. The reference range was not used to interpret this result as normal/abnormal. MPV (test code = 56549-7) 10.2 fL 9.5-12.9 NRBC/100 WBC (test code = 7064047889) 0.0 See_Comment [Automated me ssage] The system which generated this result transmitted reference range: 0.0 - 10.0 /100 WBCs. The reference range was not used to interpret this result as normal/abnormal. NRBC x10^3 (test code = 2887804973) See_Comment [Automated me ssage] The system which generated this result transmitted reference range: 10*3/?L. The reference range was not used to interpret this result as normal/abnormal. GRAN MAT (NEUT) % (test code = 770-8) 74.7 % IMM GRAN % (test code = 8060952869) 0.50 % LYMPH % (test code = 736-9) 18.6 % MONO % (test code = 5905-5) 5.2 % EOS % (test code = 713-8) 0.6 % BASO % (test code = 706-2) 0.4 % GRAN MAT x10^3(ANC) (test code = 1843452405) 5.95 10*3/uL 1.88-7.09 IMM GRAN x10^3 (test code = 7966238658) 0.04 10*3/uL 0.00-0.06 LYMPH x10^3 (test code = 731-0) 1.48 10*3/uL 1.32-3.29 MONO x10^3 (test code = 742-7) 0.41 10*3/uL 0.33-0.92 EOS x10^3 (test code = 711-2) 0.05 10*3/uL 0.03-0.39 BASO x10^3 (test code = 704-7) 0.03 10*3/uL 0.01-0.07 [facility] WITH [id number] 21:46:32* Test Item Value Reference Range Interpretation Comme nts WBC (test code = 6690-2) 7.96 See_Comment [Automated ReadWavea ge] The system which generated this result transmitted reference range: 4.30 - 11.10 10*3/?L. The reference range was not used to interpret this result as normal/abnormal. RBC (test code = 789-8) 4.25 See_Comment [Automated ReadWavea ge] The system which generated this result transmitted reference range: 3.93 - 5.25 10*6/?L. The reference range was not used to interpret this result as normal/abnormal. HGB (test code = 718-7) 12.9 g/dL 11.6-15.0 HCT (test code = 4544-3) 37.9 % 35.7-45.2 MCV (test code = 787-2) 89.2 fL 80.6-95.5 MCH (test code = 785-6) 30.4 pg 25.9-32.8 MCHC (test code = 786-4) 34.0 g/dL 31.6-35.1 RDW-SD (test code = 29049-7) 40.2 fL 39.0-49.9 RDW-CV (test code = 788-0) 12.4 % 12.0-15.5 PLT (test code = 777-3) 303 See_Comment [Automated messa ge] The system which generated this result transmitted reference range: 166 - 358 10*3/?L. The reference range was not used to interpret this result as normal/abnormal. MPV (test code = 53812-2) 10.2 fL 9.5-12.9 NRBC/100 WBC (test code = 3088215011) 0.0 See_Comment [Automated me ssage] The system which generated this result transmitted reference range: 0.0 - 10.0 /100 WBCs. The reference range was not used to interpret this result as normal/abnormal. NRBC x10^3 (test code = 2293112281) See_Comment [Automated me ssage] The system which generated this result transmitted reference range: 10*3/?L. The reference range was not used to interpret this result as normal/abnormal. GRAN MAT (NEUT) % (test code = 770-8) 74.7 % IMM GRAN % (test code = 7605966084) 0.50 % LYMPH % (test code = 736-9) 18.6 % MONO % (test code = 5905-5) 5.2 % EOS % (test code = 713-8) 0.6 % BASO % (test code = 706-2) 0.4 % GRAN MAT x10^3(ANC) (test code = 1039478950) 5.95 10*3/uL 1.88-7.09 IMM GRAN x10^3 (test code = 9460458957) 0.04 10*3/uL 0.00-0.06 LYMPH x10^3 (test code = 731-0) 1.48 10*3/uL 1.32-3.29 MONO x10^3 (test code = 742-7) 0.41 10*3/uL 0.33-0.92 EOS x10^3 (test code = 711-2) 0.05 10*3/uL 0.03-0.39 BASO x10^3 (test code = 704-7) 0.03 10*3/uL 0.01-0.07 [facility] URINALYSIS W/O SPECIFIC [id number] 19:02:00* Test Item Value Reference Range Interpretation Comme nts POCT PH U (test code = 3254) n/a 5-8 POCT U LEUK EST (test code = 3263) n/a Negative - Negative POCT U NIT (test code = 3262) n/a Negative - Negati ve POCT U PROT (test code = 3259) negative Negative - Negat cindy POCT U GLU (test code = 3256) negative Negative - Negati ve POCT U KETONE (test code = 3258) n/a Negative - Neg ative POCT U BLD (test code = 3257) n/a Negative - Negati ve [facility] URINALYSIS W/O SPECIFIC [id number] 19:02:00* Test Item Value Reference Range Interpretation Comme nts POCT PH U (test code = 3254) n/a 5-8 POCT U LEUK EST (test code = 3263) n/a Negative - Negative POCT U NIT (test code = 3262) n/a Negative - Negati ve POCT U PROT (test code = 3259) negative Negative - Negat cindy POCT U GLU (test code = 3256) negative Negative - Negati ve POCT U KETONE (test code = 3258) n/a Negative - Neg ative POCT U BLD (test code = 3257) n/a Negative - Negati ve [facility] [id number] 19:01:00* Test Item Value Reference Range Interpretation Comme nts POCT PREG (test code = 1605) Positive On board controls acceptable with C Line (test code = 3574) Yes POCT PREG LOT # (test code = 3575) POCT PREG TEST DATE ( test code = 3576) [facility] [id number] 19:01:00* Test Item Value Reference Range Interpretation Comme nts POCT PREG (test code = 1605) Positive On board controls acceptable with C Line (test code = 3574) Yes POCT PREG LOT # (test code = 3575) POCT PREG TEST DATE ( test code = 3576) [facility] [id number] 16:16:00* Test Item Value Reference Range Interpretation Comme nts POCT PREG (test code = 1605) Positive On board controls acceptable with C Line (test code = 3574) Yes POCT PREG LOT # (test code = 3575) [id number] POCT PREG TEST DATE ( test code = 3576) 07-30-2024 Lab Interpretation (test cod e = 45977-2) Normal [facility] URINALYSIS W/O SPECIFIC [id number] 15:57:00* Test Item Value Reference Range Interpretation Comme nts POCT PH U (test code = 3254) 5 mg/dl 5-8 POCT U LEUK EST (test code = 3263) negative Negative - Negative POCT U NIT (test code = 3262) negative Negative - Negati ve POCT U PROT (test code = 3259) negative Negative - Negat cindy POCT U GLU (test code = 3256) negative Negative - Negati ve POCT U KETONE (test code = 3258) negative Negative - Neg ative POCT U BLD (test code = 3257) negative [facility] SPECIFIC [id number] 15:57:00* Test Item Value Reference Range Interpretation Comme nts POCT PH U (test code = 3254) 5 mg/dl 5-8 POCT U LEUK EST (test code = 3263) negative Negative - Negative POCT U NIT (test code = 3262) negative Negative - Negati ve POCT U PROT (test code = 3259) negative Negative - Negat cindy POCT U GLU (test code = 3256) negative Negative - Negati ve POCT U KETONE (test code = 3258) negative Negative - Neg ative POCT U BLD (test code = 3257) negative Negative - Negati ve [facility] [id number] 21:30:00* Test Item Value Reference Range Interpretation Comme nts POCT PREG (test code = 1605) Negative On board controls acceptable with C Line (test code = 3574) Yes POCT PREG LOT # (test code = 3575) POCT PREG TEST DATE ( test code = 3576) [facility][id number] 21:45:21* Test Item Value Reference Range Interpretation Comments D-DIMER (test code = 8348867068) See_Comment H [Automated message] The system which generated this result transmitted reference range: <0.41 ?g/mL (FEU). The reference range was not used to interpret this result as normal/abnormal. ABBIE (test code = ABBIE) This test may be used in conjunction with a clinical pretest probability (PTP) assessment model to exclude venous thromboembolism (VTE) in patients suspected of deep venous thrombosis (DVT) and pulmonary embolism (PE) A D-Dimer value less than 0.50 ?g/ml (FEU) has a negative predicative value of 96 to 100% (95% CI)and 97 to 100% (95% CI) as an aid in the diagnosis of deep vein thrombosis (DVT) and pulmonary embolism when there is low or moderate pretest probability of PE or DVT. D-Dimer values are expressed in initial fibrinogen equivalent units (FEU)" The assay results should be used with other information, including the clinical context, in forming a diagnosis. Lab Interpretation (test code = 06625-1) Abnormal [facility][id number] 21:45:21* Test Item Value Reference Range Interpretation Comments D-DIMER (test code = 5894961680) See_Comment H [Automated message] The system which generated this result transmitted reference range: <0.41 ?g/mL (FEU). The reference range was not used to interpret this result as normal/abnormal. ABBIE (test code = ABBIE) This test may be used in conjunction with a clinical pretest probability (PTP) assessment model to exclude venous thromboembolism (VTE) in patients suspected of deep venous thrombosis (DVT) and pulmonary embolism (PE) A D-Dimer value less than 0.50 ?g/ml (FEU) has a negative predicative value of 96 to 100% (95% CI)and 97 to 100% (95% CI) as an aid in the diagnosis of deep vein thrombosis (DVT) and pulmonary embolism when there is low or moderate pretest probability of PE or DVT. D-Dimer values are expressed in initial fibrinogen equivalent units (FEU)" The assay results should be used with other information, including the clinical context, in forming a diagnosis. Lab Interpretation (test code = 42302-7) Abnormal [facility] BETA HCG [id number] 19:49:29* Test Item Value Reference Range Interpretation Comme nts BETA HCG (test code = 9090682640) See_Comment [Automated ReadWavea Capriza] The system which generated this result transmitted reference range: Non- female and male patients: <5 mIU/mL. The reference range was not used to interpret this result as normal/abnormal. ABBIE (test code = ABBIE) Gestational Age ?Range (mIU/mL) 1-10 ?Weeks ?[id number] Weeks ?01164-31519401-02 Weeks ?4048-64706282-36 Weeks ?1531-221788 Biotin has been reported to cause a negative bias, interpret results relative to patient's use of biotin. [facility] [id number] 19:49:29* Test Item Value Reference Range Interpretation Comme nts BETA HCG (test code = 8298579175) See_Comment [Automated AQH] The system which generated this result transmitted reference range: Non- female and male patients: <5 mIU/mL. The reference range was not used to interpret this result as normal/abnormal. ABBIE (test code = ABBIE) Gestational Age ?Range (mIU/mL) 1-10 ?Weeks ?00-33247263-55 Weeks ?56050-85578725-22 Weeks ?4758-43532107-83 Weeks ?1531-340213 Biotin has been reported to cause a negative bias, interpret results relative to patient's use of biotin. [facility] - ONCE [id number] 19:40:34 * Test Item Value Reference Range Interpretation Comme nts ABO & RH (test code = 20) O Positive Performed at [facility] B Laboratory Services - [facility] Blood [address] [place] [id number] Free: [phone] No. [id number] IAT (test code = 1185) Negative Performed at [facility] Blood [address] Free: [phone] No. [id number] [facility] - ONCE [id number] 19:40:34 * Test Item Value Reference Range Interpretation Comme nts ABO & RH (test code = 20) O Positive Performed at [facility] Blood [address] Free: [phone] No. [id number] IAT (test code = 1185) Negative Performed at [facility] Blood [address] Free: [phone] No. [id number] [facility] METABOLIC PANEL ([id number])2022-02-23 19:26:32* Test Item Value Reference Range Interpretation Comme nts NA (test code = 5504002457) 139 mmol/L 135-145 K (test code = 6383083786) 3.5 mmol/L 3.5-5 CL (test code = 2626536007) 104 mmol/L 98-108 CO2 TOTAL (test code = 5199576603) 25 mmol/L 23-31 AGAP (test code = 6065205304) 2-16 BUN (test code = 7647822256) 6 mg/dL 7-23 L GLUCOSE (test code = 8090383441) 93 mg/dL 70-110 CREATININE (test code = 5841349722) 0.44 mg/dL 0.5-1.04 L TOTAL BILI (test code = 6333688546) 0.5 mg/dL 0.1-1.1 CALCIUM (test code = 5762093054) 9.3 mg/dL 8.6-10.6 T PROTEIN (test code = 2782970982) 7.4 g/dL 6.3-8.2 ALBUMIN (test code = 5649764582) 4.5 g/dL 3.5-5 ALK PHOS (test code = 4865774419) 59 U/L 34-122 ALTv (test code = 1742-6) 13 U/L 5-35 AST(SGOT) (test code = 5724875882) 20 U/L 13-40 eGFR (test code = 4087937432) mL/min/1.73m2 ABBIE (test code = ABBIE) Association of Glomerular Filtration Rate (GFR) and Staging of Kidney Disease* + --+ --+ ------+| GFR (mL/min/1.73 m2) ?| With Kidney Damage ?| ?Without Kidney Damage+ --------+ --------+ +| ?>90 ?| ?Stage one ?| ? Normal ?+ ---+ ---+ -------+| ?60-89 ?| ?Stage two ?| ? Decreased GFR ? + --+ --+ ------+| ?30-59 ?| ?Stage three ?| ? Stage three ? + --+ --+ ------+| ?15-29 ?| ?Stage four ? | ? Stage four ?+ ---+ ---+ -------+| ?<15 (or dialysis) ? ?| ?Stage five ? | ? Stage five ?+ ---+ ---+ -------+ *Each stage assumes the associated GFR level has been in effect for at least three months. ?Stages 1 to 5, with or without kidney disease, indicate chronic kidney disease. Notes: Determination of stages one and two (with eGFR >59mL/min/1.73 m2) requires estimation of kidney damage for at least three months as defined by structural or functional abnormalities of the kidney, manifested by either:Pathological abnormalities or Markers of kidney damage (including abnormalities in the composition of the blood or urine or abnormalities in imaging tests). Lab Interpretation (test code = 54500-1) Abnormal [facility]. METABOLIC PANEL (68071)2022-02-23 19:26:32* Test Item Value Reference Range Interpretation Comme nts NA (test code = 8756596437) 139 mmol/L 135-145 K (test code = 3175248340) 3.5 mmol/L 3.5-5 CL (test code = 0596069713) 104 mmol/L 98-108 CO2 TOTAL (test code = 5684176426) 25 mmol/L 23-31 AGAP (test code = 1157409571) 2-16 BUN (test code = 2256846564) 6 mg/dL 7-23 L GLUCOSE (test code = 1390875315) 93 mg/dL 70-110 CREATININE (test code = 7145656592) 0.44 mg/dL 0.5-1.04 L TOTAL BILI (test code = 3855889488) 0.5 mg/dL 0.1-1.1 CALCIUM (test code = 0260395996) 9.3 mg/dL 8.6-10.6 T PROTEIN (test code = 3599166916) 7.4 g/dL 6.3-8.2 ALBUMIN (test code = 8228562258) 4.5 g/dL 3.5-5 ALK PHOS (test code = 3434151295) 59 U/L 34-122 ALTv (test code = 1742-6) 13 U/L 5-35 AST(SGOT) (test code = 4660178183) 20 U/L 13-40 eGFR (test code = 7412277523) mL/min/1.73m2 ABBIE (test code = ABBIE) Association of Glomerular Filtration Rate (GFR) and Staging of Kidney Disease* + --+ --+ ------+| GFR (mL/min/1.73 m2) ?| With Kidney Damage ?| ?Without Kidney Damage+ --------+ --------+ +| ?>90 ?| ?Stage one ?| ? Normal ?+ ---+ ---+ -------+| ?60-89 ?| ?Stage two ?| ? Decreased GFR ? + --+ --+ ------+| ?30-59 ?| ?Stage three ?| ? Stage three ? + --+ --+ ------+| ?15-29 ?| ?Stage four ? | ? Stage four ?+ ---+ ---+ -------+| ?<15 (or dialysis) ? ?| ?Stage five ? | ? Stage five ?+ ---+ ---+ -------+ *Each stage assumes the associated GFR level has been in effect for at least three months. ?Stages 1 to 5, with or without kidney disease, indicate chronic kidney disease. Notes: Determination of stages one and two (with eGFR >59mL/min/1.73 m2) requires estimation of kidney damage for at least three months as defined by structural or functional abnormalities of the kidney, manifested by either:Pathological abnormalities or Markers of kidney damage (including abnormalities in the composition of the blood or urine or abnormalities in imaging tests). Lab Interpretation (test code = 85102-1) Abnormal [facility] WITH [id number] 19:15:53* Test Item Value Reference Range Interpretation Comme nts WBC (test code = 6690-2) See_Comment [Automated ReadWavea ge] The system which generated this result transmitted reference range: 4.30 - 11.10 10*3/?L. The reference range was not used to interpret this result as normal/abnormal. RBC (test code = 789-8) See_Comment [Automated ReadWavea ge] The system which generated this result transmitted reference range: 3.93 - 5.25 10*6/?L. The reference range was not used to interpret this result as normal/abnormal. HGB (test code = 718-7) 12.5 g/dL 11.6-15 HCT (test code = 4544-3) 37.0 % 35.7-45.2 MCV (test code = 787-2) 88.7 fL 80.6-95.5 MCH (test code = 785-6) 30.0 pg 25.9-32.8 MCHC (test code = 786-4) 33.8 g/dL 31.6-35.1 RDW-SD (test code = 63847-6) 40.1 fL 39-49.9 RDW-CV (test code = 788-0) 12.3 % 12-15.5 PLT (test code = 777-3) See_Comment [Automated ReadWavea ge] The system which generated this result transmitted reference range: 166 - 358 10*3/?L. The reference range was not used to interpret this result as normal/abnormal. MPV (test code = 80376-6) 9.6 fL 9.5-12.9 NRBC/100 WBC (test code = 7478654803) See_Comment [Automated Virtual 3-D Display for Smartphones ssage] The system which generated this result transmitted reference range: 0.0 - 10.0 /100 WBCs. The reference range was not used to interpret this result as normal/abnormal. NRBC x10^3 (test code = 0736659245) See_Comment [Automated messa ge] The system which generated this result transmitted reference range: 10*3/?L. The reference range was not used to interpret this result as normal/abnormal. GRAN MAT (NEUT) % (test code = 770-8) 77.2 % IMM GRAN % (test code = 2389468523) 0.40 % LYMPH % (test code = 736-9) 16.1 % MONO % (test code = 5905-5) 5.5 % EOS % (test code = 713-8) 0.5 % BASO % (test code = 706-2) 0.3 % GRAN MAT x10^3(ANC) (test code = 3475737527) 5.70 10*3/uL 1.88-7.09 IMM GRAN x10^3 (test code = 9374074615) 0.03 10*3/uL 0-0.06 LYMPH x10^3 (test code = 731-0) 1.19 10*3/uL 1.32-3.29 L MONO x10^3 (test code = 742-7) 0.41 10*3/uL 0.33-0.92 EOS x10^3 (test code = 711-2) 0.04 10*3/uL 0.03-0.39 BASO x10^3 (test code = 704-7) 0.01-0.07 Lab Interpretation (test code = 72310-7) Abnormal [facility] WITH [id number] 19:15:53* Test Item Value Reference Range Interpretation Comme nts WBC (test code = 6690-2) See_Comment [Automated messa ge] The system which generated this result transmitted reference range: 4.30 - 11.10 10*3/?L. The reference range was not used to interpret this result as normal/abnormal. RBC (test code = 789-8) See_Comment [Automated messa ge] The system which generated this result transmitted reference range: 3.93 - 5.25 10*6/?L. The reference range was not used to interpret this result as normal/abnormal. HGB (test code = 718-7) 12.5 g/dL 11.6-15 HCT (test code = 4544-3) 37.0 % 35.7-45.2 MCV (test code = 787-2) 88.7 fL 80.6-95.5 MCH (test code = 785-6) 30.0 pg 25.9-32.8 MCHC (test code = 786-4) 33.8 g/dL 31.6-35.1 RDW-SD (test code = 92483-9) 40.1 fL 39-49.9 RDW-CV (test code = 788-0) 12.3 % 12-15.5 PLT (test code = 777-3) See_Comment [Automated messa ge] The system which generated this result transmitted reference range: 166 - 358 10*3/?L. The reference range was not used to interpret this result as normal/abnormal. MPV (test code = 08949-8) 9.6 fL 9.5-12.9 NRBC/100 WBC (test code = 5925630900) See_Comment [Automated Virtual 3-D Display for Smartphones ssage] The system which generated this result transmitted reference range: 0.0 - 10.0 /100 WBCs. The reference range was not used to interpret this result as normal/abnormal. NRBC x10^3 (test code = 6333643979) See_Comment [Automated messa ge] The system which generated this result transmitted reference range: 10*3/?L. The reference range was not used to interpret this result as normal/abnormal. GRAN MAT (NEUT) % (test code = 770-8) 77.2 % IMM GRAN % (test code = 9156935283) 0.40 % LYMPH % (test code = 736-9) 16.1 % MONO % (test code = 5905-5) 5.5 % EOS % (test code = 713-8) 0.5 % BASO % (test code = 706-2) 0.3 % GRAN MAT x10^3(ANC) (test code = 1212692895) 5.70 10*3/uL 1.88-7.09 IMM GRAN x10^3 (test code = 9096928150) 0.03 10*3/uL 0-0.06 LYMPH x10^3 (test code = 731-0) 1.19 10*3/uL 1.32-3.29 L MONO x10^3 (test code = 742-7) 0.41 10*3/uL 0.33-0.92 EOS x10^3 (test code = 711-2) 0.04 10*3/uL 0.03-0.39 BASO x10^3 (test code = 704-7) 0.01-0.07 Lab Interpretation (test code = 10981-9) Abnormal [facility] [id number] 17:33:00* Test Item Value Reference Range Interpretation Comme nts POCT PREG (test code = 1605) positive On board controls acceptable with C Line (test code = 3574) present POCT PREG LOT # (test code = 3575) [id number] POCT PREG TEST DATE ( test code = 3576) Lab Interpretation (test cod e = 37278-7) Normal [facility] [id number] 17:33:00* Test Item Value Reference Range Interpretation Comme nts POCT PREG (test code = 1605) positive On board controls acceptable with C Line (test code = 3574) present POCT PREG LOT # (test code = 3575) [id number] POCT PREG TEST DATE ( test code = 3576) Lab Interpretation (test cod e = 30647-2) Normal [facility]. METABOLIC PANEL (81497)2022-01-31 12:45:56* Test Item Value Reference Range Interpretation Comme nts NA (test code = 7434102554) 141 mmol/L 135-145 K (test code = 3346434678) 4.0 mmol/L 3.5-5.0 CL (test code = 8162646884) 105 mmol/L 98-108 CO2 TOTAL (test code = 3838603027) 29 mmol/L 23-31 AGAP (test code = 0131868797) 2-16 BUN (test code = 9121858866) 8 mg/dL 7-23 GLUCOSE (test code = 7394992321) 90 mg/dL 70-110 CREATININE (test code = 0339780133) 0.48 mg/dL 0.50-1.04 L TOTAL BILI (test code = 3435015100) 0.4 mg/dL 0.1-1.1 CALCIUM (test code = 2261011734) 9.4 mg/dL 8.6-10.6 T PROTEIN (test code = 3230303464) 7.9 g/dL 6.3-8.2 ALBUMIN (test code = 5932805217) 4.6 g/dL 3.5-5.0 ALK PHOS (test code = 1348780672) 60 U/L 34-122 ALTv (test code = 1742-6) 13 U/L 5-35 AST(SGOT) (test code = 5046626518) 21 U/L 13-40 eGFR (test code = 0524567618) mL/min/1.73m2 ABBIE (test code = ABBIE) Association of Glomerular Filtration Rate (GFR) and Staging of Kidney Disease* + --+ --+ ------+| GFR (mL/min/1.73 m2) ?| With Kidney Damage ?| ?Without Kidney Damage+ --------+ --------+ +| ?>90 ?| ?Stage one ?| ? Normal ?+ ---+ ---+ -------+| ?60-89 ?| ?Stage two ?| ? Decreased GFR ? + --+ --+ ------+| ?30-59 ?| ?Stage three ?| ? Stage three ? + --+ --+ ------+| ?15-29 ?| ?Stage four ? | ? Stage four ?+ ---+ ---+ -------+| ?<15 (or dialysis) ? ?| ?Stage five ? | ? Stage five ?+ ---+ ---+ -------+ *Each stage assumes the associated GFR level has been in effect for at least three months. ?Stages 1 to 5, with or without kidney disease, indicate chronic kidney disease. Notes: Determination of stages one and two (with eGFR >59mL/min/1.73 m2) requires estimation of kidney damage for at least three months as defined by structural or functional abnormalities of the kidney, manifested by either:Pathological abnormalities or Markers of kidney damage (including abnormalities in the composition of the blood or urine or abnormalities in imaging tests). Lab Interpretation (test code = 66663-7) Abnormal [facility] WITH [id number] 12:30:13* Test Item Value Reference Range Interpretation Comme nts WBC (test code = 6690-2) See_Comment [Automated messa ge] The system which generated this result transmitted reference range: 4.30 - 11.10 10*3/?L. The reference range was not used to interpret this result as normal/abnormal. RBC (test code = 789-8) See_Comment [Automated ReadWavea ge] The system which generated this result transmitted reference range: 3.93 - 5.25 10*6/?L. The reference range was not used to interpret this result as normal/abnormal. HGB (test code = 718-7) 12.2 g/dL 11.6-15.0 HCT (test code = 4544-3) 36.6 % 35.7-45.2 MCV (test code = 787-2) 88.6 fL 80.6-95.5 MCH (test code = 785-6) 29.5 pg 25.9-32.8 MCHC (test code = 786-4) 33.3 g/dL 31.6-35.1 RDW-SD (test code = 98768-8) 39.8 fL 39.0-49.9 RDW-CV (test code = 788-0) 12.4 % 12.0-15.5 PLT (test code = 777-3) See_Comment [Automated ReadWavea ge] The system which generated this result transmitted reference range: 166 - 358 10*3/?L. The reference range was not used to interpret this result as normal/abnormal. MPV (test code = 19111-8) 9.1 fL 9.5-12.9 L NRBC/100 WBC (test code = 1396897100) See_Comment [Automated Virtual 3-D Display for Smartphones ssage] The system which generated this result transmitted reference range: 0.0 - 10.0 /100 WBCs. The reference range was not used to interpret this result as normal/abnormal. NRBC x10^3 (test code = 2212887769) <0.01 See_Comment [Automated ReadWavea ge] The system which generated this result transmitted reference range: 10*3/?L. The reference range was not used to interpret this result as normal/abnormal. GRAN MAT (NEUT) % (test code = 770-8) 70.5 % IMM GRAN % (test code = 4140564920) 0.50 % LYMPH % (test code = 736-9) 21.7 % MONO % (test code = 5905-5) 5.5 % EOS % (test code = 713-8) 1.3 % BASO % (test code = 706-2) 0.5 % GRAN MAT x10^3(ANC) (test code = 3653534990) 4.25 10*3/uL 1.88-7.09 IMM GRAN x10^3 (test code = 0664272648) 0.03 10*3/uL 0.00-0.06 LYMPH x10^3 (test code = 731-0) 1.31 10*3/uL 1.32-3.29 L MONO x10^3 (test code = 742-7) 0.33 10*3/uL 0.33-0.92 EOS x10^3 (test code = 711-2) 0.08 10*3/uL 0.03-0.39 BASO x10^3 (test code = 704-7) 0.03 10*3/uL 0.01-0.07 Lab Interpretation (test code = 67079-3) [facility] [id number] 15:05:00* Test Item Value Reference Range Interpretation Comme nts POCT PREG (test code = 1605) Positive On board controls acceptable with C Line (test code = 3574) Yes POCT PREG LOT # (test code = 3575) POCT PREG TEST DATE ( test code = 3576) Lab Interpretation (test cod e = 62488-7) Abnormal [facility] History and Physical Notes Date/Time Note Provider Source 2023-04-01 09:07:13 [id number]6O70:07:13F ormatting of this note is different from the original.I have seen and examined patient. Patient reports bleeding and passage of some tissues this morning. Brought the specimen in. Accompanied by her friend, Dominique.Patient Vitals for the past 24 hrs: BP Temp Temp src Pulse Resp SpO2 04/01/23 0709 105/64 36.1 ?C (97 ?F) TEMPORAL ART 93 18 100 % NADRRRBreathing unlaboredSoft, NTTPNo edemaBleedingA/P: will proceed with suctioned D&C as planned. All questions answered.Rita Jimenez MD 04/01/2023 9:08 AM ource Note - Rita Jimenez MD - 03/27/2023 3:15 PM CDT Chief complaint: Chief Complaint Patient presents with Pre-op Clearance Lori Ball is a 32 year old female @ 8 3/7 weeks by Patient's last menstrual period was 01/27/2023 (within days). Here for pre-op visit. Patient was seen on 03/21/23 and had an ultrasound that showed an intrauterine gestational sac with yolk sac and possible pole. Patient had serial beta-hcg since then and beta-hcg is downtrending. Denies vaginal bleeding or cramping. Patient wants to proceed with D&C for miscarriage as do not want to experience the miscarriage like last . 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 12/16/2016 Chlamydia 2014 Migraines Vaginitis and vulvovaginitis, unspecified 12/16/2016 Family History Problem Relation Age of Onset Hypertension Mother Other - see comments Mother Thyroid Arthritis Mother Hypertension Maternal Grandmother Diabetes Maternal Grandmother Arthritis Maternal Grandmother Heart Maternal Grandmother High cholesterol Maternal Grandmother Diabetes Father Asthma Maternal Uncle Colon Cancer Maternal Grandfather defects NoFHx Breast Cancer NoFHx Ovarian Cancer NoFHx Uterine Cancer NoFHx Depression NoFHx Genetic NoFHx Mental retardation NoFHx Osteoporosis NoFHx Neurological NoFHx Psychiatry NoFHx Family Status Relation Name Status Mo (Not Specified) MGMo (Not Specified) Fa (Not Specified) MUnc (Not Specified) MGFa NoFHx (Not Specified) Past Surgical History: Procedure Laterality Date COLPOSCOPY 2017 DILATION AND CURETTAGE (SHX) N/A 02/23/2022 Surgeon: Rita Jimenez MD; [place] [facility] Social History Socioeconomic History Marital status: Single Tobacco Use Smoking status: Never Smokeless tobacco: Never Substance and Sexual Activity Alcohol use: Yes Alcohol/week: 0.0 standard drinks of alcohol Comment: social Drug use: No Sexual activity: Yes Partners: Male control/protection: None Comment: last sexual intercourse 10/26/2021 Social History Narrative Pt denies current or past physical, sexual or emotional abuse. Pt states she feels safe at home. Patient lives alone with children. Social History Substance and Sexual Activity Sexual Activity Yes Partners: Male control/protection: None Comment: last sexual intercourse 10/26/2021 Labs Latest Reference Range & Units 03/21/23 17:12 03/24/23 12:10 BETA HCG Non- female and male patients: <5 mIU/mL 10,957.00 9,141.40 Latest Reference Range & Units 03/26/23 13:31 BETA HCG Non- female and male patients: <5 mIU/mL 7,441.10 [facility] No Known Allergies.Medications[facility] has a current medication list which includes the following prescription(s): desvenlafaxine succinate, paxlovid, ondansetron, promethazine, metronidazole, and cyclobenzaprine. Review of Systems Constitutional: Negative for chills, fatigue and fever. HENT: Negative for congestion, rhinorrhea, sneezing and sore throat. Respiratory: Negative for cough, chest tightness, shortness of breath and wheezing. Cardiovascular: Negative for chest pain and palpitations. Gastrointestinal: Negative for abdominal distention, abdominal pain, anal bleeding, blood in stool, constipation, diarrhea, nausea and vomiting. Genitourinary: Negative for dysuria, urgency, frequency, vaginal bleeding and vaginal discharge. Musculoskeletal: Negative for gait problem. Skin: Negative for rash. Neurological: Negative for syncope, light-headedness and headaches. Psychiatric/Behavioral: Negative for dysphoric mood, self-injury and suicidal ideas. Hematological: Does not bruise/bleed easily. BP 105/70 (BP Location: Left arm, Patient Position: Sitting, BP CUFF SIZE: Adult Medium) | Pulse 89 | Temp 36.8 ?C (98.3 ?F) | Ht 5' 2" (1.575 m) | Wt 142 lb (64.4 kg) | LMP 01/27/2023 (Within Days) | BMI 25.97 kg/m? Pregravid BMI: Could not be calculated Physical Exam Vitals reviewed.Constitutional: She is oriented to person, place, and time. She appears well-developed and well-nourished. Cardiovascular: Regular rate and rhythm. Pulmonary/Chest: Breath sounds clear to auscultation. Normal inspiratory effort. Abdominal: Abdomen is soft. No tenderness present. No hernia palpated or inspected. Neuro/Psychiatric: She has a normal mood and affect. She is oriented to person, place, and time. Assessment/PlanMissed (primary encounter diagnosis)Comment: Transvaginal ultrasound today showed intrauterine GS and debris. Confirmed with Dr. Reina Ingram. Patient declined expectant and medical management.Risks of Dilation and Curettage or D&C includes anesthesia risk, uterine perforation, pain, bleeding, infection, sterility due to Asherman's syndrome, injury to surrounding organs requiring additional procedures including but not limited to exploratory laparotomy and hysterectomy. Benefits include a short duration to passing of products of conception and management of a miscarriage in the hospital. All questions were answered to satisfaction. ER warnings reviewed including but not limited to heavy bleeding, soaking more than 2 pads per hour x 2 hours and severe abdominal pain not controlled with OTC NSAIDs, fever, chest pain, SOB, or dizziness.Plan: Tentatively plan for D&C on 04/01/23 unless clinically indicated otherwiseMargaretn Taran Jimenez MD 03/27/2023 8:32 PM 00684-1Kihokaffm History and physical jacjGC5204-70-96U01:09:14Attending History and physical [id number] 9|[id number] for patient vraw91074-6Xhyythv and physical note[address] Bl[id number] LNOWTGMCXVFIVGGB9089-67-97P22:09:141.2.840 .297506.1.72.3.15|1.2.840.641285.1.13.104. [id number] [facility] Procedure Notes Date/Time Note Provider Source 2023-04-01 09:49:05 +jTn3Nugpulp9dlMLypK wN27tb27bF7eq6tqViZhuE pRd6lo1BeMObHpdYCoITPZ1255-34-24Q47:49:05P rocedure(s): DILATION AND CURETTAGE (SHX)Pre-Procedure Diagnose(s): Missed abortionPost-Procedure Diagnose(s): Missed ; Status post dilation and curettage Date of Service: 04/01/2023Faculty Surgeon: Rita Betancourt Type: GeneralIV Fluids: 1000 cc Lactated RingersColloid Fluids: NoneSpecimens Sent to Pathology: Products of conceptionUrine Output: 500 cc of clear urine Complications: noneEstimated Blood Loss: < 50 mLPatient Status: Patient in stable condition and taken to recovery roomNarrative: Desirae Ball is a 32 year old female @ with a missed presented for D&C. Patient started bleeding this morning and had passed some tissues. Risks/benefits/alternatives discussed. Description of Findings: Products of conception noted Summary of Procedure: After informed consent was given to proceed with above procedure for above indications, the patient was taken to the operating room and anesthesia indicated by [email or web address] staff. Patient was placed in the dorsal lithotomy position and prepped and draped. Bladder was drained with rivera. EUA was performed. The procedure was done under ultrasound guidance. The cervix was dilated. The uterine cavity was sounded to 10 cm: to accommodate a 9 Indian suction curved curette. The uterine cavity was suction curetted of contents, than sharply curetted. This was performed until impression of complete removal of contents. Uterus was contracted at end of procedure. Patient tolerated the procedure well and was taken to PAC-U in stable condition.Rita Jimenez MD 04/01/2023 9:49 AM 78409-6Ojmodvoyb xhikHY2002-17-08T20:51:17Procedure noteTXT1.2.840.485558.1.13.104.2.7.2.68042 9|[id number] for patient muhl00497-0Rruehatyt noteLNUT[address] JxmzFvljgtyvwOwtbylqsgVTGP3017565115BSANYF YTMYPLTZYSMFDVFN4596-09-62B13:51:171.2.840 .278813.1.72.3.15|1.2.840.281508.1.13.104. 2.7.2.727879_[id number] [facility] Notes Date/Time Note Provider Source 2023-08-24 19:20:00 +fS+w3PO/XFnhTk85v+r tEwjitKsM/+gJ6 F2vLgxxITTa4q5pIEFBsn2Yb4bjyU75306 -01-28T19:20:00 Pt given printed and verbal discharge instructions regarding severe headache, encouraged hydration,Discussed ibuprofen and to take with food to avoid GI distress.Pt verbalized understanding of instructions, pt awake alert oriented, resp reg unlabored, skin w/d, color appropriate for race, moves all ext well,pt encouraged to follow up with pcpAdvised to seek medical attention for new/prolonged/worsening of symptomsNo adverse reaction to meds given in ER noted upon dischargePIV d'cd, dressing to site, catheter in tact.Awake, alert oriented, resp reg unlabored, skin w/d, pt leaving amb with steady gait, in no apparent distress, 36129-2Xwrdryngy department VrzaWP5607-39-41Z71:23:49Emergen department NoteTXT1.2.840.417371.1.13.104.2.7 .2.408276|[id number] for patient vzxc30940-9PioiTJCZVABJETUIysajzmh d C-CDA narrative [id number]-Mnypw McInnis RN[id number] 90XQMSBDKEGDVZMQNHQZDLRK3426-54-28 T19:23:491.2.840.827812.1.72.3.15| 1.2.840.136726.1.13.104.2.7.2.7278 [id number] Eliseo Burr RN [facility] 2023-08-24 17:22:45 rdeJuQl1L2RxtLW25hUA qMB31yKjbN/lih uZKTqvqUR4hGW1oDy2lepmc9eok9rb3330 -01-28T17:22:45 Pt c/o intermittent headache x3 days, generalized body aches, and diarrhea that started today. Denies urinary complaints. 12940-6Uxfdnnbpy department Triage qpnsAF7855-38-81T85:24:43Emergency department Triage noteTXT1.2.840.982394.1.13.104.2.7 .2.553616|[id number] for patient tjha07326-2Wsmanmtlh department NoteLNNARRATIVEFormatted C-CDA narrative [id number] N Dewoody RN[id number] 99ILMMMNEKRSZPTKJMGGSGBE7338-60-86 T17:24:431.2.840.725651.1.72.3.15| 1.2.840.422336.1.13.104.2.7.2.7278 [id number] Carolina Taylor RN [facility] 2023-04-07 08:50:03 0VnwICt8PGEJgrcAO52a nDyXbkYdbDaTaz 8jE2eo+kKfyJeU8191FjFyr4LqoKBm4347 -09-11T08:50:03 Patient is needing a revised letter stating any restrictions or no restrictions. 77855-6Ujihwvuxg encounter ZfsePL7157-47-78G50:52:17Telephone encounter NoteTXT1.2.840.545319.1.13.104.2.7 .2.781316|[id number] for patient eqco46961-9OfuoAM144366922Dcztc K Marull[address] Mcsa[id number] 80QKUTQAQGAEAVDWSTOWLUPW1758-70-90 T08:52:171.2.840.652089.1.72.3.15| 1.2.840.497664.1.13.104.2.7.2.7278 [id number] Eneida Stallworth [facility] 2023-03-31 11:17:57 m5OS1tZaV8ZYru/FEQXu YMH+QNrm1oZOXP ORxudl1XYIuotazYJfPlNv4wZeB9Am2966 -09-04T11:17:57 Spoke with patient, stated that she had went to ER had been passing pretty big sized blood clots. Had some of the clots and blood cleaned out. Patient advised to continue with procedure tomorrow. Monitor for heavy bleeding soaking through more than one pad and hour. ER precautions given. Patient verbalized understanding.Flor Cadleron RN 03/31/2023 11:21 AM 16359-3Xsrxsqthd encounter NdutFO7644-47-27E93:21:15Telephone encounter NoteTXT1.2.840.815842.1.13.104.2.7 .2.791834|[id number] for patient kiib30320-5YretHE451640312Dptcpyl Stahl RN[address] JgpgBnqllzginYxujzhgmvVQKS14461730 89UHKAHCMGWQQRWVFGKYFYNS6380-61-47 T11:21:151.2.840.872215.1.72.3.15| 1.2.840.688135.1.13.104.2.7.2.7278 [id number] Flor Calderon RN [facility] 2023-03-30 14:59:12 i8HwkCaY53bL2m2s2UuY FO7zrERIPspIC5 8RCCaf1PBfRePQ9K11fD3Qqeo0/Syk8829T14:59:12 Pt given printed and verbal discharge instructions regarding miscarriage, encouraged hydration,1 Prescriptions sent. Discussed ibuprofen and to take with food to avoid GI distress.Discussed hydrocodone-acetaminophen side affects and to avoid driving/operating machinery/or engaging in activities requiring alertness while taking.Pt verbalized understanding of instructions, pt awake alert oriented, resp reg unlabored, skin w/d, color appropriate for race, moves all ext well,pt encouraged to follow up with pcp and obgyn. Advised to seek medical attention for new/prolonged/worsening of symptoms,Symptoms remained. No adverse reaction to meds given in ER noted upon dischargePIV d'cd, dressing to site, catheter in tact.Awake, alert oriented, resp reg unlabored, skin w/d, pt leaving amb with steady gait, in no apparent distress, 32600-8Lohpvgwcz department GasqAQ0228-57-16Z36:00:20[facility] NoteTXT1.2.840.539287.1.13.104.2.7 .2.711105|[id number] for patient quhf17253-4NnddEH253194892Ozogdcpo M Felix RN[id number] 57ZPZBZXEUDTTFFUUVVUXPWR9981-92-24 T15:00:201.2.840.649535.1.72.3.15| 1.2.840.817896.1.13.104.2.7.2.7278 [id number] Portia Pena Massimo RN [facility] 2023-03-30 12:47:56 nfIzOswT4XMLD7AjODFS WBHYaCvfWQNaJJ n5Nvlu5Ao+OaGWs4YnLbBf0ixAd+E52371T12:47:56 Patient here for vaginal bleeding that started yesterday. Bleeding is heavier today, with cramping and passing clots. Approximately 7 weeks . 95390-3Uwuguxszf department Triage wwdaRN4606-70-61H31:49:56[facility] Triage noteTXT1.2.840.690099.1.13.104.2.7 .2.119520|[id number] for patient xoeo63597-6Crrzwwhap department ImalVW195218856Vkclk S Cryer RN[id number] 40XWISFAYOOYXLAZBTCEINEU0621-10-92 T12:49:561.2.840.642787.1.72.3.15| 1.2.840.027487.1.13.104.2.7.2.7278 [id number] Fawad Ballard RN [facility] [[email or web address]] - Health 2023-03-30 12:46:00 RNS20aI8O6l4KPEUyn0b 5845BqGO8ZZyU7 LwlbR2mufXAQN781bgqRb5KgaSmJO/2022T12:46:00 [facility] [[email or web address]] Emergency Department NotePatient Name: Desirae Baxter of : 1990 32 year old femaleTreatment Room: [address] Record Number: [id number] Care Physician: Adam NogueraPatient Escorted by: Mode of Arrival: Personal means [1]EMS Treatment Prior to ED Arrival:WEATHER REPORTER treatment: None Travel and Exposure Screening:SymptomsDoes patient have any of these symptoms?: (not recorded)Exposure ScreeningHas patient had contact with someone with a communicable disease in the last month?: (not recorded)Diseases exposed to:: (not recorded)Is Patient ?: (not recorded)Exposure Date: (not recorded)Chief Complaint:Chief Complaint Patient presents with Vaginal Bleeding History of Present Illness:The patient presents from home for evaluation for vaginal bleeding as well as pelvic cramping that started today. Her last menstrual period was January 27 and she is 4 para 2-0-1-2. She has seen RELATIONS MANAGER with this and was diagnosed with a missed at the end of February. She is scheduled for D&C for April 01. When she started with pelvic cramping and bleeding today she decided to come to the ER for evaluation. She is not lightheaded or dizzy. No medications for her pain today. 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 Vaping Use Never assessed Alcohol Use Yes; 0.0 standard drinks of alcohol per week; 0 Standard drinks or equivalent. Comments: social Drug Use No. Sexual Activity Sexually active; Partners: Male; Control/Protection: None. Comments: last sexual intercourse 10/26/2021 Past Surgical History:Past Surgical History: Procedure Laterality Date COLPOSCOPY 2017 DILATION AND CURETTAGE (SHX) N/A 02/23/2022 Surgeon: Rita Jimenez MD; Location: [facility] TONSILLECTOMY Review of Systems: Review of Systems Constitutional: Negative for chills and fever. Respiratory: Negative for cough and shortness of breath. Cardiovascular: Negative for chest pain. Gastrointestinal: Negative for abdominal pain and vomiting. Genitourinary: Positive for vaginal bleeding and pelvic pain. Negative for dysuria. Musculoskeletal: Negative for arthralgias, neck pain and neck stiffness. Skin: Negative for wound. Neurological: Negative for dizziness and light-headedness. Psychiatric/Behavioral: Negative for agitation. Physical Exam: ED Triage Vitals [03/30/23 1250] Weight 64.4 kg (142 lb) Actual or estimated Height 1.575 m (5' 2") BP 132/83 Pulse 95 Resp 18 Temp 37.4 ?C (99.3 ?F) Temp source Oral SpO2 99 % Measured on Room air Physical ExamVitals and nursing note reviewed. Exam conducted with a labourers present. Constitutional: Appearance: Normal appearance. She is normal weight. HENT: Head: Normocephalic and atraumatic. Cardiovascular: Rate and Rhythm: Normal rate and regular rhythm. Pulses: Normal pulses. Pulmonary: Effort: Pulmonary effort is normal. No respiratory distress. Breath sounds: No wheezing. Abdominal: General: There is no distension. Palpations: Abdomen is soft. There is no mass. Tenderness: There is no abdominal tenderness. There is no guarding. Hernia: No hernia is present. Genitourinary: Exam position: Supine. Vagina: Bleeding present. Cervix: Dilated. Adnexa: Right adnexa normal and left adnexa normal. Comments: Cervical os is 1 cm dilated on examination.There is a small amount of liquid blood as well as clot noted in the vaginal vault.No adnexal tenderness bilaterally.Musculoskeletal: General: Normal range of motion. Cervical back: Normal range of motion and neck supple. Skin: General: Skin is warm and dry. Neurological: General: No focal deficit present. Mental Status: She is alert and oriented to person, place, and time. Radiology:No orders to display Lab Results:Lab Results CBC WITH DIFF - Abnormal Result Value Ref Range WBC 10.18 4.30 - 11.10 10*3/?L RBC 4.40 3.93 - 5.25 10*6/?L HGB 13.3 11.6 - 15.0 g/dL HCT 37.8 35.7 - 45.2 % MCV 85.9 80.6 - 95.5 fL MCH 30.2 25.9 - 32.8 pg MCHC 35.2 (*) 31.6 - 35.1 g/dL RDW-SD 38.6 (*) 39.0 - 49.9 fL RDW-CV 12.3 12.0 - 15.5 % PLT 301 166 - 358 10*3/?L MPV 9.5 9.5 - 12.9 fL NRBC/100 WBC 0.0 0.0 - 10.0 /100 WBCs NRBC x10^3 <0.01 10*3/?L GRAN MAT (NEUT) % 76.0 % IMM GRAN % 0.30 % LYMPH % 16.7 % MONO % 5.7 % EOS % 0.8 % BASO % 0.5 % GRAN MAT x10^3(ANC) 7.74 (*) 1.88 - 7.09 10*3/uL IMM GRAN x10^3 0.03 0.00 - 0.06 10*3/uL LYMPH x10^3 1.70 1.32 - 3.29 10*3/uL MONO x10^3 0.58 0.33 - 0.92 10*3/uL EOS x10^3 0.08 0.03 - 0.39 10*3/uL BASO x10^3 0.05 0.01 - 0.07 10*3/uL BASIC METABOLIC PANEL (NA, K, CL, CO2, GLUCOSE, BUN, CREATININE, CA) - Abnormal NA 138 135 - 145 mmol/L K 3.6 3.5 - 5.0 mmol/L CL 105 98 - 108 mmol/L CO2 TOTAL 25 23 - 31 mmol/L AGAP 8 2 - 16 BUN 5 (*) 7 - 23 mg/dL GLUCOSE 86 70 - 110 mg/dL CREATININE 0.44 (*) 0.50 - 1.04 mg/dL CALCIUM 9.6 8.6 - 10.6 mg/dL eGFR 166.8 mL/min/1.73m2 TOTAL BETA HCG ASSAY BETA HCG 4,857.80 Non- female and male patients: <5 mIU/mL EKG:If EKG completed, see Procedure Note. Orders and Treatments:Orders Placed This Encounter Procedures CBC WITH DIFF BASIC METABOLIC PANEL (NA, K, CL, CO2, GLUCOSE, BUN, CREATININE, CA) TOTAL BETA HCG ASSAY Orders Placed This Encounter Medications ketorolac (TORADOL) injection 30 mg DISCONTD: FENTanyl PF (SUBLIMAZE (PF)) injection 50 mcg morpHINE (4 mg/mL) injection 4 mg ondansetron (ZOFRAN (PF)) injection 4 mg HYDROcodone-acetaminophen 5-325 mg tablet First Provider Eval:ED Events Date/Time Event User Comments 03/30/23 1245 Medical Screening Begins LUZ BOGGS DO -- 03/30/23 1245 First Provider Evaluation LUZ BOGGS DO -- No notes of EC Admission Criteria type on file.ED COURSEDiagnosis/Impression as of 03/30/23 1448 Miscarriage Procedures: ProceduresMDM:Medical Decision MakingThe patient presents from home for evaluation for vaginal bleeding and cramping that started today. She was diagnosed with a missed last week with RELATIONS MANAGER and is scheduled for D&C for April 01. When she started with the pelvic pain and vaginal bleeding today she came to the ER for evaluation. She is not lightheaded or dizzy. No medications taken for pain.Vital signs are stable in the ER.Her abdomen is soft and nontender.Her pelvic semination is as above.We will repeat her beta hCG and compared to those available in [facility].Her ABO Rh is O+.We will give the patient pain medication here in the ER.Anticipate discharge home later.1447 -the patient is doing well here in the ER.Her pain is much improved after medications given here in the ER.Her beta hCG is downtrending.She has follow-up scheduled with RELATIONS MANAGER for this coming April 01 for a D&C.Recommend she use NSAIDs as needed for pain.She remained stable here in the ER and is okay for discharge home.Problems Addressed:Miscarriage: acute illness or injuryAmount and/or Complexity of Data ReviewedLabs: ordered. Decision-making details documented in ED Course.RiskOTC drugs.Prescription drug management.Parenteral controlled substances. Flowsheet Documentation: Scoring Tools: No data recorded Disposition/Condition:ED Disposition ED Disposition Disch - Home Condition Stable Comment -- Discharge Medications:Patient's Medications START taking these medications HYDROCODONE-ACETAMINOPHEN 5-325 MG TABLET Take 1 tablet by mouth every 4 (four) hours as needed for Pain (scale 1-3) for up to 7 days. Indications: acute pain CONTINUE taking these medications which have NOT CHANGED ACETAMINOPHEN 500 MG TABLET Take 1 tablet by mouth every 6 (six) hours as needed for Pain. CYCLOBENZAPRINE 10 MG TABLET Take 1 tablet by mouth 3 (three) times daily. DESVENLAFAXINE SUCCINATE 50 MG 24 HR TABLET Take 1 tablet by mouth in the morning. METRONIDAZOLE 500 MG TABLET Take 1 tablet by mouth 2 (two) times daily. NIRMATRELVIR-RITONAVIR (PAXLOVID, EUA,) 150 MG X 2- 100 MG TABLET Take 3 tablets by mouth 2 (two) times daily. ONDANSETRON 4 MG DISINTEGRATING TABLET Take 1 tablet by mouth every 8 (eight) hours as needed for Nausea and Vomiting (N/V). PROMETHAZINE 25 MG TABLET Take 1 tablet by mouth every 6 (six) hours as needed for Nausea and Vomiting (N/V). START taking Modified Medications as Prescribed No medications on file STOP taking these medications No medications on file Follow-up:Electronically signed by: Luz Boggs DO03/30/23 1448 82622-0Uskxdaomh Emergency department KxfaJO3899-24-12G60:48:26Physician Emergency department NoteTXT1.2.840.974667.1.13.104.2.7 .2.058125|[id number] for patient icme19815-0Wmslieufi department Note[address] EsxzXuphaocoiKoejllqzwBQZV30157215 47EAVLMRPBOWJERXVTSOECFC0472-81-06 T14:48:261.2.840.047386.1.72.3.15| 1.2.840.609957.1.13.104.2.7.2.7278 [id number] [facility] 2023-03-28 12:30:00 +Y5UtZid3S9kEmXd8woW 9uYtwGZR3nJjlR 2NRAaLlMc5MXQPO8mAJSptHFstqxG66389 -09-01T12:30:00 Images from the original note were not included.Venipuncture collection performed by clean technique on the left anticubitus. Total of 1 attempts were made. Slight pressure and a bandage/dressing were applied to the site(s). The patient experienced no complications. The following specimens were processed according to instructions and sent to [facility] [[email or web address]] laboratories per lab order on 03/28/2023: LT BLUE SST 1 RED LAV 2 PPT DK GREEN (LiHep) DK GREEN (SodH) MADRIGAL DK BLUE (K2) DK BLUE (S) ACD Blood Culture NIPT/NTD 90227-8Wvdtd JcakHM3425-18-10U93:48:07Nurse NoteTXT1.2.840.221010.1.13.104.2.7 .2.803737|[id number] for patient qsqx72636-2Srcgm [facility] Kss[id number] 89EQDFDFLBMJPTQQLKLJBFOQ4151-43-44 T12:48:071.2.840.576753.1.72.3.15| 1.2.840.604396.1.13.104.2.7.2.7278 [id number] [facility] 2023-03-28 11:52:51 zsmYMas81ci/uZSwaZfT mdb3q3SfqqTRDr li4uuqxASz2goq3fVkbA4NQ/QPfv4w14912022T11:52:51 Images from the original note were not included.Your procedure is at [facility] on 04/01/23 at 0700. The address is [address] [place] [address], [facility], [address]. [facility] nursing staff will call you the workday before your procedure to let you know what time to arrive.On the day of your procedure, please go inside that door and check in at the desk.Please note: You may not travel home alone and that includes in a taxi or by bus. We must speak to your Responsible Adult (who will be picking you up) the morning of your procedure, before the start of your procedure. This person must be an adult over the age of 18 years of age. Do not eat any solid food after midnight the night before surgery. You may have sips of clear liquids such as water, gatorade, and sprite up until two hours before your scheduled procedure.You may take your medications with a sip of water as directed by physician. Anticoagulants will be per physician guidance. Medication Note(s)/Instructions:n/aPending screening, we may test for COVID. If a patient tests positive, their cases are cancelled and/or rescheduled. COVID SCREENING NOTE: Denies COVID symptoms, no testing required.Additional requests, questions, concerns:n/aPatient verbalized understanding of pre-op instructions and voiced no further questions at this time. 95631-7Mvfjx DlreQC4363-07-65P60:55:36Nurse NoteTXT1.2.840.372561.1.13.104.2.7 .2.222004|[id number] for patient gidz49635-3WcfjGT783071223Sbwlt L Land RNUT[address] HtnhDvshxnxieSjjsszmbdSEJH25207796 19TUCKJEKKQHQKMGVCMLMOCE1777-22-18 T11:55:361.2.840.603730.1.72.3.15| 1.2.840.588684.1.13.104.2.7.2.7278 [id number] Lauren Mcintosh RN [facility] 2023-03-27 14:10:22 JDIZy2+x7aatQM38l8Oa v04WPVaugMB8mk WsxjvBAbgHlPsKpsuPuUfhykBol7OB4999 -08-31T14:10:22 Contacted patient. Patient wanting to do D & C surgery. Patient advised the soonest surgery could be done in 04/01/2023. Patient scheduled for pre op appointment today. Andrew Langston RN 03/27/2023 2:11 PM 90406-2Heyuaryhb encounter DlmcLZ7073-71-96W99:11:36Telephone encounter NoteTXT1.2.840.707193.1.13.104.2.7 .2.433407|[id number] for patient mnxp55967-3RlgpSY558265230Phiqyse Collins RNUT[address] CkpdTzemixjbjRoqliuwbkZMTO79229359 45YNNVRWPDDDHLQRJQYRTLLH5370-62-65 T14:11:361.2.840.696133.1.72.3.15| 1.2.840.064362.1.13.104.2.7.2.7278 [id number] Andrew Langston RN [facility] 2023-03-26 13:30:00 psIV/EXW5885I5KM2vgn N9vfSh34WquKfE BDU+cmrbzIc/kN0D6iLiyQSSgGe4wf3292 -08-30T13:30:00 Images from the original note were not included.Venipuncture collection performed by clean technique on the right anticubitus. Total of 1 attempts were made. Slight pressure and a bandage/dressing were applied to the site(s). The patient experienced no complications. The following specimens were processed according to instructions and sent to [facility] [[email or web address]] laboratories per lab order on 03/26/2023 : LT BLUE SST 1 RED LAV PPT DK GREEN (LiHep) DK GREEN (SodH) MADRIGAL DK BLUE (K2) DK BLUE (S) ACD Blood Culture NIPT/NTD 67224-1Wphpe SvxmIN5185-55-88C68:32:44Nurse NoteTXT1.2.840.023677.1.13.104.2.7 .2.650736|[id number] for patient fsmm38841-2Mwhay Note[address] SqfeU[id number] 80URCWTDLBKIRNAUMLPQFDKL7255-01-28 T13:32:441.2.840.220953.1.72.3.15| 1.2.840.894802.1.13.104.2.7.2.7278 [id number] [facility] 2023-03-24 11:45:00 9a3vRV1CjPWqDqFqdXvl HCRHj+Z8PPeCU5 gOrgJD3MBXG9Lt856A9eH2UNTBKFM15991 -08-28T11:45:00 Images from the original note were not included.Venipuncture collection performed by clean technique on the right anticubitus. Total of 1 attempts were made. Slight pressure and a bandage/dressing were applied to the site(s). The patient experienced no complications. The following specimens were processed according to instructions and sent to [email or web address]] laboratories per lab order on 03/24/2023: LT BLUE SST 2 RED LAV PPT DK GREEN (LiHep) DK GREEN (SodH) MADRIGAL DK BLUE (K2) DK BLUE (S) ACD Blood Culture NIPT/NTD 84035-7Xfymr CkjqTV7122-11-55L19:11:09Nurse NoteTXT1.2.840.003613.1.13.104.2.7 .2.509376|[id number] for patient wzzf86548-9Sqczo NoteLN[id number] 79BSDGLNVQHNHGXOKYEFIWWY7056-76-90 T12:11:091.2.840.655499.1.72.3.15| 1.2.840.629560.1.13.104.2.7.2.7278 [id number] [facility] 2023-03-21 15:30:00 B+S1RjdruhTSreJNE4ZN uQ4i2D8veoL4b6 dJsG1bQkc3Ib5jqBgHTapgtbK4MEfb8098 -08-25T15:30:00 Images from the original note were not included.Venipuncture collection performed by clean technique on the left anticubitus. Total of 1 attempts were made. Slight pressure and a bandage/dressing were applied to the site(s). The patient experienced no complications. The following specimens were processed according to instructions and sent to [facility] [[email or web address]] laboratories per lab order on today: LT BLUE SST 2 RED LAV 2 PPT DK GREEN (LiHep) DK GREEN (SodH) MADRIGAL DK BLUE (K2) DK BLUE (S) ACD Blood Culture NIPT/NTD 84035-1Klwty AxokYA7036-70-02R75:09:56Nurse NoteTXT1.2.840.407159.1.13.104.2.7 .2.109125|[id number] for patient ihtc19551-1Jgcbx NoteLN[address]TXTX[address] 27XHLZMEJJZLHSJXAWCYNEQH6585-42-56 T15:09:561.2.840.952405.1.72.3.15| 1.2.840.100637.1.13.104.2.7.2.7278 [id number] [facility] 2023-03-21 15:30:00 ylJNhRxnmRFT5qjxvZfd VN/V0d3v4tBb36 V7SYZWgJknrR/Lc0R1rH1XGv+JH22m1611 -08-25T15:30:00 32 year old female came in today for blood work,patient requested for someone to come back with her.Because the patient looked younger than she was, I asked her age which she gave to me.Patient stated she needed moral support I then explained to the patient they will need a mask because of covid and there was already three of us in the room.Patient was a bit annoyed and stated I yelled at her.July Waite 03/21/2023 5:51 PM 41544-2Mkohm ZjpiBS9631-90-10I24:51:48Nurse NoteTXT1.2.840.350577.1.13.104.2.7 .2.082762|[id number] for patient wblk62579-9Rejet [id number] 52PZPOYQMKVSMLBLOGTKFYVR3920-03-95 T17:51:481.2.840.333243.1.72.3.15| 1.2.840.591671.1.13.104.2.7.2.7278 [id number] [facility] 2023-03-18 12:33:42 /aQ5J+VetUviRzZ40KlR W27n7l4u0no84f XinvErbmyybUf0D9jHaCPbTdlK3rET4152 -08-22T12:33:42 Pt discharged with diagnosis of muscle spasm, neck pain, positive test, and acute bilateral low back pain. Printed and verbal instructions reviewed with and given to patient. No new prescriptions given for this visit. List of safe medications provided to patient. Pt verbalized understanding of teaching and recommended follow-up. Denies questions or concerns at this time. Pt ambulatory at discharge. Appears in no apparent distress. No ataxia noted. [id number] department AtaaUF1838-09-10B07:34:55[facility] [id number] .2.860198|[id number] for patient [id number] N Dewoody RN[id number] [id number] T12:34:551.2.840.297277.1.72.3.15| 1.2.840.973558.1.13.104.2.7.2.7278 [id number] Carolina Taylor RN [facility] 2023-03-18 10:43:12 [id number] VZVGVfU9G0tts5 IMHNkv0yfqKErO5GH/z2ob4s+U5hM38657 -08-22T10:43:12 Patient states "my OB told me to come here. My left shoulder is aching."Patient c/o neck pain, shoulder pain and lower back pain. 06315-2Sxygtjoss department Triage coacWY9539-91-18Q76:44:18[facility] department Triage [id number] for patient [id number] department [id number] S Cryer RN[address] [id number] Fawad Ballard RN [facility]
--- NOTE | 2023-08-28 17:48 | RAD REPORT ---
EXAM DESCRIPTION: CT - Head Brain Wo Cont - 08/28/2023 4:58 pm CLINICAL HISTORY: HEADACHE COMPARISON: 05/21/2020 TECHNIQUE: Noncontrast head CT images were obtained without IV contrast. Multiplanar reformats were generated and reviewed. All CT scans are performed using dose optimization technique as appropriate and may include automated exposure control or mA/KV adjustment according to patient size. FINDINGS: No intracranial hemorrhage, mass, or edema. Midline structures are unremarkable. Normal ventricular caliber for age. Plaza-white matter differentiation is preserved, without evidence of acute infarct. No abnormal extra- axial fluid collections. Mastoid air cells and visualized portions of the paranasal sinuses are clear. No acute bony findings. IMPRESSION: No evidence of an acute intracranial process.
--- NOTE | 2023-08-28 17:58 | ER ---
Nurse's Notes [facility] Name: Colette Ball Age: 32 yrs Sex: Female : 1990 Arrival Date: 08/28/2023 Time: 16:20 Bed 11 Private MD: Adam Noguera Diagnosis: Migraine without aura, not intractable Presentation: 08/28 16:23 Chief complaint: Patient states: MIGRAINE X 1 WEEK. WENT TO [facility] WAS GIVEN TRAMADOL AND db FLUIDS. FEELS DIZZY AND HAS "SHAKES. TOOK EXCEDRIN MIGRAINE AT 1300 TODAY. 16:23 Method Of Arrival: Ambulatory db 16:23 Acuity: MARANDA 3 db 16:28 Coronavirus screen: Vaccine status: Patient reports receiving the 2nd dose of the covid db vaccine. Client denies travel out of the [place] in the last 14 days. At this time, the client does not indicate any symptoms associated with coronavirus-19. Ebola Screen: Patient negative for fever greater than or equal to 101.5 degrees Fahrenheit, and additional compatible Ebola Virus Disease symptoms Patient denies exposure to infectious person. Patient denies travel to an Ebola-affected area in the 21 days before illness onset. No symptoms or risks identified at this time. 16:28 Initial Sepsis Screen: Does the patient meet any 2 criteria? No. Patient's initial db sepsis screen is negative. Does the patient have a suspected source of infection? No. Patient's initial sepsis screen is negative. Risk Assessment: Do you want to hurt yourself or someone else? Patient reports no desire to harm self or others. Onset of symptoms was August 21, 2023. Triage Assessment: 16:28 General: Appears in no apparent distress. uncomfortable, Behavior is calm, cooperative. db Pain: Complains of pain in head. Neuro: Level of Consciousness is awake, alert, obeys commands, Oriented to person, place, time, situation, Speech is normal. Respiratory: Airway is patent Respiratory effort is even, unlabored, Respiratory pattern is regular, symmetrical. 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 - Social history:: Smoking status: Patient denies any tobacco usage or history of. Screenin:35 [facility] ED Fall Risk Assessment (Adult) History of falling in the last 3 months, rs5 including since admission No falls in past 3 months (0 pts) Confusion or Disorientation No (0 pts) Intoxicated or Sedated No (0 pts) Impaired Gait No (0 pts) Mobility Assist Device Used No (0 pt) Altered Elimination No (0 pt) Score/Fall Risk Level 0 - 2 = Low Risk Oriented to surroundings, Maintained a safe environment. 16:35 Abuse screen: Denies threats or abuse. Nutritional screening: No deficits noted. rs5 Tuberculosis screening: No symptoms or risk factors identified. Assessment: 16:31 General: Appears in no apparent distress. uncomfortable, Behavior is calm, cooperative. rs5 Pain: Complains of pain in head Pain does not radiate. Pain currently is 8 out of 10 on a pain scale. Quality of pain is described as aching, Pain began one week ago Is continuous. Neuro: Level of Consciousness is awake, alert, obeys commands, Oriented to person, place, time, situation, Facial symmetry appears normal, Pupils are PERRLA, Pupil Size: 3 mm Denies blurred vision dizziness. Cardiovascular: Patient's skin is warm and dry. Rhythm is regular. Respiratory: Respiratory effort is even, unlabored, Respiratory pattern is regular, symmetrical. GI: Abdomen is round non-distended, Abd is soft and non tender X 4 quads. Reports nausea. : No deficits noted. EENT: No deficits noted. Derm: Skin is intact, Skin is dry, Skin is normal, Skin temperature is warm. Musculoskeletal: Circulation, motion, and sensation intact. Range of motion: intact in all extremities. 17:10 Reassessment: Patient and/or family updated on plan of care and expected duration. Pain rs5 level reassessed. Patient is alert, oriented x 3, equal unlabored respirations, skin warm/dry/pink. Patient states feeling better. Patient states symptoms have improved. 17:10 Pain: Complains of pain in head Pain does not radiate. Pain currently is 3 out of 10 on rs5 a pain scale. Quality of pain is described as aching, Is continuous. Neuro: Level of Consciousness is awake, alert, obeys commands, Oriented to person, place, time, situation, Facial symmetry appears normal. Vital Signs: 16:26 BP 116 / 87; Pulse 94; Resp 18; Temp 99.9; Pulse Ox 100% ; Weight 63.5 kg; Height 5 ft. db 2 in. ; 16:28 BP 116 / 87; Pulse 92; Pulse Ox 99% ; db 17:50 BP 120 / 85; Pulse 80; Resp 18; Pulse Ox 99% on R/A; rs5 16:26 Body Mass Index 25.61 (63.50 kg, 157.48 cm) db ED Course: 16:21 Patient arrived in ED. rg4 16:21 Adam Noguera DO is Private Physician. rg4 16:22 Femi Marcelino DO is Attending Physician. ms3 16:24 Triage completed. db 16:26 Arm band placed on Patient placed in an exam room. db 16:35 Patient has correct armband on for positive identification. Bed in low position. Call rs5 light in reach. Side rails up X2. 16:35 Inserted saline lock: 20 gauge in right antecubital area, using aseptic technique. rs5 Blood collected. 16:[address], RN is Primary Nurse. rs5 16:54 No provider procedures requiring assistance completed. rs5 17:00 CT Head Brain wo Cont In Process Unspecified. EDMS 17:57 Adam Noguera DO is Referral Physician. ms3 17:57 Praveen Collazo MD is Referral Physician. ms3 18:00 IV discontinued, intact, bleeding controlled, No redness/swelling at site. Pressure rs5 dressing applied. Administered Medications: 16:45 Drug: metoCLOPramide IVP 10 mg IVP once; over 1 to 2 minutes Route: IVP; Site: right rs5 antecubital; 17:10 Follow up: Response: No adverse reaction; Nausea is decreased rs5 16:45 Drug: diphenhydrAMINE IVP 25 mg IVP once Route: IVP; Site: right antecubital; rs5 17:10 Follow up: Response: No adverse reaction rs5 16:45 Drug: Ketorolac IVP 10 mg 10 mg IVP once Route: IVP; Site: right antecubital; rs5 17:10 Follow up: Response: No adverse reaction; Pain is decreased rs5 16:45 Drug: Decadron - Dexamethasone IVP 10 mg IVP once Route: IVP; Site: right antecubital; rs5 17:10 Follow up: Response: No adverse reaction; Pain is decreased rs5 16:45 Drug: NS 0.9% IV 1000 ml IV at 1 bolus Per protocol; 1000 mL bolus Route: IV; Rate: 1 rs5 bolus; Site: right antecubital; 17:10 Follow up: Response: No adverse reaction rs5 Medication: 16:54 VIS not applicable for this client. rs5 Outcome: 17:57 Discharge ordered by MD. ms3 18:00 Discharged to home ambulatory, rs5 18:00 Condition: stable rs5 18:00 Discharge instructions given to patient, Instructed on discharge instructions, follow up and referral plans. Demonstrated understanding of instructions, follow-up care, 18:09 Patient left the ED. rs5 Signatures: Dispatcher [employer] Adriana Pierce rg4 Femi Marcelino DO DO ms3 Shy Harrison RN RN db Reyes [address] RN RN rs5
--- NOTE | 2023-08-28 17:58 | EDPHYS ---
Physician Documentation [facility] Name: Colette Ball Age: 32 yrs Sex: Female : 1990 Arrival Date: 08/28/2023 Time: 16:20 Bed 11 Private MD: [facility] ED Physician Femi Marcelino HPI: 08/28 16:30 This 32 yrs old Black Female presents to ER via Ambulatory with complaints of Migraine. ms3 16:30 32-year-old female with past medical history of anxiety, borderline diabetes, migraines ms3 presents to the emergency department for migraine that began 1 week prior to arrival. Patient states she was seen at [facility] and given tramadol without relief of her symptoms. Patient followed up with her primary care physician Dr. Noguera today and was referred to the emergency department for a CT scan of her head. Patient rates her pain a 7/10. Patient states she has taken Excedrin Migraine without relief of her symptoms. Patient describes her pain as being dull and worse with light and noise. 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 - Social history:: Smoking status: Patient denies any tobacco usage or history of. ROS: 16:30 Constitutional: Negative for fever, and chills. Neck: Negative for injury, pain, and ms3 swelling, Cardiovascular: Negative for chest pain, and palpitations. Respiratory: Negative for shortness of breath, cough, wheezing, and pleuritic chest pain, Abdomen/GI: Negative for abdominal pain, nausea, vomiting, diarrhea, and constipation, MS/Extremity: Negative for injury and deformity, Skin: Negative for injury, rash, and discoloration, 16:30 Neuro: Positive for headache, 16:30 All other systems are negative, Exam: 16:30 Constitutional: This is a well developed, well nourished patient who is awake, alert, ms3 and in no acute distress. Head/Face: Normocephalic, atraumatic. Neck: Trachea midline, no cervical lymphadenopathy. Supple, full range of motion without nuchal rigidity, or vertebral point tenderness. No Meningismus. Chest/axilla: Normal chest wall appearance and motion. Nontender with no deformity. Cardiovascular: Regular rate and rhythm with a normal S1 and S2. No gallops, murmurs, or rubs. Normal PMI, no JVD. No pulse deficits. Respiratory: Lungs have equal breath sounds bilaterally, clear to auscultation and percussion. No rales, rhonchi or wheezes noted. No increased work of breathing, no retractions or nasal flaring. Abdomen/GI: Soft, non-tender, with normal bowel sounds. No distension or tympany. No guarding or rebound. No evidence of tenderness throughout. Skin: Warm, dry with normal turgor. Normal color with no rashes, no lesions, and no evidence of cellulitis. MS/ Extremity: Pulses equal, no cyanosis. Neurovascular intact. Full, normal range of motion. 16:30 Neuro: Orientation: is normal, to person, place, time \T\ situation. Mentation: is normal, Memory: is normal, Cranial nerves: grossly normal, CN I not tested, CN II- XII are normal as tested, Cerebellar function: is grossly normal, normal finger to nose testing, Motor: is normal, Sensation: is normal, no obvious gross deficits, Gait: is steady, at a normal pace, Vital Signs: 16:26 BP 116 / 87; Pulse 94; Resp 18; Temp 99.9; Pulse Ox 100% ; Weight 63.5 kg; Height 5 ft. db 2 in. ; 16:28 BP 116 / 87; Pulse 92; Pulse Ox 99% ; db 17:50 BP 120 / 85; Pulse 80; Resp 18; Pulse Ox 99% on R/A; rs5 16:26 Body Mass Index 25.61 (63.50 kg, 157.48 cm) db MDM: 16:30 Differential diagnosis: intracerebral hemorrhage, migraine, neoplasm, subarachnoid ms3 bleed, tension headache. 16:52 Patient medically screened. ms3 17:55 Data reviewed: vital signs, nurses notes, radiologic studies, and as a result, I will ms3 discharge patient. I considered the following discharge prescriptions or medication management in the emergency department Medications were administered in the Emergency Department. See MAR. Independent interpretation of the following test(s) in the Emergency Department CT Scan: My interpretation is CT Head without contrast images reviewed does not reveal ICH. Counseling: I had a detailed discussion with the patient and/or guardian regarding the historical points, exam findings, and any diagnostic results supporting the discharge/admit diagnosis, radiology results, the need for outpatient follow up, to return to the emergency department if symptoms worsen or persist or if there are any questions or concerns that arise at home. Response to treatment: the patient's symptoms have markedly improved after treatment, and as a result, I will discharge patient. ED course: On reevaluation patient improved, alert and orient x 4, in no apparent distress, nontoxic-appearing, ambulatory in the emergency department, speaking full sentences. Patient to follow-up with Dr. Noguera and Dr. Collazo in 2 to 3 days. Patient understands and agrees with plan. All questions were answered. Return precautions discussed include worsening symptoms, or any other concerns. 08/28 16:29 Order name: CT Head Brain wo Cont; Complete Time: 17:52 ms3 Administered Medications: 16:45 Drug: metoCLOPramide IVP 10 mg IVP once; over 1 to 2 minutes Route: IVP; Site: right rs5 antecubital; 17:10 Follow up: Response: No adverse reaction; Nausea is decreased rs5 16:45 Drug: diphenhydrAMINE IVP 25 mg IVP once Route: IVP; Site: right antecubital; rs5 17:10 Follow up: Response: No adverse reaction rs5 16:45 Drug: Ketorolac IVP 10 mg 10 mg IVP once Route: IVP; Site: right antecubital; rs5 17:10 Follow up: Response: No adverse reaction; Pain is decreased rs5 16:45 Drug: Decadron - Dexamethasone IVP 10 mg IVP once Route: IVP; Site: right antecubital; rs5 17:10 Follow up: Response: No adverse reaction; Pain is decreased rs5 16:45 Drug: NS 0.9% IV 1000 ml IV at 1 bolus Per protocol; 1000 mL bolus Route: IV; Rate: 1 rs5 bolus; Site: right antecubital; 17:10 Follow up: Response: No adverse reaction rs5 Disposition Summary: 08/28/23 17:57 Discharge Ordered Notes: Location: Home ms3 Condition: Stable ms3 Diagnosis - Migraine without aura, not intractable ms3 Followup: ms3 - With: Adam Noguera DO - When: 2 - 3 days - Reason: Recheck today's complaints Followup: ms3 - With: Praveen Collazo MD - When: 2 - 3 days - Reason: Recheck today's complaints Discharge Instructions: - Discharge Summary Sheet ms3 - Migraine Headache ms3 Forms: - Medication Reconciliation Form ms3 - Thank You Letter ms3 - Antibiotic Education ms3 - Prescription Opioid Use ms3 - Patient Portal Instructions ms3 - Leadership Thank You Letter ms3 Signatures: Dispatcher [employer] EDFemi Lyons DO DO ms3 Shy Harrison, RN RN db Reyes [address] RN RN rs5
[2023-08-28 20:08] VITALS: BP 116/87; TEMP 99.9; O2SAT 99
== END ==
LOC: ER 16:20
DX: G43.009 Migraine without aura, not intractable, without status migrainosus (principal)
CPT/HCPCS: 70450; J1100; J1200; J2765; J7030